=== PATIENT | female | born 1965 | race Caucasian/White ===

== ENCOUNTER → 2016-07-06 | Outpatient (CLI) | payer OTHER ==
[~2016-07-06] MED LIST: ACET-1256 PO; ACYC-251 PO; ADVIN50/60 INH; ALBINS INH; ALBUAER2 INH; ATV/1 PO; ATV1 PO; BENZ1CAP90 PO; BND25 PO; CLAR500T3 PO; CRFL; CZR50 PO; DIPH25CA PO; DIPH25CA37 PO; DIPH25CA65 PO; DXM/4 PO; EPP3/2 IM; FLUC100T4 PO; FLUC10SU PO; FLUC150T54 PO; FOLIC ACID PO; FURO-85 PO; HYDR-4079 PO; HYDR-5688 PO; HYDR2TAB48 PO; IBUP-1050 PO; INSDGIPEN SC; INSU-698 SC; IPRASOL4 INH; KETO0.0216 OP; KFL500 PO; LCTX PO; LEVO125T4 PO; LEVO137T3 PO; LEVO1TAB35 PO; LOSA50TA6 PO; LSX40 PO; MAGIC1 PO; METH4PAK PO; MONT1TAB3 PO; NVLGIPEN SQ; ONDA-63 PO; OXGN; PRD20 PO; PROM25TA16 PO; RABE20TA5 PO; SERT1TAB71 PO; SUCR1TAB PO; SYN150 PO; VNTHFA/IN INH; ZOLP10TA6 PO; [UNRECOGNIZED DRUG - CODE] OPB; [UNRECOGNIZED DRUG - OTHER] OPB
--- NOTE | 2016-07-06 15:24 | DIAGNOSTIC IMAGING REPORT ---
CT ABD/PELVIS IV AND ORAL CONT CLINICAL HISTORY: LUNG CA COMPARISON STUDY: 04/05/2016 TECHNIQUE: Following the IV administration of 116 mL of Optiray-320, CT scan of the abdomen and pelvis was performed from the lung bases to the proximal femurs. Images are reviewed in the axial, sagittal, and coronal planes. IV contrast was administered without complication. CT DOSE: 2382.72 mGy.cm FINDINGS: Lower chest: There is a small left pleural effusion. There is left lower lobe atelectasis/consolidation. There is suspected mild mediastinal adenopathy. Liver: There is hepatic steatosis. No focal masses are visualized. Gallbladder: Surgically absent Spleen: The spleen is enlarged measuring 20 cm. Pancreas: Unremarkable. Adrenal glands: Unremarkable. Kidneys: There is symmetric renal cortical enhancement. The kidneys are normal in size without hydronephrosis. Bowel: There are no transition zones indicate bowel obstruction. There is no acute diverticulitis. There is no evidence of acute appendicitis. Peritoneum: There is no intraperitoneal free air or abdominal ascites. There is a small fat-containing supraumbilical hernia Vasculature: The abdominal aorta is normal in course and caliber. Adenopathy: Aortocaval lymph nodes are the upper limits of normal in size. Mildly prominent iliac and inguinal lymph nodes, remain unchanged. Pelvic viscera: There is a persistent right ovarian cyst probably measuring 33 mm. A small left ovarian follicle is visualized. Skeletal structures: No destructive osseous lesions are seen. IMPRESSION: 1. Hepatic steatosis 2. Hepatosplenomegaly. The spleen measuring 20 cm. 3. Surgically absent gallbladder 4. No evidence of bowel obstruction. No evidence of free air 5. Small fat-containing supraumbilical hernia 6. Elevation left hemidiaphragm 7. Small left pleural effusion with left lower lobe atelectasis/consolidation 8. Mildly prominent aortocaval iliac and inguinal lymph nodes, unchanged the prior study 9. 33 mm right ovarian cyst Electronically signed by: Raul Ortiz M.D. 07/06/2016 3:22 PM Dictated Date/Time: 07/06/2016 3:15 PM
--- NOTE | 2016-07-06 15:36 | DIAGNOSTIC IMAGING REPORT ---
ADDENDUM Addendum: The right subcarinal lymph node compared to the 08/29/2015 PET/CT remains stable. This did not demonstrate abnormal FDG uptake at that time. Therefore, this is considered indeterminate and could be reactive. Electronically signed by: Garcia Rios M.D. 07/26/2016 3:14 PM Dictated Date/Time: 07/26/2016 3:11 PM ORIGINAL REPORT CHEST CT WITH CONTRAST CT DOSE: HISTORY: Lung cancer. TECHNIQUE: Multiaxial CT images of the chest were performed following the intravenous administration of contrast. COMPARISON: Chest CT 04/02/2016. FINDINGS: No pneumothorax. Trace left pleural effusion. Patient is status post right wedge resection of the left upper lobe anterior/apical nodule. There is been interval development of left hilar lymphadenopathy. Dominant left hilar lymph node measures 12 mm in short axis diameter. The mediastinal lymph nodes have also slightly increased in size. A prevascular lymph node measures 1 cm, previously measuring 7 mm. Dominant right peritracheal lymph node measures 1.6 cm, previously measuring 1.2 cm. Right subcarinal lymph node measures 11 mm, previously measuring 8 mm. The main pulmonary arteries are patent. Normal caliber thoracic aorta. Stable axillary lymph nodes. Linear soft tissue density within the left lateral chest wall likely represents postoperative change. No suspicious lytic or blastic osseous lesions. Mild emphysema. A 6 mm right upper lobe anterior subpleural nodular density. This is new from the prior study. Right basilar linear densities favor subsegmental atelectasis. Patchy densities at the base of the left lung. Stable 6 mm nodule within the left lower lobe on image 144. A 9 mm nodular density at the left major fissure on image 103 may represent trace pleural fluid. Stable 5 mm groundglass nodule within the left upper lobe on image 101. IMPRESSION: 1. Interval wedge resection of the left upper lobe nodule. 2. There is now mild mediastinal and left hilar lymphadenopathy which is new from the prior study. This could be reactive to the postoperative change or represent developing metastatic disease. Short-term chest CT follow up is recommended for further evaluation. 3. Trace left pleural effusion. Patchy densities at the base of the left lower lobe may represent atelectasis or pneumonia. 4. A new 6 mm nodular density within the right upper lobe anteriorly likely represents a small amount of infectious/inflammatory change. A 9 mm nodular density at the left major fissure favors a small amount of residual pleural fluid. These bear watching on future examinations to ensure resolution. 5. Stable subcentimeter nodules within the left lung as described above. Electronically signed by: Garcia Rios M.D. 07/06/2016 3:34 PM Dictated Date/Time: 07/06/2016 3:15 PM
== END | disposition home or self-care (01) ==
LOC: C.CTS 14:40
PROVIDERS: ATTEND Internal Medicine Hematology & Oncology
DX: C34.12 Malignant neoplasm of upper lobe, left bronchus or lung (principal)

== ENCOUNTER → 2016-07-18 | Outpatient (CLI) | payer OTHER ==
[2016-07-18 17:26] LABS: HEMATOCRIT 40.1 % (37-47); IG% 0.3 %; LYMPH % 17.7 %; LYMPH ABS # 1.04 K/uL (1.2-3.4); MEAN PLATELET VOLUME 10.3 fL (7.4-10.4); MONO % 5.4 %; NEUT % 76.6 %; PLATELET COUNT 153 K/uL (130-400); RED BLOOD COUNT 5.21 M/uL (4.2-5.4); WHITE BLOOD COUNT 5.89 K/uL (4.8-10.8)
[2016-07-18 17:43] LABS: COMPLETE YES; MEAN CORPUSCULAR HGB CONC 31.2 g/dl (32-36)
[2016-07-18 18:16] LABS: BLOOD UREA NITROGEN 23 mg/dl (7-18); BUN/CREATININE RATIO 18.8 (10-20); CARBON DIOXIDE 31 mmol/L (21-32); CHLORIDE 99 mmol/L (98-107); GLUCOSE 166 mg/dl (70-99); POTASSIUM 3.2 mmol/L (3.5-5.1); SODIUM 140 mmol/L (136-145)
== END | disposition home or self-care (01) ==
LOC: C.LAB 16:41
PROVIDERS: ATTEND Internal Medicine Hematology & Oncology
DX: C34.92 Malignant neoplasm of unspecified part of left bronchus or lung (principal); R19.5 Other fecal abnormalities

== ENCOUNTER 2016-07-20 11:59 | Emergency (ER) | payer OTHER ==
[~2016-07-20] VITALS: Ht 166.4 cm; Wt 115.9 kg
[~2016-07-20 11:59] MED LIST changes: -ACET-1256 PO; -ACYC-251 PO; -ADVIN50/60 INH; -ATV/1 PO; -ATV1 PO; -BENZ1CAP90 PO; -BND25 PO; -CRFL; -CZR50 PO; -DIPH25CA PO; -DIPH25CA65 PO; -DXM/4 PO; -EPP3/2 IM; -FLUC100T4 PO; -FLUC10SU PO; -FLUC150T54 PO; -FOLIC ACID PO; -HYDR-4079 PO; -HYDR-5688 PO; -HYDR2TAB48 PO; -IBUP-1050 PO; -INSDGIPEN SC; -INSU-698 SC; -KETO0.0216 OP; -KFL500 PO; -LCTX PO; -LEVO125T4 PO; -LEVO137T3 PO; -LEVO1TAB35 PO; -LSX40 PO; -MAGIC1 PO; -METH4PAK PO; -MONT1TAB3 PO; -NVLGIPEN SQ; -ONDA-63 PO; -OXGN; -PRD20 PO; -PROM25TA16 PO; -RABE20TA5 PO; -SERT1TAB71 PO; -SUCR1TAB PO; -SYN150 PO; -VNTHFA/IN INH; -ZOLP10TA6 PO; -[UNRECOGNIZED DRUG - CODE] OPB; -[UNRECOGNIZED DRUG - OTHER] OPB
[2016-07-20 12:08] VITALS: TEMP 36.9; Ht 166.4 cm; Wt 115.9 kg
[2016-07-20 12:32] VITALS: O2SAT 96
[2016-07-20] MEDS ORDERED: ONDA-63 PO (12:48)
[2016-07-20] MEDS ORDERED: PROM25TA16 PO (12:48)
[2016-07-20] MEDS ORDERED: SODIUM CHLORIDE 0.9% 1000ML 1,000 ML IV STA (13:03)
[2016-07-20] MEDS ORDERED: SODIUM CHLORIDE 0.9% 250ML 250 ML IV STA (13:03)
--- NOTE | 2016-07-20 13:12 | EMERGENCY ROOM VISIT NOTE ---
History Report prepared by Hosea: Maggie Culp Under the Supervision of: Dr. Christine Deluca M.D. First contact with patient: 12:42 Chief Complaint: NEURO SYMPTOMS Stated Complaint: ALLERGIC REACTION TO CHEMO - SENT BY DR Duval Triage Summary: PT HAS A HISTORY OF STAGE III LUNG CANCER AND IS CURRENTLY RECEIVING CHEMOTHERAPY AND RADIATION PT SENT TODAY BY ONCOLOGIST DR PATIÑO FOR 2-3 DAYS OF STROKE LIKE SYMPTOMS PT DESCRIBES LEFT SIDED FACIAL NUMBNESS, PAINFUL, AND TINGLING BUT DENIES SYMPTOMS CURRENTLY PT ALSO STATES THAT LEFT LEG FEELS WEAKER PLEASE REFER TO [facility] History of Present Illness The patient is a 50 year old female who presents to the Emergency Room with complaints of a resolved episode of left sided facial, neck and shoulder numbness a few days ago. The patient is currently undergoing treatment for lung cancer. She has had surgery, multiple doses of radiation, and one dose of chemotherapy. Since she had chemotherapy, she had been having bad reactions. The patient has noticed a rash on her abdomen and has had flaking in her mouth, "it feels like a snake shedding it's skin." A few days ago, she was feeling tired so she laid down to rest. About an hour later when she got up, she noticed the numbness to the left side of her face, neck, and arm. These symptoms lasted a few hours before resolving. This morning, the patient had an appointment and blood work in Dr. Patiño's office. After telling the PA at Dr. Patiño's office about her symptoms since receiving chemo, she was referred to the ER. Currently, she does note that the left side of her face feels slightly "weird," but it is not numb. The patient notes that she has been using Benadryl and Magic Swizzle. Source of History: patient Onset: a few days ago Position: other (left side of face/neck, left arm) Quality: numbness Timing: resolved Associated Symptoms: + rash Note: Other symptoms: flaking in mouth, left side of face feels "weird" Review of Systems See HPI for pertinent positives & negatives. A total of 10 systems reviewed and were otherwise negative. Past Medical & Surgical Medical Problems: (1) Anxiety (2) Asthma (3) Benign hypertension (4) Bronchitis (5) Chronic back pain (6) COPD (7) Depression (8) Emphysema (9) Lung cancer (10) Orthopedic surgery (11) Pneumonia (12) Pulmonary emphysema Surgical Problems: (1) H/O section (2) History of appendectomy (3) History of cholecystectomy Family History Abdominal pain FHx: cancer FHx: diabetes FHx: gallbladder disease FHx: heart disease FHx: hypertension FHx: lung disease Social History Smoking Status: Former Smoker Alcohol Use: none Drug Use: marijuana Marital Status: Housing Status: lives alone Occupation Status: disabled Current/Historical Medications Scheduled Diphenhy/Alum/Mag/Sucralfa (Magic Swizzle - Diphenhy/Alum/Mag/Sucralfa), 1 TSP PO Q4H Diphenhydramine Hcl (Benadryl), 50 MG PO HS Fluconazole (Diflucan), 1 ML PO BID Fluticasone Prop/Salmeterol (Advair Diskus 500/50 60 Dose), 1 PUFF INH BID Ibuprofen (Advil), 600 MG PO Q4-6hprn Levothyroxine Sodium (Levothyroxine Sodium), 125 MCG PO QAM Montelukast Sodium (Singulair), 10 MG PO HS Sertraline Hcl (Zoloft), 50 MG PO HS Scheduled PRN Albuterol (Ventolin), 2 PUFFS INH QID PRN for SOB/Wheezing Epinephrine (Epipen 2-Saad), 0.3 MG IM UD PRN for ALLERGIC REACTION Furosemide (Lasix), 20 MG PO UD PRN for PRN Ipratropium-Albuterol (Duoneb), 1 TREATMENT INH Q4H PRN for SOB/Wheezing Lorazepam (Ativan), 1 MG PO TID PRN for Anxiety Ondansetron (Ondansetron HCl), 8 MG PO TID PRN for Nausea Promethazine HCl (Promethazine HCl), 12.5 MG PO Q6 PRN for Nausea Miscellaneous Medications Propylene Glycol-Glycerin (Moisture Eyes) Allergies Coded Allergies: BEE STING (Verified Allergy, Severe, ANAPHYLAXIS, 07/20/16) Fentanyl (Verified Allergy, Severe, EYES SWELLED SHUT, 07/20/16) Milk Protein Extract (Unverified Allergy, Severe, blurred vision rash face hallucinations, 07/20/16) Adhesives (Verified Allergy, Unknown, blisters, 07/20/16) [place] (Unverified Allergy, Unknown, MOUTH ITCHES, SKIN PEELS, 07/20/16) Honey (Verified Allergy, Unknown, anaphylaxis, 07/20/16) pt Latex1 -Allergic Contact Dermititis (Verified Allergy, Unknown, LOCAL RXN- BLISTERING, 07/20/16) Metformin (Unverified Allergy, Unknown, PER RECORDS , 07/20/16) [place] (Verified Allergy, Unknown, SKIN PEELS, 07/20/16) [place] (Verified Allergy, Unknown, MUST BE PEELED, 07/20/16) Penicillins (Verified Allergy, Unknown, 07/20/16) Tiotropium (Verified Allergy, Unknown, UNKNOWN REACTION, 07/20/16) Buspirone (Verified Adverse Reaction, Mild, ALLERGIC TO GENERIC DRUG- TAKES BRAND AT HOME, 07/20/16) CI Pigment Blue 63 (Verified Adverse Reaction, Unknown, lethargy, hallucinations, 07/20/16) pt Duloxetine (Verified Adverse Reaction, Unknown, lethargy,hallucinations, ) pt Physical Exam Vital Signs Date Time Temp Pulse Resp B/P Pulse Ox O2 Delivery O2 Flow Rate FiO2 07/20/16 15:24 100 18 155/86 80 Room Air 07/20/16 13:57 90 20 118/89 96 Nasal Cannula 2.0 07/20/16 12:45 91 20 114/79 96 Nasal Cannula 2.0 07/20/16 12:32 96 Nasal Cannula 2.0 07/20/16 12:27 87 Room Air 07/20/16 12:25 97 07/20/16 12:08 36.9 89 24 141/111 90 Room Air Pain Rating (0-10): 8.0 Physical Exam Vital signs reviewed. General: Chronically ill-appearing 50 year old female, on nasal canula oxygen, in no significant distress. HEENT: No scleral icterus, PERRLA, neck supple. Atraumatic. Cardiovascular: Regular rate and rhythm, no extra sounds. Pulmonary: Coarse breath sounds to auscultation bilaterally, normal work of breathing. Abdomen: Obese, oft, nontender, nondistended, positive bowel sounds. Musculoskeletal: Atraumatic, no peripheral edema. Neurologic: Patient awake alert and oriented x 3, full strength in all 4 extremities. Cranial nerves 2 through 12 grossly intact. Skin: Warm, dry, no rash Medical Decision & Procedures ER Provider Diagnostic Interpretation: X-ray results as stated below per my interpretation and radiologist interpretation. Other radiology results as stated below per my review and radiologist interpretation: HEAD CT NONCONTRAST CT DOSE: 537.48 mGy.cm HISTORY: Stroke symptoms. Lung cancer. TECHNIQUE: Multiaxial CT images of the head were performed without the use of intravenous contrast. Automated exposure control was utilized for this study. Comparison: Head CT 01/20/2016. Findings: The paranasal sinuses and mastoid air cells are clear. The calvarium and skull base are intact. The ventricles and sulci are within normal limits. There is no mass, hematoma, midline shift, or acute infarct. A few small scattered white matter hypodensities within the periventricular location persists. The stability favors microvascular ischemic change. Impression: No significant change compared to the prior study. No acute intracranial abnormality. Electronically signed by: Garcia Rios M.D. 07/20/2016 1:52 PM Dictated Date/Time: 07/20/2016 1:47 PM CHEST ONE VIEW PORTABLE CLINICAL HISTORY: Cough. Cerebrovascular accident symptoms. Lung cancer. COMPARISON STUDY: Chest CT July 06, 2016. FINDINGS: Postsurgical findings within the left lung are noted with expected volume loss. There is no pneumothorax or pleural effusion. Mild left lower lung opacity favors atelectasis. Postsurgical findings within the left upper lobe are noted. Cardiomediastinal silhouette is stable. There is no evidence of pulmonary edema. IMPRESSION: 1. Stable postoperative findings within the left lung with suspected left basilar atelectasis. 2. No change in appearance of the chest. Electronically signed by: Siddharth Martinez M.D. 07/20/2016 2:39 PM Dictated Date/Time: 07/20/2016 2:37 PM Laboratory Results 07/20/16 13:24 Red Blood Count 4.87, Mean Corpuscular Volume 77.4, Mean Corpuscular Hemoglobin 24.0, Mean Corpuscular Hemoglobin Concent 31.0, Mean Platelet Volume 10.0, Neutrophils (%) (Auto) 62.4, Lymphocytes (%) (Auto) 26.4, Monocytes (%) (Auto) 10.9, Eosinophils (%) (Auto) 0.0, Basophils (%) (Auto) 0.0, Neutrophils # (Auto ) 2.30, Lymphocytes # (Auto) 0.97, Monocytes # (Auto) 0.40, Eosinophils # (Auto ) 0.00, Basophils # (Auto) 0.00 07/20/16 13:24 Test 07/20/16 13:24 White Blood Count 3.68 K/uL (4.8-10.8) Red Blood Count 4.87 M/uL (4.2-5.4) Hemoglobin 11.7 g/dL (12.0-16.0) Hematocrit 37.7 % (37-47) Mean Corpuscular Volume 77.4 fL (80-100) Mean Corpuscular Hemoglobin 24.0 pg (25-34) Mean Corpuscular Hemoglobin Concent 31.0 g/dl (32-36) Platelet Count 124 K/uL (130-400) Mean Platelet Volume 10.0 fL (7.4-10.4) Neutrophils (%) (Auto) 62.4 % Lymphocytes (%) (Auto) 26.4 % Monocytes (%) (Auto) 10.9 % Eosinophils (%) (Auto) 0.0 % Basophils (%) (Auto) 0.0 % Neutrophils # (Auto) 2.30 K/uL (1.4-6.5) Lymphocytes # (Auto) 0.97 K/uL (1.2-3.4) Monocytes # (Auto) 0.40 K/uL (0.11-0.59) Eosinophils # (Auto) 0.00 K/uL (0-0.5) Basophils # (Auto) 0.00 K/uL (0-0.2) RDW Standard Deviation 49.7 fL (36.4-46.3) RDW Coefficient of Variation 17.5 % (11.5-14.5) Immature Granulocyte % (Auto) 0.3 % Immature Granulocyte # (Auto) 0.01 K/uL (0.00-0.02) Prothrombin Time 11.2 SECONDS (9.0-12.0) Prothromb Time International Ratio 1.0 (0.9-1.1) Activated Partial Thromboplast Time 25.2 SECONDS (21.0-31.0) Partial Thromboplastin Ratio 1.0 Anion Gap 11.0 mmol/L (3-11) Est Creatinine Clear Calc Drug Dose 90.1 ml/min Estimated GFR () 79.1 Estimated GFR (Non- 68.2 BUN/Creatinine Ratio 11.7 (10-20) Calcium Level 9.3 mg/dl (8.5-10.1) Magnesium Level 1.8 mg/dl (1.8-2.4) Total Bilirubin 0.4 mg/dl (0.2-1) Direct Bilirubin 0.1 mg/dl (0-0.2) Aspartate Amino Transf (AST/SGOT) 31 U/L (15-37) Alanine Aminotransferase (ALT/SGPT) 36 U/L (12-78) Alkaline Phosphatase 127 U/L (45-117) Total Protein 7.2 gm/dl (6.4-8.2) Albumin 3.7 gm/dl (3.4-5.0) Laboratory results per my review. Medications Administered Medications (Trade) Dose Ordered Sig/Pravin Route Start Time Stop Time Status Last Admin Dose Admin Sodium Chloride 250 ml @ 999 mls/hr Q16M STAT IV 07/20/16 13:03 07/20/16 13:18 DC 07/20/16 13:21 999 MLS/HR Sodium Chloride (Nss 1000ml) 1,000 ml @ 125 mls/hr Q8H STAT IV 07/20/16 13:03 07/20/16 16:18 DC 07/20/16 13:21 125 MLS/HR ECG Indication: other (numbness) Rate (beats per minute): 80 Rhythm: normal sinus Findings: no acute ischemic change, prolonged QT, other (LVH, QTc 493) ED Course 1300: Past medical records reviewed. The patient was evaluated in room B11. A complete history and physical examination was performed. 1303: Ordered NSS 1000 ml @ 125 mls/hr IV, NSS 250 ml @ 999 mls/hr IV. 1445: Upon reevaluation, the patient was resting comfortably. I discussed findings with the patient. She verbalized agreement of the treatment plan. The patient was discharged home. Medical Decision Differential diagnosis: Etiologies such as metabolic, infection, hypo/hyperglycemia, electrolyte abnormalities, cardiac sources, intracerebral event, toxicologic, neurologic, as well as others were entertained. This patient was evaluated and appeared to be in no significant distress. IV access was obtained and laboratory work was drawn. The patient was placed on the secured entrance monitor and found to be in a normal sinus rhythm. She was hydrated with normal saline solution. Patient was on nasal cannula oxygen in no distress. Patient's neurologic exam is intact at this time. She does periodically become hypoxic on room air however does have oxygen at home. CT scan of the head was performed and is negative for acute intracranial abnormality. Chest x-ray reveals evidence of atelectasis however there is no area of infiltrate. The patient was reassured regarding the findings. She may have suffered a TIA. She will follow-up with her primary care physician this week for reevaluation and further testing. She will return to the ER for worsening of symptoms or any medical concerns. Impression Primary Impression: TIA (transient ischemic attack) Additional Impression: Lung cancer Scribe Attestation The scribe's documentation has been prepared under my direction and personally reviewed by me in its entirety. I confirm that the note above accurately reflects all work, treatment, procedures, and medical decision making performed by me. Departure Information Dispostion Home / Self-Care Referrals No Doctor, Assigned (PCP) Gabriella Ashraf, C.R.N.P. Patient Instructions My [facility] Additional Instructions Diagnosis: TIA Please follow-up with your primary care provider for further evaluation including ultrasound of the neck and MRI if needed. Return to the emergency department for worsening of symptoms or any medical concerns. Problem Qualifiers Primary Impression: TIA (transient ischemic attack) Transient cerebral ischemia type: unspecified Qualified Codes: G45.9 - Transient cerebral ischemic attack, unspecified Additional Impression: Lung cancer Laterality: unspecified laterality Lung location: unspecified part of lung Qualified Codes: C34.90 - Malignant neoplasm of unspecified part of unspecified bronchus or lung
[2016-07-20 13:31] LABS: COMPLETE YES; HEMATOCRIT 37.7 % (37-47); IG% 0.3 %; LYMPH % 26.4 %; LYMPH ABS # 0.97 K/uL (1.2-3.4); MEAN CELL VOLUME 77.4 fL (80-100); MONO % 10.9 %; NEUT % 62.4 %; PLATELET COUNT 124 K/uL (130-400); RED BLOOD COUNT 4.87 M/uL (4.2-5.4); WHITE BLOOD COUNT 3.68 K/uL (4.8-10.8)
[2016-07-20 13:53] LABS: BUN/CREATININE RATIO 11.7 (10-20); CALCIUM 9.3 mg/dl (8.5-10.1); CREATININE 0.98 mg/dl (0.60-1.20); MAGNESIUM 1.8 mg/dl (1.8-2.4); POTASSIUM 3.4 mmol/L (3.5-5.1)
--- NOTE | 2016-07-20 13:54 | DIAGNOSTIC IMAGING REPORT ---
HEAD CT NONCONTRAST CT DOSE: 537.48 mGy.cm HISTORY: Stroke symptoms. Lung cancer. TECHNIQUE: Multiaxial CT images of the head were performed without the use of intravenous contrast. Automated exposure control was utilized for this study. Comparison: Head CT 01/20/2016. Findings: The paranasal sinuses and mastoid air cells are clear. The calvarium and skull base are intact. The ventricles and sulci are within normal limits. There is no mass, hematoma, midline shift, or acute infarct. A few small scattered white matter hypodensities within the periventricular location persists. The stability favors microvascular ischemic change. Impression: No significant change compared to the prior study. No acute intracranial abnormality. Electronically signed by: Garcia Rios M.D. 07/20/2016 1:52 PM Dictated Date/Time: 07/20/2016 1:47 PM
[2016-07-20 14:19] LABS: PROTHROMBIN TIME (PATIENT) 11.2 SECONDS (9.0-12.0)
--- NOTE | 2016-07-20 14:41 | DIAGNOSTIC IMAGING REPORT ---
CHEST ONE VIEW PORTABLE CLINICAL HISTORY: Cough. Cerebrovascular accident symptoms. Lung cancer. COMPARISON STUDY: Chest CT July 06, 2016. FINDINGS: Postsurgical findings within the left lung are noted with expected volume loss. There is no pneumothorax or pleural effusion. Mild left lower lung opacity favors atelectasis. Postsurgical findings within the left upper lobe are noted. Cardiomediastinal silhouette is stable. There is no evidence of pulmonary edema. IMPRESSION: 1. Stable postoperative findings within the left lung with suspected left basilar atelectasis. 2. No change in appearance of the chest. Electronically signed by: Siddharth Martinez M.D. 07/20/2016 2:39 PM Dictated Date/Time: 07/20/2016 2:37 PM
[2016-07-20 15:24] VITALS: BP 155/86; PULSE 100; O2SAT 80
[2016-07-23] MEDS ORDERED: [UNRECOGNIZED DRUG - CODE] OPB (14:12)
[2016-07-23] MEDS ORDERED: MAGIC1 PO (14:15)
[2016-07-23] MEDS ORDERED: FLUC10SU PO (14:17)
[2016-08-06] MEDS ORDERED: IBUP-1050 PO (10:25)
[2016-08-14] MEDS ORDERED: KETO0.0216 OP (17:06)
[2016-10-26] MEDS ORDERED: ACET-1256 PO (01:14)
[2016-10-26] MEDS ORDERED: LEVO125T4 PO (10:12)
[2016-10-26] MEDS ORDERED: RABE20TA5 PO (17:14)
[2016-10-26] MEDS ORDERED: ATV/1 PO (17:47)
[2016-10-26] MEDS ORDERED: MONT1TAB3 PO (17:47)
[2016-10-26] MEDS ORDERED: ADVIN50/60 INH (17:47)
[2016-10-26] MEDS ORDERED: EPP3/2 IM (17:47)
[2016-11-01] MEDS ORDERED: DXM/4 PO (11:25)
[2016-12-08] MEDS ORDERED: KFL500 PO (15:02)
[2016-12-08] MEDS ORDERED: INSDGIPEN SC (15:02)
[2016-12-08] MEDS ORDERED: HYDR-4079 PO (15:02)
[2016-12-08] MEDS ORDERED: FLUC150T54 PO (15:02)
[2016-12-08] MEDS ORDERED: LEVO137T3 PO (15:02)
[2016-12-08] MEDS ORDERED: RABE20TA5 PO (15:02)
[2016-12-08] MEDS ORDERED: INSU-698 SC (15:02)
[2016-12-08] MEDS ORDERED: LCTX PO (15:02)
[2016-12-08] MEDS ORDERED: SUCR1TAB PO (15:02)
[2017-02-16] MEDS ORDERED: INSDGIPEN SC (08:38)
[2017-02-16] MEDS ORDERED: PRD20 PO (08:38)
[2017-02-16] MEDS ORDERED: LEVO1TAB35 PO ×2 (08:38→08:54)
[2017-02-16] MEDS ORDERED: OXGN (08:38)
[2017-02-16] MEDS ORDERED: FLUC100T4 PO (08:54)
== END 2016-07-20 15:49 | disposition home or self-care (01) ==
LOC: C.EDB 12:01
DX: G45.9 Transient cerebral ischemic attack, unspecified (principal); C34.90 Malignant neoplasm of unspecified part of unspecified bronchus or lung; J45.909 Unspecified asthma, uncomplicated; F41.9 Anxiety disorder, unspecified; I10 Essential (primary) hypertension; J44.9 Chronic obstructive pulmonary disease, unspecified; F32.9 Major depressive disorder, single episode, unspecified; Z87.891 Personal history of nicotine dependence; Z80.9 Family history of malignant neoplasm, unspecified; Z82.49 Family history of ischemic heart disease and other diseases of the circulatory system; Z83.6 Family history of other diseases of the respiratory system; Z79.899 Other long term (current) drug therapy

== ENCOUNTER 2016-07-26 22:59 | Emergency (ER) | payer OTHER ==
[~2016-07-26] VITALS: Ht 166.4 cm; Wt 118.1 kg
[~2016-07-26 22:59] MED LIST changes: -CLAR500T3 PO; +FLUC10SU PO; -LOSA50TA6 PO; +MAGIC1 PO; +ONDA-63 PO; +PROM25TA16 PO; +[UNRECOGNIZED DRUG - CODE] OPB
[2016-07-26 23:05] VITALS: TEMP 36.5; Ht 166.4 cm; Wt 118.1 kg
[2016-07-26] MEDS ORDERED: ACYCLOVIR SOD INJ 750 MG in DEXTROSE 5% 250ML 250 ML IV ONE (23:45)
[2016-07-26] MEDS ORDERED: ACYCLOVIR SOD IV STA (23:45)
[2016-07-26] MEDS ORDERED: SODIUM CHLORIDE 0.9% 1000ML 1,000 ML IV ONE (23:45)
[2016-07-26] MEDS ORDERED: DEXTROSE 5% IV STA (23:45)
[2016-07-26] MEDS ORDERED: ACYCLOVIR SOD INJ 600 MG in DEXTROSE 5% 100ML 100 ML IV STA (23:47)
[2016-07-27 00:17] LABS: COMPLETE YES; HEMATOCRIT 32.4 % (37-47); LYMPH ABS # 0.55 K/uL (1.2-3.4); MEAN CELL VOLUME 79.4 fL (80-100); MEAN CORPUSCULAR HEMOGLOBIN 24.8 pg (25-34); MEAN CORPUSCULAR HGB CONC 31.2 g/dl (32-36); MEAN PLATELET VOLUME 9.4 fL (7.4-10.4); MONO % 8.7 %; NEUT % 72.3 %; PLATELET COUNT 145 K/uL (130-400); RED BLOOD COUNT 4.08 M/uL (4.2-5.4); WHITE BLOOD COUNT 2.89 K/uL (4.8-10.8)
[2016-07-27 00:38] LABS: BUN/CREATININE RATIO 14.1 (10-20); CALCIUM 9.3 mg/dl (8.5-10.1); CREATININE 0.83 mg/dl (0.60-1.20); POTASSIUM 3.5 mmol/L (3.5-5.1)
[2016-07-27] MEDS ORDERED: BENZ1CAP90 PO (01:02)
[2016-07-27] MEDS ORDERED: ACYC-251 PO (01:04)
[2016-07-27] MEDS ORDERED: FOLIC ACID PO (01:07)
[2016-07-27] MEDS ORDERED: DIPH25CA PO (01:10)
[2016-07-27] MEDS ORDERED: BACITRACIN OP OINT 3.5 GM TUBE OP ONE (01:45)
[2016-07-27 02:01] VITALS: BP 142/77; PULSE 88; O2SAT 95
--- NOTE | 2016-07-28 01:32 | EMERGENCY ROOM VISIT NOTE ---
History First contact with patient: 23:15 Chief Complaint: RASH Stated Complaint: SHINGLES History of Present Illness The patient is a 50 year old female who presents to the Emergency Room with complaints of rash on her face for the past few days. The patient went to her primary care physician and states that she was diagnosed with shingles 2 days ago. The patient now has worsening pain of her left eyelid. She does not have vision changes or hearing changes. The patient is currently undergoing radiation for breast cancer. She had chemotherapy about 10 days ago. The patient is taking acyclovir, but has not had relief of symptoms. She has an appointment in about 9 hours with an diversified crops supervisor. Review of Systems More than 10 systems were reviewed and otherwise negative with the exception of history of present illness. Past Medical/Surgical History Medical Problems: (1) Anxiety (2) Asthma (3) Benign hypertension (4) Bronchitis (5) Chronic back pain (6) COPD (7) Depression (8) Emphysema (9) Lung cancer (10) Orthopedic surgery (11) Pneumonia (12) Pulmonary emphysema Surgical Problems: (1) H/O section (2) History of appendectomy (3) History of cholecystectomy Family History Abdominal pain FHx: cancer FHx: diabetes FHx: gallbladder disease FHx: heart disease FHx: hypertension FHx: lung disease Social History Smoking Status: Former Smoker Alcohol Use: none Drug Use: marijuana Marital Status: Housing Status: lives alone Occupation Status: disabled Current/Historical Medications Scheduled Acyclovir (Zovirax), 400 MG PO TID Diphenhy/Alum/Mag/Sucralfa (Magic Swizzle - Diphenhy/Alum/Mag/Sucralfa), 1 TSP PO Q4H Diphenhydramine Hcl (Benadryl), 50 MG PO HS Fluticasone Prop/Salmeterol (Advair Diskus 500/50 60 Dose), 1 PUFF INH BID Ibuprofen (Advil), 600 MG PO Q4-6hprn Levothyroxine Sodium (Levothyroxine Sodium), 125 MCG PO QAM Montelukast Sodium (Singulair), 10 MG PO HS Sertraline Hcl (Zoloft), 50 MG PO HS [Folic Acid], 800 MCG PO DAILY Scheduled PRN Acetaminophen (Tylenol), 500 MG PO Q8 PRN for Pain Albuterol (Ventolin), 2 PUFFS INH QID PRN for SOB/Wheezing Benzonatate (Tessalon Perles), 200 MG PO TID PRN for Cough Epinephrine (Epipen 2-Saad), 0.3 MG IM UD PRN for ALLERGIC REACTION Ipratropium-Albuterol (Duoneb), 1 TREATMENT INH Q4H PRN for SOB/Wheezing Lorazepam (Ativan), 1 MG PO TID PRN for Anxiety Propylene Glycol-Glycerin (Moisture Eyes), 1 DROP OPB TID PRN for DRY EYES Allergies Coded Allergies: BEE STING (Verified Allergy, Severe, ANAPHYLAXIS, 07/20/16) Fentanyl (Verified Allergy, Severe, EYES SWELLED SHUT, 07/20/16) Milk Protein Extract (Unverified Allergy, Severe, blurred vision rash face hallucinations, 07/20/16) Adhesives (Verified Allergy, Unknown, blisters, 07/20/16) [place] (Unverified Allergy, Unknown, MOUTH ITCHES, SKIN PEELS, 07/20/16) Honey (Verified Allergy, Unknown, anaphylaxis, 07/20/16) pt Latex1 -Allergic Contact Dermititis (Verified Allergy, Unknown, LOCAL RXN- BLISTERING, 07/20/16) Metformin (Unverified Allergy, Unknown, PER RECORDS , 07/20/16) [place] (Verified Allergy, Unknown, SKIN PEELS, 07/20/16) [place] (Verified Allergy, Unknown, MUST BE PEELED, 07/20/16) Penicillins (Verified Allergy, Unknown, 07/20/16) Tiotropium (Verified Allergy, Unknown, UNKNOWN REACTION, 07/20/16) Buspirone (Verified Adverse Reaction, Mild, ALLERGIC TO GENERIC DRUG- TAKES BRAND AT HOME, 07/20/16) CI Pigment Blue 63 (Verified Adverse Reaction, Unknown, lethargy, hallucinations, 07/20/16) pt Duloxetine (Verified Adverse Reaction, Unknown, lethargy,hallucinations, ) pt Physical Exam Vital Signs Date Time Temp Pulse Resp B/P Pulse Ox O2 Delivery O2 Flow Rate FiO2 07/27/16 02:01 88 18 142/77 95 07/27/16 00:30 81 16 125/74 96 Room Air 07/26/16 23:05 36.5 85 20 186/109 97 Room Air Pain Rating (0-10): 0 Physical Exam VITALS: Vitals are noted on the nurse's note and reviewed by myself. Vital signs stable. GENERAL: Well-developed, well-nourished, white female, who is in no acute distress and resting comfortably. Patient is cooperative with the examination. HEAD: Normocephalic atraumatic. Slight rash along the chin and left-sided cheek concerning for shingles EARS: External ear normal. External auditory canals clear, tympanic membranes pearly lopez without erythema or effusion bilaterally. EYES: Pupils equal round and reactive to light and accommodation. Conjunctivae without injection, sclerae without icterus. Extraocular movements intact. The left upper eyelid is slightly edematous with small ulcerations appreciated. No foreign body appreciated on exam of the left eye. No dendritic lesions on flourescein exam NOSE: Patent, turbinates without inflammation or discharge. MOUTH: Mucous membranes moist. Tonsils are not enlarged. Pharynx without erythema, blood, or exudate. Uvula midline. Airway patent. NECK: Supple without nuchal rigidity. No lymphadenopathy. No thyromegaly. Cervical spine is nontender. HEART: Regular rate and rhythm without murmurs gallops or rubs. LUNGS: Clear to auscultation bilaterally without wheezes, rales or rhonchi. No retractions or accessory muscle use. Medical Decision & Procedures Laboratory Results 07/27/16 00:08 Red Blood Count 4.08, Mean Corpuscular Volume 79.4, Mean Corpuscular Hemoglobin 24.8, Mean Corpuscular Hemoglobin Concent 31.2, Mean Platelet Volume 9.4, Neutrophils (%) (Auto) 72.3, Lymphocytes (%) (Auto) 19.0, Monocytes (%) (Auto) 8.7, Eosinophils (%) (Auto) 0.0, Basophils (%) (Auto) 0.0, Neutrophils # (Auto) 2.09, Lymphocytes # (Auto) 0.55, Monocytes # (Auto) 0.25, Eosinophils # (Auto) 0.00, Basophils # (Auto) 0.00 07/27/16 00:08 Test 07/27/16 00:08 White Blood Count 2.89 K/uL (4.8-10.8) Red Blood Count 4.08 M/uL (4.2-5.4) Hemoglobin 10.1 g/dL (12.0-16.0) Hematocrit 32.4 % (37-47) Mean Corpuscular Volume 79.4 fL (80-100) Mean Corpuscular Hemoglobin 24.8 pg (25-34) Mean Corpuscular Hemoglobin Concent 31.2 g/dl (32-36) Platelet Count 145 K/uL (130-400) Mean Platelet Volume 9.4 fL (7.4-10.4) Neutrophils (%) (Auto) 72.3 % Lymphocytes (%) (Auto) 19.0 % Monocytes (%) (Auto) 8.7 % Eosinophils (%) (Auto) 0.0 % Basophils (%) (Auto) 0.0 % Neutrophils # (Auto) 2.09 K/uL (1.4-6.5) Lymphocytes # (Auto) 0.55 K/uL (1.2-3.4) Monocytes # (Auto) 0.25 K/uL (0.11-0.59) Eosinophils # (Auto) 0.00 K/uL (0-0.5) Basophils # (Auto) 0.00 K/uL (0-0.2) RDW Standard Deviation 51.8 fL (36.4-46.3) RDW Coefficient of Variation 18.8 % (11.5-14.5) Immature Granulocyte % (Auto) 0.0 % Immature Granulocyte # (Auto) 0.00 K/uL (0.00-0.02) Anion Gap 8.0 mmol/L (3-11) Est Creatinine Clear Calc Drug Dose 107.5 ml/min Estimated GFR () 96.6 Estimated GFR (Non- 83.4 BUN/Creatinine Ratio 14.1 (10-20) Calcium Level 9.3 mg/dl (8.5-10.1) Total Bilirubin 0.2 mg/dl (0.2-1) Aspartate Amino Transf (AST/SGOT) 24 U/L (15-37) Alanine Aminotransferase (ALT/SGPT) 22 U/L (12-78) Alkaline Phosphatase 130 U/L (45-117) Total Protein 6.6 gm/dl (6.4-8.2) Albumin 3.3 gm/dl (3.4-5.0) Globulin 3.3 gm/dl (2.5-4.0) Albumin/Globulin Ratio 1.0 (0.9-2) Medications Administered Medications (Trade) Dose Ordered Sig/Pravin Route Start Time Stop Time Status Last Admin Dose Admin Sodium Chloride 1,000 ml @ 999 mls/hr Q1H1M ONCE IV 07/26/16 23:45 07/27/16 00:45 DC 07/27/16 00:04 999 MLS/HR Acyclovir Sodium/ Dextrose (Zovirax Inj/D5 100ml) 112 ml @ 100 mls/hr NOW STAT IV 07/26/16 23:47 07/27/16 00:54 DC 07/26/16 23:47 100 MLS/HR Bacitracin (Bacitracin Oph Oint) 1 appln NOW ONCE OP 07/27/16 01:45 07/27/16 01:46 DC 07/27/16 01:45 1 APPLN ED Course Physical exam and history were performed. Nursing notes and EMR were reviewed. Patient appears to have a herpes zoster outbreak on her face. There is concern for ocular presentation. The patient is considered immune compromised because of her radiation and cancer history. IV access was established and labs were obtained. The patient was hydrated with normal saline. She was given IV acyclovir here in the department. The patient's blood work is as above and was reviewed. She does not have a significantly elevated white blood cell count. She is mildly anemic, however this is felt to be within the acceptable limits considering her comorbidities. Overall the patient appears well for discharge home. I'm not appreciating obvious globe lesion on my examination. The patient does have appropriate follow-up in a few hours, and I recommended that she keep this appointment. The patient was otherwise asked to follow with her PCP and invited back to the ER with any new, worsening, or concerning symptoms. The chart was completed utilizing [employer] Speech Voice Recognition Software. Grammatical errors, random word insertions, pronoun errors, and incomplete sentences are an occasional consequence of this system due to software limitations, ambient noise, and hardware issues. Any formal questions or concerns about the content, text, or information contained within the body of this dictation should be directly addressed to the provider for clarification. . Medical Decision Differential diagnosis: Etiologies such as contact dermatitis, viral exanthem, urticaria, allergic reaction, Aguilera-Seth syndrome, toxic epidermal necrolysis, erythema multiforme, cellulitis, scabies, HSV, varicella, zoster, eczema, staph scalded skin syndrome, fungal infection, as well as others were entertained. Impression Primary Impression: Herpes zoster with ophthalmic complication Departure Information Dispostion Home / Self-Care Condition GOOD Forms HOME CARE DOCUMENTATION FORM, IMPORTANT VISIT INFORMATION Patient Instructions My [facility] Additional Instructions You were seen and evaluated today on an emergency basis only. This is not a substitute for, or an effort to provide, complete comprehensive medical care. It is not possible to recognize and treat all injuries or illnesses in a single emergency department visit. For this reason it is recommended that you followup with your diversified crops supervisor ( eye doctor) this morning as scheduled. Keep taking her medications as prescribed. Follow with your primary care physician in the next 2-3 days for another recheck. You are welcome to return to the emergency department anytime with new, worsening, or concerning symptoms.
[2016-08-06] MEDS ORDERED: IBUP-1050 PO (10:25)
[2016-08-14] MEDS ORDERED: KETO0.0216 OP (17:06)
[2016-10-26] MEDS ORDERED: ACET-1256 PO (01:14)
[2016-10-26] MEDS ORDERED: LEVO125T4 PO (10:12)
[2016-10-26] MEDS ORDERED: RABE20TA5 PO (17:14)
[2016-10-26] MEDS ORDERED: ATV/1 PO (17:47)
[2016-10-26] MEDS ORDERED: MONT1TAB3 PO (17:47)
[2016-10-26] MEDS ORDERED: EPP3/2 IM (17:47)
[2016-10-26] MEDS ORDERED: ADVIN50/60 INH (17:47)
[2016-11-01] MEDS ORDERED: DXM/4 PO (11:25)
[2016-12-08] MEDS ORDERED: INSU-698 SC (15:02)
[2016-12-08] MEDS ORDERED: SUCR1TAB PO (15:02)
[2016-12-08] MEDS ORDERED: INSDGIPEN SC (15:02)
[2016-12-08] MEDS ORDERED: HYDR-4079 PO (15:02)
[2016-12-08] MEDS ORDERED: LCTX PO (15:02)
[2016-12-08] MEDS ORDERED: KFL500 PO (15:02)
[2016-12-08] MEDS ORDERED: FLUC150T54 PO (15:02)
[2016-12-08] MEDS ORDERED: LEVO137T3 PO (15:02)
[2016-12-08] MEDS ORDERED: RABE20TA5 PO (15:02)
[2017-02-16] MEDS ORDERED: LEVO1TAB35 PO ×2 (08:38→08:54)
[2017-02-16] MEDS ORDERED: OXGN (08:38)
[2017-02-16] MEDS ORDERED: PRD20 PO (08:38)
[2017-02-16] MEDS ORDERED: INSDGIPEN SC (08:38)
[2017-02-16] MEDS ORDERED: FLUC100T4 PO (08:54)
== END 2016-07-27 02:06 | disposition home or self-care (01) ==
LOC: C.EDB 23:01 → C.EDA 07-27 02:06
DX: B02.30 Zoster ocular disease, unspecified (principal); I10 Essential (primary) hypertension; J44.9 Chronic obstructive pulmonary disease, unspecified; J45.909 Unspecified asthma, uncomplicated; F41.9 Anxiety disorder, unspecified; F32.9 Major depressive disorder, single episode, unspecified; J43.9 Emphysema, unspecified; C50.919 Malignant neoplasm of unspecified site of unspecified female breast; Z85.118 Personal history of other malignant neoplasm of bronchus and lung; Z92.3 Personal history of irradiation; Z90.49 Acquired absence of other specified parts of digestive tract; Z98.890 Other specified postprocedural states; Z87.891 Personal history of nicotine dependence; Z79.899 Other long term (current) drug therapy; Z88.0 Allergy status to penicillin; Z88.8 Allergy status to other drugs, medicaments and biological substances; Z91.011 Allergy to milk products; Z91.018 Allergy to other foods; Z91.030 Bee allergy status; Z91.040 Latex allergy status; Z80.9 Family history of malignant neoplasm, unspecified; Z83.3 Family history of diabetes mellitus; Z83.79 Family history of other diseases of the digestive system; Z82.49 Family history of ischemic heart disease and other diseases of the circulatory system

== ENCOUNTER → 2016-08-03 | Outpatient (CLI) | payer OTHER ==
[~2016-08-03] MED LIST changes: +ACET-1256 PO; +ACYC-251 PO; +ADVIN50/60 INH; +ATV/1 PO; +ATV1 PO; +BENZ1CAP90 PO; +BND25 PO; +CRFL; +CZR50 PO; +DIPH25CA65 PO; +DXM/4 PO; +EPP3/2 IM; +FLUC100T4 PO; -FLUC10SU PO; +FLUC150T54 PO; +FOLIC ACID PO; -FURO-85 PO; +HYDR-4079 PO; +HYDR-5688 PO; +HYDR2TAB48 PO; +IBUP-1050 PO; +INSDGIPEN SC; +INSU-698 SC; +KETO0.0216 OP; +KFL500 PO; +LCTX PO; +LEVO125T4 PO; +LEVO137T3 PO; +LEVO1TAB35 PO; +LSX40 PO; +METH4PAK PO; +MONT1TAB3 PO; +NVLGIPEN SQ; -ONDA-63 PO; +OXGN; +PRD20 PO; -PROM25TA16 PO; +RABE20TA5 PO; +SERT1TAB71 PO; +SUCR1TAB PO; +SYN150 PO; +VNTHFA/IN INH; +ZOLP10TA6 PO; +[UNRECOGNIZED DRUG - OTHER] OPB
--- NOTE | 2016-08-03 16:03 | DIAGNOSTIC IMAGING REPORT ---
BILATERAL CAROTID DOPPLER STUDY HISTORY: G45.9 Transient ischemic attack, acute please schedule at the [facility] COMPARISON: None. TECHNIQUE: Real-time, grayscale, and color Doppler sonography of the carotid arteries was performed. Imaging reviewed in the transverse and longitudinal planes. All measurements were calculated based on NASCET criteria. FINDINGS: Antegrade flow is seen in the bilateral vertebral arteries. The brachial pressures are hemodynamically similar. The peak systolic velocity within the right ICA is 89 cm/s. The right systolic ratio is 1. The peak systolic velocity within the left ICA is 104 cm/s. The left systolic ratio is 1.1. IMPRESSION: No hemodynamically significant stenosis seen within the carotid arteries. Electronically signed by: Garcia Rios M.D. 08/03/2016 4:01 PM Dictated Date/Time: 08/03/2016 3:57 PM
== END | disposition home or self-care (01) ==
LOC: C.ULTRBC 14:48
PROVIDERS: ATTEND Nurse Practitioner
DX: G45.9 Transient cerebral ischemic attack, unspecified (principal)

== ENCOUNTER 2016-08-06 20:11 | Emergency (ER) | payer OTHER ==
[~2016-08-06] VITALS: Ht 165.1 cm; Wt 114.7 kg
[~2016-08-06 20:11] MED LIST changes: -ACET-1256 PO; -ADVIN50/60 INH; -ATV/1 PO; -ATV1 PO; -BND25 PO; -CRFL; -CZR50 PO; -DIPH25CA65 PO; -DXM/4 PO; -EPP3/2 IM; -FLUC100T4 PO; -FLUC150T54 PO; -HYDR-4079 PO; -HYDR-5688 PO; -HYDR2TAB48 PO; -INSDGIPEN SC; -INSU-698 SC; -KETO0.0216 OP; -KFL500 PO; -LCTX PO; -LEVO125T4 PO; -LEVO137T3 PO; -LEVO1TAB35 PO; -LSX40 PO; -METH4PAK PO; -MONT1TAB3 PO; -NVLGIPEN SQ; -OXGN; -PRD20 PO; -RABE20TA5 PO; -SERT1TAB71 PO; -SUCR1TAB PO; -SYN150 PO; -VNTHFA/IN INH; -ZOLP10TA6 PO; -[UNRECOGNIZED DRUG - OTHER] OPB
[2016-08-06 20:34] VITALS: Ht 165.1 cm; Wt 114.7 kg
[2016-08-06 21:32] VITALS: TEMP 36.5
[2016-08-06] MEDS ORDERED: ONDANSETRON 8 MG/54 ML D5W IV STA (22:08)
[2016-08-06] MEDS ORDERED: HYDROmorphone INJ 0.5 MG/0.5 ML SYR IV STA (22:08)
[2016-08-06] MEDS ORDERED: SODIUM CHLORIDE 0.9% 500ML 500 ML IV STA (22:10)
[2016-08-06] MEDS ORDERED: SODIUM CHLORIDE 0.9% 1000ML 1,000 ML IV STA (22:10)
[2016-08-06] MEDS ORDERED: BND25 PO (22:22)
[2016-08-06] MEDS ORDERED: OPTIRAY 320 IV PRN (22:30)
[2016-08-06] MEDS ORDERED: [UNRECOGNIZED DRUG - OTHER] OPB (22:43)
[2016-08-06] MEDS ORDERED: CRFL (22:43)
[2016-08-06] MEDS ORDERED: CZR50 PO (22:43)
[2016-08-06 22:48] LABS: ALT/SGPT 18 U/L (12-78); BASO % 0.2 %; BASO ABS # 0.01 K/uL (0-0.2); BLOOD UREA NITROGEN 9 mg/dl (7-18); BUN/CREATININE RATIO 10.9 (10-20); CALCIUM 8.8 mg/dl (8.5-10.1); CARBON DIOXIDE 30 mmol/L (21-32); CHLORIDE 101 mmol/L (98-107); COMPLETE YES; CREATININE 0.85 mg/dl (0.60-1.20); GLUCOSE 165 mg/dl (70-99); HEMATOCRIT 33.4 % (37-47); IG% 0.8 %; LYMPH % 14.5 %; LYMPH ABS # 0.88 K/uL (1.2-3.4); MEAN CELL VOLUME 79.9 fL (80-100); MEAN CORPUSCULAR HEMOGLOBIN 25.4 pg (25-34); MEAN CORPUSCULAR HGB CONC 31.7 g/dl (32-36); MEAN PLATELET VOLUME 9.2 fL (7.4-10.4); MONO % 9.6 %; NEUT % 74.9 %; PLATELET COUNT 146 K/uL (130-400); POTASSIUM 3.2 mmol/L (3.5-5.1); RED BLOOD COUNT 4.18 M/uL (4.2-5.4); SODIUM 142 mmol/L (136-145); WHITE BLOOD COUNT 6.05 K/uL (4.8-10.8)
[2016-08-06 22:53] LABS: ALKALINE PHOSPHATASE 132 U/L (45-117); AST/SGOT 24 U/L (15-37)
[2016-08-07] MEDS ORDERED: POTASSIUM CHLORIDE 10 MEQ TABCR PO STA (00:39)
[2016-08-07] MEDS ORDERED: HYDROmorphone INJ 0.5 MG/0.5 ML SYR IV STA (01:09)
[2016-08-07] MEDS ORDERED: NORCO 5/325MG HOME PACK PO ONE (01:15)
[2016-08-07] MEDS ORDERED: HYDR-5688 PO (01:25)
[2016-08-07 02:03] VITALS: BP 128/81; PULSE 86; O2SAT 98
--- NOTE | 2016-08-07 03:07 | EMERGENCY ROOM VISIT NOTE ---
History Report prepared by Hosea: Sudha Locke Under the Supervision of: Dr. Aly Boothe M.D. First contact with patient: 21:49 Chief Complaint: OTHER COMPLAINT Stated Complaint: BAD REACTION TO RADIATION AND CHEMO History of Present Illness The patient is a 50 year old female who presents to the Emergency Room with complaints of constant rib pain beginning 9 days ago. The patient states that she has lung cancer and had surgery 3 months ago with radiation starting soon after. She reports that they went from her chest down into her lung and that is where she is feeling the burning now. She states that she has taken Tylenol without relief of her symptoms. The patient complains of nausea, vomiting, a productive cough with phlegm like pus, difficulty urination with little output, and rib trey she has poor by mouth intake because swallowing hurts. She does have magic swizzle at home but states this only helps somewhat. Dysuria, She notes that moving her breast worsens her pain. She states that when she got chemotherapy her blood pressure was around 260. Pt denies LOC, headache, fevers , chills, diaphoresis, visual changes, neck pain, abdominal pain, back pain, melena, hematochezia, numbness, weakness, lymphadenopathy, rash, or other complaints. Source of History: patient Onset: 9 days ago Position: other (rib) Quality: burning Timing: constant Modifying Factors (Worsening): other (moving breast) Review of Systems See HPI for pertinent positives and negatives. A total of ten systems were reviewed and were otherwise negative. Past Medical & Surgical Medical Problems: (1) Anxiety (2) Asthma (3) Benign hypertension (4) Bronchitis (5) Chronic back pain (6) COPD (7) Depression (8) Emphysema (9) Lung cancer (10) Orthopedic surgery (11) Pneumonia (12) Pulmonary emphysema Surgical Problems: (1) H/O section (2) History of appendectomy (3) History of cholecystectomy Family History Abdominal pain FHx: cancer FHx: diabetes FHx: gallbladder disease FHx: heart disease FHx: hypertension FHx: lung disease Social History Smoking Status: Former Smoker Alcohol Use: none Drug Use: marijuana Marital Status: Housing Status: lives alone Occupation Status: disabled Current/Historical Medications Scheduled Diphenhydramine Hcl (Benadryl), 50 MG PO BID Fluorometholone (Fml), 1 APPLN OPB BID Fluticasone Prop/Salmeterol (Advair Diskus 500/50 60 Dose), 1 PUFF INH BID Ibuprofen (Advil), 400 MG PO Q4-6hprn Levothyroxine Sodium (Levothyroxine Sodium), 125 MCG PO QAM Montelukast Sodium (Singulair), 10 MG PO HS Sertraline Hcl (Zoloft), 50 MG PO HS Scheduled PRN Acetaminophen (Tylenol), 1,000 MG PO Q8 PRN for Pain Albuterol Hfa (Ventolin Hfa), 2 PUFFS INH QID PRN for SOB/Wheezing Diphenhy/Alum/Mag/Sucralfa (Magic Swizzle - Diphenhy/Alum/Mag/Sucralfa), 1 TSP PO Q4H PRN for SORE MOUTH Epinephrine (Epipen 2-Saad), 0.3 MG IM UD PRN for ALLERGIC REACTION Hydrocodone/Acetaminophen 5MG/325MG ([place] 5MG/325MG), 1-2 TABS PO Q6H PRN for Pain Ipratropium-Albuterol (Duoneb), 1 TREATMENT INH Q4H PRN for SOB/Wheezing Lorazepam (Ativan), 1 MG PO TID PRN for Anxiety Allergies Coded Allergies: BEE STING (Verified Allergy, Severe, ANAPHYLAXIS, 07/20/16) Fentanyl (Verified Allergy, Severe, EYES SWELLED SHUT, 07/20/16) Milk Protein Extract (Unverified Allergy, Severe, blurred vision rash face hallucinations, 07/20/16) Adhesives (Verified Allergy, Unknown, blisters, 07/20/16) [place] (Unverified Allergy, Unknown, MOUTH ITCHES, SKIN PEELS, 07/20/16) Honey (Verified Allergy, Unknown, anaphylaxis, 07/20/16) pt Latex1 -Allergic Contact Dermititis (Verified Allergy, Unknown, LOCAL RXN- BLISTERING, 07/20/16) Metformin (Unverified Allergy, Unknown, PER RECORDS , 07/20/16) [place] (Verified Allergy, Unknown, SKIN PEELS, 07/20/16) [place] (Verified Allergy, Unknown, MUST BE PEELED, 07/20/16) Penicillins (Verified Allergy, Unknown, 07/20/16) Tiotropium (Verified Allergy, Unknown, UNKNOWN REACTION, 07/20/16) Buspirone (Verified Adverse Reaction, Mild, ALLERGIC TO GENERIC DRUG- TAKES BRAND AT HOME, 07/20/16) CI Pigment Blue 63 (Verified Adverse Reaction, Unknown, lethargy, hallucinations, 07/20/16) pt Duloxetine (Verified Adverse Reaction, Unknown, lethargy,hallucinations, ) pt Uncoded Allergies: CHEMO (Adverse Reaction, Severe, ELEVATED BP, SEVERE MIGRAINE, 08/06/16) Physical Exam Vital Signs Date Time Temp Pulse Resp B/P Pulse Ox O2 Delivery O2 Flow Rate FiO2 08/07/16 02:03 86 16 128/81 98 08/06/16 22:34 72 18 134/85 96 Room Air 08/06/16 21:42 75 08/06/16 21:32 36.5 82 19 162/104 97 Nasal Cannula 2.0 08/06/16 20:34 36.8 93 20 175/108 96 Nasal Cannula 2.0 Physical Exam GENERAL: Awake, alert, well-appearing, in no distress HENT: Normocephalic, atraumatic. Oropharynx unremarkable. EYES: Normal conjunctiva. Sclera non-icteric. NECK: Supple. No nuchal rigidity. FROM. No JVD. RESPIRATORY: Clear to auscultation. CARDIAC: Regular rate, normal rhythm. Extremities warm and well perfused. Pulses equal. ABDOMEN: Soft, non-distended. LUQ tenderness. No rebound or guarding. No masses. RECTAL: Deferred. MUSCULOSKELETAL: Chest examination reveals tenderness to the chest wall. The back is symmetrical on inspection without obvious abnormality. There is no CVA tenderness to palpation. No joint edema. LOWER EXTREMITIES: Tenderness to LLE with 1+ edema. No discoloration. NEURO: Normal sensorium. No sensory or motor deficits noted. SKIN: No rash or jaundice noted. Medical Decision & Procedures ER Provider Diagnostic Interpretation: CT results as stated below per my review and radiologist interpretation CT CHEST With Contrast: Comparison 07/06/2016 Respiratory motion artifact limits evaluation No evidence of central or hilar filling defect to suggest pulmonary embolism Thoracic aorta within limits No pericardial or right pleural effusion Trace left pleural fluid mildly decreased from prior Wedge resection left upper lobe again noted there is now a 6mm subpleural nodule seen at the left apex axial 36 series 6 and requires further workup, correlation with surgical pathology of prior wedge resection. There is now a 5mm subpleural noncalcified nodule right upper lobe axial 86 series 6 Mild pulmonary emphysema Basilar partial collapse, atelectasis and/or scarring again noted Central airways are patent Mildly prominent left hilar nodes again noted CT ABDOMEN & PELVIS: Hepatosplenomegaly again noted, spleen measures 20.8cm Status post cholecystectomy No bowel dilation or free air Cystic areas bilateral ovaries are not significantly changed No free fluid Radiologist: Donaldo Jaquez M.D. Laboratory Results 08/06/16 22:13 Red Blood Count 4.18, Mean Corpuscular Volume 79.9, Mean Corpuscular Hemoglobin 25.4, Mean Corpuscular Hemoglobin Concent 31.7, Mean Platelet Volume 9.2, Neutrophils (%) (Auto) 74.9, Lymphocytes (%) (Auto) 14.5, Monocytes (%) (Auto) 9.6, Eosinophils (%) (Auto) 0.0, Basophils (%) (Auto) 0.2, Neutrophils # (Auto) 4.53, Lymphocytes # (Auto) 0.88, Monocytes # (Auto) 0.58, Eosinophils # (Auto) 0.00, Basophils # (Auto) 0.01 08/06/16 22:13 Test 08/06/16 22:13 White Blood Count 6.05 K/uL (4.8-10.8) Red Blood Count 4.18 M/uL (4.2-5.4) Hemoglobin 10.6 g/dL (12.0-16.0) Hematocrit 33.4 % (37-47) Mean Corpuscular Volume 79.9 fL (80-100) Mean Corpuscular Hemoglobin 25.4 pg (25-34) Mean Corpuscular Hemoglobin Concent 31.7 g/dl (32-36) Platelet Count 146 K/uL (130-400) Mean Platelet Volume 9.2 fL (7.4-10.4) Neutrophils (%) (Auto) 74.9 % Lymphocytes (%) (Auto) 14.5 % Monocytes (%) (Auto) 9.6 % Eosinophils (%) (Auto) 0.0 % Basophils (%) (Auto) 0.2 % Neutrophils # (Auto) 4.53 K/uL (1.4-6.5) Lymphocytes # (Auto) 0.88 K/uL (1.2-3.4) Monocytes # (Auto) 0.58 K/uL (0.11-0.59) Eosinophils # (Auto) 0.00 K/uL (0-0.5) Basophils # (Auto) 0.01 K/uL (0-0.2) RDW Standard Deviation 56.1 fL (36.4-46.3) RDW Coefficient of Variation 19.4 % (11.5-14.5) Immature Granulocyte % (Auto) 0.8 % Immature Granulocyte # (Auto) 0.05 K/uL (0.00-0.02) Anion Gap 11.0 mmol/L (3-11) Est Creatinine Clear Calc Drug Dose 102.3 ml/min Estimated GFR () 93.9 Estimated GFR (Non- 81.0 BUN/Creatinine Ratio 10.9 (10-20) Calcium Level 8.8 mg/dl (8.5-10.1) Total Bilirubin 0.3 mg/dl (0.2-1) Direct Bilirubin < 0.1 mg/dl (0-0.2) Aspartate Amino Transf (AST/SGOT) 24 U/L (15-37) Alanine Aminotransferase (ALT/SGPT) 18 U/L (12-78) Alkaline Phosphatase 132 U/L (45-117) Troponin I 0.031 ng/ml (0-0.045) Total Protein 7.0 gm/dl (6.4-8.2) Albumin 3.3 gm/dl (3.4-5.0) Lipase 75 U/L (73-393) Laboratory results reviewed by me Medications Administered Medications (Trade) Dose Ordered Sig/Pravin Route Start Time Stop Time Status Last Admin Dose Admin Ondansetron HCl (Zofran 8mg Iv) 8 mg NOW STAT IV 08/06/16 22:08 08/06/16 22:10 DC 08/06/16 22:30 8 MG Hydromorphone HCl 0.5 mg 0.5 mg NOW STAT IV 08/06/16 22:08 08/06/16 22:10 DC 08/06/16 22:31 0.5 MG Sodium Chloride 1,000 ml @ 200 mls/hr Q5H STAT IV 08/06/16 22:10 08/07/16 02:49 DC 08/06/16 22:31 200 MLS/HR Sodium Chloride (Nss 500ml) 500 ml @ 999 mls/hr Q31M STAT IV 08/06/16 22:10 08/06/16 22:40 DC 08/06/16 22:10 999 MLS/HR Potassium Chloride (Klor-Con M10) 40 meq NOW STAT PO 08/07/16 00:39 08/07/16 00:40 DC 08/07/16 01:35 40 MEQ Acetaminophen/ Hydrocodone Bitart (B[place]ro[place] 5/325mg Home Pack) 1 homepack UD ONCE PO 08/07/16 01:15 08/07/16 01:16 DC 08/07/16 01:35 1 HOMEPACK Hydromorphone HCl (Dilaudid Inj) 0.5 mg NOW STAT IV 08/07/16 01:09 08/07/16 01:10 DC 08/07/16 01:36 0.5 MG ECG Indication: chest pain Rate (beats per minute): 65 Rhythm: normal sinus Findings: no acute ischemic change, no ectopy, other (LVH) ED Course 8: Dilaudid Inj 0.5mg IV, Zofran 8mg IV. 2210: The patient was evaluated in room B8. A complete history and physical exam was performed. 2210: Sodium Chloride 500 ml @ 999 mls/hr IV, Sodium Chloride 1000 ml @ 200 mls/ hr IV. 0039: Potassium Chloride 40meq PO. 0109: Dilaudid Inj 0.5mg IV. 0114: I reevaluated the patient. 0115: Acetaminophen/Hydrocodone Bitart 1 homepack PO. 0129: I reevaluated the patient. Discussed results and discharge instructions: She verbalized understanding and agreement. The patient is ready for discharge. Medical Decision Triage Nursing notes reviewed. The patient's presentation and history were concerning for dysphagia, recent cancer surgery, chemotherapy and radiation treatment. Etiologies such as metabolic, infection, hypo/hyperglycemia, electrolyte abnormalities, cardiac sources, intracerebral event, toxicologic, neurologic, as well as others were entertained. The patient was evaluated. Blood work was obtained. The patient was hydrated and given IV Zofran and Dilaudid. On reassessment she was feeling better. She did require a second dose of Dilaudid. CBC revealed a mild anemia but no leukocytosis. Chemistry panel revealed a slight low potassium. Her cardiac markers, LFTs and lipase were negative. A urinalysis was ordered patient did not provide a specimen. The patient underwent CT imaging which was negative for emergent pathology. Nodules were noted in the chest. The patient was informed. There is no evidence of pneumonia. ECG is unremarkable. The more discussed issues with the patient the more she honed in on the fact that most of these problems started after radiation treatment. She was offered pain medication by her oncologist but declined. With pain medication treatment here she was feeling better. I believe she is having some side effects of the radiation treatment. I did offer her a GI cocktail however she declined. The patient was given a B[place]ro[place] home pack and will be prescribed this until she can get in to see her oncologist. She desired discharge. Since she is doing well at this time I believe it is reasonable. If she worsens in any way she can come back to the emergency department for reevaluation. By the evaluation outlined above other emergent etiologies such as those listed in the differential, as well as others, were deemed relatively unlikely. The patient and were informed about the findings as listed above. All questions were answered and they were pleased with the treatment. Return instructions were outlined and the patient was discharged in stable condition. The patient was referred to her oncologist for follow-up for a recheck of the current condition. The chart was completed utilizing [employer] Speech voice recognition software. Grammatical errors, random word insertions, pronoun errors, and incomplete sentences are an occasional consequence of this system due to software limitations, ambient noise, and hardware issues. Any formal questions or concerns about the content, text, or information contained within the body of this dictation should be directly addressed to the physician for clarification. [place] Drug Monitoring Program Search Results: patient reviewed within database, no issues identified Impression Primary Impression: Left flank pain Additional Impressions: Left-sided chest wall pain Dysphagia Radiation adverse effect Scribe Attestation The scribe's documentation has been prepared under my direction and personally reviewed by me in its entirety. I confirm that the note above accurately reflects all work, treatment, procedures, and medical decision making performed by me. Departure Information Dispostion Home / Self-Care Prescriptions Hydrocodone/Acetaminophen 5MG/325MG ([place] 5MG/325MG) Tab 1-2 TABS PO Q6H Y for Pain, #20 TAB Prov: Aly Boothe MD 08/07/16 Referrals Mariusz Matamoros M.D. (PCP) Forms HOME CARE DOCUMENTATION FORM, IMPORTANT VISIT INFORMATION, WORK / SCHOOL INSTRUCTIONS Patient Instructions My [facility] Additional Instructions DO NOT drive, drink alcohol, operate machinery, or perform dangerous activities today. You were given medications in the ER that can affect your ability to safely function or operate a vehicle. Hydrocodone/acetaminophen 5/325mg: Take 1-2 pills every 6 hours as needed for pain. Avoid additional Acetaminophen/Tylenol, alcohol, operating machinery or dangerous equipment, working on ladders or roofs, DRIVING, or situations where being under the influence may be dangerous. It is recommended to use a stool softener such as Colace, 100mg twice daily while taking this medication to avoid constipation. Rest and drink plenty of fluids as tolerated. Continue current medications. Avoid strenuous activities and anything that worsens your pain. Resume normal activities once your symptoms resolve. Return to the ER immediately for worsening or persistent chest pain, difficulty swallowing, abdominal pain, vomiting, fevers, chest pains, difficulty breathing , worsening of your condition, or as needed. Follow up with Dr. Patiño's office tomorrow for a recheck of your current condition. Problem Qualifiers
--- NOTE | 2016-08-07 06:55 | DIAGNOSTIC IMAGING REPORT ---
CT OF THE CHEST WITH IV CONTRAST CLINICAL HISTORY: Lung cancer. Status post left lung resection. Cough and vomiting. COMPARISON STUDY: Chest CT July 06, 2016. TECHNIQUE: Following IV administration of 90 mL of Optiray-320, helical axial images of the chest were obtained. Images were viewed in the axial, sagittal and coronal planes. IV contrast was administered without complication. FINDINGS: The heart is mildly enlarged. There is no pericardial effusion. The previously described prevascular lymph node has decreased in size since prior exam. Left hilar lymph nodes have also decreased in size since prior CT of July 06, 2016. Prominent left axillary lymph nodes remain unchanged. The central airways are patent. There are findings consistent with a left upper lobe resection. A 6 mm left upper lobe nodule shown on image 36 of 276 is new since prior exam. A 5 mm right upper lobe nodule shown image 87 is also new. A 5 mm groundglass opacity within left upper lobe shown on image 108 is unchanged. A 1 cm nodular opacity along the left major fissure within the lower lobe shown on image 106 is unchanged. A small left pleural effusion is similar with left lower lobe opacity suggestive atelectasis. Emphysema is noted. There is no pneumothorax. Hepatosplenomegaly is again noted. The abdomen and pelvis will be reported separately. No suspicious osseous lesions are identified. IMPRESSION: 1. Interval decrease in mediastinal and left hilar lymphadenopathy since CT of July 06, 2016. 2. Interval development of a 6 mm left upper lobe nodule and a 5 mm right upper lobe nodule since prior CT. A neoplastic etiology is considered somewhat unlikely but cannot be excluded. These are may be infectious or inflammatory. However, short-term follow-up CT in 3 months is recommended. 3. Otherwise, unchanged appearance of the chest with a trace left pleural effusion and several left lung nodules, as described above. Electronically signed by: Siddharth Martinez M.D. 08/07/2016 6:54 AM Dictated Date/Time: 08/07/2016 6:43 AM
--- NOTE | 2016-08-07 07:37 | DIAGNOSTIC IMAGING REPORT ---
CT SCAN OF THE ABDOMEN AND PELVIS WITH IV CONTRAST CLINICAL HISTORY: Left side abdominal pain. Lung cancer. Vomiting. COMPARISON STUDY: Prior abdominal CT scans, most recently dated 07/06/2016 TECHNIQUE: Following the IV administration of 90 cc of Optiray 320, CT scan of the abdomen and pelvis is performed from the lung bases to the proximal femora. Images are reviewed in the axial, sagittal, and coronal planes. IV contrast was administered without complication. Automated dose control exposure was utilized. The examination is degraded by large body habitus, and by streak artifact from the body wall abutting the CT gantry. CT DOSE: 2465.40 mGy.cm FINDINGS: Lung bases: The heart is normal in size and without pericardial effusion. Emphysema is noted. There is a left pleural effusion with left basilar opacities likely represent atelectasis. There is a small hiatal hernia. Liver: The contrast-enhanced liver is enlarged, measuring 25 cm in length. The liver demonstrates diffusely diminished attenuation consistent with hepatic steatosis. There is mild central intrahepatic biliary ductal dilatation. The hepatic veins and portal veins are patent. Gallbladder: Surgically absent noting clips in the gallbladder fossa. Spleen: The spleen is markedly enlarged, measuring 20.5 cm in length. Pancreas: Unremarkable. Adrenal glands: Unremarkable. Kidneys: The contrast enhanced kidneys are normal in size and without hydronephrosis. The kidneys enhance symmetrically. Abdominal vasculature: The abdominal aorta is normal in course and caliber. Bowel: The small bowel and colon are normal in course and caliber. There is mild colonic diverticulosis without CT evidence of acute diverticulitis. The appendix is not identified. Peritoneum: There is no intraperitoneal free air or abdominal ascites. There is a fat-containing umbilical hernia. Lymphadenopathy: Prominent left iliac chain lymph nodes are similar to previous and measure up to 9 mm in short axis. Pelvic viscera: The bladder is normal as visualized. An indeterminant linear structure arises from the uterine fundus and extends toward the umbilicus. This is of indeterminant significance but is unchanged from prior studies, possibly representing an embryologic remnant. There are bilateral ovarian follicles. Large phleboliths are noted in the pelvis. Skeletal structures: There is mild lumbosacral spondylosis. No lytic or blastic lesions are seen. IMPRESSION: 1. There are no acute infectious or inflammatory findings in the abdomen or pelvis. 2. Hepatomegaly and hepatic steatosis. 3. Marked splenomegaly. 4. Small left pleural effusion with left basilar airspace opacities. This likely represents atelectasis. Clinical correlation will be required. 5. Scattered colonic diverticula without CT evidence of acute diverticulitis. Electronically signed by: Edis Sauer M.D. 08/07/2016 7:36 AM Dictated Date/Time: 08/07/2016 7:29 AM
[2016-08-14] MEDS ORDERED: KETO0.0216 OP (17:06)
[2016-10-26] MEDS ORDERED: ACET-1256 PO (01:14)
[2016-10-26] MEDS ORDERED: LEVO125T4 PO (10:12)
[2016-10-26] MEDS ORDERED: RABE20TA5 PO (17:14)
[2016-10-26] MEDS ORDERED: MONT1TAB3 PO (17:47)
[2016-10-26] MEDS ORDERED: ATV/1 PO (17:47)
[2016-10-26] MEDS ORDERED: EPP3/2 IM (17:47)
[2016-10-26] MEDS ORDERED: ADVIN50/60 INH (17:47)
[2016-11-01] MEDS ORDERED: DXM/4 PO (11:25)
[2016-12-08] MEDS ORDERED: KFL500 PO (15:02)
[2016-12-08] MEDS ORDERED: RABE20TA5 PO (15:02)
[2016-12-08] MEDS ORDERED: HYDR-4079 PO (15:02)
[2016-12-08] MEDS ORDERED: LCTX PO (15:02)
[2016-12-08] MEDS ORDERED: INSU-698 SC (15:02)
[2016-12-08] MEDS ORDERED: LEVO137T3 PO (15:02)
[2016-12-08] MEDS ORDERED: FLUC150T54 PO (15:02)
[2016-12-08] MEDS ORDERED: INSDGIPEN SC (15:02)
[2016-12-08] MEDS ORDERED: SUCR1TAB PO (15:02)
[2017-02-16] MEDS ORDERED: LEVO1TAB35 PO ×2 (08:38→08:54)
[2017-02-16] MEDS ORDERED: PRD20 PO (08:38)
[2017-02-16] MEDS ORDERED: OXGN (08:38)
[2017-02-16] MEDS ORDERED: INSDGIPEN SC (08:38)
[2017-02-16] MEDS ORDERED: FLUC100T4 PO (08:54)
== END 2016-08-07 02:04 | disposition home or self-care (01) ==
LOC: C.EDB 20:13
DX: R07.89 Other chest pain (principal); R10.30 Lower abdominal pain, unspecified; R13.10 Dysphagia, unspecified; Z92.3 Personal history of irradiation; I10 Essential (primary) hypertension; J44.9 Chronic obstructive pulmonary disease, unspecified; J45.909 Unspecified asthma, uncomplicated; F32.9 Major depressive disorder, single episode, unspecified; J43.9 Emphysema, unspecified; F41.9 Anxiety disorder, unspecified; Z85.118 Personal history of other malignant neoplasm of bronchus and lung; Z90.49 Acquired absence of other specified parts of digestive tract; Z79.899 Other long term (current) drug therapy; Z87.891 Personal history of nicotine dependence; Z88.0 Allergy status to penicillin; Z88.8 Allergy status to other drugs, medicaments and biological substances; Z91.011 Allergy to milk products; Z91.018 Allergy to other foods; Z91.030 Bee allergy status; Z91.040 Latex allergy status; Z80.9 Family history of malignant neoplasm, unspecified; Z83.3 Family history of diabetes mellitus; Z83.79 Family history of other diseases of the digestive system; Z82.49 Family history of ischemic heart disease and other diseases of the circulatory system

== ENCOUNTER → 2016-09-13 | Outpatient (CLI) | payer OTHER ==
[~2016-09-13] MED LIST changes: +ACET-1256 PO; -ACYC-251 PO; +ADVIN50/60 INH; -ALBUAER2 INH; +ATV/1 PO; +ATV1 PO; -BENZ1CAP90 PO; +BND25 PO; +CZR50 PO; -DIPH25CA37 PO; +DIPH25CA65 PO; +DXM/4 PO; +EPP3/2 IM; +FLUC100T4 PO; +FLUC150T54 PO; -FOLIC ACID PO; +HYDR-4079 PO; +HYDR2TAB48 PO; +INSDGIPEN SC; +INSU-698 SC; +KETO0.0216 OP; +KFL500 PO; +LCTX PO; +LEVO125T4 PO; +LEVO137T3 PO; +LEVO1TAB35 PO; +LSX40 PO; +METH4PAK PO; +MONT1TAB3 PO; +NVLGIPEN SQ; +OPTIRAY 320 IV PRN; +OXGN; +PRD20 PO; +RABE20TA5 PO; +SERT1TAB71 PO; +SUCR1TAB PO; +SYN150 PO; +VNTHFA/IN INH; +ZOLP10TA6 PO; -[UNRECOGNIZED DRUG - CODE] OPB
--- NOTE | 2016-09-13 13:32 | DIAGNOSTIC IMAGING REPORT ---
ABDOMEN AND PELVIS CT WITH IV AND ORAL CONTRAST CT DOSE: 3169.65 mGy.cm HISTORY: Lung carcinoma pain TECHNIQUE: Multiaxial CT images of the abdomen and pelvis were performed following the use of intravenous and oral contrast. COMPARISON STUDY: 08/06/2016 FINDINGS: Unchanging fibrotic and pleural reactive changes left base. Stable hepatomegaly. Very subtle postcholecystectomy biliary ductal prominence is again noted. This is nonprogressive. Kidneys enhance uniformly. The adrenal glands are unremarkable. Bowel pattern is nonobstructive. There is no significant abdominal or pelvic adenopathy. There are bilateral ovarian cysts. On the right this measures 2.7 cm and on the left 1.2 cm. The uterus is anteflexed. There is no free fluid within the pelvic cul-de-sac. IMPRESSION: 1. Mild hepatomegaly. 2. Chronic fibrotic changes left base. 3. Prior cholecystectomy. 4. Bilateral ovarian cysts unchanged from the prior study. Electronically signed by: Urbano Ricketts M.D. 09/13/2016 1:30 PM Dictated Date/Time: 09/13/2016 1:25 PM
--- NOTE | 2016-09-13 14:06 | DIAGNOSTIC IMAGING REPORT ---
CT SCAN OF THE CHEST WITH IV CONTRAST CLINICAL HISTORY: Lung cancer. COMPARISON STUDY: Chest CT dated 08/06/2016 and 08/02/2014. PET/CT dated 08/29/2015. TECHNIQUE: Following the IV administration of 115 cc of Optiray 320, CT scan of the thorax was performed from the thoracic inlet to the upper abdomen. Images are reviewed in the axial, sagittal, and coronal planes. IV contrast was administered without complication. FINDINGS: Thyroid: Atrophic. Thoracic aorta: The thoracic aorta is normal in caliber and demonstrates standard 3-vessel arch anatomy. No dissection is seen. Pulmonary vasculature: The pulmonary trunk is normal in caliber. There are no filling defects identified in the central pulmonary vessels to indicate pulmonary embolus. Note that this examination was not protocoled for evaluation of the pulmonary arteries. Heart: The heart is normal in size and configuration, and without pericardial effusion. Lungs and pleural spaces: Emphysema is noted. There are postoperative changes and volume loss from left upper lobe pulmonary resection.. Pleural fluid is seen at the left lung base, likely on a postoperative basis. Scarring versus atelectasis is noted in the left lower lobe. There is no right pleural effusion. There is an 11 mm focus of nodular pleural thickening along the left major fissure seen on image #104. A 4 mm left apical nodule seen image #38, and a 5 mm left upper lobe nodule is seen on image #117. No right-sided pulmonary nodules are identified. The right upper lobe nodule seen on 08/06/2016 have resolved and may been on an inflammatory basis. There is no airspace consolidation typical for pneumonia. The trachea and central airways are clear. Mediastinum: There are mildly enlarged mediastinal lymph nodes. The largest is precarinal on image #98 and measures 11 mm in short axis. Lucero: Prominent hilar lymph nodes measure up to 8 mm in short axis. Lower neck: Mildly enlarged left cervical lymph nodes measure up to 11 mm in short axis. Axillae: There is no axillary lymphadenopathy. Upper abdomen: The liver is enlarged and steatotic. Splenomegaly is noted. No adrenal lesion is seen. Skeletal structures: No lytic or blastic bony lesions are seen. Postoperative change is noted in the left ribs IMPRESSION: 1. Emphysema with evidence of left upper lobe resection. 2. Indeterminant left-sided pulmonary nodules have not significantly changed from 08/06/2016 and remain indeterminant. A small right upper lobe nodule seen previously has resolved and was likely on an inflammatory basis. A 3 month follow-up examination is recommended for assessment. 3. Mildly enlarged mediastinal lymph no as well as prominent hilar nodes are similar to previous and are indeterminate. 4. There is a mildly enlarged left supraclavicular lymph node. This has increased in size from previous. Attention at follow-up is recommended. 5. Pleural fluid at the left lung base is likely on a postoperative basis. There is no airspace consolidation typical for pneumonia. 6. Hepatomegaly and hepatic steatosis. 7. Splenomegaly. Electronically signed by: Edis Sauer M.D. 09/13/2016 2:05 PM Dictated Date/Time: 09/13/2016 1:53 PM
== END | disposition home or self-care (01) ==
LOC: C.CTS 12:48
PROVIDERS: ATTEND Internal Medicine Hematology & Oncology
DX: C34.92 Malignant neoplasm of unspecified part of left bronchus or lung (principal); J84.10 Pulmonary fibrosis, unspecified; N83.201 Unspecified ovarian cyst, right side; N83.202 Unspecified ovarian cyst, left side

== ENCOUNTER → 2016-10-24 | Outpatient (CLI) | payer OTHER ==
[~2016-10-24] MED LIST changes: -BND25 PO; +DIPH25CA5 PO; -LEVO125T4 PO; +LEVO125T5 PO; -OPTIRAY 320 IV PRN
--- NOTE | 2016-10-24 13:00 | DIAGNOSTIC IMAGING REPORT ---
PET/CT CLINICAL HISTORY: Non-small cell lung cancer. TECHNIQUE: A PET/CT was performed from the skull base through the upper thighs following intravenous injection of 15.12 mCi of F 18 FDG IV. The injection was performed at 9:23 AM on October 24, 2016 and imaging began at 10:25 AM on October 24, 2016. Unenhanced CT was performed for attenuation correction purposes and anatomic localization. COMPARISON STUDY: PET/CT August 29, 2015, head CT July 20, [address] of the chest, abdomen and pelvis September 13, 2016. FINDINGS: Head and neck: Visualized portions of the head demonstrate interval development of a 3.9 cm hypodense focus within the right temporal lobe shown on image 3. This is suboptimally assessed on this examination. This is new since head CT of July 20, 2016. There has been interval enlargement of the left supraclavicular lymph node since prior CT of September 13, 2016. This node now measures 2.6 x 1.6 cm. It previously measured 1.5 x 1.1 cm. There is marked FDG uptake within this node within SUV max of 6.9. Chest: Postsurgical findings within the left upper lobe are noted. Lungs are suboptimally assessed due to respiratory motion. Left lower lobe opacity favors atelectasis. A few small pulmonary nodules are similar to prior chest CT. These are too small to evaluate by PET imaging. No suspicious ki FDG uptake is identified. The heart is mildly enlarged. Abdomen and Pelvis: No suspicious FDG uptake is identified within the abdomen or the pelvis. There is no abdominal or pelvic lymphadenopathy. Musculoskeletal: No suspicious skeletal uptake is identified. IMPRESSION: 1. Significant interval enlargement of a left supraclavicular FDG avid lymph node since chest CT of September 13, 2016. This finding is highly suggestive of ki spread of disease. 2. Interval development of a 3.9 cm hypodensity within the right temporal lobe since head CT of July 20, 2016. This is suboptimally assessed by PET CT. This is worrisome for metastatic disease. An infarct could appear similar. An MRI of the brain with and without contrast could be obtained. Electronically signed by: Siddharth Martinez M.D. 10/24/2016 12:58 PM Dictated Date/Time: 10/24/2016 11:31 AM
== END | disposition home or self-care (01) ==
LOC: C.PET 09:01
PROVIDERS: ATTEND Surgery
DX: R91.1 Solitary pulmonary nodule (principal); C34.90 Malignant neoplasm of unspecified part of unspecified bronchus or lung

== ENCOUNTER 2016-10-26 20:26 | Emergency (ER) | payer OTHER ==
[~2016-10-26] VITALS: Ht 165.1 cm; Wt 120.0 kg
[~2016-10-26 20:26] MED LIST changes: -ATV1 PO; -CZR50 PO; -DIPH25CA65 PO; -DXM/4 PO; -FLUC100T4 PO; -FLUC150T54 PO; -HYDR-4079 PO; -HYDR2TAB48 PO; -INSDGIPEN SC; -INSU-698 SC; -KFL500 PO; -LCTX PO; -LEVO137T3 PO; -LEVO1TAB35 PO; -LSX40 PO; -METH4PAK PO; -NVLGIPEN SQ; -OXGN; -PRD20 PO; -SERT1TAB71 PO; -SUCR1TAB PO; -SYN150 PO; -VNTHFA/IN INH; -ZOLP10TA6 PO
[2016-10-26 20:31] VITALS: Ht 165.1 cm; Wt 120.0 kg
[2016-10-26] MEDS ORDERED: ONDANSETRON INJ 2 MG/ML 2 ML VIAL IV STA (20:54)
[2016-10-26] MEDS ORDERED: SODIUM CHLORIDE 0.9% 1000ML 250 ML IV STA (20:54)
--- NOTE | 2016-10-26 21:04 | EMERGENCY ROOM VISIT NOTE ---
History Report prepared by Hosea: Jairo Presley Under the Supervision of: Dr. Edis Snell M.D. First contact with patient: 20:45 Chief Complaint: REFERRED BY DOCTOR Stated Complaint: POSSIBLE BRAIN MASS History of Present Illness The patient is a 51 year old female who presents to the Emergency Room with complaints of a headache in the right side of her head. The patient rates her current pain in her head as a 4.5/10 in severity. She has non-small cell lung cancer. She has had 17 doses of radiation, with last treatment being one month ago. She states that she had an adverse reaction to chemotherapy, and only had one treatment a few months ago. The patient visited with Dr. Bajwa today who performed at PET scan. This scan showed a cancerous lymph node behind her left clavicle, and a 3-3.5 cm mass in the brain near the right [employer]ism. Dr. Bajwa advised the patient to come to the emergency department for an MRI of the brain. Per her family, the patient has been forgetful and has had some mild confusion at times. Source of History: patient Onset: today Position: head (right side) Symptom Intensity: 4.5/10 in severity Note: Patient is diagnosed with non-small cell cancer. Review of Systems See HPI for pertinent positives & negatives. A total of 10 systems reviewed and were otherwise negative. Past Medical & Surgical Medical Problems: (1) Altered mental status (2) Anxiety (3) Asthma (4) Benign hypertension (5) Brain metastases (6) Bronchitis (7) Chronic back pain (8) COPD (9) Depression (10) Emphysema (11) Lung cancer (12) Orthopedic surgery (13) Pneumonia (14) Pulmonary emphysema Surgical Problems: (1) H/O section (2) History of appendectomy (3) History of cholecystectomy Family History Abdominal pain FHx: cancer FHx: diabetes FHx: gallbladder disease FHx: heart disease FHx: hypertension FHx: lung disease Social History Smoking Status: Current Some Day Smoker Alcohol Use: none Drug Use: marijuana Marital Status: Housing Status: lives alone Occupation Status: disabled Current/Historical Medications Scheduled Diphenhydramine Hcl (Benadryl), 50 MG PO HS Fluticasone Prop/Salmeterol (Advair Diskus 500/50 60 Dose), 1 PUFF INH BID Furosemide (Furosemide), 40 MG PO DAILY Levothyroxine Sodium (Levothyroxine Sodium), 125 MCG PO QAM Losartan Potassium (Losartan Potassium), 50 MG PO DAILY Methylprednisolone (Medrol Dosepak), 1 PKT PO UD Montelukast Sodium (Singulair), 10 MG PO HS Rabeprazole Sodium (Aciphex), 1 TAB PO DAILY Sertraline Hcl (Zoloft), 50 MG PO HS Scheduled PRN Acetaminophen (Tylenol), 1,000 MG PO Q8 PRN for Pain Albuterol Hfa (Ventolin Hfa), 2 PUFFS INH QID PRN for SOB/Wheezing Epinephrine (Epipen 2-Saad), 0.3 MG IM UD PRN for ALLERGIC REACTION Hydromorphone Hcl (Dilaudid), 1-2 TAB PO QID PRN for Pain Lorazepam (Ativan), 1 MG PO TID PRN for Anxiety Zolpidem Tartrate (Zolpidem Tartrate), 10 MG PO HS PRN for Sleep Allergies Coded Allergies: BEE STING (Verified Allergy, Severe, ANAPHYLAXIS, 07/20/16) Fentanyl (Verified Allergy, Severe, EYES SWELLED SHUT, 07/20/16) Milk Protein Extract (Unverified Allergy, Severe, blurred vision rash face hallucinations, 07/20/16) Adhesives (Verified Allergy, Unknown, blisters, 07/20/16) [place] (Unverified Allergy, Unknown, MOUTH ITCHES, SKIN PEELS, 07/20/16) Honey (Verified Allergy, Unknown, anaphylaxis, 07/20/16) pt Latex1 -Allergic Contact Dermititis (Verified Allergy, Unknown, LOCAL RXN- BLISTERING, 07/20/16) Metformin (Unverified Allergy, Unknown, PER RECORDS , 07/20/16) Hutchinson (Verified Allergy, Unknown, SKIN PEELS, 07/20/16) Moody (Verified Allergy, Unknown, MUST BE PEELED, 07/20/16) Penicillins (Verified Allergy, Unknown, 07/20/16) Tiotropium (Verified Allergy, Unknown, UNKNOWN REACTION, 07/20/16) Buspirone (Verified Adverse Reaction, Mild, ALLERGIC TO GENERIC DRUG- TAKES BRAND AT HOME, 07/20/16) CI Pigment Blue 63 (Verified Adverse Reaction, Unknown, lethargy, hallucinations, 07/20/16) pt Duloxetine (Verified Adverse Reaction, Unknown, lethargy,hallucinations, ) pt Uncoded Allergies: CHEMO (Adverse Reaction, Severe, ELEVATED BP, SEVERE MIGRAINE, 08/06/16) Physical Exam Vital Signs Date Time Temp Pulse Resp B/P Pulse Ox O2 Delivery O2 Flow Rate FiO2 10/27/16 01:23 80 20 148/98 94 10/27/16 00:26 84 15 10/26/16 23:56 89 18 10/26/16 23:30 167/99 10/26/16 22:02 88 17 118/78 93 Room Air 10/26/16 20:31 92 20 166/108 92 Nasal Cannula 2.0 Physical Exam GENERAL: Patient is in no acute distress. HEENT: No acute trauma, normocephalic atraumatic, mucous membranes moist, no nasal congestion, no scleral icterus. NECK: No stridor, no adenopathy, no meningismus, trachea is midline. LUNGS: Clear to auscultation bilaterally, no wheeze, no rhonchi, breath sounds equal. HEART: Mildly tachycardiac without any murmurs. Regular rhythm. ABDOMEN: Soft, nontender, bowel sounds positive, no hernias, no peritonitis. EXTREMITIES: No cyanosis or edema, full range of motion of all the joints without pain or difficulty, no signs for acute trauma. NEUROLOGIC: Oriented x 3, no acute motor or sensory deficits, no focal weakness. SKIN: No rash, no jaundice, no diaphoresis. Medical Decision & Procedures ER Provider Diagnostic Interpretation: X ray results and stated below per my interpretation and radiologist interpretation. Other radiology results and stated below per my review and radiologist interpretation: MRI OF THE BRAIN WITHOUT AND WITH IV CONTRAST CLINICAL HISTORY: Abnormal PET/CT with possible brain mass. Non-small cell lung cancer. COMPARISON STUDY: MRI of the brain June 15, 2016, head CT July 20, 2016 and PET/CT October 24, 2016. TECHNIQUE: Utilizing a 1.5 Ashley magnet and dedicated coil, multiplanar, multiecho imaging of the brain was performed pre and postcontrast administration. IV administration of 12 mL of Gadavist contrast was uneventful. FINDINGS: There are no areas of restricted diffusion. Note is made of a 7 mm enhancing lesion within the right temporal lobe with mild associated vasogenic edema. This corresponds to the abnormality on recent PET/CT and is new since MRI of June 15, 2016. In addition, there is a new 5 mm left parietal lobe enhancing lesion shown on axial image 19 of . No additional lesions are identified on this examination. Ventricular system is normal. Basilar cisterns are patent. There is no acute intracranial hemorrhage. Scattered white matter T2 hyperintense foci suggest small vessel disease. Calvarial signal is normal. IMPRESSION: 7 mm enhancing right temporal lobe lesion and 5 mm left parietal lobe lesion with mild associated vasogenic edema. These lesions are new since MRI of June 15, 2016 and consistent with metastatic disease. Electronically signed by: Siddharth Martinez M.D. 10/26/2016 10:53 PM Dictated Date/Time: 10/26/2016 10:46 PM Laboratory Results 10/26/16 21:10 Red Blood Count 4.40, Mean Corpuscular Volume 84.5, Mean Corpuscular Hemoglobin 26.6, Mean Corpuscular Hemoglobin Concent 31.5, Mean Platelet Volume 9.2, Neutrophils (%) (Auto) 81.3, Lymphocytes (%) (Auto) 13.2, Monocytes (%) (Auto) 5.1, Eosinophils (%) (Auto) 0.0, Basophils (%) (Auto) 0.1, Neutrophils # (Auto) 5.46, Lymphocytes # (Auto) 0.89, Monocytes # (Auto) 0.34, Eosinophils # (Auto) 0.00, Basophils # (Auto) 0.01 10/26/16 21:10 Test 10/26/16 21:10 White Blood Count 6.72 K/uL (4.8-10.8) Red Blood Count 4.40 M/uL (4.2-5.4) Hemoglobin 11.7 g/dL (12.0-16.0) Hematocrit 37.2 % (37-47) Mean Corpuscular Volume 84.5 fL (80-100) Mean Corpuscular Hemoglobin 26.6 pg (25-34) Mean Corpuscular Hemoglobin Concent 31.5 g/dl (32-36) Platelet Count 140 K/uL (130-400) Mean Platelet Volume 9.2 fL (7.4-10.4) Neutrophils (%) (Auto) 81.3 % Lymphocytes (%) (Auto) 13.2 % Monocytes (%) (Auto) 5.1 % Eosinophils (%) (Auto) 0.0 % Basophils (%) (Auto) 0.1 % Neutrophils # (Auto) 5.46 K/uL (1.4-6.5) Lymphocytes # (Auto) 0.89 K/uL (1.2-3.4) Monocytes # (Auto) 0.34 K/uL (0.11-0.59) Eosinophils # (Auto) 0.00 K/uL (0-0.5) Basophils # (Auto) 0.01 K/uL (0-0.2) RDW Standard Deviation 48.8 fL (36.4-46.3) RDW Coefficient of Variation 15.8 % (11.5-14.5) Immature Granulocyte % (Auto) 0.3 % Immature Granulocyte # (Auto) 0.02 K/uL (0.00-0.02) Anion Gap 7.0 mmol/L (3-11) Est Creatinine Clear Calc Drug Dose 88.3 ml/min Estimated GFR () 76.6 Estimated GFR (Non- 66.1 BUN/Creatinine Ratio 12.2 (10-20) Calcium Level 9.2 mg/dl (8.5-10.1) Total Bilirubin 0.3 mg/dl (0.2-1) Aspartate Amino Transf (AST/SGOT) 32 U/L (15-37) Alanine Aminotransferase (ALT/SGPT) 31 U/L (12-78) Alkaline Phosphatase 146 U/L (45-117) Total Protein 7.4 gm/dl (6.4-8.2) Albumin 3.5 gm/dl (3.4-5.0) Globulin 3.9 gm/dl (2.5-4.0) Albumin/Globulin Ratio 0.9 (0.9-2) Laboratory results reviewed by me. Medications Administered Medications (Trade) Dose Ordered Sig/Pravin Route Start Time Stop Time Status Last Admin Dose Admin Sodium Chloride (Nss 1000ml) 250 ml @ 999 mls/hr Q16M STAT IV 10/26/16 20:54 10/26/16 21:09 DC 10/26/16 21:58 999 MLS/HR Ondansetron HCl (Zofran Inj) 4 mg NOW STAT IV 10/26/16 20:54 10/26/16 20:58 DC 10/26/16 21:58 4 MG Hydromorphone HCl (Dilaudid Inj) 0.5 mg Q15M PRN IV 10/26/16 21:00 10/27/16 02:14 DC 10/26/16 23:30 0.5 MG Dexamethasone Sodium Phosphate (Decadron Inj) 10 mg NOW ONCE IV 10/26/16 23:15 10/26/16 23:16 DC 10/26/16 23:28 10 MG Oxycodone HCl (Roxicodone Immediate Rel 5MG Home Pack) 1 homepack UD ONCE PO 10/27/16 01:15 10/27/16 01:16 DC 10/27/16 01:08 1 HOMEPACK ED Course 2048: The patient was evaluated in room B5. A complete history and physical exam was performed. 2053: Ordered Zofran 4 mg IV, Sodium Chloride 250 mL @ 999 mL/hr IV. 2099: Ordered Dilaudid 0.5 mg IV. 2304: I reevaluate the patient at this time. She is comfortable after pain medication. 5: Ordered Decadron 10 mg IV. 2317: I discussed the case with Dr. Dawkins - [facility] [place] [facility], he will evaluate the patient for further treatment. 0041: The patient has decided she would like to go home at this time. She will be discharged home. Medical Decision Differential diagnosis include; metastatic disease, malignancy, intracranial bleeding, intracranial mass, stroke, aneurysm. There is no leukocytosis or concerning anemia. No significant electrolyte abnormality, kidney failure or hepatitis. Brain MRI shows a presumed metastatic lesion on the right and left side of the brain. Some edema surrounding the lesions was noted. The patient received IV saline, IV Dilaudid, IV Zofran and IV Decadron. She initially felt that she could not be discharged home and did want to stay in the hospital for further workup and symptom control. She was seen by the on- call hospitalist and then decided that she would prefer to be discharged home. The patient is being discharged on Decadron, Dilaudid. She will follow with her oncology service and return here for worsening symptoms. She understands that she very likely has metastases from her lung cancer in her brain. [place] Drug Monitoring Program Search Results: patient reviewed within database, no issues identified, see additional documentation Drug Monitoring Findings: Patient did have prescriptions for Lorazepam written this September. There is no reason not to treat the patient at this time. Consults Time Called: 2306 Consulting Physician: Dr. Juancho ANDERSON Hospitalist Returned Call: [phone] I discussed the case with Dr. Juancho ANDERSON Hospitalist, he will evaluate the patient for further treatment. Impression Primary Impression: Intracranial mass Additional Impressions: Metastatic lung cancer (metastasis from lung to other site) Confusion Scribe Attestation The scribe's documentation has been prepared under my direction and personally reviewed by me in its entirety. I confirm that the note above accurately reflects all work, treatment, procedures, and medical decision making performed by me. Departure Information Dispostion Home / Self-Care Prescriptions Hydromorphone Hcl (DILAUDID) 2 Mg Tab 1-2 TAB PO QID Y for Pain, #15 TAB Prov: Edis Snell M.D. 10/27/16 Methylprednisolone (MEDROL DOSEPAK) 4 Mg Saad 1 PKT PO UD for 6 Days, #1 PKT Prov: Edis Snell M.D. 10/27/16 Referrals Mariusz Matamoros M.D. (PCP) Forms HOME CARE DOCUMENTATION FORM, IMPORTANT VISIT INFORMATION, WORK / SCHOOL INSTRUCTIONS Patient Instructions My [facility] [employer] Additional Instructions decadon as directed for swelling dilaudid 1-2 tab every 6 hours for severe pain see your doctor Saturday for further workup and care return for worsening pain or symptoms Problem Qualifiers
[2016-10-26 21:19] LABS: BASO % 0.1 %; BASO ABS # 0.01 K/uL (0-0.2); COMPLETE YES; HEMATOCRIT 37.2 % (37-47); IG% 0.3 %; LYMPH % 13.2 %; LYMPH ABS # 0.89 K/uL (1.2-3.4); MEAN CELL VOLUME 84.5 fL (80-100); MEAN CORPUSCULAR HEMOGLOBIN 26.6 pg (25-34); MEAN CORPUSCULAR HGB CONC 31.5 g/dl (32-36); MEAN PLATELET VOLUME 9.2 fL (7.4-10.4); MONO % 5.1 %; NEUT % 81.3 %; PLATELET COUNT 140 K/uL (130-400); WHITE BLOOD COUNT 6.72 K/uL (4.8-10.8)
[2016-10-26 21:40] LABS: BUN/CREATININE RATIO 12.2 (10-20); POTASSIUM 3.5 mmol/L (3.5-5.1)
[2016-10-26 21:43] LABS: ALB/GLOB RATIO 0.9 (0.9-2)
[2016-10-26] MEDS: HYDROmorphone INJ 2 MG/ML SYR/VIAL IV PRN ×2 (21:58→23:30)
[2016-10-26 22:03] LABS: CALCIUM 9.2 mg/dl (8.5-10.1)
[2016-10-26] MEDS ORDERED: VNTHFA/IN INH (22:22)
[2016-10-26] MEDS ORDERED: SERT1TAB71 PO (22:41)
[2016-10-26] MEDS ORDERED: GADAVIST IV PRN (22:45)
--- NOTE | 2016-10-26 22:54 | DIAGNOSTIC IMAGING REPORT ---
MRI OF THE BRAIN WITHOUT AND WITH IV CONTRAST CLINICAL HISTORY: Abnormal PET/CT with possible brain mass. Non-small cell lung cancer. COMPARISON STUDY: MRI of the brain June 15, 2016, head CT July 20, 2016 and PET/CT October 24, 2016. TECHNIQUE: Utilizing a 1.5 Ashley magnet and dedicated coil, multiplanar, multiecho imaging of the brain was performed pre and postcontrast administration. IV administration of 12 mL of Gadavist contrast was uneventful. FINDINGS: There are no areas of restricted diffusion. Note is made of a 7 mm enhancing lesion within the right temporal lobe with mild associated vasogenic edema. This corresponds to the abnormality on recent PET/CT and is new since MRI of June 15, 2016. In addition, there is a new 5 mm left parietal lobe enhancing lesion shown on axial image 19 of . No additional lesions are identified on this examination. Ventricular system is normal. Basilar cisterns are patent. There is no acute intracranial hemorrhage. Scattered white matter T2 hyperintense foci suggest small vessel disease. Calvarial signal is normal. IMPRESSION: 7 mm enhancing right temporal lobe lesion and 5 mm left parietal lobe lesion with mild associated vasogenic edema. These lesions are new since MRI of June 15, 2016 and consistent with metastatic disease. Electronically signed by: Siddharth Martinez M.D. 10/26/2016 10:53 PM Dictated Date/Time: 10/26/2016 10:46 PM
[2016-10-26] MEDS ORDERED: CZR50 PO (23:00)
[2016-10-26] MEDS ORDERED: ZOLP10TA6 PO (23:00)
[2016-10-26] MEDS ORDERED: LSX40 PO (23:00)
[2016-10-26] MEDS ORDERED: DEXAMETHASONE SOD INJ 10 MG/ML VIAL IV ONE (23:15)
[2016-10-27] MEDS ORDERED: LORAZEPAM 1 MG TAB PO PRN
[2016-10-27] MEDS ORDERED: MAGNESIUM HYDROXIDE SUSP 30 ML UDC PO PRN
[2016-10-27] MEDS ORDERED: ZOLPIDEM TARTRATE 10 MG TAB PO PRN
[2016-10-27] MEDS ORDERED: ACETAMINOPHEN 325 MG TAB PO PRN
[2016-10-27] MEDS ORDERED: POLYETHYLENE (MIRALAX) 17 GM PACK PO PRN
[2016-10-27] MEDS ORDERED: ALUMINUM/MAGNESIUM/SIMETH (MAALOX MAX) 30 ML UDC PO PRN
[2016-10-27] MEDS ORDERED: ALBUTEROL 0.083% NEBU SOLN 3 ML VIAL INH PRN (00:15)
--- NOTE | 2016-10-27 00:19 | History and Physical ---
History & Physical Date & Time of Service: Oct 27, 2016 at 00:09 Chief Complaint: Possible Brain Mass Primary Care Physician: Mariusz Matamoros M.D. History of Present Illness Source: patient 51 y/o F Hx metastatic NSCLCA, DM, COPD, morbidly obese. She had a wedge resection of her CA in 03/2016 and only one chemo session due to a severe reaction. She had 17 radiation treatments which she stopped as she tolerated them poorly as well. She is monitored with PET scans and had a + scan this week showing an active L upper lobe mass. Unfortunately the scan also suggested that she may have new brain metastases. She was told to attend the ER for an MRI which confirmed R temporal and L parietal lesions with mild edema. On further questioning she states that she has had a chronic posterior headache which is occasionally severe and has had short-term memory loss in addition to a feeling of clumsiness or impaired coordination. No focal defecits were apparent on exam. Past Medical/Surgical History Medical Problems: (1) Anxiety Status: Chronic (2) Asthma Status: Chronic (3) Benign hypertension Status: Chronic (4) Bronchitis Status: Chronic (5) Chronic back pain Status: Chronic (6) COPD Status: Chronic (7) Depression Status: Chronic (8) Emphysema Status: Chronic (9) Orthopedic surgery Status: Resolved (10) Pneumonia Status: Resolved (11) Pulmonary emphysema Status: Chronic 12) NSCLCA - DARIEN, adenocarcinoma, [id number], stage IIIA with visceral pleural involvement - wedge resection and mediastinal lymph node dissection - 05/10/2016 severe chemo reaction lead to discontinuation and radiation treatment which was also D/Cd after 17 treatments due to intolerance. Surgical Problems: (1) H/O section Status: Resolved (2) History of appendectomy Status: Resolved (3) History of cholecystectomy Status: Resolved Family History Abdominal pain FHx: cancer FHx: diabetes FHx: gallbladder disease FHx: heart disease FHx: hypertension FHx: lung disease Social History Smoking Status: Current Some Day Smoker Drug Use: marijuana Marital Status: Housing status: lives alone Occupational Status: disabled Immunizations History of Influenza Vaccine: Yes Influenza Vaccine Date: Apr 19, 2013 History of Tetanus Vaccine?: Yes Tetanus Immunization Date: Aug 20, 2013 History of Pneumococcal: Yes Pneumococcal Date: Aug 20, 2008 History of Hepatitis B Vaccine: Unknown Multi-Drug Resistant Organisms History of MDRO: No Allergies Coded Allergies: BEE STING (Verified Allergy, Severe, ANAPHYLAXIS, 07/20/16) Fentanyl (Verified Allergy, Severe, EYES SWELLED SHUT, 07/20/16) Milk Protein Extract (Unverified Allergy, Severe, blurred vision rash face hallucinations, 07/20/16) Adhesives (Verified Allergy, Unknown, blisters, 07/20/16) [place] (Unverified Allergy, Unknown, MOUTH ITCHES, SKIN PEELS, 07/20/16) Honey (Verified Allergy, Unknown, anaphylaxis, 07/20/16) pt Latex1 -Allergic Contact Dermititis (Verified Allergy, Unknown, LOCAL RXN- BLISTERING, 07/20/16) Metformin (Unverified Allergy, Unknown, PER RECORDS , 07/20/16) [place] (Verified Allergy, Unknown, SKIN PEELS, 07/20/16) [place] (Verified Allergy, Unknown, MUST BE PEELED, 07/20/16) Penicillins (Verified Allergy, Unknown, 07/20/16) Tiotropium (Verified Allergy, Unknown, UNKNOWN REACTION, 07/20/16) Buspirone (Verified Adverse Reaction, Mild, ALLERGIC TO GENERIC DRUG- TAKES BRAND AT HOME, 07/20/16) CI Pigment Blue 63 (Verified Adverse Reaction, Unknown, lethargy, hallucinations, 07/20/16) pt Duloxetine (Verified Adverse Reaction, Unknown, lethargy,hallucinations, ) pt Uncoded Allergies: CHEMO (Adverse Reaction, Severe, ELEVATED BP, SEVERE MIGRAINE, 08/06/16) Home Medications Scheduled Diphenhydramine Hcl (Benadryl), 50 MG PO HS Fluticasone Prop/Salmeterol (Advair Diskus 500/50 60 Dose), 1 PUFF INH BID Furosemide (Furosemide), 40 MG PO DAILY Levothyroxine Sodium (Levothyroxine Sodium), 125 MCG PO QAM Losartan Potassium (Losartan Potassium), 50 MG PO DAILY Methylprednisolone (Medrol Dosepak), 1 PKT PO UD Montelukast Sodium (Singulair), 10 MG PO HS Rabeprazole Sodium (Aciphex), 1 TAB PO DAILY Sertraline Hcl (Zoloft), 50 MG PO HS Scheduled PRN Acetaminophen (Tylenol), 1,000 MG PO Q8 PRN for Pain Albuterol Hfa (Ventolin Hfa), 2 PUFFS INH QID PRN for SOB/Wheezing Epinephrine (Epipen 2-Saad), 0.3 MG IM UD PRN for ALLERGIC REACTION Hydromorphone Hcl (Dilaudid), 1-2 TAB PO QID PRN for Pain Lorazepam (Ativan), 1 MG PO TID PRN for Anxiety Zolpidem Tartrate (Zolpidem Tartrate), 10 MG PO HS PRN for Sleep Review of Systems Constitutional: No chills, No fever, No sweats Eyes: No eye pain, No worsening of vision ENT: No hearing loss, No nasal symptoms, No unusual epistaxis Respiratory: No cough, No sputum, No wheezing Cardiovascular: No PND, No chest pain, No orthopnea Abdomen: No nausea, No pain, No vomiting Musculoskeletal: No joint pain, No muscle pain Genitourinary - Female: No dysuria Neurologic: + problem reported (Confusion and headache as above), No memory loss, No paralysis Psychiatric: + depression symptoms Endocrine: No fatigue Hematologic / Lymphatic: No abnormal bleeding/bruising Integumentary: No rash Allergic / Immunologic: No environmental allergies Physical Exam Vital Signs Date Time Temp Pulse Resp B/P Pulse Ox O2 Delivery O2 Flow Rate FiO2 10/26/16 22:02 88 17 118/78 93 Room Air 10/26/16 20:31 92 20 166/108 92 Nasal Cannula 2.0 General Appearance: WD/WN, no apparent distress Head: normocephalic, atraumatic Eyes: normal inspection, EOMI ENT: normal ENT inspection, hearing grossly normal, TMs normal, pharynx normal Neck: supple, no JVD Respiratory/Chest: chest non-tender, lungs clear, normal breath sounds, no respiratory distress, no accessory muscle use Cardiovascular: regular rate, rhythm, no edema, no gallop, no JVD, no murmur, normal peripheral pulses Abdomen/GI: normal bowel sounds, non tender, soft Back: normal inspection, no CVA tenderness Extremities/Musculoskelatal: normal inspection, no calf tenderness, normal capillary refill, no pedal edema, normal range of motion 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, no motor/sensory deficits, alert, normal mood/affect, normal reflexes Skin: normal color, warm/dry, no rash Diagnostics Laboratory Results Results Past 24 Hours Test 10/26/16 21:10 Range/Units White Blood Count 6.72 4.8-10.8 K/uL Red Blood Count 4.40 4.2-5.4 M/uL Hemoglobin 11.7 12.0-16.0 g/dL Hematocrit 37.2 37-47 % Mean Corpuscular Volume 84.5 80-100 fL Mean Corpuscular Hemoglobin 26.6 25-34 pg Mean Corpuscular Hemoglobin Concent 31.5 32-36 g/dl Platelet Count 140 130-400 K/uL Mean Platelet Volume 9.2 7.4-10.4 fL Neutrophils (%) (Auto) 81.3 % Lymphocytes (%) (Auto) 13.2 % Monocytes (%) (Auto) 5.1 % Eosinophils (%) (Auto) 0.0 % Basophils (%) (Auto) 0.1 % Neutrophils # (Auto) 5.46 1.4-6.5 K/uL Lymphocytes # (Auto) 0.89 1.2-3.4 K/uL Monocytes # (Auto) 0.34 0.11-0.59 K/uL Eosinophils # (Auto) 0.00 0-0.5 K/uL Basophils # (Auto) 0.01 0-0.2 K/uL RDW Standard Deviation 48.8 36.4-46.3 fL RDW Coefficient of Variation 15.8 11.5-14.5 % Immature Granulocyte % (Auto) 0.3 % Immature Granulocyte # (Auto) 0.02 0.00-0.02 K/uL Sodium Level 141 136-145 mmol/L Potassium Level 3.5 3.5-5.1 mmol/L Chloride Level 102 98-107 mmol/L Carbon Dioxide Level 32 21-32 mmol/L Anion Gap 7.0 3-11 mmol/L Blood Urea Nitrogen 12 7-18 mg/dl Creatinine 1.00 0.60-1.20 mg/dl Est Creatinine Clear Calc Drug Dose 88.3 ml/min Estimated GFR () 76.6 Estimated GFR (Non- 66.1 BUN/Creatinine Ratio 12.2 10-20 Random Glucose 166 70-99 mg/dl Calcium Level 9.2 8.5-10.1 mg/dl Total Bilirubin 0.3 0.2-1 mg/dl Aspartate Amino Transf (AST/SGOT) 32 15-37 U/L Alanine Aminotransferase (ALT/SGPT) 31 12-78 U/L Alkaline Phosphatase 146 45-117 U/L Total Protein 7.4 6.4-8.2 gm/dl Albumin 3.5 3.4-5.0 gm/dl Globulin 3.9 2.5-4.0 gm/dl Albumin/Globulin Ratio 0.9 0.9-2 Diagnostic Radiology MRI brain 7 mm enhancing right temporal lobe lesion and 5 mm left parietal lobe lesion with mild associated vasogenic edema. These lesions are new since MRI of June 15, 2016 and consistent with metastatic disease. Impression Assessment and Plan y/o F Hx metastatic NSCLCA, DM, COPD, morbidly obese. She had a wedge resection of her CA in 03/2016 and only one chemo session due to a severe reaction. She had 17 radiation treatments which she stopped as she tolerated them poorly as well. She is monitored with PET scans and had a + scan this week showing an active L upper lobe mass. Unfortunately the scan also suggested that she may have new brain metastases. She was told to attend the ER for an MRI which confirmed R temporal and L parietal lesions with mild edema. On further questioning she states that she has had a chronic posterior headache which is occasionally severe and has had short-term memory loss in addition to a feeling of clumsiness or impaired coordination. No focal defecits were apparent on exam. After a lengthy discussion with the pt and her fiance, it was decided that she would be treated in the outpt setting. We have recommended that she receive narcotics as need although she does not take them habitually, and that she start on PO Decadron at 8mg TID pending followup with her oncologist. The pt had inquired regarding her prognosis to which I informed her that this is an involved process and her oncologist would be able to better address potential treatments if available. Total time for this consult including review of records, meds, labs, imaging - discussion with pt , ER attending - 35 min Level of Care Med/Surg Resuscitation Status FULL RESUSCITATION VTE Prophylaxis VTE Risk Assessment Done? Y/N: Yes Risk Level: High Given or contraindicated: SCD's
[2016-10-27] MEDS ORDERED: HYDR2TAB48 PO (00:53)
[2016-10-27] MEDS ORDERED: METH4PAK PO (00:53)
[2016-10-27] MEDS ORDERED: OXYCODONE IR HOME PACK PO ONE (01:15)
[2016-10-27 01:23] VITALS: BP 148/98; PULSE 80; O2SAT 94
[2016-10-27] MEDS ORDERED: FLUTICASONE/SALMETEROL (ADVAIR) 500/50 INH 14 PUFF INH SCH (09:00)
[2016-10-27] MEDS ORDERED: LOSARTAN POTASSIUM 50 MG TAB PO SCH (09:00)
[2016-10-27] MEDS ORDERED: LEVOTHYROXINE 125 MCG TAB PO SCH (09:00)
[2016-10-27] MEDS ORDERED: RABEPRAZOLE SODIUM PO SCH (09:00)
[2016-10-27] MEDS ORDERED: FUROSEMIDE 40 MG TAB PO SCH (09:00)
[2016-10-27] MEDS ORDERED: MONTELUKAST SOD 10 MG TAB PO SCH (21:00)
[2016-10-27] MEDS ORDERED: SERTRALINE HCL 50 MG TAB PO SCH (21:00)
[2016-11-01] MEDS ORDERED: DXM/4 PO (11:25)
[2016-12-08] MEDS ORDERED: LEVO137T3 PO (15:02)
[2016-12-08] MEDS ORDERED: INSDGIPEN SC (15:02)
[2016-12-08] MEDS ORDERED: SUCR1TAB PO (15:02)
[2016-12-08] MEDS ORDERED: RABE20TA5 PO (15:02)
[2016-12-08] MEDS ORDERED: INSU-698 SC (15:02)
[2016-12-08] MEDS ORDERED: LCTX PO (15:02)
[2016-12-08] MEDS ORDERED: KFL500 PO (15:02)
[2016-12-08] MEDS ORDERED: HYDR-4079 PO (15:02)
[2016-12-08] MEDS ORDERED: FLUC150T54 PO (15:02)
[2017-02-16] MEDS ORDERED: LEVO1TAB35 PO ×2 (08:38→08:54)
[2017-02-16] MEDS ORDERED: PRD20 PO (08:38)
[2017-02-16] MEDS ORDERED: INSDGIPEN SC (08:38)
[2017-02-16] MEDS ORDERED: OXGN (08:38)
[2017-02-16] MEDS ORDERED: FLUC100T4 PO (08:54)
== END 2016-10-27 01:24 | disposition home or self-care (01) ==
LOC: ENRESERVTM → CANRESERV → ENRESERVDT → C.EDB 20:27 → CANBEDREQ 10-27 02:36
DX: G93.89 Other specified disorders of brain (principal); C78.01 Secondary malignant neoplasm of right lung; R41.0 Disorientation, unspecified; I10 Essential (primary) hypertension; F41.9 Anxiety disorder, unspecified; J45.909 Unspecified asthma, uncomplicated; J44.9 Chronic obstructive pulmonary disease, unspecified; F32.9 Major depressive disorder, single episode, unspecified; J43.9 Emphysema, unspecified; G89.29 Other chronic pain; F17.200 Nicotine dependence, unspecified, uncomplicated; Z85.118 Personal history of other malignant neoplasm of bronchus and lung; Z90.49 Acquired absence of other specified parts of digestive tract; Z79.899 Other long term (current) drug therapy; Z88.0 Allergy status to penicillin; Z88.8 Allergy status to other drugs, medicaments and biological substances; Z91.011 Allergy to milk products; Z91.030 Bee allergy status; Z91.040 Latex allergy status; Z91.09 Other allergy status, other than to drugs and biological substances; Z91.018 Allergy to other foods; Z83.3 Family history of diabetes mellitus; Z83.79 Family history of other diseases of the digestive system; Z82.49 Family history of ischemic heart disease and other diseases of the circulatory system; Z80.9 Family history of malignant neoplasm, unspecified

== ENCOUNTER 2016-12-04 19:58 | Inpatient (IN) | payer OTHER ==
[~2016-12-04] VITALS: Ht 165.1 cm; Wt 126.1 kg
[~2016-12-04 19:58] MED LIST changes: +CZR50 PO; +DXM/4 PO; -IBUP-1050 PO; -IPRASOL4 INH; -KETO0.0216 OP; +LSX40 PO; -MAGIC1 PO; +SERT1TAB71 PO; +VNTHFA/IN INH; +ZOLP10TA6 PO
[2016-12-04] MEDS ORDERED: VANCOMYCIN INJ 1,000 MG in SODIUM CHLORIDE 0.9% 250ML 250 ML IV STA (20:37)
[2016-12-04] MEDS ORDERED: HYDROmorphone INJ 1 MG/ML SYR IV STA (20:37)
[2016-12-04] MEDS ORDERED: SODIUM CHLORIDE 0.9% 1000ML 1,000 ML IV STA (20:37)
[2016-12-04] MEDS ORDERED: AZTREONAM IV 2,000 MG in DEXTROSE 5% 100ML 100 ML IV STA (20:44)
[2016-12-04] MEDS ORDERED: HYDROmorphone INJ 1 MG/ML SYR IV PRN (20:45)
--- NOTE | 2016-12-04 21:28 | DIAGNOSTIC IMAGING REPORT ---
LEFT THUMB 3 VIEWS CLINICAL HISTORY: Left thumb infection. FINDINGS: 3 views of left thumb are obtained. No prior studies are available for comparison at the time of dictation. The skeletal structures are well mineralized. No fracture is seen. No bony erosion or periostitis is identified. Minimal arthritic change is present at the first carpometacarpal and metacarpophalangeal joints. The distal interphalangeal joint is preserved. The overlying soft tissues are within normal limits. No subcutaneous gas or radiodense foreign body is seen. IMPRESSION: No acute bony abnormality is seen in the left thumb. Electronically signed by: Edis Sauer M.D. 12/04/2016 9:27 PM Dictated Date/Time: 12/04/2016 9:26 PM
[2016-12-04 21:38] LABS: BASO % 0.2 %; BASO ABS # 0.01 K/uL (0-0.2); COMPLETE YES; HEMATOCRIT 41.2 % (37-47); IG% 0.9 %; LYMPH % 11.7 %; LYMPH ABS # 0.66 K/uL (1.2-3.4); MEAN CELL VOLUME 85.3 fL (80-100); MEAN CORPUSCULAR HEMOGLOBIN 25.5 pg (25-34); MEAN CORPUSCULAR HGB CONC 29.9 g/dl (32-36); MEAN PLATELET VOLUME 9.7 fL (7.4-10.4); NEUT % 82.2 %; PLATELET COUNT 110 K/uL (130-400); RED BLOOD COUNT 4.83 M/uL (4.2-5.4); WHITE BLOOD COUNT 5.64 K/uL (4.8-10.8)
[2016-12-04] MEDS ORDERED: DIPH25CA65 PO (21:45)
[2016-12-04] MEDS ORDERED: FLUC100T4 PO (21:47)
[2016-12-04 22:01] LABS: BUN/CREATININE RATIO 13.6 (10-20); C-REACTIVE PROTEIN 10.1 mg/dl (0-0.29); CREATININE 0.95 mg/dl (0.60-1.20); POTASSIUM 4.2 mmol/L (3.5-5.1)
[2016-12-04 22:06] LABS: CALCIUM 9.1 mg/dl (8.5-10.1)
[2016-12-04 22:13] LABS: BETA-HYDROXYBUTYRATE 0.86 mg/dL (0.2-2.81)
[2016-12-04] MEDS ORDERED: NovoLIN-R INSULIN PER UNIT CHARGE IV STA (22:34)
[2016-12-04] MEDS ORDERED: ONDANSETRON INJ 2 MG/ML 2 ML VIAL IV STA (22:59)
[2016-12-04] MEDS ORDERED: ALBUTEROL HFA 8 GM INHALER INH PRN (23:00)
[2016-12-04] MEDS ORDERED: ALUMINUM/MAGNESIUM/SIMETH (MAALOX MAX) 30 ML UDC PO PRN (23:00)
[2016-12-04] MEDS ORDERED: MAGNESIUM HYDROXIDE SUSP 30 ML UDC PO PRN (23:00)
--- NOTE | 2016-12-04 23:27 | History and Physical ---
History & Physical Date & Time of Service: Dec 04, 2016 at 22:58 Chief Complaint: Pain In Thumb Primary Care Physician: Mariusz Matamoros M.D. History of Present Illness Source: patient 51 y/o F Hx metastatic NSCLCA, DM, COPD, morbidly obese. Pt presents with pain and redness of her L thumb for 1-2 days. She does not recall any trauma to the area. She cannot confirm fevers. Her mobility is limited as a result of the inflammation. She was afebrile on arrival to the ER and did not have leukocytosis. Her lactic acid is elevated however. The pt has a recent complex history regarding her CA. She had a wedge resection of her CA in 03/2016 and only one chemo session due to a severe reaction. She had 17 radiation treatments which she stopped as she tolerated them poorly as well. She is monitored with PET scans and had a + scan this 11/14 showing an active L upper lobe mass. She was also diagnosed with R temporal and L parietal brain metastasis which have since been treated with 2 sessions of radiation. She has no immediate plans to proceed with chemotherapy and states that no further radiation treatments are planned at present. She recently completed a dexamethasone taper. Past Medical/Surgical History Medical Problems: (1) Anxiety Status: Chronic (2) Asthma Status: Chronic (3) Benign hypertension Status: Chronic (4) Bronchitis Status: Chronic (5) Chronic back pain Status: Chronic (6) COPD Status: Chronic (7) Depression Status: Chronic (8) Emphysema Status: Chronic (9) Orthopedic surgery Status: Resolved (10) Pneumonia Status: Resolved (11) Pulmonary emphysema Status: Chronic Surgical Problems: (1) H/O section Status: Resolved (2) History of appendectomy Status: Resolved (3) History of cholecystectomy Status: Resolved Family History Abdominal pain FHx: cancer FHx: diabetes FHx: gallbladder disease FHx: heart disease FHx: hypertension FHx: lung disease Social History Smokes marijuana regularly - does not drink Smoking Status: Never Smoker Drug Use: marijuana Marital Status: Housing status: lives alone Occupational Status: disabled Immunizations History of Influenza Vaccine: Yes Influenza Vaccine Date: Apr 19, 2013 History of Tetanus Vaccine?: Yes Tetanus Immunization Date: Aug 20, 2013 History of Pneumococcal: Yes Pneumococcal Date: Aug 20, 2008 History of Hepatitis B Vaccine: Unknown Multi-Drug Resistant Organisms History of MDRO: No Allergies Coded Allergies: BEE STING (Verified Allergy, Severe, ANAPHYLAXIS, 12/04/16) Fentanyl (Verified Allergy, Severe, EYES SWELLED SHUT, 12/04/16) Milk Protein Extract (Unverified Allergy, Severe, blurred vision rash face hallucinations, 12/04/16) Adhesives (Verified Allergy, Unknown, blisters, 12/04/16) [place] (Unverified Allergy, Unknown, MOUTH ITCHES, SKIN PEELS, 12/04/16) Honey (Verified Allergy, Unknown, anaphylaxis, 12/04/16) pt Latex1 -Allergic Contact Dermititis (Verified Allergy, Unknown, LOCAL RXN- BLISTERING, 12/04/16) Metformin (Unverified Allergy, Unknown, PER RECORDS , 12/04/16) [place] (Verified Allergy, Unknown, SKIN PEELS, 12/04/16) [place] (Verified Allergy, Unknown, MUST BE PEELED, 12/04/16) Penicillins (Verified Allergy, Unknown, 12/04/16) Tiotropium (Verified Allergy, Unknown, UNKNOWN REACTION, 12/04/16) Buspirone (Verified Adverse Reaction, Mild, ALLERGIC TO GENERIC DRUG- TAKES BRAND AT HOME, 12/04/16) CI Pigment Blue 63 (Verified Adverse Reaction, Unknown, lethargy, hallucinations, 12/04/16) pt Duloxetine (Verified Adverse Reaction, Unknown, lethargy,hallucinations, ) pt Uncoded Allergies: CHEMO (Adverse Reaction, Severe, ELEVATED BP, SEVERE MIGRAINE, 08/06/16) Home Medications Scheduled Diphenhydramine Hcl (Benadryl), 50 MG PO HS Diphenhydramine Hcl (Benadryl Allergy), 1 CAP PO QAM Fluconazole (Diflucan), 1 TAB PO DAILY Fluticasone Prop/Salmeterol (Advair Diskus 500/50 60 Dose), 1 PUFF INH BID Levothyroxine Sodium (Levothyroxine Sodium), 125 MCG PO QAM Montelukast Sodium (Singulair), 10 MG PO HS Rabeprazole Sodium (Aciphex), 1 TAB PO DAILY Sertraline Hcl (Zoloft), 50 MG PO HS Scheduled PRN Albuterol Hfa (Ventolin Hfa), 2 PUFFS INH QID PRN for SOB/Wheezing Epinephrine (Epipen 2-Saad), 0.3 MG IM UD PRN for ALLERGIC REACTION Lorazepam (Ativan), 1 MG PO TID PRN for Anxiety Review of Systems C/O generalized swelling of her face since radiation Tx Constitutional: No fever, No chills, No sweats Eyes: No worsening of vision, No eye pain ENT: No hearing loss, No unusual epistaxis, No nasal symptoms Respiratory: No cough, No sputum, No wheezing Cardiovascular: No chest pain, No orthopnea, No PND Abdomen: No pain, No nausea, No vomiting Musculoskeletal: + problem reported (Pain in thumb) Genitourinary - Female: No dysuria, No urinary frequency, No urinary urgency Neurologic: No memory loss, No paralysis, No weakness Psychiatric: No depression symptoms Endocrine: + fatigue Hematologic / Lymphatic: No abnormal bleeding/bruising Integumentary: + rash (Infalmmatory changes over L thumb) Physical Exam Vital Signs Date Time Temp Pulse Resp B/P (MAP) Pulse Ox O2 Delivery O2 Flow Rate FiO2 12/04/16 22:05 104 18 156/112 95 12/04/16 20:05 36.6 122 20 155/90 92 Nasal Cannula 2.0 General Appearance: WD/WN, no apparent distress Head: normocephalic, atraumatic Eyes: normal inspection, PERRL, EOMI ENT: normal ENT inspection, pharynx normal Neck: supple, no JVD Respiratory/Chest: chest non-tender, lungs clear, normal breath sounds, no respiratory distress, no accessory muscle use Cardiovascular: regular rate, rhythm, no edema, no gallop, no JVD, no murmur, normal peripheral pulses Abdomen/GI: normal bowel sounds, non tender, soft Back: normal inspection, no CVA tenderness, no muscle spasm, normal range of motion Extremities/Musculoskelatal: no calf tenderness, normal capillary refill, no pedal edema, normal range of motion, + pertinent finding (Redness and inflammation of L thumb - ROM limited by pain - pain over palm adjacent to base of thumb) 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, no motor/sensory deficits, alert, normal mood/affect, normal reflexes, oriented x 3 Skin: + pertinent finding (Redness and inflammation of L thumb - ROM limited by pain - pain over palm adjacent to base of thumb) Diagnostics Laboratory Results Results Past 24 Hours Test 6/6/17 21:10 12/04/16 21:18 Range/Units White Blood Count 5.64 4.8-10.8 K/uL Red Blood Count 4.83 4.2-5.4 M/uL Hemoglobin 12.3 12.0-16.0 g/dL Hematocrit 41.2 37-47 % Mean Corpuscular Volume 85.3 80-100 fL Mean Corpuscular Hemoglobin 25.5 25-34 pg Mean Corpuscular Hemoglobin Concent 29.9 32-36 g/dl Platelet Count 110 130-400 K/uL Mean Platelet Volume 9.7 7.4-10.4 fL Neutrophils (%) (Auto) 82.2 % Lymphocytes (%) (Auto) 11.7 % Monocytes (%) (Auto) 5.0 % Eosinophils (%) (Auto) 0.0 % Basophils (%) (Auto) 0.2 % Neutrophils # (Auto) 4.64 1.4-6.5 K/uL Lymphocytes # (Auto) 0.66 1.2-3.4 K/uL Monocytes # (Auto) 0.28 0.11-0.59 K/uL Eosinophils # (Auto) 0.00 0-0.5 K/uL Basophils # (Auto) 0.01 0-0.2 K/uL RDW Standard Deviation 52.6 36.4-46.3 fL RDW Coefficient of Variation 16.9 11.5-14.5 % Immature Granulocyte % (Auto) 0.9 % Immature Granulocyte # (Auto) 0.05 0.00-0.02 K/uL Erythrocyte Sedimentation Rate 60 0-21 mm/hr Sodium Level 138 136-145 mmol/L Potassium Level 4.2 3.5-5.1 mmol/L Chloride Level 101 98-107 mmol/L Carbon Dioxide Level 29 21-32 mmol/L Anion Gap 8.0 3-11 mmol/L Blood Urea Nitrogen 13 7-18 mg/dl Creatinine 0.95 0.60-1.20 mg/dl Est Creatinine Clear Calc Drug Dose 95.7 ml/min Estimated GFR () 81.5 Estimated GFR (Non- 70.3 BUN/Creatinine Ratio 13.6 10-20 Random Glucose 387 70-99 mg/dl Calcium Level 9.1 8.5-10.1 mg/dl C-Reactive Protein 10.10 0-0.29 mg/dl Beta-Hydroxybutyric Acid 0.86 0.2-2.81 mg/dL Bedside Lactic Acid Venous 2.42 0.90-1.70 mmol/L Microbiology Results 12/04/16 Blood Culture, Received Pending 12/04/16 Blood Culture, Received Pending Diagnostic Radiology XR hand: No acute bony abnormality is seen in the left thumb Impression Assessment and Plan 51 y/o F Hx metastatic NSCLCA, DM, COPD, morbidly obese. Pt presents with pain and redness of her L thumb for 1-2 days. She does not recall any trauma to the area. She cannot confirm fevers. Her mobility is limited as a result of the inflammation. She was afebrile on arrival to the ER and did not have leukocytosis. Her lactic acid is elevated. 1) Cellulitis - The pt received Vanc and Aztreonam in the ER due to multiple allergies. We will consult the ortho/hand service as it does appear the infection is extending into the base of the thumb and there is tenderness over the palm. If the infection regresses significantly with antibiotics, it may be reasonable to discharge her with oral antibiotics as she is not immunosuppressed presently. We will provide IVF and repeat a lactic acid AM. 2) Lung CA - can follow-up in outpt setting 3) COPD - no evidence of acute exacerbation - cont home inhalers 4) DM - not currently treated - hyperglycemic at 367 on admission - this may be partially due to recent Dex use - will provide Lantus, sliding scale and check A1c as she may need treatment going forward. Full code - SCDs placed as we do not know the extent of her brain mets - consider Heparin if she is to stay beyond one day as she is at increased risk of DVT Total time for this admit including review of labs, meds, imaging, records - discussion with pt and ER attending - 34 min Level of Care Med/Surg Resuscitation Status FULL RESUSCITATION VTE Prophylaxis VTE Risk Assessment Done? Y/N: Yes Risk Level: Moderate Given or contraindicated: SCD's
[2016-12-04] MEDS ORDERED: LANTUS PER UNIT CHARGE SC STA (23:33)
[2016-12-04] MEDS ORDERED: POLYETHYLENE (MIRALAX) 17 GM PACK PO PRN (23:45)
--- NOTE | 2016-12-04 23:53 | EMERGENCY ROOM VISIT NOTE ---
History First contact with patient: 20:20 Chief Complaint: FINGER PAIN Stated Complaint: PAIN IN THUMB History of Present Illness The patient is a 51 year old female, history of diabetes, non-small cell lung cancer with metastasis to the brain, who presents to the Emergency Room with complaints of severe left thumb pain. The patient reports that she has had progressively worsening pain over the past 4 days. She now reports that the thumb is dark in color. She also reports sweats, fevers and chills. She denies any known injury or puncture wound to the thumb. She has taken multiple medications at home, including oral Dilaudid without any relief of her pain. She rates her discomfort an 8 out of 10 on my exam. Tetanus immunization is up- to-date. The patient reports that she just completed radiation therapy of the brain. She is not currently receiving chemotherapy. Review of Systems HEENT: Denies dizziness, visual problems, hearing loss, tinnitus. Denies difficulty swallowing or oral lesions. PULMONARY: Denies cough, shortness of breath, sputum production or hemoptysis. CARDIOVASCULAR: Denies chest pain, palpitations, dyspnea on exertion, orthopnea or peripheral edema. GASTROINTESTINAL: Denies diarrhea, constipation, nausea, vomiting, or abdominal pain. GENITOURINARY: Denies dysuria, frequency, urgency or nocturia. NEUROLOGIC: Denies history of epilepsy, CVA, TIA or chronic headaches. MUSCULOSKELETAL: Denies history of joint tenderness/swelling. SKIN: Denies rashes or lesions. PSYCHIATRIC: Denies history of depression or mental illness. ENDOCRINE: Denies history of diabetes or thyroid disorders. Past Medical/Surgical History Medical Problems: (1) Altered mental status (2) Anxiety (3) Asthma (4) Benign hypertension (5) Brain metastases (6) Bronchitis (7) Cellulitis of hand (8) Chronic back pain (9) COPD (10) Depression (11) Emphysema (12) Lung cancer (13) Orthopedic surgery (14) Pneumonia (15) Pulmonary emphysema Surgical Problems: (1) H/O section (2) History of appendectomy (3) History of cholecystectomy Family History Abdominal pain FHx: cancer FHx: diabetes FHx: gallbladder disease FHx: heart disease FHx: hypertension FHx: lung disease Social History Smoking Status: Never Smoker Alcohol Use: none Drug Use: marijuana Marital Status: Housing Status: lives alone Occupation Status: disabled Current/Historical Medications Scheduled Diphenhydramine Hcl (Benadryl), 50 MG PO HS Diphenhydramine Hcl (Benadryl Allergy), 1 CAP PO QAM Fluconazole (Diflucan), 1 TAB PO DAILY Fluticasone Prop/Salmeterol (Advair Diskus 500/50 60 Dose), 1 PUFF INH BID Levothyroxine Sodium (Levothyroxine Sodium), 125 MCG PO QAM Montelukast Sodium (Singulair), 10 MG PO HS Rabeprazole Sodium (Aciphex), 1 TAB PO DAILY Sertraline Hcl (Zoloft), 50 MG PO HS Scheduled PRN Albuterol Hfa (Ventolin Hfa), 2 PUFFS INH QID PRN for SOB/Wheezing Epinephrine (Epipen 2-Saad), 0.3 MG IM UD PRN for ALLERGIC REACTION Lorazepam (Ativan), 1 MG PO TID PRN for Anxiety Allergies Coded Allergies: BEE STING (Verified Allergy, Severe, ANAPHYLAXIS, 12/04/16) Fentanyl (Verified Allergy, Severe, EYES SWELLED SHUT, 12/04/16) Milk Protein Extract (Unverified Allergy, Severe, blurred vision rash face hallucinations, 12/04/16) Adhesives (Verified Allergy, Unknown, blisters, 12/04/16) [place] (Unverified Allergy, Unknown, MOUTH ITCHES, SKIN PEELS, 12/04/16) Honey (Verified Allergy, Unknown, anaphylaxis, 12/04/16) pt Latex1 -Allergic Contact Dermititis (Verified Allergy, Unknown, LOCAL RXN- BLISTERING, 12/04/16) Metformin (Unverified Allergy, Unknown, PER RECORDS , 12/04/16) [place] (Verified Allergy, Unknown, SKIN PEELS, 12/04/16) [place] (Verified Allergy, Unknown, MUST BE PEELED, 12/04/16) Penicillins (Verified Allergy, Unknown, 12/04/16) Tiotropium (Verified Allergy, Unknown, UNKNOWN REACTION, 12/04/16) Buspirone (Verified Adverse Reaction, Mild, ALLERGIC TO GENERIC DRUG- TAKES BRAND AT HOME, 12/04/16) CI Pigment Blue 63 (Verified Adverse Reaction, Unknown, lethargy, hallucinations, 12/04/16) pt Duloxetine (Verified Adverse Reaction, Unknown, lethargy,hallucinations, ) pt Uncoded Allergies: CHEMO (Adverse Reaction, Severe, ELEVATED BP, SEVERE MIGRAINE, 08/06/16) Physical Exam Vital Signs Date Time Temp Pulse Resp B/P (MAP) Pulse Ox O2 Delivery O2 Flow Rate FiO2 12/04/16 23:08 102 18 142/92 93 Nasal Cannula 2.0 12/04/16 22:05 104 18 156/112 95 Room Air 2.0 12/04/16 20:05 36.6 122 20 155/90 92 Nasal Cannula 2.0 Physical Exam CONSTITUTIONAL: Healthy and well nourished. Alert and oriented X 3 with positive affect. The patient appears in moderate discomfort from pain. HEENT: Normocephalic, atraumatic. Pupils equal, round and reactive. NECK: Full active range of motion without discomfort. RESPIRATORY: Clear to auscultation bilaterally with no wheezing, crackles, rhonchi or stridor. CARDIOVASCULAR: Regular rate and rhythm with no murmurs, rubs or gallops. GASTROINTESTINAL: Bowel sounds present in all quadrants. MUSCULOSKELETAL: Examination of the left thumb shows edema, erythema and dark dusky appearance. The tip of the thumb is blanched in appearance. The patient would not allow me to palpate the finger. Active flexion and extension worsens the patient's discomfort. She also has tenderness to palpation through the palm and flexor tendons of the thumb. No tenderness to palpation about the wrist. INTEGUMENTARY: No rash or other significant dermatologic conditions noted. NEUROLOGIC: No focal neurologic deficits noted. Left thumb is hyperesthetic to palpation, for what limited exam the patient would allow. Medical Decision & Procedures ER Provider Diagnostic Interpretation: My interpretation of a left thumb x-rays does not show any fractures, dislocation or evidence for osteomyelitis. Radiologist report is as follows: LEFT THUMB 3 VIEWS CLINICAL HISTORY: Left thumb infection. FINDINGS: 3 views of left thumb are obtained. No prior studies are available for comparison at the time of dictation. The skeletal structures are well mineralized. No fracture is seen. No bony erosion or periostitis is identified. Minimal arthritic change is present at the first carpometacarpal and metacarpophalangeal joints. The distal interphalangeal joint is preserved. The overlying soft tissues are within normal limits. No subcutaneous gas or radiodense foreign body is seen. IMPRESSION: No acute bony abnormality is seen in the left thumb. Laboratory Results 12/04/16 21:10 Red Blood Count 4.83, Mean Corpuscular Volume 85.3, Mean Corpuscular Hemoglobin 25.5, Mean Corpuscular Hemoglobin Concent 29.9, Mean Platelet Volume 9.7, Neutrophils (%) (Auto) 82.2, Lymphocytes (%) (Auto) 11.7, Monocytes (%) (Auto) 5.0, Eosinophils (%) (Auto) 0.0, Basophils (%) (Auto) 0.2, Neutrophils # (Auto) 4.64, Lymphocytes # (Auto) 0.66, Monocytes # (Auto) 0.28, Eosinophils # (Auto) 0.00, Basophils # (Auto) 0.01 12/04/16 21:10 Test 12/04/16 21:10 12/04/16 21:18 12/04/16 23:30 White Blood Count 5.64 K/uL (4.8-10.8) Red Blood Count 4.83 M/uL (4.2-5.4) Hemoglobin 12.3 g/dL (12.0-16.0) Hematocrit 41.2 % (37-47) Mean Corpuscular Volume 85.3 fL (80-100) Mean Corpuscular Hemoglobin 25.5 pg (25-34) Mean Corpuscular Hemoglobin Concent 29.9 g/dl (32-36) Platelet Count 110 K/uL (130-400) Mean Platelet Volume 9.7 fL (7.4-10.4) Neutrophils (%) (Auto) 82.2 % Lymphocytes (%) (Auto) 11.7 % Monocytes (%) (Auto) 5.0 % Eosinophils (%) (Auto) 0.0 % Basophils (%) (Auto) 0.2 % Neutrophils # (Auto) 4.64 K/uL (1.4-6.5) Lymphocytes # (Auto) 0.66 K/uL (1.2-3.4) Monocytes # (Auto) 0.28 K/uL (0.11-0.59) Eosinophils # (Auto) 0.00 K/uL (0-0.5) Basophils # (Auto) 0.01 K/uL (0-0.2) RDW Standard Deviation 52.6 fL (36.4-46.3) RDW Coefficient of Variation 16.9 % (11.5-14.5) Immature Granulocyte % (Auto) 0.9 % Immature Granulocyte # (Auto) 0.05 K/uL (0.00-0.02) Erythrocyte Sedimentation Rate 60 mm/hr (0-21) Anion Gap 8.0 mmol/L (3-11) Est Creatinine Clear Calc Drug Dose 95.7 ml/min Estimated GFR () 81.5 Estimated GFR (Non- 70.3 BUN/Creatinine Ratio 13.6 (10-20) Calcium Level 9.1 mg/dl (8.5-10.1) C-Reactive Protein 10.10 mg/dl (0-0.29) Beta-Hydroxybutyric Acid 0.86 mg/dL (0.2-2.81) Bedside Lactic Acid Venous 2.42 mmol/L (0.90-1.70) The above labs were reviewed. The patient has no leukocytosis or left shift. She does have an elevated lactic acid level, C-reactive protein and sedimentation rate. Serum ketones are normal. Glucose is 387. Medications Administered Medications (Trade) Dose Ordered Sig/Pravin Route Start Time Stop Time Status Last Admin Dose Admin Sodium Chloride 1,000 ml @ 999 mls/hr Q1H1M STAT IV 12/04/16 20:37 12/04/16 21:37 DC 12/04/16 22:22 999 MLS/HR Hydromorphone HCl (Dilaudid Inj) 1 mg NOW STAT IV 12/04/16 20:37 12/04/16 20:43 DC 12/04/16 22:19 1 MG Hydromorphone HCl (Dilaudid Inj) 1 mg Q30M PRN IV 12/04/16 20:45 12/18/16 20:44 12/04/16 23:09 1 MG Aztreonam 2000 mg/ Dextrose 110 ml @ 100 mls/hr ONE STAT IV 12/04/16 20:44 12/04/16 21:49 DC 12/04/16 22:25 100 MLS/HR Insulin Human Regular (novoLIN-R U-100 PER UNIT) 10 units NOW STAT IV 12/04/16 22:34 12/04/16 22:35 DC 12/04/16 23:25 10 UNITS Ondansetron HCl (Zofran Inj) 4 mg NOW STAT IV 12/04/16 22:59 12/04/16 23:00 DC 12/04/16 23:07 4 MG ED Course Patient history and physical exam were performed. Nurse's notes were reviewed. Vital signs were reviewed, showing an elevated blood pressure 155/90. Pulse rate is 122 with an O2 saturation of 92% on nasal cannula. The patient is currently afebrile with a temperature of 36.6C. The patient appears in moderate discomfort from pain, and is diaphoretic. IV access was established, and labs were drawn, including blood cultures 2 and point of care lactic acid. The patient was administered IV vancomycin and aztreonam. She was also treated with IV Dilaudid and Zofran for pain. Review of labs shows an elevated lactic acid level, sedimentation rate and CRP. She has no leukocytosis or left shift at this time. Her blood glucose is elevated. The patient is currently not being treated with insulin. She was administered regular insulin 10 units IV. The case was further discussed with Dr. Snell, ED attending physician, who agrees with workup and plan of care. I also discussed the case with Dr. Robert Ribera, orthopedic surgeon bonderizer, who suggested hospitalist evaluation for possible admission and IV antibiotics given her current immunocompromise state and elevated lactic acid level. The case was then further discussed with Dr. Dawkins, [facility] hospitalist, for further evaluation. Please see his dictation for further treatment and final disposition. Medical Decision Patient present to the emergency department with clinical exam findings concerning for a left thumb/hand cellulitis. Other differentials considered included herpetic brandon, retained foreign body, osteomyelitis and other similar etiologies. The patient is immunocompromised and is diabetic. I do feel that the patient warrants further inpatient IV antibiotic management and orthopedic consultation. I do not feel that the patient has an overwhelming sepsis, and blood cultures are currently pending. Impression Primary Impression: Cellulitis of left hand and thumb Additional Impressions: Hyperglycemia due to type 2 diabetes mellitus History of lung cancer Departure Information Referrals Mariusz Matamoros M.D. (PCP) Patient Instructions My [facility] Problem Qualifiers Additional Impressions: Hyperglycemia due to type 2 diabetes mellitus Diabetes mellitus buttermaker insulin use: without penitentiary use Qualified Codes: E11.65 - Type 2 diabetes mellitus with hyperglycemia
[2016-12-04 23:55] VITALS: BP 170/90; PULSE 102; TEMP 36.9; O2SAT 97; BMI 45.6
[2016-12-05] MEDS: ACETAMINOPHEN 325 MG TAB PO PRN ×2 (00:24→20:22)
[2016-12-05] MEDS ORDERED: VANCOMYCIN INJ 2,100 MG in SODIUM CHLORIDE 0.9% 500ML 500 ML IV SCH (00:30)
[2016-12-05] MEDS ORDERED: VANCOMYCIN CONSULT ACTIVE PRN (00:45)
[2016-12-05] MEDS ORDERED: DEXTROSE 50% 50 ML SYR IV PRN (00:45)
[2016-12-05] MEDS ORDERED: GLUCOSE 10 TABS/TUBE PO PRN (00:45)
[2016-12-05] MEDS ORDERED: GLUCAGON FOR INJ 1 MG VIAL SQ PRN (00:45)
[2016-12-05] MEDS ORDERED: GLUCOSE 40% GEL 15 GM TUBE PO PRN (00:45)
[2016-12-05] MEDS: SODIUM CHLORIDE 0.9% 1000ML 1,000 ML IV SCH ×2 (00:58→10:27)
[2016-12-05] MEDS ORDERED: VANCOMYCIN INJ 2,800 MG in SODIUM CHLORIDE 0.9% 500ML 500 ML IV SCH (01:00)
[2016-12-05] MEDS: HYDROmorphone HCL 2 MG TAB PO PRN ×2 (02:40→07:45)
[2016-12-05] MEDS ORDERED: IV FLUIDS COMPLETED PRN (02:45)
[2016-12-05] MEDS: AZTREONAM IV 1,000 MG in DEXTROSE 5% 100ML 100 ML IV SCH ×2 (05:45→23:33)
[2016-12-05] MEDS: LEVOTHYROXINE 125 MCG TAB PO SCH ×2 (05:47→07:40)
[2016-12-05 06:43] LABS: ESTIMATED AVERAGE GLUCOSE 186 mg/dl; HA1C FLAG Normal (Normal)
[2016-12-05 07:06] LABS: HEMATOCRIT 36.2 % (37-47); MEAN CELL VOLUME 84.4 fL (80-100); MEAN CORPUSCULAR HEMOGLOBIN 25.6 pg (25-34); MEAN CORPUSCULAR HGB CONC 30.4 g/dl (32-36); MEAN PLATELET VOLUME 9.8 fL (7.4-10.4); PLATELET COUNT 100 K/uL (130-400); RED BLOOD COUNT 4.29 M/uL (4.2-5.4); WHITE BLOOD COUNT 5.09 K/uL (4.8-10.8)
[2016-12-05] MEDS: LORAZEPAM 1 MG TAB PO PRN ×2 (07:38→19:59)
[2016-12-05] MEDS: FLUCONAZOLE 100 MG TAB PO SCH (07:39)
[2016-12-05] MEDS: FLUTICASONE/SALMETEROL (ADVAIR) 500/50 INH 14 PUFF INH SCH ×2 (07:40→20:00)
[2016-12-05] MEDS: INSULIN ASPART 100 UNITS/ML 3 ML PEN SC SCH ×4 (07:49→20:15)
[2016-12-05 07:50] LABS: BUN/CREATININE RATIO 13.3 (10-20); CALCIUM 8.1 mg/dl (8.5-10.1); CREATININE 0.64 mg/dl (0.60-1.20)
[2016-12-05 07:59] VITALS: BP 143/95; PULSE 93; TEMP 36.7; O2SAT 97
[2016-12-05] MEDS ORDERED: PANTOprazole SOD 40 MG TAB PO SCH (08:00)
[2016-12-05] MEDS ORDERED: NURSING DECISION MEDICATION ORDER SCH (08:30)
[2016-12-05] MEDS ORDERED: NURSING VERBAL MED ORDER ONE ×3 (10:15→15:30)
[2016-12-05] MEDS ORDERED: HYDROmorphone INJ 1 MG/ML SYR ONE (10:17)
[2016-12-05] MEDS: INSULIN GLARGINE SOLOSTAR 100 UNITS/ML 3 ML PEN SC SCH (10:26)
[2016-12-05] MEDS ORDERED: HYDROmorphone INJ 1 MG/ML SYR IV PRN ×2 (10:30→17:15)
[2016-12-05] MEDS ORDERED: HYDROmorphone INJ 2 MG/ML SYR/VIAL ONE (12:22)
[2016-12-05] MEDS: ONDANSETRON INJ 2 MG/ML 2 ML VIAL IV PRN ×2 (12:31→20:22)
[2016-12-05] MEDS ORDERED: AZTREONAM IV 1,000 MG in DEXTROSE 5% 100ML 100 ML IV SCH (14:00)
[2016-12-05] MEDS ORDERED: PERFLUTREN LIPID MICROSPHERE (DEFINITY) IV ONE (14:11)
--- NOTE | 2016-12-05 14:15 | Medical Student: [facility] ---
Med Student Progress Note Date of Service Dec 05, 2016. Subjective Pt evaluation today including: conversation w/ patient This is a 51 y/o female with pmh of metastatic NSCLC to the brain, DM, COPD, obesity who was admitted overnight for cellulitis of right thumb. She was placed on aztreonam and vancomycin in the ED. At time of admission she had a positive lactic acid, but no leukocytosis or fever were present. Overnight, she notes that the thumb has worsened, with spreading of the erythema and pain along the radial aspect of the forearm.. The tip of the thumb has progressively turned black with a ring of white around it, and she notes feelings of numbness and tingling in the thumb, describing that it 'feels like it is dying.' She is unable to move the thumb, but it is able to move the other four digits. She has remained afebrile and denies fevers, chills, rigors. She denies n/v/d, acute abdominal pain, or any similar rashes/pain. She does note that she has been diagnosed with tinea on her feet bilaterally. She does not recall any recent trauma or laceration of her finger. However, she has had exposure to a multitude of animals (cows, geese, chickens, pheasants, dogs) and believes it could be possible that she was scratched by one. She has also recently been on steroids. She is not receiving chemo, but her last radiation treatment was 1.5 weeks. Review of Systems Constitutional: No fever, No chills Respiratory: No cough, No sputum Cardiac: No chest pain Abdomen: No pain, No nausea, No vomiting, No diarrhea Musculoskeletal: + swelling Female : No dysuria Skin: + new/changing skin lesions, + color change Objective Vital Signs Date Time Temp Pulse Resp B/P (MAP) Pulse Ox O2 Delivery O2 Flow Rate FiO2 12/05/16 08:00 Nasal Cannula 2.0 12/05/16 07:59 36.7 93 18 143/95 (111) 97 Nasal Cannula 1.0 12/04/16 23:55 36.9 102 18 170/90 97 Nasal Cannula 2.0 12/04/16 23:52 108 18 159/99 93 12/04/16 23:08 102 18 142/92 93 Nasal Cannula 2.0 12/04/16 22:05 104 18 156/112 95 Room Air 2.0 12/04/16 20:05 36.6 122 20 155/90 92 Nasal Cannula 2.0 Physical Exam General Appearance: WD/WN, + mild distress Neck: thyroid normal Respiratory/Chest: chest non-tender, no respiratory distress, no accessory muscle use, + pertinent finding (absent breath findings at left base. Diffusely decreased breath sounds bilaterally. ) Cardiovascular: regular rate, rhythm, no edema, no JVD, no murmur Abdomen: normal bowel sounds, non tender, soft, no organomegaly Extremities: normal range of motion, + pedal edema (Pitting edema 1+ bilaterally. Tinea rash noted bilaterally on posterior aspects of heels. ), + pertinent finding (Left thumb is diffusely tender, swollen, warm/tender to touch , and erythematous. Erythema extends to radial aspect of forearm in lymphangitic distribution. The tip of the thumb and the thumbnail are dusky in appearance and spreading. Radial pulse is present. ) Laboratory Results Last 24 Hours Test 12/04/16 21:10 12/04/16 21:18 12/05/16 05:29 12/05/16 06:17 White Blood Count 5.64 K/uL 5.09 K/uL Red Blood Count 4.83 M/uL 4.29 M/uL Hemoglobin 12.3 g/dL 11.0 g/dL Hematocrit 41.2 % 36.2 % Mean Corpuscular Volume 85.3 fL 84.4 fL Mean Corpuscular Hemoglobin 25.5 pg 25.6 pg Mean Corpuscular Hemoglobin Concent 29.9 g/dl 30.4 g/dl Platelet Count 110 K/uL 100 K/uL Mean Platelet Volume 9.7 fL 9.8 fL Neutrophils (%) (Auto) 82.2 % Lymphocytes (%) (Auto) 11.7 % Monocytes (%) (Auto) 5.0 % Eosinophils (%) (Auto) 0.0 % Basophils (%) (Auto) 0.2 % Neutrophils # (Auto) 4.64 K/uL Lymphocytes # (Auto) 0.66 K/uL Monocytes # (Auto) 0.28 K/uL Eosinophils # (Auto) 0.00 K/uL Basophils # (Auto) 0.01 K/uL RDW Standard Deviation 52.6 fL 52.1 fL RDW Coefficient of Variation 16.9 % 16.9 % Immature Granulocyte % (Auto) 0.9 % Immature Granulocyte # (Auto) 0.05 K/uL Erythrocyte Sedimentation Rate 60 mm/hr Sodium Level 138 mmol/L 141 mmol/L Potassium Level 4.2 mmol/L 4.0 mmol/L Chloride Level 101 mmol/L 104 mmol/L Carbon Dioxide Level 29 mmol/L 28 mmol/L Anion Gap 8.0 mmol/L 9.0 mmol/L Blood Urea Nitrogen 13 mg/dl 8 mg/dl Creatinine 0.95 mg/dl 0.64 mg/dl Est Creatinine Clear Calc Drug Dose 95.7 ml/min 140.9 ml/min Estimated GFR () 81.5 121.4 Estimated GFR (Non- 70.3 104.8 BUN/Creatinine Ratio 13.6 13.3 Random Glucose 387 mg/dl 205 mg/dl Estimated Average Glucose 186 mg/dl Hemoglobin A1c 8.1 % Calcium Level 9.1 mg/dl 8.1 mg/dl C-Reactive Protein 10.10 mg/dl Beta-Hydroxybutyric Acid 0.86 mg/dL Bedside Lactic Acid Venous 2.42 mmol/L Bedside Glucose 193 mg/dl Lactic Acid Level 1.8 mmol/L Test 12/05/16 07:45 12/05/16 11:23 Bedside Glucose 218 mg/dl 210 mg/dl Medications Medications Administered Medications (Trade) Dose Ordered Sig/Pravin Route Start Time Stop Time Status Last Admin Dose Admin Sodium Chloride 1,000 ml @ 999 mls/hr Q1H1M STAT IV 12/04/16 20:37 12/04/16 21:37 DC 12/04/16 22:22 999 MLS/HR Hydromorphone HCl (Dilaudid Inj) 1 mg NOW STAT IV 12/04/16 20:37 12/04/16 20:43 DC 12/04/16 22:19 1 MG Hydromorphone HCl (Dilaudid Inj) 1 mg Q30M PRN IV 12/04/16 20:45 12/05/16 00:30 DC 12/04/16 23:09 1 MG Aztreonam 2000 mg/ Dextrose 110 ml @ 100 mls/hr ONE STAT IV 12/04/16 20:44 12/04/16 21:49 DC 12/04/16 22:25 100 MLS/HR Insulin Human Regular (novoLIN-R U-100 PER UNIT) 10 units NOW STAT IV 12/04/16 22:34 12/04/16 22:35 DC 12/04/16 23:25 10 UNITS Acetaminophen (Tylenol Tab) 650 mg Q4H PRN PO 12/04/16 23:00 01/03/17 22:59 12/05/16 00:24 650 MG Ondansetron HCl (Zofran Inj) 4 mg Q6H PRN IV 12/04/16 23:00 01/03/17 22:59 12/05/16 12:31 4 MG Diphenhydramine HCl (Benadryl Cap) 25 mg QAM PO 12/05/16 08:00 01/04/17 08:59 12/05/16 07:40 25 MG Fluconazole (Diflucan Tab) 100 mg DAILY PO 12/05/16 08:00 12/15/16 08:59 12/05/16 07:39 100 MG Salmeterol Xinafoate/ Fluticasone (Advair Diskus 500/50 Inh) 1 puff BID INH 12/05/16 08:00 01/04/17 08:59 12/05/16 07:40 1 PUFF Levothyroxine Sodium (Synthroid Tab) 125 mcg DAILYBB PO 12/05/16 06:30 01/04/17 06:59 12/05/16 07:40 125 MCG Lorazepam (Ativan Tab) 1 mg TID PRN PO 12/04/16 23:00 01/03/17 22:59 12/05/16 07:38 1 MG Hydromorphone HCl (Dilaudid Tab) 2 mg Q3H PRN PO 12/04/16 23:00 12/05/16 10:21 DC 12/05/16 07:45 2 MG Ondansetron HCl (Zofran Inj) 4 mg NOW STAT IV 12/04/16 22:59 12/04/16 23:00 DC 12/04/16 23:07 4 MG Insulin Aspart (novoLOG ASPART) SLIDING SCALE G... ACHS SC 12/05/16 06:30 01/04/17 06:59 12/05/16 12:30 2 UNITS Insulin Glargine (Lantus Per Unit) 10 units ONE STAT SC 12/04/16 23:33 12/04/16 23:34 DC 12/04/16 23:47 10 UNITS Aztreonam 1000 mg/ Dextrose 110 ml @ 100 mls/hr Q8H IV 12/05/16 06:00 12/15/16 05:59 12/05/16 05:45 100 MLS/HR Sodium Chloride 1,000 ml @ 100 mls/hr Q10H IV 12/05/16 00:30 12/05/16 20:29 12/05/16 10:27 100 MLS/HR Vancomycin HCl 2800 mg/Sodium Chloride 556 ml @ 200 mls/hr TODAY@0100 IV 12/05/16 01:00 12/05/16 03:47 DC 12/05/16 00:58 200 MLS/HR Insulin Glargine (Lantus Solostar Pen) 10 unit QAM SC 12/05/16 09:00 01/04/17 08:59 12/05/16 10:26 10 UNIT Hydromorphone HCl (Dilaudid Inj) 1 mg STK-MED ONCE .ROUTE 12/05/16 10:17 12/05/16 10:18 DC 12/05/16 10:22 1 MG Hydromorphone HCl (Dilaudid Inj) 2 mg STK-MED ONCE .ROUTE 12/05/16 12:22 12/05/16 12:23 DC 12/05/16 12:24 2 MG Assessment and Plan Assessment and Plan: This is a 51 y/o female with metastatic NSCLC, COPD, DM who presents with worsening compromise of the left thumb. The differential includes cellulitis v. dry gangrene v. necrotizing fasciitis, but clinical picture is most consistent with dry gangrene. Dry gangrene -Appreciate orthopedic consult, OR debridement scheduled for today. -continue Aztreonam and Vancomycin -Arterial Doppler ultrasound of Left Arm -Echo, rule out potential cardiac source for septic emboli -IV Dilaudid for pain control -Heating pad for pain/discomfort NSCLC, metastatic to brain -Currently not receiving chemo -Last radiation therapy 1.5 weeks ago -Continue follow up as outpatient DMII, uncontrolled -Continue on sliding scale insulin while in hospital -A1C COPD -continue singulair, fluconazole DVT prophylaxis -continue SCD -consider enoxaparin if prolonged hospital stay Continued [facility] stay due to: multiple IV medications needed, other Discharge planning: uncertain
[2016-12-05 14:43] VITALS: Ht 165.1 cm; Wt 126.1 kg
[2016-12-05] MEDS ORDERED: BUPIVACAINE 0.5 % 5 MG/1 ML MPF 30ML VIAL ONE (15:15)
[2016-12-05] MEDS ORDERED: MIDAZOLAM HCL 1 MG/ML 2ML VIAL ONE ×2 (15:26→16:12)
[2016-12-05] MEDS ORDERED: FENTANYL CITRATE INJ 50 MCG/1 ML 2 ML VIAL ONE ×2 (15:26→16:24)
--- NOTE | 2016-12-05 15:32 | DIAGNOSTIC IMAGING REPORT ---
ARTERIAL DOPPLER ULTRASOUND LEFT UPPER EXTREMITY CLINICAL HISTORY: Left thumb vascular compromise. Lung carcinoma. COMPARISON STUDY: No previous studies for comparison. FINDINGS: There was triphasic flow within the left subclavian, left axillary, and left brachial arteries. There is biphasic flow within the left radial and ulnar arteries. No high velocity jets are visualized. IMPRESSION: No evidence of left upper extremity arterial stenosis. Electronically signed by: Raul Ortiz M.D. 12/05/2016 3:31 PM Dictated Date/Time: 12/05/2016 3:24 PM
--- NOTE | 2016-12-05 15:38 | History & Physical Bridge Note ---
H&P Re-Evaluation Bridge Note: I have examined the patient, reviewed the History & Physical and in the interval since the performance of the History & Physical I have noted the following changes of clinical significance: Infection is a felon full consult dicated will plan for I and D No changes noted
[2016-12-05] MEDS ORDERED: VANCOMYCIN INJ 1,350 MG in SODIUM CHLORIDE 0.9% 250ML 250 ML IV SCH (16:00)
[2016-12-05] MEDS ORDERED: BACITRACIN 50000 UNIT VIAL ONE (16:05)
--- NOTE | 2016-12-05 16:10 | Pharmacy Progress Note ---
Pharmacy Abx Initial Consult Date of Service Dec 05, 2016. Pharmacy Dosing Scope Date of Consult: 12/05/16 Consultation requested by: Dr. Rodriguez Pharmacy is consulted to initiate Vancomycin IV dosing therapy, order appropriate labs and adjust drug dose/frequency. Subjective The patient is a 51 year old female admitted on Dec 05, 2016 at 10:21 for severe left thumb pain. Objective Height (Feet): 5 Height (Inches): 5.00 Weight (Kilograms): 124.300 Vital Signs (Past 12Hrs) Vital Signs Past 12 Hours Date Time Temp Pulse Resp B/P (MAP) Pulse Ox O2 Delivery O2 Flow Rate FiO2 12/05/16 15:40 37.6 104 20 145/101 95 Room Air 12/05/16 08:00 Nasal Cannula 2.0 12/05/16 07:59 36.7 93 18 143/95 (111) 97 Nasal Cannula 1.0 Lab Results (24Hrs) Test 12/04/16 21:10 12/04/16 21:18 12/05/16 06:17 12/05/16 11:23 White Blood Count 5.64 K/uL (4.8-10.8) 5.09 K/uL (4.8-10.8) Red Blood Count 4.83 M/uL (4.2-5.4) 4.29 M/uL (4.2-5.4) Hemoglobin 12.3 g/dL (12.0-16.0) 11.0 g/dL (12.0-16.0) Hematocrit 41.2 % (37-47) 36.2 % (37-47) Mean Corpuscular Volume 85.3 fL (80-100) 84.4 fL (80-100) Mean Corpuscular Hemoglobin 25.5 pg (25-34) 25.6 pg (25-34) Mean Corpuscular Hemoglobin Concent 29.9 g/dl (32-36) 30.4 g/dl (32-36) Platelet Count 110 K/uL (130-400) 100 K/uL (130-400) Mean Platelet Volume 9.7 fL (7.4-10.4) 9.8 fL (7.4-10.4) Neutrophils (%) (Auto) 82.2 % Lymphocytes (%) (Auto) 11.7 % Monocytes (%) (Auto) 5.0 % Eosinophils (%) (Auto) 0.0 % Basophils (%) (Auto) 0.2 % Neutrophils # (Auto) 4.64 K/uL (1.4-6.5) Lymphocytes # (Auto) 0.66 K/uL (1.2-3.4) Monocytes # (Auto) 0.28 K/uL (0.11-0.59) Eosinophils # (Auto) 0.00 K/uL (0-0.5) Basophils # (Auto) 0.01 K/uL (0-0.2) RDW Standard Deviation 52.6 fL (36.4-46.3) 52.1 fL (36.4-46.3) RDW Coefficient of Variation 16.9 % (11.5-14.5) 16.9 % (11.5-14.5) Immature Granulocyte % (Auto) 0.9 % Immature Granulocyte # (Auto) 0.05 K/uL (0.00-0.02) Erythrocyte Sedimentation Rate 60 mm/hr (0-21) Sodium Level 138 mmol/L (136-145) 141 mmol/L (136-145) Potassium Level 4.2 mmol/L (3.5-5.1) 4.0 mmol/L (3.5-5.1) Chloride Level 101 mmol/L (98-107) 104 mmol/L (98-107) Carbon Dioxide Level 29 mmol/L (21-32) 28 mmol/L (21-32) Anion Gap 8.0 mmol/L (3-11) 9.0 mmol/L (3-11) Blood Urea Nitrogen 13 mg/dl (7-18) 8 mg/dl (7-18) Creatinine 0.95 mg/dl (0.60-1.20) 0.64 mg/dl (0.60-1.20) Est Creatinine Clear Calc Drug Dose 95.7 ml/min 140.9 ml/min Estimated GFR () 81.5 121.4 Estimated GFR (Non- 70.3 104.8 BUN/Creatinine Ratio 13.6 (10-20) 13.3 (10-20) Random Glucose 387 mg/dl (70-99) 205 mg/dl (70-99) Estimated Average Glucose 186 mg/dl Hemoglobin A1c 8.1 % (4.5-5.6) Calcium Level 9.1 mg/dl (8.5-10.1) 8.1 mg/dl (8.5-10.1) C-Reactive Protein 10.10 mg/dl (0-0.29) Beta-Hydroxybutyric Acid 0.86 mg/dL (0.2-2.81) Bedside Lactic Acid Venous 2.42 mmol/L (0.90-1.70) Lactic Acid Level 1.8 mmol/L (0.4-2.0) Bedside Glucose 210 mg/dl (70-90) Test 12/05/16 15:46 Bedside Glucose 205 mg/dl (70-90) Micro Results Date/Time Source Procedure Growth Status 12/04/16 21:25 Blood Blood Culture Pending Received 12/04/16 21:10 Blood Blood Culture Pending Received Risk Factors for Resistance * Immunocompromised Assessment & Plan Assessment 51 year old female admitted last night with severe thumb pain of unknown origin/ chills/fever/sweats. Per MD, initiate Vancomycin + Azactam IV for treatment of cellulitis of thumb. Plan for I/D now. Blood cultures X 2 pending. Plan Vancomycin IV * Loading dose: 2800 mg (22.5 mg/kg) X 1 @ 0100 * Unfortunately after loading dose, no further Vancomycin given * It was brought to our attention pre-operatively that patient did not receive Vancomycin since loading dose. * Patient ready for I/D so 1350 mg IV (largest dose in smallest volume) given X 1 to get something in her preoperatively. * Continue 1750 mg IV (14 mg/kg) every 8 hours * Goal trough level for cellulitis: ~15 mcg/mL * Trough level will be ordered prior to the 4th dose * Pt is at risk for drug accumulation due to obesity; however, given lack of maintenance dosing after loading dose, I feel we need to get patient therapeutic then back off at that time Azactam 1 g IV every 8 hours (not pharmacy consult) Pharmacy will continue to follow and will adjust dose/frequency as necessary. Thank you.
[2016-12-05] MEDS ORDERED: KETAMINE HCL INJ 50 MG/ML 10 ML VIAL ONE (16:23)
[2016-12-05] MEDS ORDERED: LABETALOL HCL IV 5 MG/ML 20ML IV ONE (16:31)
[2016-12-05] MEDS ORDERED: LIDOCAINE HCL 2% 2 ML VIAL (20MG/ML) ONE (16:31)
[2016-12-05] MEDS ORDERED: PROPOFOL IV EMULSION 10 MG/ML 20 ML VIAL IV ONE ×2 (16:31→16:49)
[2016-12-05] MEDS ORDERED: LIDOCAINE HCL 1% 20 ML VIAL ONE (16:33)
--- NOTE | 2016-12-05 16:50 | ORTHOPEDIC CONSULTATION ---
DATE OF CONSULTATION: 12/05/2016 Special attention to left thumb infection. HISTORY OF PRESENT ILLNESS: This is a 51-year-old female with history of metastatic non-small cell lung cancer, diabetes, COPD, morbid obesity, who presents with increased pain and swelling in her left thumb. She states that she woke up with increased pain and swelling in the thumb. She denies any history of injury. PAST MEDICAL HISTORY: Anxiety, asthma, hypertension, bronchitis, non-small cell lung cancer, COPD -- poorly controlled, depression, emphysema, pneumonia. PHYSICAL EXAMINATION: Left thumb shows tenderness at the tip of the finger, she has a swelling and a firmness over the volar aspect. She has some necrosis at the tip of the thumb and the tip of the finger does grossly appear dysvascular. She has negative Knavel sign. Proximal to the IP joint the thumb has a normal appearance. She can flex and extend the IP joint of the thumb. IMAGING: Three views of the left thumb shows no acute fracture or dislocation, no evidence of a foreign body in the soft tissues. No evidence of gas in the soft tissues. ASSESSMENT: Left thumb felon. PLAN: At this point, we will plan for emergent irrigation and debridement of the thumb. I discussed with her that the infection does put her at increased risk for loss of the soft tissue at the tip of the finger. Plan for a local MAC anesthesia with irrigation and debridement. We will continue antibiotics, vancomycin and the use of aztreonam. Recommend strong glycemic control. MTDD
--- NOTE | 2016-12-05 17:05 | [facility] Post Operative Brief Note ---
Immediate Operative Summary Operative Date Dec 05, 2016. Pre-Operative Diagnosis Left Thumb felon Post-Operative Diagnosis same as preop Procedure(s) Performed Incision and drainage left thumb Surgeon Dr. Mariusz Rodriguez Edging Machine Setter Surgeon(s) none Estimated Blood Loss 2mL Findings gross pus at tip of finger consistent wtih felon Specimens Microbiology: 1. Left Thumb felon, superficial 2. Left thumb felon, deep Drains none Anesthesia local mac Complication(s) None Disposition Recovery Room / PACU
[2016-12-05] MEDS ORDERED: LABETALOL HCL IV 5 MG/ML 20ML IV PRN (17:15)
[2016-12-05] MEDS ORDERED: ONDANSETRON INJ 2 MG/ML 2 ML VIAL IV PRN (17:15)
[2016-12-05] MEDS ORDERED: EpHEDrine SULFATE INJ 50 MG/ML AMP IV PRN (17:15)
[2016-12-05] MEDS ORDERED: PROMETHAZINE HCL INJ 12.5 MG in SODIUM CHLORIDE 0.9% 50ML 50 ML IV PRN (17:15)
[2016-12-05] MEDS ORDERED: FLUMAZENIL 0.1 MG/1 ML 10 ML VIAL IV PRN (17:15)
[2016-12-05] MEDS ORDERED: NALOXONE HCL 0.4 MG/1 ML VIAL/CARP IV PRN (17:15)
--- NOTE | 2016-12-05 17:26 | Anesthesiology Progress Note ---
Anesthesia Post Op Note Date & Time Dec 05, 2016 at 17:26 Vital Signs Pain Intensity: 0 Vital Signs Past 12 Hours Date Time Temp Pulse Resp B/P (MAP) Pulse Ox O2 Delivery O2 Flow Rate FiO2 12/05/16 17:06 36.4 92 16 146/96 100 Mask 10 12/05/16 16:00 Nasal Cannula 2.0 12/05/16 15:40 37.6 104 20 145/101 95 Room Air 12/05/16 08:00 Nasal Cannula 2.0 12/05/16 07:59 36.7 93 18 143/95 (111) 97 Nasal Cannula 1.0 Notes Mental Status: alert / awake / arousable, participated in evaluation Pt Amnestic to Procedure: Yes Nausea / Vomiting: adequately controlled Pain: adequately controlled Airway Patency, RR, SpO2: stable & adequate BP & HR: stable & adequate Hydration State: stable & adequate Anesthetic Complications: no major complications apparent
[2016-12-05 17:55] VITALS: BP 129/83; PULSE 89; TEMP 37.4; O2SAT 93
[2016-12-05 18:50] VITALS: BP 115/75; PULSE 91; TEMP 37.1; O2SAT 94
--- NOTE | 2016-12-05 19:00 | ECHOCARDIOGRAM REPORT ---
*NOTICE TO RECEIVING [employer] This information is strictly Confidential and protected under [place] law. [place] law prohibits you from making any further disclosure of this information unless further disclosure is expressly permitted by the written consent of the person to whom it pertains or is authorized by law. A general authorization for the release of medical or other information is not sufficient for this purpose. Hospital accepts no responsibility if the information is made available to any other person, INCLUDING THE PATIENT. Interpretation Summary * Name: LILLIE SAMPSON Study Date: 12/05/2016 01:17 PM BP: 143/95 mmHg * Patient Location: [id number]\S\E411\S\1 HR: 93 * : 1965 (M/d/yyyy) Gender: Female Height: 65 in * Age: 51 yrs Ethnicity: [place] Weight: 274 lb * Ordering Physician: Russell Isidro * Referring Physician: Self, Referred * Performed By: Vicenta Chance * * Reason For Study: LEFT THUMB VASCULAR COMPROMISE, EVAL FOR SOURCE OF EMBOLUS * BSA: 2.3 m2 * Hyperdynamic left ventricular systolic function. * Left ventricular diastolic dysfunction. * No significant valve abnormalities were noted. However, the study was technically difficult. * The study was technically difficult. * No cardiac source of emboli noted. Procedure Details * A complete two-dimensional transthoracic echocardiogram was performed (2D, M-mode, Doppler and color flow Doppler). * The study was technically limited. * The study was technically difficult. * Limited views were obtained. * There were technical limitations due to patient'sbody habitus * A contrast injection of Definity was performed to improve assessment of LV function. * Contrast was injected into an intravenous site in the left arm. * One vial of Definity ultrasound contrast was diluted in normal saline to a total volume of 10 ml. A total of '3' ml of solution was administered during imaging. * Lot # [id number] of Definity utilized for procedure. * Expiration date 12/16. * The attending nurse who injected the contrast agent was MACRINA MALONEY RN. Left Ventricle * The left ventricle is normal in size. * There is no thrombus. * Ejection Fraction = >70 %. * The left ventricle is hyperdynamic. * A full diastolic examination was done with clinical findings of Class I diastolic dysfunction. * No regional wall motion abnormalities noted. Right Ventricle * The right ventricle is normal in size and function. Atria * The left atrium is not well visualized. * Grossly normal size * Right atrium not well visualized. * Grossly normal size Mitral Valve * The mitral valve is grossly normal. * There is no mitral valve stenosis. * Significant mitral regurgitation is absent. Tricuspid Valve * The tricuspid valve is not well visualized. * Significant tricuspid regurgitation is absent. Aortic Valve * The aortic valve is not well visualized. * No hemodynamically significant valvular aortic stenosis. * There is no significant aortic regurgitation. Pulmonic Valve * The pulmonic valve is not well visualized. * The pulmonary valve is inadequately visualized, but the Doppler data is adequate for interpretation. * There is no pulmonic valvular stenosis. * There is no significant pulmonary regurgitation. Great Vessels * The aortic root is normal size. Pericardium/Pleural * There is no pericardial effusion. Great Vessels * Normal inferior vena cava diameter and respiratory variation suggests normal central venous pressure. MMode 2D Measurements and Calculations IVSd 1.1 cm LVIDd 4.6 cm LVPWd 1.0 cm IVS/LVPW 1.0 EDV(Teich) 97.4 ml EDV(cubed) 97.4 ml LV mass(C)d 167.0 grams LV mass(C)dI 73.9 grams/m\S\2 Ao root diam 2.7 cm Ao root area 5.8 cm\S\2 ACS 1.9 cm asc Aorta Diam 2.9 cm LVAd ap4 40.9 cm\S\2 LVLd ap4 8.6 cm EDV(MOD-sp4) 157.0 ml LVAs ap4 19.2 cm\S\2 LVLs ap4 7.0 cm ESV(MOD-sp4) 42.0 ml EF(MOD-sp4) 73.2 % LVAd ap2 33.1 cm\S\2 LVLd ap2 8.7 cm EDV(MOD-sp2) 101.0 ml LVAs ap2 14.1 cm\S\2 LVLs ap2 6.1 cm ESV(MOD-sp2) 27.0 ml EF(MOD-sp2) 73.3 % CO(MOD-sp4) 11.7 l/min CI(MOD-sp4) 5.2 l/min/m\S\2 SV(MOD-sp4) 115.0 ml SI(MOD-sp4) 50.9 ml/m\S\2 CO(MOD-sp2) 7.5 l/min CI(MOD-sp2) 3.3 l/min/m\S\2 SV(MOD-sp2) 74.0 ml SI(MOD-sp2) 32.7 ml/m\S\2 Doppler Measurements and Calculations MV E max davy 96.3 cm/sec MV A max davy 127.7 cm/sec MV E/A 0.75 MV P1/2t max davy 103.2 cm/sec MV P1/2t 91.3 msec MVA(P1/2t) 2.4 cm\S\2 MV dec slope 331.0 cm/sec\S\2 MV dec time 0.20 sec Ao V2 max 172.6 cm/sec Ao max PG 11.9 mmHg Ao max PG (full) 6.9 mmHg LV V1 max PG 5.0 mmHg LV V1 max 111.9 cm/sec PA V2 max 96.7 cm/sec PA max PG 3.7 mmHg
[2016-12-05] MEDS: VANCOMYCIN INJ 1,750 MG in SODIUM CHLORIDE 0.9% 500ML 500 ML IV SCH ×2 (19:45→19:59)
[2016-12-05] MEDS: HYDROmorphone INJ 2 MG/ML SYR/VIAL IV PRN ×2 (19:59→23:33)
[2016-12-05 20:00] VITALS: O2SAT 94
[2016-12-05] MEDS: PANTOprazole SOD 40 MG TAB PO SCH (20:00)
[2016-12-05] MEDS: SERTRALINE HCL 50 MG TAB PO SCH (20:01)
--- NOTE | 2016-12-05 20:01 | Progress Note ---
Subjective Date of Service: Dec 05, 2016. Subjective Pt evaluation today including: conversation w/ patient, physical exam, chart review, lab review, review of studies (echo, left arm arterial doppler), conversation w/ international travel consultant (orthopedics ), review of inpatient medication list Pain: left distal thumb - severe pain PO Intake: NPO Voiding: no voiding problems patient reports increasing pain in the distal left thumb this AM the tip of the finger turned dark color, became more painful, and also became numb she reports taking oral dilaudid at home in large quantities denies claudication of left arm denies pain in right hand or feet no sob Problem List Medical Problems: (1) Anemia Status: Acute (2) Confusion Status: Acute (3) Headache Status: Acute (4) Herpes zoster with ophthalmic complication Status: Acute (5) History of lung cancer Status: Acute (6) Hyperglycemia due to type 2 diabetes mellitus Status: Acute (7) Intracranial mass Status: Acute (8) Left flank pain Status: Acute (9) Metastatic lung cancer (metastasis from lung to other site) Status: Acute (10) TIA (transient ischemic attack) Status: Acute Review of Systems Constitutional: No fever, No chills Respiratory: No shortness of breath Cardiac: No chest pain Abdomen: No pain Objective Vital Signs Date Time Temp Pulse Resp B/P (MAP) Pulse Ox O2 Delivery O2 Flow Rate FiO2 12/05/16 18:50 37.1 91 20 115/75 (88) 94 Nasal Cannula 3.0 12/05/16 17:55 37.4 89 18 129/83 (98) 93 Nasal Cannula 2.0 12/05/16 17:39 88 19 111/81 12/05/16 17:39 88 19 97 12/05/16 17:34 89 15 97 12/05/16 17:34 88 15 12/05/16 17:32 138/77 12/05/16 17:31 36.8 12/05/16 17:29 89 20 96 12/05/16 17:29 89 20 12/05/16 17:28 86 19 98 12/05/16 17:28 89 19 12/05/16 17:27 123/76 12/05/16 17:23 87 19 98 12/05/16 17:23 87 19 12/05/16 17:22 120/75 12/05/16 17:21 88 19 99 12/05/16 17:21 85 19 12/05/16 17:17 124/75 12/05/16 17:16 84 19 100 12/05/16 17:16 84 19 12/05/16 17:13 122/85 12/05/16 17:11 86 19 12/05/16 17:11 86 19 100 12/05/16 17:07 146/96 12/05/16 17:06 36.4 92 16 146/96 100 Mask 10 12/05/16 16:00 Nasal Cannula 2.0 12/05/16 15:40 37.6 104 20 145/101 95 Room Air 12/05/16 08:00 Nasal Cannula 2.0 12/05/16 07:59 36.7 93 18 143/95 (111) 97 Nasal Cannula 1.0 12/04/16 23:55 36.9 102 18 170/90 97 Nasal Cannula 2.0 12/04/16 23:52 108 18 159/99 93 12/04/16 23:08 102 18 142/92 93 Nasal Cannula 2.0 12/04/16 22:05 104 18 156/112 95 Room Air 2.0 12/04/16 20:05 36.6 122 20 155/90 92 Nasal Cannula 2.0 Physical Exam General Appearance: + mild distress (due to pain in left thumb ), + obese ENT: pharynx normal Neck: no JVD Respiratory/Chest: no respiratory distress, no accessory muscle use, + decreased breath sounds (bases) Cardiovascular: regular rate, rhythm, no gallop, no murmur Abdomen: normal bowel sounds, non tender, soft, no organomegaly Extremities: no pedal edema Neurologic/Psychiatric: alert, oriented x 3 Skin: + rash (both feet - looks like tinea pedis), + pertinent finding (left thumb - distal phalanx with lopez color/concern for vascular compromise and borderline necrotic skin; distal tip cap refill > 2 sec; nail bed pallor; proximal to the interphalangeal joint there is erythema and tenderness; the tenderness extends proximally towards the thenar eminence; there is mild lymphangitis extending across the wrist and up the forearm) Laboratory Results Last 24 Hours Test 12/04/16 21:10 12/04/16 21:18 12/05/16 05:29 12/05/16 06:17 White Blood Count 5.64 K/uL 5.09 K/uL Red Blood Count 4.83 M/uL 4.29 M/uL Hemoglobin 12.3 g/dL 11.0 g/dL Hematocrit 41.2 % 36.2 % Mean Corpuscular Volume 85.3 fL 84.4 fL Mean Corpuscular Hemoglobin 25.5 pg 25.6 pg Mean Corpuscular Hemoglobin Concent 29.9 g/dl 30.4 g/dl Platelet Count 110 K/uL 100 K/uL Mean Platelet Volume 9.7 fL 9.8 fL Neutrophils (%) (Auto) 82.2 % Lymphocytes (%) (Auto) 11.7 % Monocytes (%) (Auto) 5.0 % Eosinophils (%) (Auto) 0.0 % Basophils (%) (Auto) 0.2 % Neutrophils # (Auto) 4.64 K/uL Lymphocytes # (Auto) 0.66 K/uL Monocytes # (Auto) 0.28 K/uL Eosinophils # (Auto) 0.00 K/uL Basophils # (Auto) 0.01 K/uL RDW Standard Deviation 52.6 fL 52.1 fL RDW Coefficient of Variation 16.9 % 16.9 % Immature Granulocyte % (Auto) 0.9 % Immature Granulocyte # (Auto) 0.05 K/uL Erythrocyte Sedimentation Rate 60 mm/hr Sodium Level 138 mmol/L 141 mmol/L Potassium Level 4.2 mmol/L 4.0 mmol/L Chloride Level 101 mmol/L 104 mmol/L Carbon Dioxide Level 29 mmol/L 28 mmol/L Anion Gap 8.0 mmol/L 9.0 mmol/L Blood Urea Nitrogen 13 mg/dl 8 mg/dl Creatinine 0.95 mg/dl 0.64 mg/dl Est Creatinine Clear Calc Drug Dose 95.7 ml/min 140.9 ml/min Estimated GFR () 81.5 121.4 Estimated GFR (Non- 70.3 104.8 BUN/Creatinine Ratio 13.6 13.3 Random Glucose 387 mg/dl 205 mg/dl Estimated Average Glucose 186 mg/dl Hemoglobin A1c 8.1 % Calcium Level 9.1 mg/dl 8.1 mg/dl C-Reactive Protein 10.10 mg/dl Beta-Hydroxybutyric Acid 0.86 mg/dL Bedside Lactic Acid Venous 2.42 mmol/L Bedside Glucose 193 mg/dl Lactic Acid Level 1.8 mmol/L Test 12/05/16 07:45 12/05/16 11:23 12/05/16 15:46 12/05/16 18:02 Bedside Glucose 218 mg/dl 210 mg/dl 205 mg/dl 181 mg/dl Assessment and Plan 51yo female with: 1. cellulitis left thumb x 5 days, now with what appears to a distal tip felon vs early dry gangrene - emergent orthopedics consultation for surgical management. Cont IV abx including aztreonam & vancomycin. Due to lung cancer she is hypercoagulable and at risk of distal embolic phenomenon. Thus, echo and left arm arterial doppler ordered and negative for embolus or thrombus. Follow blood cultures. 2. uncontrolled T2DM - received lantus last night; will continue lantus; add carb coverage (1:15 for now, but expect she will need tighter coverage). 3. chronic resp failure 2nd to COPD & lung cancer - stable on NC O2. 4. 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 5. DVT proph - high risk for DVT given #4. Tomorrow am, if ok with ortho - start lovenox. 6. morbid obesity with BMI 45. 7. COPD - stable, not in exacerbation. Cont O2, inhalers, etc. 8. thrombocytopenia - mild, may be suppression from his infection; repeat CBC am for stability. 9. hypothyroidism - last TSH in 2015. Recheck in AM. Cont synthroid in am. 10. HTN - controlled. 11. pain control - dilaudid IV prn. Appears to have significant tolerance. Check [place] prescription [place]. Continued [facility] stay due to: multiple IV medications needed Discharge planning: uncertain
[2016-12-05] MEDS: MONTELUKAST SOD 10 MG TAB PO SCH (20:04)
[2016-12-05 23:54] VITALS: BP 153/84; PULSE 101; TEMP 36.8; O2SAT 94
[2016-12-06] VITALS: O2SAT 94
[2016-12-06 04:25] VITALS: BP 120/78; PULSE 95; TEMP 36.6; O2SAT 94
[2016-12-06] MEDS: VANCOMYCIN INJ 1,750 MG in SODIUM CHLORIDE 0.9% 500ML 500 ML IV SCH ×3 (04:25→19:51)
[2016-12-06] MEDS: HYDROmorphone INJ 2 MG/ML SYR/VIAL IV PRN ×3 (04:26→11:28)
[2016-12-06] MEDS: ACETAMINOPHEN 325 MG TAB PO PRN ×4 (04:27→15:59)
[2016-12-06] MEDS: AZTREONAM IV 1,000 MG in DEXTROSE 5% 100ML 100 ML IV SCH (06:15)
[2016-12-06] MEDS: LEVOTHYROXINE 125 MCG TAB PO SCH (06:16)
--- NOTE | 2016-12-06 06:36 | OPERATIVE REPORT ---
DATE OF OPERATION: 12/05/2016 PREOPERATIVE DIAGNOSIS: Left thumb felon. POSTOPERATIVE DIAGNOSIS: Same. PROCEDURE: Left thumb drainage of finger abscess, complicated (felon). SURGEON: Dr. Rodriguez. GRINDER SET UP OPERATOR UNIVERSAL: None. ANESTHESIA: Digital block with sedation. INDICATIONS: This is a 51-year-old female with poorly-controlled diabetes, who presents with progressive pain in the tip of the finger. She presents for I&D of felon. The risks and benefits have been discussed including, but not limited to, risk of infection, nerve injury, stiffness, loss of motion, failure to improve, etc. The patient is agreeable and wishes to proceed. DESCRIPTION OF OPERATIVE: I injected a mixture of lidocaine and Marcaine at the base of this thumb as a digital block for pain relief prior to the procedure. I made a longitudinal incision over the ulnar aspect of the thumb, at the mid-lateral approach. This was in the area of the pointing of the abscess. Dissection was carried down through the skin and subcutaneous tissues. A large amount of gross pus was encountered consistent with a felon. The pus was evacuated and drained. I performed debridement of skin, subcutaneous tissue and fascia. I broke up fascial septations to release any compartment syndrome at the tip of the finger. Additional pus was expressed. The incision was then copiously irrigated with 1 liter of bacitracin impregnated normal saline. Incision was closed loosely with a 4-0 nylon running stitch. The patient was placed in a soft dressing and sent to the PACU in stable condition. Intraoperative cultures were taken, both superficial and deep. POSTOPERATIVE PLAN: We will monitor cultures. I would not anticipate any further surgical intervention. We will plan for packing removal in 24-48 hours. I attest to the content of the Intraoperative Record and any orders documented therein. Any exception s are noted below.
[2016-12-06 07:04] LABS: HEMATOCRIT 34.8 % (37-47); MEAN CELL VOLUME 85.5 fL (80-100); MEAN CORPUSCULAR HEMOGLOBIN 25.8 pg (25-34); MEAN CORPUSCULAR HGB CONC 30.2 g/dl (32-36); RED BLOOD COUNT 4.07 M/uL (4.2-5.4); WHITE BLOOD COUNT 4.68 K/uL (4.8-10.8)
[2016-12-06 07:17] VITALS: BP 128/82; PULSE 88; TEMP 36.7; O2SAT 93
[2016-12-06 07:36] LABS: BUN/CREATININE RATIO 8.4 (10-20); CALCIUM 8.6 mg/dl (8.5-10.1); CREATININE 0.65 mg/dl (0.60-1.20); POTASSIUM 3.9 mmol/L (3.5-5.1)
--- NOTE | 2016-12-06 07:40 | Consultant Recommendations ---
Toll Test Desk Worker Recommendations Date of Service Dec 06, 2016. Toll Test Desk Worker Recommendations Dry sterile dressing changes with Adpaptic, 4x4 and kerlex once a day follow up with Dr Rodriguez if possible on December 06 at [facility] office in [place] . Call for Appt [phone] may move thumb in and out.
[2016-12-06] MEDS: LORAZEPAM 1 MG TAB PO PRN ×2 (07:43→18:37)
[2016-12-06] MEDS: FLUCONAZOLE 100 MG TAB PO SCH (07:43)
[2016-12-06] MEDS: FLUTICASONE/SALMETEROL (ADVAIR) 500/50 INH 14 PUFF INH SCH ×2 (07:45→19:48)
[2016-12-06 07:46] LABS: THYROID STIMULATING HORMONE 8.79 uIu/ml (0.300-4.500)
[2016-12-06 07:48] LABS: MEAN PLATELET VOLUME 9.1 fL (7.4-10.4); PLATELET COUNT 98 K/uL (130-400)
[2016-12-06 07:49] LABS: PLT ESTIMATE DECREASED
--- NOTE | 2016-12-06 08:02 | PROGRESS NOTE ---
DATE: 12/06/2016 SUBJECTIVE: Carina is seated at the bedside today. She states the pain and pressure she had in the thumb has significantly improved compared to prior to surgery. She denies any fever or chills. OBJECTIVE: EXTREMITIES: Left thumb exam shows negative Kanavel's signs. She has significant decrease of swelling at the tip of the finger and her finger is much less painful. She has a well-healing surgical incision. She has good capillary refill of the finger, but she has an area of duskiness to the tip of the finger, about 1 x 1 cm. It overall is improved compared to prior to surgery and circulation does appear to be adequate at this point in time. ASSESSMENT: Postoperative day #1 incision and drainage of pam. PLAN: At this point in time, I changed her dressing and removed her packing. I do feel that her thumb looks good and she does not require further surgical intervention. My recommendation is for dry sterile dressing changes on a daily basis. I instructed her in range of motion of the thumb. I would continue antibiotics as per the hospitalist and infectious disease. I will sign off on her now. She should not require further hand surgery. She should follow up with me in the office if possible on , December 13 upon discharge from the hospital. Again, would continue antibiotics as per infectious disease. Intraoperative cultures were taken and are pending at this point in time.
[2016-12-06] MEDS: ONDANSETRON INJ 2 MG/ML 2 ML VIAL IV PRN ×2 (08:45→13:53)
[2016-12-06] MEDS: INSULIN ASPART 100 UNITS/ML 3 ML PEN SC SCH ×4 (09:17→20:40)
[2016-12-06] MEDS: INSULIN GLARGINE SOLOSTAR 100 UNITS/ML 3 ML PEN SC SCH ×2 (09:18→21:57)
--- NOTE | 2016-12-06 10:34 | Anesthesiology Progress Note ---
Anesthesia Post Op Note Date & Time Dec 06, 2016 at 10:35 Vital Signs Pain Intensity: 5.0 Vital Signs Past 12 Hours Date Time Temp Pulse Resp B/P (MAP) Pulse Ox O2 Delivery O2 Flow Rate FiO2 12/06/16 08:00 Nasal Cannula 2.0 12/06/16 07:17 36.7 88 20 128/82 (97) 93 Nasal Cannula 2.0 12/06/16 04:25 36.6 95 20 120/78 (92) 94 Nasal Cannula 2.0 12/06/16 00:00 94 Nasal Cannula 3.0 12/05/16 23:54 36.8 101 20 153/84 (107) 94 Nasal Cannula 2.0 Notes Mental Status: alert / awake / arousable, participated in evaluation Pt Amnestic to Procedure: Yes Nausea / Vomiting: adequately controlled Pain: adequately controlled Airway Patency, RR, SpO2: stable & adequate BP & HR: stable & adequate Hydration State: stable & adequate Anesthetic Complications: no major complications apparent
[2016-12-06] MEDS: KETOROLAC TROMETHAMINE 30 MG/ML VIAL IV SCH ×3 (13:54→23:11)
[2016-12-06] MEDS ORDERED: HYDROmorphone HCL 2 MG TAB PO PRN (14:00)
--- NOTE | 2016-12-06 14:38 | DIAGNOSTIC IMAGING REPORT ---
THORACIC SPINE 3 VIEWS ROUTINE CLINICAL HISTORY: Thoracic spine pain. Lung carcinoma. COMPARISON STUDY: No previous studies for comparison. FINDINGS: There are multilevel degenerative changes. The paraspinal line is not displaced. No acute fractures are visualized. No destructive lesions are visualized on image radiographic evaluation. IMPRESSION: Multilevel degenerative change. No conventional radiographic evidence of metastatic disease. Electronically signed by: Raul Ortiz M.D. 12/06/2016 2:37 PM Dictated Date/Time: 12/06/2016 2:36 PM
--- NOTE | 2016-12-06 14:48 | DIAGNOSTIC IMAGING REPORT ---
CT HEAD WITHOUT CONTRAST (CT) CLINICAL HISTORY: brain mets, headaches COMPARISON STUDY: 07/20/2016 TECHNIQUE: Axial CT of the brain is performed from the vertex to the skull base. IV contrast was not administered for this examination. CT DOSE: 537.48 mGy.cm FINDINGS: There are a few scattered white matter hypodensities. Since the prior study, the patient has developed a 2 cm area of white matter edema within the high left parietal vertex. Given the history of metastatic disease this could represent edema from a small metastatic focus. An MRI the brain might be considered in follow-up. There are no areas of acute hemorrhage. There is no midline shift. There is no CT evidence of acute cortical infarction. There is no evidence of pathologic ventricular dilatation. There is no evidence of acute sinusitis IMPRESSION: 1. No evidence of acute hemorrhage 2. No evidence of hydrocephalus 3. Interval development of a 2 cm focus of white matter edema within the left parietal vertex. Given the patient's clinical history this could represent edema from a small metastatic focus (a white matter ischemic insult could appear similar). An MRI the brain should be considered in follow-up. Electronically signed by: Raul Ortiz M.D. 12/06/2016 2:47 PM Dictated Date/Time: 12/06/2016 2:41 PM
[2016-12-06 15:10] VITALS: BP 119/77; PULSE 97; TEMP 37.7; O2SAT 93
--- NOTE | 2016-12-06 16:54 | Medical Student: [facility] ---
Med Student Progress Note Date of Service Dec 06, 2016. 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 Her thumb is recovering nicely and she is regaining mobility of the digits. She has been struggling emotionally with her current situation, and has also been complaining of inadequate pain management. She reports some mild headaches, but constant back pain.The pain in her thumb has lessened significantly. She denies fevers, chills, n/v/d, abdominal pain. She denies dysuria. She is eating and drinking, and is beginning to ambulate. Review of Systems Constitutional: No fever, No chills Respiratory: + cough, + sputum, + wheezing, No shortness of breath Cardiac: No chest pain Abdomen: No pain, No vomiting, No diarrhea, No constipation Musculoskeletal: + joint pain Female : No dysuria Psychiatric: + anxiety Heme: No abnormal bleeding/bruising Skin: + rash (tinea b/l on feet ) Objective Vital Signs Date Time Temp Pulse Resp B/P (MAP) Pulse Ox O2 Delivery O2 Flow Rate FiO2 12/06/16 15:10 37.7 97 18 119/77 (91) 93 Nasal Cannula 2.0 12/06/16 08:00 Nasal Cannula 2.0 12/06/16 07:17 36.7 88 20 128/82 (97) 93 Nasal Cannula 2.0 12/06/16 04:25 36.6 95 20 120/78 (92) 94 Nasal Cannula 2.0 12/06/16 00:00 94 Nasal Cannula 3.0 12/05/16 23:54 36.8 101 20 153/84 (107) 94 Nasal Cannula 2.0 12/05/16 20:00 94 Nasal Cannula 3.0 12/05/16 18:50 37.1 91 20 115/75 (88) 94 Nasal Cannula 3.0 12/05/16 17:55 37.4 89 18 129/83 (98) 93 Nasal Cannula 2.0 12/05/16 17:39 88 19 111/81 12/05/16 17:39 88 19 97 12/05/16 17:34 89 15 97 12/05/16 17:34 88 15 12/05/16 17:32 138/77 12/05/16 17:31 36.8 12/05/16 17:29 89 20 96 12/05/16 17:29 89 20 12/05/16 17:28 86 19 98 12/05/16 17:28 89 19 12/05/16 17:27 123/76 12/05/16 17:23 87 19 98 12/05/16 17:23 87 19 12/05/16 17:22 120/75 12/05/16 17:21 88 19 99 12/05/16 17:21 85 19 12/05/16 17:17 124/75 12/05/16 17:16 84 19 100 12/05/16 17:16 84 19 12/05/16 17:13 122/85 12/05/16 17:11 86 19 12/05/16 17:11 86 19 100 12/05/16 17:07 146/96 12/05/16 17:06 36.4 92 16 146/96 100 Mask 10 Physical Exam General Appearance: WD/WN, no apparent distress Neck: supple, no JVD, + adenopathy present, + pertinent finding (neck swollen anteriorly, diffusely ) Respiratory/Chest: chest non-tender, no respiratory distress, no accessory muscle use, + decreased breath sounds, + pertinent finding (absent breath sounds lower left lobe) Cardiovascular: regular rate, rhythm, no edema, no gallop, no JVD, no murmur Abdomen: normal bowel sounds, non tender, soft, no organomegaly Extremities: normal range of motion, non-tender, normal inspection, normal capillary refill, + pertinent finding (left thumb wrapped. No erythema noted in left thenar or radial aspects. Mobility improved since prior exam. ) Neurologic/Psychiatric: alert, normal mood/affect, oriented x 3, + pertinent finding (anxious, has fluctuating affect ranging from distraught to cheerful. ) Skin: normal color Lymphatic: no adenopathy Laboratory Results Last 24 Hours Test 12/05/16 18:02 12/05/16 20:08 12/06/16 04:21 12/06/16 06:44 Bedside Glucose 181 mg/dl 211 mg/dl 199 mg/dl White Blood Count 4.68 K/uL Red Blood Count 4.07 M/uL Hemoglobin 10.5 g/dL Hematocrit 34.8 % Mean Corpuscular Volume 85.5 fL Mean Corpuscular Hemoglobin 25.8 pg Mean Corpuscular Hemoglobin Concent 30.2 g/dl RDW Standard Deviation 53.7 fL RDW Coefficient of Variation 17.2 % Platelet Count 98 K/uL Mean Platelet Volume 9.1 fL Platelet Estimate DECREASED Sodium Level 139 mmol/L Potassium Level 3.9 mmol/L Chloride Level 103 mmol/L Carbon Dioxide Level 31 mmol/L Anion Gap 5.0 mmol/L Blood Urea Nitrogen 5 mg/dl Creatinine 0.65 mg/dl Est Creatinine Clear Calc Drug Dose 138.7 ml/min Estimated GFR () 120.8 Estimated GFR (Non- 104.3 BUN/Creatinine Ratio 8.4 Random Glucose 212 mg/dl Calcium Level 8.6 mg/dl Thyroid Stimulating Hormone (TSH) 8.790 uIu/ml Test 12/06/16 07:40 12/06/16 11:23 12/06/16 16:01 Bedside Glucose 208 mg/dl 225 mg/dl 181 mg/dl Medications Medications Administered Medications (Trade) Dose Ordered Sig/Pravin Route Start Time Stop Time Status Last Admin Dose Admin Sodium Chloride 1,000 ml @ 999 mls/hr Q1H1M STAT IV 12/04/16 20:37 12/04/16 21:37 DC 12/04/16 22:22 999 MLS/HR Hydromorphone HCl (Dilaudid Inj) 1 mg NOW STAT IV 12/04/16 20:37 12/04/16 20:43 DC 12/04/16 22:19 1 MG Hydromorphone HCl (Dilaudid Inj) 1 mg Q30M PRN IV 12/04/16 20:45 12/05/16 00:30 DC 12/04/16 23:09 1 MG Aztreonam 2000 mg/ Dextrose 110 ml @ 100 mls/hr ONE STAT IV 12/04/16 20:44 12/04/16 21:49 DC 12/04/16 22:25 100 MLS/HR Insulin Human Regular (novoLIN-R U-100 PER UNIT) 10 units NOW STAT IV 12/04/16 22:34 12/04/16 22:35 DC 12/04/16 23:25 10 UNITS Acetaminophen (Tylenol Tab) 650 mg Q4H PRN PO 12/04/16 23:00 01/03/17 22:59 12/06/16 15:59 650 MG Ondansetron HCl (Zofran Inj) 4 mg Q6H PRN IV 12/04/16 23:00 01/03/17 22:59 12/06/16 08:45 4 MG Diphenhydramine HCl (Benadryl Cap) 25 mg QAM PO 12/05/16 08:00 01/04/17 08:59 12/06/16 07:44 25 MG Diphenhydramine HCl (Benadryl Cap) 50 mg HS PO 12/05/16 21:00 01/04/17 20:59 12/05/16 20:01 50 MG Fluconazole (Diflucan Tab) 100 mg DAILY PO 12/05/16 08:00 12/15/16 08:59 12/06/16 07:43 100 MG Salmeterol Xinafoate/ Fluticasone (Advair Diskus 500/50 Inh) 1 puff BID INH 12/05/16 08:00 01/04/17 08:59 12/06/16 07:45 1 PUFF Levothyroxine Sodium (Synthroid Tab) 125 mcg DAILYBB PO 12/05/16 06:30 01/04/17 06:59 12/06/16 06:16 125 MCG Lorazepam (Ativan Tab) 1 mg TID PRN PO 12/04/16 23:00 01/03/17 22:59 12/06/16 07:43 1 MG Montelukast Sodium (Singulair Tab) 10 mg HS PO 12/05/16 21:00 01/04/17 20:59 12/05/16 20:04 10 MG Sertraline HCl (Zoloft Tab) 50 mg HS PO 12/05/16 21:00 01/04/17 20:59 12/05/16 20:01 50 MG Hydromorphone HCl (Dilaudid Tab) 2 mg Q3H PRN PO 12/04/16 23:00 12/05/16 10:21 DC 12/05/16 07:45 2 MG Ondansetron HCl (Zofran Inj) 4 mg NOW STAT IV 12/04/16 22:59 12/04/16 23:00 DC 12/04/16 23:07 4 MG Insulin Aspart (novoLOG ASPART) SLIDING SCALE G... ACHS SC 12/05/16 06:30 01/04/17 06:59 12/06/16 13:45 6 UNITS Insulin Glargine (Lantus Per Unit) 10 units ONE STAT SC 12/04/16 23:33 12/04/16 23:34 DC 12/04/16 23:47 10 UNITS Aztreonam 1000 mg/ Dextrose 110 ml @ 100 mls/hr Q8H IV 12/05/16 06:00 12/06/16 13:52 DC 12/06/16 06:15 100 MLS/HR Sodium Chloride 1,000 ml @ 100 mls/hr Q10H IV 12/05/16 00:30 12/05/16 20:29 DC 12/05/16 10:27 100 MLS/HR Vancomycin HCl 2800 mg/Sodium Chloride 556 ml @ 200 mls/hr TODAY@0100 IV 12/05/16 01:00 12/05/16 03:47 DC 12/05/16 00:58 200 MLS/HR Insulin Glargine (Lantus Solostar Pen) 10 unit QAM SC 12/05/16 09:00 01/04/17 08:59 12/06/16 09:18 10 UNIT Pantoprazole Sodium (Protonix Tab) 40 mg HS PO 12/05/16 21:00 01/04/17 20:59 12/05/16 20:00 40 MG Hydromorphone HCl (Dilaudid Inj) 1 mg STK-MED ONCE .ROUTE 12/05/16 10:17 12/05/16 10:18 DC 12/05/16 10:22 1 MG Hydromorphone HCl (Dilaudid Inj) 2 mg STK-MED ONCE .ROUTE 12/05/16 12:22 12/05/16 12:23 DC 12/05/16 12:24 2 MG Hydromorphone HCl (Dilaudid Inj) 2 mg Q3H PRN IV 12/05/16 15:00 12/19/16 14:59 12/06/16 11:28 2 MG Perflutren Lipid Microsphere (Definity) 2 ml ONE ONCE IV 12/05/16 14:11 12/05/16 14:12 DC 12/05/16 14:12 2 ML Bupivacaine HCl (Marcaine 0.5% MPF Inj) 30 ml STK-MED ONCE .ROUTE 12/05/16 15:15 12/05/16 15:16 DC 12/05/16 16:45 6 ML Aztreonam 1000 mg/ Dextrose 110 ml @ 100 mls/hr PREOP@1400 IV 12/05/16 14:00 12/05/16 18:00 DC 12/05/16 18:09 100 MLS/HR Bacitracin (Bacitracin Inj) 50,000 units STK-MED ONCE .ROUTE 12/05/16 16:05 12/05/16 16:06 DC 12/05/16 16:45 50,000 UNITS Vancomycin HCl 1750 mg/Sodium Chloride 535 ml @ 200 mls/hr Q8H IV 12/05/16 18:00 12/05/16 23:59 DC 12/05/16 19:59 200 MLS/HR Lidocaine HCl (Xylocaine 1% Inj (Local)) 20 ml STK-MED ONCE .ROUTE 12/05/16 16:33 12/05/16 16:34 DC 12/05/16 16:45 6 ML Vancomycin HCl 1750 mg/Sodium Chloride 535 ml @ 200 mls/hr Q8H IV 12/06/16 04:00 12/15/16 23:59 12/06/16 11:29 200 MLS/HR Ketorolac Tromethamine (Toradol Inj) 30 mg Q6H IV 12/06/16 12:00 12/07/16 00:01 12/06/16 13:54 30 MG Assessment and Plan Assessment and Plan: This is a 51 y/o female with NSCLC mets to brain, COPD, DMII, hypothyroidism s/ p I&D of left felon. 1. Left felon, s/p I&D -Continue Vancomycin, transition to PO Bactrim for adequate MRSA coverage. -Echo does not demonstrate emboli, but was technically difficult -Arm arterial u/s did not demonstrate thrombosis or stenosis of vasculature 2. NSCLC -Consider referral to palliative, as patient has uncontrolled pain and will not be pursuing chemotherapy -CT head questionable lesions? New metastasis v. residual edema from radiation therapy? Recommend outpatient follow up 3. Pain Control -IV Toradol 30mg q6hr -Dilaudid PO 2 mg q6 prn 4. DMII, uncontrolled -Continue on sliding scale insulin while in hospital -A1C 5. COPD -continue singulair, fluconazole 6. Hypothyroidism -Levothyroxine 125 mcg DVT prophylaxis -continue SCD -consider enoxaparin if prolonged hospital stay Continued [facility] stay due to: multiple IV medications needed, other Discharge planning: uncertain Continued [facility] stay due to: inadequate oral pain control, multiple IV medications needed Discharge planning: uncertain
[2016-12-06] MEDS ORDERED: VANCOMYCIN TROUGH SCH (19:30)
[2016-12-06 19:33] VITALS: BP 120/84; PULSE 92; TEMP 37.1; O2SAT 91
[2016-12-06] MEDS: MONTELUKAST SOD 10 MG TAB PO SCH (19:50)
[2016-12-06] MEDS: PANTOprazole SOD 40 MG TAB PO SCH (19:50)
[2016-12-06] MEDS: SERTRALINE HCL 50 MG TAB PO SCH (19:50)
--- NOTE | 2016-12-06 20:52 | Progress Note ---
Subjective Date of Service: Dec 06, 2016. Subjective Pt evaluation today including: conversation w/ patient, physical exam, chart review, lab review, review of inpatient medication list Pain: left thumb but much improved; mid thoracic back pain PO Intake: wants regular food (not diabetic diet) Voiding: no voiding problems pt initially told staff and myself she wished to go home today but ultimately was agreeable to staying hospitalized until tomorrow her pain is better today but still requiring IV dilaudid she c/o mild headaches "for a while", mild mid-thoracic back pain, and pain in her left thumb denies any dyspnea today we had a lengthy discussion about her recent xrt treatments for her brain mets Problem List Medical Problems: (1) Anemia Status: Acute (2) Confusion Status: Acute (3) Headache Status: Acute (4) Herpes zoster with ophthalmic complication Status: Acute (5) History of lung cancer Status: Acute (6) Hyperglycemia due to type 2 diabetes mellitus Status: Acute (7) Intracranial mass Status: Acute (8) Left flank pain Status: Acute (9) Metastatic lung cancer (metastasis from lung to other site) Status: Acute (10) TIA (transient ischemic attack) Status: Acute Review of Systems Constitutional: No fever, No chills Respiratory: No shortness of breath Cardiac: No chest pain Abdomen: No pain Objective Vital Signs Date Time Temp Pulse Resp B/P (MAP) Pulse Ox O2 Delivery O2 Flow Rate FiO2 12/06/16 19:33 37.1 92 20 120/84 (96) 91 Nasal Cannula 2.0 12/06/16 16:00 Nasal Cannula 2.0 12/06/16 15:10 37.7 97 18 119/77 (91) 93 Nasal Cannula 2.0 12/06/16 08:00 Nasal Cannula 2.0 12/06/16 07:17 36.7 88 20 128/82 (97) 93 Nasal Cannula 2.0 12/06/16 04:25 36.6 95 20 120/78 (92) 94 Nasal Cannula 2.0 12/06/16 00:00 94 Nasal Cannula 3.0 12/05/16 23:54 36.8 101 20 153/84 (107) 94 Nasal Cannula 2.0 Physical Exam General Appearance: no apparent distress, + obese ENT: pharynx normal Neck: no JVD Respiratory/Chest: lungs clear, no respiratory distress, no accessory muscle use Cardiovascular: regular rate, rhythm, no gallop, no murmur Abdomen: normal bowel sounds, non tender, soft, no organomegaly Extremities: no pedal edema, + pertinent finding (left thumb wrapped in large dressing; cap refill of the remaining fingers is <2 sec ) Neurologic/Psychiatric: alert, oriented x 3 Comments: musculo - range of motion of left thumb is much improved today Laboratory Results Last 24 Hours Test 12/06/16 04:21 12/06/16 06:44 12/06/16 07:40 12/06/16 11:23 Bedside Glucose 199 mg/dl 208 mg/dl 225 mg/dl White Blood Count 4.68 K/uL Red Blood Count 4.07 M/uL Hemoglobin 10.5 g/dL Hematocrit 34.8 % Mean Corpuscular Volume 85.5 fL Mean Corpuscular Hemoglobin 25.8 pg Mean Corpuscular Hemoglobin Concent 30.2 g/dl RDW Standard Deviation 53.7 fL RDW Coefficient of Variation 17.2 % Platelet Count 98 K/uL Mean Platelet Volume 9.1 fL Platelet Estimate DECREASED Sodium Level 139 mmol/L Potassium Level 3.9 mmol/L Chloride Level 103 mmol/L Carbon Dioxide Level 31 mmol/L Anion Gap 5.0 mmol/L Blood Urea Nitrogen 5 mg/dl Creatinine 0.65 mg/dl Est Creatinine Clear Calc Drug Dose 138.7 ml/min Estimated GFR () 120.8 Estimated GFR (Non- 104.3 BUN/Creatinine Ratio 8.4 Random Glucose 212 mg/dl Calcium Level 8.6 mg/dl Thyroid Stimulating Hormone (TSH) 8.790 uIu/ml Test 12/06/16 16:01 12/06/16 19:23 12/06/16 20:24 Bedside Glucose 181 mg/dl 186 mg/dl Vancomycin Level Trough 19.5 mcg/ml Assessment and Plan 51yo female with: 1. cellulitis/felon of left thumb, POD #1 s/p I & D by Dr. Rodriguez - clinically improved. Blood cx's negative. Intra-op culture growing staph aureus. d/c aztreonam. continue vancomycin. follow cultures. serial exams. pain control. 2. uncontrolled T2DM - add lantus at HS in addition to AM lantus; tighten her novolog correction & carb coverage. 3. chronic resp failure 2nd to COPD & lung cancer - stable on NC O2. 4. stage 4 lung ca with brain mets - after lengthy discussion she requested imaging of the brain. CT head showed a 2cm focus in the left parietal lobe. This likely corresponds to the recently irradiated lesion seen on prior MRI. The edema is probably related to the recent radiation. We spoke with Dr. Nash from rad onc - plan is for repeat MRI brain in the next 2-3 weeks unless she has new neurological signs/symptoms/etc. 5. DVT proph - SCDs. 6. morbid obesity with BMI 45. 7. COPD - stable, not in exacerbation. Cont O2, inhalers, etc. 8. thrombocytopenia - mild, may be suppression from her infection; repeat CBC today largely unchanged. Repeat again in am. 9. hypothyroidism - TSH high; either she is noncompliant or truly needs larger dose. Will ask her about synthroid compliance. Cont synthroid. 10. HTN - controlled. 11. pain control - change IV dilaudid to po. consider fentanyl patch for chronic pain issues in the setting of her stage 4 lung ca. 12. thoracic spine pain - t-spine x-rays ordered; no obvious mets. possible d/c tomorrow? Continued [facility] stay due to: inadequate oral pain control, multiple IV medications needed Discharge planning: home
--- NOTE | 2016-12-06 20:58 | Pharmacy Progress Note ---
Pharmacy Antibiotic Prog Note Date of Service Dec 06, 2016. Subjective The patient is currently receiving vancomycin 1750 mg iv q 8 hrs The patient is currently on day #2 of IV therapy. Objective Height (Feet): 5 Height (Inches): 5.00 Weight (Kilograms): 124.300 Levels: Item Value Date Time Vancomycin Level Trough 19.5 mcg/ml 12/06/16 1923 Lab Results (24hrs): Test 12/06/16 06:44 12/06/16 16:01 12/06/16 19:23 12/06/16 20:24 White Blood Count 4.68 K/uL (4.8-10.8) Red Blood Count 4.07 M/uL (4.2-5.4) Hemoglobin 10.5 g/dL (12.0-16.0) Hematocrit 34.8 % (37-47) Mean Corpuscular Volume 85.5 fL (80-100) Mean Corpuscular Hemoglobin 25.8 pg (25-34) Mean Corpuscular Hemoglobin Concent 30.2 g/dl (32-36) RDW Standard Deviation 53.7 fL (36.4-46.3) RDW Coefficient of Variation 17.2 % (11.5-14.5) Platelet Count 98 K/uL (130-400) Mean Platelet Volume 9.1 fL (7.4-10.4) Platelet Estimate DECREASED Sodium Level 139 mmol/L (136-145) Potassium Level 3.9 mmol/L (3.5-5.1) Chloride Level 103 mmol/L (98-107) Carbon Dioxide Level 31 mmol/L (21-32) Anion Gap 5.0 mmol/L (3-11) Blood Urea Nitrogen 5 mg/dl (7-18) Creatinine 0.65 mg/dl (0.60-1.20) Est Creatinine Clear Calc Drug Dose 138.7 ml/min Estimated GFR () 120.8 Estimated GFR (Non- 104.3 BUN/Creatinine Ratio 8.4 (10-20) Random Glucose 212 mg/dl (70-99) Calcium Level 8.6 mg/dl (8.5-10.1) Thyroid Stimulating Hormone (TSH) 8.790 uIu/ml (0.300-4.500) Bedside Glucose 181 mg/dl (70-90) 186 mg/dl (70-90) Vancomycin Level Trough 19.5 mcg/ml (SEE COMMENT) Assessment & Plan Patient on vancomycin for cellulitis infection. BC x 2 are no growth. Wound cultures preliminary positive for staph species. Vancomycin: * Trough level came back therapeutic at ~19 mcg/ml (goal 15-20 mcg/ml for cellulitis/abscess infection) * Due to elevated BMI >35 kg/m2 (actual BMI~45 kg/m2) feel that patient will quickly accumulate medication, therefore will decrease the dose to ensure patient remains therapeutic' Will decrease the dose to 1500 mg iv q 8 hrs * Will recheck trough soon to ensure patient remains therapeutic Pharmacy will continue to follow and will adjust dose/frequency as necessary. Thank you
[2016-12-06 23:30] VITALS: BP 111/73; PULSE 87; TEMP 36.6; O2SAT 94
[2016-12-07] MEDS: ACETAMINOPHEN 325 MG TAB PO PRN ×4 (04:20→20:03)
[2016-12-07] MEDS: VANCOMYCIN INJ 1,500 MG in SODIUM CHLORIDE 0.9% 500ML 500 ML IV SCH ×2 (04:21→11:34)
[2016-12-07 05:08] VITALS: BP 134/81; PULSE 81; TEMP 36.9; O2SAT 93
[2016-12-07 05:58] LABS: HEMATOCRIT 30.7 % (37-47); MEAN CELL VOLUME 84.3 fL (80-100); MEAN CORPUSCULAR HEMOGLOBIN 25.5 pg (25-34); MEAN CORPUSCULAR HGB CONC 30.3 g/dl (32-36); RED BLOOD COUNT 3.64 M/uL (4.2-5.4); WHITE BLOOD COUNT 3.47 K/uL (4.8-10.8)
[2016-12-07 06:00] LABS: MEAN PLATELET VOLUME 9.7 fL (7.4-10.4); PLATELET COUNT 97 K/uL (130-400)
[2016-12-07] MEDS: LEVOTHYROXINE 125 MCG TAB PO SCH (06:43)
[2016-12-07 07:15] VITALS: BP 146/85; PULSE 81; TEMP 37; O2SAT 96
[2016-12-07] MEDS: FLUCONAZOLE 100 MG TAB PO SCH (08:19)
[2016-12-07] MEDS: FLUTICASONE/SALMETEROL (ADVAIR) 500/50 INH 14 PUFF INH SCH ×2 (08:19→20:40)
[2016-12-07] MEDS: LORAZEPAM 1 MG TAB PO PRN ×2 (08:26→21:02)
[2016-12-07] MEDS: INSULIN ASPART 100 UNITS/ML 3 ML PEN SC SCH ×4 (08:34→22:21)
[2016-12-07] MEDS: INSULIN GLARGINE SOLOSTAR 100 UNITS/ML 3 ML PEN SC SCH ×2 (08:36→22:21)
[2016-12-07 11:04] VITALS: BP 145/84; PULSE 89; TEMP 36.9; O2SAT 96
[2016-12-07] MEDS ORDERED: HYDROCODONE/ACETAMI 10/325 TAB PO ONE (14:30)
[2016-12-07 15:20] LABS: BASO % 0.3 %; BASO ABS # 0.01 K/uL (0-0.2); COMPLETE YES; HEMATOCRIT 29.9 % (37-47); IG% 1.7 %; LYMPH % 15.4 %; LYMPH ABS # 0.53 K/uL (1.2-3.4); MEAN CELL VOLUME 84.2 fL (80-100); MEAN CORPUSCULAR HEMOGLOBIN 25.6 pg (25-34); MEAN CORPUSCULAR HGB CONC 30.4 g/dl (32-36); MEAN PLATELET VOLUME 9.3 fL (7.4-10.4); MONO % 7.3 %; NEUT % 75.3 %; PLATELET COUNT 101 K/uL (130-400); RED BLOOD COUNT 3.55 M/uL (4.2-5.4); WHITE BLOOD COUNT 3.44 K/uL (4.8-10.8)
[2016-12-07 15:34] VITALS: BP 164/93; PULSE 93; TEMP 36.8; O2SAT 94
[2016-12-07 15:42] LABS: CREATININE 0.74 mg/dl (0.60-1.20)
--- NOTE | 2016-12-07 17:40 | Medical Student: [facility] ---
Med Student Progress Note Date of Service Dec 07, 2016. 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 She is recovering nicely, and has remained afebrile overnight without any acute events. Her pain has been adequately controlled. Culture sensitivities came back as MSSA. She reports that her finger feels better, and her mood has improved today with the good news. She denies other systemic symptoms. She denies headache, she denies n/v/d, chest pain, SOB. She has been eating and ambulating. Review of Systems Constitutional: No fever, No chills, No weight loss Respiratory: No cough, No sputum Cardiac: No chest pain Abdomen: No pain, No nausea, No vomiting, No diarrhea Female : No dysuria Skin: + rash (b/l on feet ) Objective Vital Signs Date Time Temp Pulse Resp B/P (MAP) Pulse Ox O2 Delivery O2 Flow Rate FiO2 12/07/16 15:34 36.8 93 16 164/93 (116) 94 2.0 12/07/16 11:04 36.9 89 16 145/84 (104) 96 2.0 12/07/16 08:00 Nasal Cannula 2.0 Humidified Oxygen 12/07/16 07:15 37.0 81 18 146/85 (105) 96 2.0 12/07/16 05:08 36.9 81 18 134/81 (98) 93 Nasal Cannula 2.0 12/07/16 00:34 Nasal Cannula 2.0 12/06/16 23:30 36.6 87 18 111/73 (86) 94 Nasal Cannula 2.0 12/06/16 20:42 Nasal Cannula 2.0 12/06/16 19:33 37.1 92 20 120/84 (96) 91 Nasal Cannula 2.0 Physical Exam General Appearance: WD/WN, no apparent distress Neck: supple, + pertinent finding (diffusely swollen anteriorly ) Respiratory/Chest: chest non-tender, no respiratory distress, no accessory muscle use, + decreased breath sounds (left lower base absent breath sounds ) Cardiovascular: regular rate, rhythm, no edema, no gallop, no JVD, no murmur Abdomen: normal bowel sounds, non tender, soft, no organomegaly Extremities: normal range of motion, non-tender, + pertinent finding (left thumb significantly improved since presentation. Swelling is localized only to distal thumb without streaking or lymphangitic spread. Black lesion reduced. Nailbed perfusion is present. ) Neurologic/Psychiatric: alert, normal mood/affect, oriented x 3 Skin: normal color, warm/dry Lymphatic: no adenopathy Laboratory Results Last 24 Hours Test 12/06/16 19:23 12/06/16 20:24 12/07/16 05:32 12/07/16 07:34 Vancomycin Level Trough 19.5 mcg/ml Bedside Glucose 186 mg/dl 207 mg/dl White Blood Count 3.47 K/uL Red Blood Count 3.64 M/uL Hemoglobin 9.3 g/dL Hematocrit 30.7 % Mean Corpuscular Volume 84.3 fL Mean Corpuscular Hemoglobin 25.5 pg Mean Corpuscular Hemoglobin Concent 30.3 g/dl RDW Standard Deviation 52.3 fL RDW Coefficient of Variation 16.9 % Platelet Count 97 K/uL Mean Platelet Volume 9.7 fL Test 12/07/16 11:28 12/07/16 15:03 12/07/16 16:13 Bedside Glucose 179 mg/dl 185 mg/dl White Blood Count 3.44 K/uL Red Blood Count 3.55 M/uL Hemoglobin 9.1 g/dL Hematocrit 29.9 % Mean Corpuscular Volume 84.2 fL Mean Corpuscular Hemoglobin 25.6 pg Mean Corpuscular Hemoglobin Concent 30.4 g/dl Platelet Count 101 K/uL Mean Platelet Volume 9.3 fL Neutrophils (%) (Auto) 75.3 % Lymphocytes (%) (Auto) 15.4 % Monocytes (%) (Auto) 7.3 % Eosinophils (%) (Auto) 0.0 % Basophils (%) (Auto) 0.3 % Neutrophils # (Auto) 2.59 K/uL Lymphocytes # (Auto) 0.53 K/uL Monocytes # (Auto) 0.25 K/uL Eosinophils # (Auto) 0.00 K/uL Basophils # (Auto) 0.01 K/uL RDW Standard Deviation 51.8 fL RDW Coefficient of Variation 16.9 % Immature Granulocyte % (Auto) 1.7 % Immature Granulocyte # (Auto) 0.06 K/uL Creatinine 0.74 mg/dl Est Creatinine Clear Calc Drug Dose 121.8 ml/min Estimated GFR () 110.3 Estimated GFR (Non- 95.1 Medications Medications Administered Medications (Trade) Dose Ordered Sig/Pravin Route Start Time Stop Time Status Last Admin Dose Admin Sodium Chloride 1,000 ml @ 999 mls/hr Q1H1M STAT IV 12/04/16 20:37 12/04/16 21:37 DC 12/04/16 22:22 999 MLS/HR Hydromorphone HCl (Dilaudid Inj) 1 mg NOW STAT IV 12/04/16 20:37 12/04/16 20:43 DC 12/04/16 22:19 1 MG Hydromorphone HCl (Dilaudid Inj) 1 mg Q30M PRN IV 12/04/16 20:45 12/05/16 00:30 DC 12/04/16 23:09 1 MG Aztreonam 2000 mg/ Dextrose 110 ml @ 100 mls/hr ONE STAT IV 12/04/16 20:44 12/04/16 21:49 DC 12/04/16 22:25 100 MLS/HR Insulin Human Regular (novoLIN-R U-100 PER UNIT) 10 units NOW STAT IV 12/04/16 22:34 12/04/16 22:35 DC 12/04/16 23:25 10 UNITS Acetaminophen (Tylenol Tab) 650 mg Q4H PRN PO 12/04/16 23:00 01/03/17 22:59 12/07/16 12:35 650 MG Al Hydrox/Mg Hydrox/Simethicone (Maalox Max Susp) 15 ml Q4H PRN PO 12/04/16 23:00 01/03/17 22:59 12/07/16 16:18 15 ML Ondansetron HCl (Zofran Inj) 4 mg Q6H PRN IV 12/04/16 23:00 01/03/17 22:59 12/06/16 08:45 4 MG Diphenhydramine HCl (Benadryl Cap) 25 mg QAM PO 12/05/16 08:00 01/04/17 08:59 12/07/16 08:19 25 MG Diphenhydramine HCl (Benadryl Cap) 50 mg HS PO 12/05/16 21:00 01/04/17 20:59 12/06/16 19:50 50 MG Fluconazole (Diflucan Tab) 100 mg DAILY PO 12/05/16 08:00 12/15/16 08:59 12/07/16 08:19 100 MG Salmeterol Xinafoate/ Fluticasone (Advair Diskus 500/50 Inh) 1 puff BID INH 12/05/16 08:00 01/04/17 08:59 12/07/16 08:19 1 PUFF Levothyroxine Sodium (Synthroid Tab) 125 mcg DAILYBB PO 12/05/16 06:30 01/04/17 06:59 12/07/16 06:43 125 MCG Lorazepam (Ativan Tab) 1 mg TID PRN PO 12/04/16 23:00 01/03/17 22:59 12/07/16 08:26 1 MG Montelukast Sodium (Singulair Tab) 10 mg HS PO 12/05/16 21:00 01/04/17 20:59 12/06/16 19:50 10 MG Sertraline HCl (Zoloft Tab) 50 mg HS PO 12/05/16 21:00 01/04/17 20:59 12/06/16 19:50 50 MG Hydromorphone HCl (Dilaudid Tab) 2 mg Q3H PRN PO 12/04/16 23:00 12/05/16 10:21 DC 12/05/16 07:45 2 MG Ondansetron HCl (Zofran Inj) 4 mg NOW STAT IV 12/04/16 22:59 12/04/16 23:00 DC 12/04/16 23:07 4 MG Insulin Aspart (novoLOG ASPART) SLIDING SCALE G... ACHS SC 12/05/16 06:30 01/04/17 06:59 12/07/16 12:41 6 UNITS Insulin Glargine (Lantus Per Unit) 10 units ONE STAT SC 12/04/16 23:33 12/04/16 23:34 DC 12/04/16 23:47 10 UNITS Aztreonam 1000 mg/ Dextrose 110 ml @ 100 mls/hr Q8H IV 12/05/16 06:00 12/06/16 13:52 DC 12/06/16 06:15 100 MLS/HR Sodium Chloride 1,000 ml @ 100 mls/hr Q10H IV 12/05/16 00:30 12/05/16 20:29 DC 12/05/16 10:27 100 MLS/HR Vancomycin HCl 2800 mg/Sodium Chloride 556 ml @ 200 mls/hr TODAY@0100 IV 12/05/16 01:00 12/05/16 03:47 DC 12/05/16 00:58 200 MLS/HR Insulin Glargine (Lantus Solostar Pen) 10 unit QAM SC 12/05/16 09:00 01/04/17 08:59 12/07/16 08:36 10 UNIT Pantoprazole Sodium (Protonix Tab) 40 mg HS PO 12/05/16 21:00 01/04/17 20:59 12/06/16 19:50 40 MG Hydromorphone HCl (Dilaudid Inj) 1 mg STK-MED ONCE .ROUTE 12/05/16 10:17 12/05/16 10:18 DC 12/05/16 10:22 1 MG Hydromorphone HCl (Dilaudid Inj) 2 mg STK-MED ONCE .ROUTE 12/05/16 12:22 12/05/16 12:23 DC 12/05/16 12:24 2 MG Hydromorphone HCl (Dilaudid Inj) 2 mg Q3H PRN IV 12/05/16 15:00 12/19/16 14:59 12/06/16 11:28 2 MG Perflutren Lipid Microsphere (Definity) 2 ml ONE ONCE IV 12/05/16 14:11 12/05/16 14:12 DC 12/05/16 14:12 2 ML Bupivacaine HCl (Marcaine 0.5% MPF Inj) 30 ml STK-MED ONCE .ROUTE 12/05/16 15:15 12/05/16 15:16 DC 12/05/16 16:45 6 ML Aztreonam 1000 mg/ Dextrose 110 ml @ 100 mls/hr PREOP@1400 IV 12/05/16 14:00 12/05/16 18:00 DC 12/05/16 18:09 100 MLS/HR Bacitracin (Bacitracin Inj) 50,000 units STK-MED ONCE .ROUTE 12/05/16 16:05 12/05/16 16:06 DC 12/05/16 16:45 50,000 UNITS Vancomycin HCl 1750 mg/Sodium Chloride 535 ml @ 200 mls/hr Q8H IV 12/05/16 18:00 12/05/16 23:59 DC 12/05/16 19:59 200 MLS/HR Lidocaine HCl (Xylocaine 1% Inj (Local)) 20 ml STK-MED ONCE .ROUTE 12/05/16 16:33 12/05/16 16:34 DC 12/05/16 16:45 6 ML Vancomycin HCl 1750 mg/Sodium Chloride 535 ml @ 200 mls/hr Q8H IV 12/06/16 04:00 12/06/16 20:50 DC 12/06/16 19:51 200 MLS/HR Ketorolac Tromethamine (Toradol Inj) 30 mg Q6H IV 12/06/16 12:00 12/07/16 00:01 DC 12/06/16 23:11 30 MG Insulin Glargine (Lantus Solostar Pen) 10 unit HS SC 12/06/16 22:00 01/05/17 21:59 12/06/16 21:57 10 UNIT Vancomycin HCl 1500 mg/Sodium Chloride 530 ml @ 200 mls/hr Q8H IV 12/07/16 04:00 12/07/16 14:30 DC 12/07/16 11:34 200 MLS/HR Acetaminophen/ Hydrocodone Bitart ([place] 10/325 Tab) 1 tab 1430 ONCE PO 12/07/16 14:30 12/07/16 14:31 DC 12/07/16 14:34 1 TAB Assessment and Plan Assessment and Plan: This is a 51 y/o female with 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 1. Left felon, s/p I&D -Oral Keflex 2000 mg q12 hr for 10 days. -Echo does not demonstrate emboli, but was technically difficult -Arm arterial u/s did not demonstrate thrombosis or stenosis of vasculature 2. NSCLC -Has been referred to palliative. -CT head questionable lesions? New metastasis v. residual edema from radiation therapy? Will follow up with oncology doctors. 3. Pain Control -Dilaudid PO 2 mg q6 prn -Hydrocodone 1 tap q6 prn 4. DMII, uncontrolled -may continue home meds 5. COPD -continue singulair, fluconazole 6. Hypothyroidism -Increased levothyroxine from 125 to 150 mcg. Discharge planning: home
[2016-12-07 19:46] VITALS: BP 136/82; PULSE 92; TEMP 37.3; O2SAT 93
[2016-12-07] MEDS: SUCRALFATE 1 GM TAB PO SCH ×2 (20:01→20:41)
[2016-12-07] MEDS: HYDROCODONE/ACETAMI 10/325 TAB PO PRN (20:02)
[2016-12-07] MEDS: LACTOBACILLUS ACIDOPHILUS (FLORANEX) TAB PO SCH (20:30)
[2016-12-07] MEDS: SERTRALINE HCL 50 MG TAB PO SCH (20:44)
[2016-12-07] MEDS: MONTELUKAST SOD 10 MG TAB PO SCH (20:44)
--- NOTE | 2016-12-07 20:45 | Progress Note ---
Subjective Date of Service: Dec 07, 2016. Subjective Pt evaluation today including: conversation w/ patient, physical exam, chart review, lab review, conversation w/ senior compensation consultant (palliative care ), review of inpatient medication list Pain: left thumb, back, upper abdomen PO Intake: eating caused mild dyspepsia earlier today Voiding: no voiding problems patient anxious to be discharged she was agreeable to discussing hospice with our palliative care team she admits to mild dyspepsia today and has had loose stools at home recently ?melena at home? denies any dyspnea no chest pain no vomiting Problem List Medical Problems: (1) Anemia Status: Acute (2) Confusion Status: Acute (3) Headache Status: Acute (4) Herpes zoster with ophthalmic complication Status: Acute (5) History of lung cancer Status: Acute (6) Hyperglycemia due to type 2 diabetes mellitus Status: Acute (7) Intracranial mass Status: Acute (8) Left flank pain Status: Acute (9) Metastatic lung cancer (metastasis from lung to other site) Status: Acute (10) TIA (transient ischemic attack) Status: Acute Review of Systems Constitutional: No fever, No chills Cardiac: No chest pain, No orthopnea Abdomen: + see HPI, + pain Female : No dysuria Objective Vital Signs Date Time Temp Pulse Resp B/P (MAP) Pulse Ox O2 Delivery O2 Flow Rate FiO2 12/07/16 19:46 37.3 92 20 136/82 (100) 93 Room Air 12/07/16 15:34 36.8 93 16 164/93 (116) 94 2.0 12/07/16 11:04 36.9 89 16 145/84 (104) 96 2.0 12/07/16 08:00 Nasal Cannula 2.0 Humidified Oxygen 12/07/16 07:15 37.0 81 18 146/85 (105) 96 2.0 12/07/16 05:08 36.9 81 18 134/81 (98) 93 Nasal Cannula 2.0 12/07/16 00:34 Nasal Cannula 2.0 12/06/16 23:30 36.6 87 18 111/73 (86) 94 Nasal Cannula 2.0 12/06/16 20:42 Nasal Cannula 2.0 Physical Exam General Appearance: no apparent distress, + obese ENT: pharynx normal Neck: no JVD Respiratory/Chest: lungs clear, no respiratory distress, no accessory muscle use Cardiovascular: regular rate, rhythm, no gallop, no murmur Abdomen: normal bowel sounds, soft, no organomegaly, + tenderness (high epigastric region ) Extremities: no pedal edema, + pertinent finding (left thumb active ROM is much improved today ) Neurologic/Psychiatric: alert, oriented x 3 Skin: + pertinent finding (left thumb dressing removed; the cap refill of the thumb is <2 sec; the perfusion to the nail bed is NORMAL today; there is dusky/ necrotic appearing skin on the palmar side of the distal thumb; there is erythema more proximally on the thumb; the previous lymphangitis extending up the wrist is now resolved) Laboratory Results Last 24 Hours Test 12/07/16 05:32 12/07/16 07:34 12/07/16 11:28 12/07/16 15:03 White Blood Count 3.47 K/uL 3.44 K/uL Red Blood Count 3.64 M/uL 3.55 M/uL Hemoglobin 9.3 g/dL 9.1 g/dL Hematocrit 30.7 % 29.9 % Mean Corpuscular Volume 84.3 fL 84.2 fL Mean Corpuscular Hemoglobin 25.5 pg 25.6 pg Mean Corpuscular Hemoglobin Concent 30.3 g/dl 30.4 g/dl RDW Standard Deviation 52.3 fL 51.8 fL RDW Coefficient of Variation 16.9 % 16.9 % Platelet Count 97 K/uL 101 K/uL Mean Platelet Volume 9.7 fL 9.3 fL Bedside Glucose 207 mg/dl 179 mg/dl Neutrophils (%) (Auto) 75.3 % Lymphocytes (%) (Auto) 15.4 % Monocytes (%) (Auto) 7.3 % Eosinophils (%) (Auto) 0.0 % Basophils (%) (Auto) 0.3 % Neutrophils # (Auto) 2.59 K/uL Lymphocytes # (Auto) 0.53 K/uL Monocytes # (Auto) 0.25 K/uL Eosinophils # (Auto) 0.00 K/uL Basophils # (Auto) 0.01 K/uL Immature Granulocyte % (Auto) 1.7 % Immature Granulocyte # (Auto) 0.06 K/uL Creatinine 0.74 mg/dl Est Creatinine Clear Calc Drug Dose 121.8 ml/min Estimated GFR () 110.3 Estimated GFR (Non- 95.1 Test 12/07/16 16:13 Bedside Glucose 185 mg/dl Assessment and Plan 51yo female with: 1. cellulitis/felon of left thumb, POD #2 s/p I & D by Dr. Rodriguez - continues to improved. Culture with MSSA. D/c vancomycin later today; change to keflex PO TID (has tolerated rocephin in the past) Plan for 10 days of keflex. Add lactinex. Blood cx's negative. 2. uncontrolled T2DM - improved with BID lantus. Cont novolog correction & carb coverage. 3. chronic resp failure 2nd to COPD & lung cancer - stable on NC O2. 4. stage 4 lung ca with brain mets - CT head showed a 2cm focus in the left parietal lobe. This likely corresponds to the recently irradiated lesion seen on prior MRI. The edema is probably related to the recent radiation. We spoke with Dr. Nash from rad onc - plan is for repeat MRI brain in the next 2-3 weeks unless she has new neurological signs/symptoms/etc. We also discussed palliative care and hospice. She seems interested in such. 5. DVT proph - SCDs. 6. morbid obesity with BMI 45. 7. COPD - stable, not in exacerbation. Cont O2, inhalers, etc. 8. thrombocytopenia - holding about 95-100. Repeat CBC in am. Check b12/ folate to be complete. 9. hypothyroidism - TSH high; she voices she has been compliant w/ synthroid. Thus, increase synthroid to 150mcg daily. Repeat TSH 6 weeks. 10. HTN - controlled. 11. pain control - d/c IV and PO dilaudid. [place] 10's q6h prn. Will d/c home with this. May need long-acting narcotics as well but defer this to outpatient providers. 12. thoracic spine pain - t-spine x-rays ordered; no obvious mets. 13. pancytopenia - unclear etiology. Repeat CBC later today was still low cell lines but stable. Check b12/folate. Marrow infiltration by cancer??? Suppression due to #1? Other? repeat cbc in am. 14. anemia - worse today. Having upper GI symptoms. slow upper GI bleeding?? repeat CBC in am. increase PPI to twice daily. add carafate. guaic stool. home tomorrow depending on CBC results. Discharge planning: home with home health
[2016-12-07] MEDS: CEPHALEXIN MONOHYDRATE 500 MG CAP PO SCH (21:01)
[2016-12-07 23:31] VITALS: BP 158/90; PULSE 89; TEMP 36.9; O2SAT 92
[2016-12-07] MEDS ORDERED: KETOROLAC TROMETHAMINE 30 MG/ML VIAL IV STA (23:44)
[2016-12-08] MEDS ORDERED: NURSING VERBAL MED ORDER ONE (00:30)
[2016-12-08] MEDS: HYDROCODONE/ACETAMI 10/325 TAB PO PRN ×3 (02:04→13:16)
[2016-12-08] MEDS: ACETAMINOPHEN 325 MG TAB PO PRN (02:06)
[2016-12-08 06:10] LABS: BASO % 0.3 %; BASO ABS # 0.01 K/uL (0-0.2); COMPLETE YES; HEMATOCRIT 32.6 % (37-47); IG% 2.2 %; LYMPH % 16.5 %; LYMPH ABS # 0.59 K/uL (1.2-3.4); MEAN CELL VOLUME 85.3 fL (80-100); MEAN CORPUSCULAR HEMOGLOBIN 25.1 pg (25-34); MEAN CORPUSCULAR HGB CONC 29.4 g/dl (32-36); MEAN PLATELET VOLUME 8.7 fL (7.4-10.4); MONO % 8.4 %; NEUT % 72.6 %; PLATELET COUNT 116 K/uL (130-400); RED BLOOD COUNT 3.82 M/uL (4.2-5.4); WHITE BLOOD COUNT 3.57 K/uL (4.8-10.8)
[2016-12-08] MEDS ORDERED: LEVOTHYROXINE 150 MCG TAB PO SCH (06:30)
[2016-12-08 06:35] LABS: CREATININE 0.67 mg/dl (0.60-1.20)
[2016-12-08 07:26] VITALS: BP 145/90; PULSE 84; TEMP 36.5; O2SAT 94
[2016-12-08 07:31] VITALS: BP 155/95; PULSE 86; TEMP 36.6; O2SAT 95
[2016-12-08] MEDS: FLUTICASONE/SALMETEROL (ADVAIR) 500/50 INH 14 PUFF INH SCH (07:44)
[2016-12-08] MEDS: LORAZEPAM 1 MG TAB PO PRN (07:44)
[2016-12-08] MEDS: CEPHALEXIN MONOHYDRATE 500 MG CAP PO SCH ×2 (07:45→13:15)
[2016-12-08] MEDS: FLUCONAZOLE 100 MG TAB PO SCH (07:46)
[2016-12-08] MEDS: LACTOBACILLUS ACIDOPHILUS (FLORANEX) TAB PO SCH ×2 (07:46→12:00)
[2016-12-08] MEDS: SUCRALFATE 1 GM TAB PO SCH ×2 (07:46→12:14)
[2016-12-08] MEDS ORDERED: PANTOprazole SOD 40 MG TAB PO SCH (08:00)
[2016-12-08] MEDS: INSULIN ASPART 100 UNITS/ML 3 ML PEN SC SCH ×2 (08:32→12:16)
[2016-12-08] MEDS: INSULIN GLARGINE SOLOSTAR 100 UNITS/ML 3 ML PEN SC SCH (08:34)
[2016-12-08 11:34] VITALS: BP 166/99; PULSE 90; TEMP 36.8; O2SAT 92
[2016-12-08 11:46] VITALS: BP 140/89; PULSE 87; TEMP 37; O2SAT 94
[2016-12-08] MEDS ORDERED: INSU-698 SC (15:02)
[2016-12-08] MEDS ORDERED: HYDR-4079 PO (15:02)
[2016-12-08] MEDS ORDERED: INSDGIPEN SC (15:02)
[2016-12-08] MEDS ORDERED: RABE20TA5 PO (15:02)
[2016-12-08] MEDS ORDERED: LEVO137T3 PO (15:02)
[2016-12-08] MEDS ORDERED: LCTX PO (15:02)
[2016-12-08] MEDS ORDERED: KFL500 PO (15:02)
[2016-12-08] MEDS ORDERED: SUCR1TAB PO (15:02)
[2016-12-08] MEDS ORDERED: FLUC150T54 PO (15:02)
--- NOTE | 2016-12-08 15:15 | Discharge Instructions ---
Discharge Instructions Date of Service Dec 08, 2016. Admission Reason for Admission: Cellulitis/ABSCESS of left thumb Discharge Discharge Diagnosis / Problem: Infection of left thumb needing surgery - improving Discharge Goals Goal(s): Improve disease control, Learn about illness, Diagnostic testing, Therapeutic intervention Activity Recommendations Activity Limitations: as noted below You may shower at this time, but keep the left hand covered at all times during the shower. Do NOT take a tub-bath or submerge the left hand until Dr. Rodriguez tells you it is ok to do so. . Instructions / Follow-Up Instructions / Follow-Up From Dr. Isidro - 1. Left thumb infection - * upon return home tonight please start the keflex (cephalexin) * you will take this medication THREE times a day for 14 days * also take lactinex (probiotics) three times a day for 14 days to prevent diarrhea from the keflex * CALL Dr. Rodriguez's office THIS SATURDAY to schedule appointment for December 13 * a home health nurse will come to your home daily to change the dressing on the thumb and monitor the wound 2. Heartburn/reflux - * INCREASE your aciphex to TWICE a day * carafate can also be used NEEDED for stomach upset 3. Thyroid - * note that your thyroid medication has been INCREASED to 137mcg daily * a new prescription has been sent to your pharmacy * have your family doctor recheck your thyroid level in 6 weeks 4. Diabetes - * TAKE lantus 20 units at bedtime every night * the lantus comes in pen form * the pen you are currently using does NOT need to be refrigerated * the other pens not in use can be stored, however, in the refrigerator * check your blood sugars AT LEAST every morning and at bedtime * write these numbers down so you can review them with your family doctor * inject the insulin into your abdomen and be sure to ROTATE the sites from day to day * do not inject into the same site over and over 5. Pain control - * may take norco 10's (hydrocodone with tylenol) every 6 hours as needed for pain * do NOT take any additional tylenol [id number] * do NOT drive a car while taking the pain pills * note that the pain pills WILL make you constipated 6. Potential for vaginal yeast infection - * IF you develop an itchy, white vaginal discharge while taking the keflex you may take diflucan (fluconazole) 150mg for 1 dose * IF the discharge returns within 1-2 weeks you can repeat a second dose if needed 7. Follow-up appointments - 1. see Dr. Matamoros on Saturday or Saturday of this week to recheck the thumb and your diabetes 2. see Dr. Rodriguez next , December 13 - call his office to confirm an appointment time 3. see your cancer doctors within 2 weeks to discuss your overall care plan 8. Reasons to return to [facility] - * fever over 100.5 degrees * worsening pain in the left thumb despite taking your pain medication * worsening redness, drainage, and/or swelling of the left thumb * worsening black color of the skin of the tip of the thumb * peeling off of skin of the thumb (do NOT attempt to pull the skin off yourself - call Dr. Rodriguez's office right away) * uncontrolled blood sugars (example - blood sugar of 350-400 or more) Current Hospital Diet Patient's current hospital diet: Regular Diet Discharge Diet Recommended Diet: Diabetes Type 2 Diet Procedures Procedures Performed: Incision and drainage left thumb Echocardiogram - normal, no evidence of a blood clot in the heart Left arm doppler study with NORMAL blood flow through the arm Pending Studies Studies pending at discharge: no Laboratory Results Hemoglobin A1c Test 12/04/16 21:10 Range/Units Estimated Average Glucose 186 mg/dl Hemoglobin A1c 8.1 H 4.5-5.6 % Medical Emergencies . Who to Call and When: Medical Emergencies: If at any time you feel your situation is an emergency, please call 911 immediately. . Non-Emergent Contact Non-Emergency issues call your: Surgeon (orthopedics - Dr. Rodriguez) Call Non-Emergent contact if: temperature is above 100.5, your pain is not controlled, your pain is worsening, your pain is unusual for you, your pain is concerning you, wound has increased drainage, wound has increased redness, wound has increased pain, you have any medication questions . . "Provider Documentation" section prepared by Russell Isidro. . [employer] Recommendations [employer] Recommendations: Dry sterile dressing changes with Adpaptic, 4x4 and kerlex once a day follow up with Dr Rodriguez if possible on December 06 [place] [facility] [place] . Call for Appt [phone] may move thumb in and out. VTE Core Measure Inpt VTE Proph given/why not?: SCD's [place] Drug Monitoring Program Search Results: patient reviewed within database, no issues identified
[2016-12-08 15:21] VITALS: BP 140/89; PULSE 87; TEMP 37; O2SAT 94
--- NOTE | 2016-12-12 10:51 | Discharge Summary ---
Discharge Summary Date of Service Dec 12, 2016. Discharge Summary Admission Date: Dec 05, 2016 at 10:21 Discharge Date: Dec 08, 2016 Discharge Disposition: Home with services Principal Diagnosis: left thumb felon 2nd to staph aureus Problems/Secondary Diagnoses: 1. stage 4 lung cancer 2. chronic hypoxic respiratory failure on home o2 3. T2DM 4. brain mets due to #1 5. morbid obesity with BMI 46 6. pancytopenia 7. HTN 8. hypothyroidism 9. probable gastritis 10. COPD Immunizations: Have You Had Influenza Vaccine: Yes Influenza Vaccine Date: Apr 19, 2013 History of Tetanus Vaccine?: Yes Tetanus Immunization Date: Aug 20, 2013 History of Pneumococcal: Yes Pneumococcal Date: Aug 20, 2008 History of Hepatitis B Vaccine: Unknown Procedures: 1. echocardiogram: * Hyperdynamic left ventricular systolic function. * Left ventricular diastolic dysfunction. * No significant valve abnormalities were noted. However, the study was technically difficult. * The study was technically difficult. * No cardiac source of emboli noted. 2. arterial doppler of left arm with normal blood flow 3. head CT - IMPRESSION: 1. No evidence of acute hemorrhage 2. No evidence of hydrocephalus 3. Interval development of a 2 cm focus of white matter edema within the left parietal vertex. Given the patient's clinical history this could represent edema from a small metastatic focus (a white matter ischemic insult could appear similar). An MRI the brain should be considered in follow-up. 4. incision & drainage of left thumb pam - Neo Rodriguez MD Consultations: orthopedics - Mariusz Rodriguez MD Medication Reconciliation New Medications: Needle (Bd Pen Needle/Mini/Ultraf) 1 Ea Inj BOX SC DAILY, #1 2 Refills USE NIGHTLY WITH LANTUS PEN Cephalexin Monohydrate (Cephalexin) 500 Mg Cap 500 MG PO TID for 14 Days, #42 CAP 0 Refills Hydrocodone/Acetaminophen 10MG/325MG ([place] 10MG/325MG) Tab 1 TAB PO Q6H PRN for Pain, #20 TAB 0 Refills PRN PAIN Insulin Glargine (Lantus Solostar) 100 Unit/Ml Inj 20 UNIT SC HS, #1 BOX 2 Refills Lactobacillus Acidophilus (Floranex) 1 Tab Tab 4 TAB PO TIDM for 14 Days, #168 TAB 0 Refills Sucralfate (Sucralfate) 1 Gm Tab 1 GM PO QID PRN for STOMACH UPSET, #30 TAB 0 Refills TAKE 30 MINUTES BEFORE MEALS Changed Medications: Fluconazole (Diflucan) 150 Mg Tab 150 MG PO DIRECTED, #2 TAB 0 Refills (Changed from: Fluconazole (Diflucan) 100 Mg Tab 1 Tab PO DAILY 10 Days #10 TAB) Levothyroxine Sodium (Levothyroxine Sodium) 137 Mcg Tab 1 TAB PO DAILY for 30 Days, #30 TAB 2 Refills (Changed from: Levothyroxine Sodium 125 Mcg Tab 125 Mcg PO QAM) Rabeprazole Sodium (Aciphex) 20 Mg Tab 1 TAB PO BID for 30 Days, #60 TAB 2 Refills (Changed from: DAILY; 90; 90; Refills: 1) Continued Medications: Albuterol Hfa (Ventolin Hfa) 200 Puffs/63890 Mcg Aers 2 PUFFS INH QID PRN for SOB/Wheezing, #1 INHALER Diphenhydramine Hcl (Benadryl) 25 Mg Cap 50 MG PO HS, CAP Diphenhydramine Hcl (Benadryl Allergy) 25 Mg Cap 1 CAP PO QAM for 30 Days, #30 CAP 1 Refill Epinephrine (Epipen 2-Saad) 0.3 Mg Inj 0.3 MG IM UD PRN for ALLERGIC REACTION Fluticasone Prop/Salmeterol (Advair Diskus 500/50 60 Dose) 1 Ea Aerp 1 PUFF INH BID, INHALER Lorazepam (Ativan) 1 Mg Tab 1 MG PO TID PRN for Anxiety, TAB Montelukast Sodium (Singulair) 10 Mg Tab 10 MG PO HS, TAB Sertraline Hcl (Zoloft) 50 Mg Tab 50 MG PO HS, TAB Referrals At Discharge Follow up Referrals: Orthopedics Referral - 12/13/16 with Mariusz Rodriguez MD Discharge Exam Physical Exam: General Appearance: no apparent distress, + obese ENT: pharynx normal Neck: no JVD Respiratory/Chest: lungs clear, no respiratory distress, no accessory muscle use Cardiovascular: regular rate, rhythm, no gallop, no murmur, normal peripheral pulses Abdomen / GI: normal bowel sounds, non tender, soft, no organomegaly Extremities: no pedal edema, + pertinent finding (left thumb - range of motion at the PIP joint much improved from prior exams; rad pulse on left wrist 2+ ) Neurologic/Psychiatric: alert, oriented x 3 Skin: + pertinent finding (left thumb - distal tip with dark/discolored skin on palmar surface; incision site clean with scant drainage; nailbed pink with cap refill < 2 sec; mild erythema and bruising in the proximal thumb extending to the nail bed; there is NO erythema extending beyond the thumb) Hospital Course HISTORY OF PRESENT ILLNESS: 51yo female with history of metastatic NSCLCA, T2DM, chronic hypoxic respiratory failure 2nd to COPD, and morbid obesity who presented with pain and redness of her left thumb for 1-2 days. She does not recall any trauma to the area. She cannot confirm fevers. Her thumb mobility is limited as a result of the inflammation. She was afebrile on arrival to the ER and did not have leukocytosis. Her lactic acid is elevated however. The patient has a recent complex history regarding her lung cancer. She had a wedge resection of her cancer in 03/2016 and only one chemo session due to a severe reaction. She had 17 radiation treatments which she stopped as she tolerated them poorly as well. She is monitored with PET scans and had a + scan this 11/14 showing an active L upper lobe mass. She was also diagnosed with R temporal and L parietal brain metastasis which have since been treated with 2 sessions of radiation. She has no immediate plans to proceed with chemotherapy and states that no further radiation treatments are planned at present. She recently completed a dexamethasone taper. HOSPITAL COURSE: The patient's left thumb cellulitis/felon worsened in the first 24 hours of her stay despite broad-spectrum IV antibiotic therapy. She was seen in consult by Dr. Mariusz Rodriguez from orthopedics and was taken to the OR for urgent incision and drainage of the left thumb felon. Intra-operative cultures grew methicillin-sensitive staph aureus. She improved following her I/D. Her range of motion of the thumb as well as her perfusion improved following the I/D. Blood cultures remained negative while here. She received daily dressing changes consisting of adaptic, 4x4's, and kerlix. She will complete a lengthy course of keflex 500mg TID following discharge. Home health has been set up to assist in the daily dressing changes. Arterial doppler of the left arm and echo showed preserved blood flow and no evidence of embolus, respectively. She was counseled that there is a risk that the skin on the distal thumb could necrose in the near future. Other issues addressed - 1. uncontrolled T2DM - improved with use of lantus. She was discharged to home on 20 units of lantus daily. 2. brain mets from lung cancer - underwent CT head at her request. There was a 2cm area of edema in the left parietal lobe likely corresponding to the known parietal met seen on prior imaging. The edema was felt to represent changes due to recent radiation. She will follow-up with Dr. Nash from radiation oncology after discharge. 3. pancytopenia - the patient had a stable pancytopenia while hospitalized. The exact cause of this was unclear. B12/folate levels were normal. This could be related to bone marrow suppression from her thumb infection vs some other primary bone marrow process. She will need a repeat CBC at time of hospital follow-up for stability. 4. anemia - she complained of dyspepsia during her stay and thus there was a concern that some of her anemia could be from occult GI bleeding. However, her upper GI symptoms resolved prior to discharge. H/H remained stable. She will double her PPI to twice daily and use carafate prn. 5. hypothyroidism - TSH was high; she voiced she had been compliant with synthroid. Thus, synthroid was increased to 137mcg daily. Repeat TSH 6 weeks recommended. Lastly, palliative care/hospice was discussed in detail with the patient by the palliative care team. She is going to think about this option and let her PCP and/or oncologist know about her wishes in the near future. Total Time Spent: Greater than 30 minutes This includes examination of the patient, discharge planning, medication reconciliation, and communication with other providers. Discharge Instructions Please refer to the electronic Patient Visit Report (Discharge Instructions) for additional information. Follow-Up 1. see Dr. Matamoros on Saturday or Saturday of the coming week 2. see Dr. Rodriguez December [address] Nash, radiation oncology, within 2 weeks Additional Copies To Mariusz Matamoros M.D.; Mariusz Rodriguez MD; Veeral. Nash MD
[2017-02-16] MEDS ORDERED: PRD20 PO (08:38)
[2017-02-16] MEDS ORDERED: LEVO1TAB35 PO ×2 (08:38→08:54)
[2017-02-16] MEDS ORDERED: INSDGIPEN SC (08:38)
[2017-02-16] MEDS ORDERED: OXGN (08:38)
[2017-02-16] MEDS ORDERED: FLUC100T4 PO (08:54)
== END 2016-12-08 16:10 | disposition home or self-care (01) | DRG 982 ==
LOC: C.EDB 19:58 → EDBEDREQ 23:04 → ENRESERV 23:20 → C.4E 23:48 → OBSVTOIN 12-05 10:21
PROVIDERS: ADMIT Internal Medicine; ATTEND Internal Medicine
PROC: 0JDK3ZZ Extraction of Left Hand Subcutaneous Tissue and Fascia, Percutaneous Approach (ICD-10-PCS; principal; 2016-12-05 07:00)
PROC: 0J9K3ZX Drainage of Left Hand Subcutaneous Tissue and Fascia, Percutaneous Approach, Diagnostic (ICD-10-PCS; principal; 2016-12-05 07:00)
DX: L03.012 Cellulitis of left finger (principal); J96.10 Chronic respiratory failure, unspecified whether with hypoxia or hypercapnia; C34.90 Malignant neoplasm of unspecified part of unspecified bronchus or lung; C79.31 Secondary malignant neoplasm of brain; D61.818 Other pancytopenia; K92.2 Gastrointestinal hemorrhage, unspecified; Z68.42 Body mass index [BMI] 45.0-49.9, adult; D64.9 Anemia, unspecified; B95.61 Methicillin susceptible Staphylococcus aureus infection as the cause of diseases classified elsewhere; M54.6 Pain in thoracic spine; E11.65 Type 2 diabetes mellitus with hyperglycemia; G89.3 Neoplasm related pain (acute) (chronic); I10 Essential (primary) hypertension; J45.909 Unspecified asthma, uncomplicated; J44.9 Chronic obstructive pulmonary disease, unspecified; F32.9 Major depressive disorder, single episode, unspecified; E03.9 Hypothyroidism, unspecified; E66.01 Morbid (severe) obesity due to excess calories; Z79.899 Other long term (current) drug therapy; Z99.81 Dependence on supplemental oxygen; Z87.01 Personal history of pneumonia (recurrent); Z92.21 Personal history of antineoplastic chemotherapy; Z92.3 Personal history of irradiation; Z83.3 Family history of diabetes mellitus; Z82.49 Family history of ischemic heart disease and other diseases of the circulatory system

== ENCOUNTER → 2017-01-18 | Outpatient (CLI) | payer OTHER ==
[~2017-01-18] MED LIST changes: -ACET-1256 PO; -ALBINS INH; +ATV1 PO; +BND25 PO; -CZR50 PO; -DIPH25CA5 PO; +DIPH25CA65 PO; -DXM/4 PO; +FLUC100T4 PO; +FLUC150T54 PO; +HYDR-4079 PO; +INSDGIPEN SC; +INSU-698 SC; +IPRASOL4 INH; +KFL500 PO; +LCTX PO; -LEVO125T5 PO; +LEVO137T3 PO; +LEVO1TAB35 PO; -LSX40 PO; +NVLGIPEN SQ; +OXGN; +PRD20 PO; +SUCR1TAB PO; +SYN150 PO; -ZOLP10TA6 PO
--- NOTE | 2017-01-18 15:20 | DIAGNOSTIC IMAGING REPORT ---
SOFT TIS HEAD/NECK-THYROID HISTORY: Nodules R22.1 Neck swelling has history of metastatic lung cancer, + s COMPARISON: None. FINDINGS: Right lobe: Scarred and atrophied right thyroid lobe. Maximum dimension is 3 cm. Maximum potential nodular dimension is 9 mm. Left lobe: Poorly defined. Diffusely heterogeneous. Possible maximum dimension of 3 cm. Isthmus: No nodules. Note is made of bilateral adenopathy. Largest node in the left is complex measuring 4 x 3 cm. Numerous smaller nodes are present. Adenopathy of the right neck is present, although somewhat less prominent. Maximum normal dimension on the right is 8 to 10 mm. IMPRESSION: 1. Scarred atrophied multinodular thyroid lobes bilaterally. 2. Significant and/or bulky left cervical adenopathy with nodes measuring 4 cm. 3. Minimal right cervical adenopathy The above report was generated using voice recognition software. It may contain grammatical, syntax or spelling errors. Electronically signed by: Urbano Ricketts M.D. 01/18/2017 3:18 PM Dictated Date/Time: 01/18/2017 3:14 PM
--- NOTE | 2017-01-18 15:24 | DIAGNOSTIC IMAGING REPORT ---
CHEST 2 VIEWS ROUTINE CLINICAL HISTORY: R06.02 Shortness of [id number] COMPARISON STUDY: 07/20/2016 FINDINGS: Interval development of a left pleural effusion possibly can combined with left basilar consolidative change. Potential developing nodular pathology left upper lung. Right lung is clear. IMPRESSION: Developing left pleural effusion with left basilar infiltrative/consolidative change. Potential nodularity left upper lung. CT of the chest is suggested. The above report was generated using voice recognition software. It may contain grammatical, syntax or spelling errors. Electronically signed by: Urbano Ricketts M.D. 01/18/2017 3:22 PM Dictated Date/Time: 01/18/2017 3:21 PM
[2017-01-19 07:56] LABS: ESTIMATED AVERAGE GLUCOSE 148 mg/dl; HA1C FLAG Normal (Normal)
== END | disposition home or self-care (01) ==
LOC: C.ULTR 14:08
PROVIDERS: ATTEND Nurse Practitioner
DX: J90 Pleural effusion, not elsewhere classified (principal); E04.2 Nontoxic multinodular goiter; R59.0 Localized enlarged lymph nodes; E11.9 Type 2 diabetes mellitus without complications

== ENCOUNTER 2017-01-21 20:00 | Emergency (ER) | payer OTHER ==
[~2017-01-21] VITALS: Ht 165.1 cm; Wt 124.2 kg
[~2017-01-21 20:00] MED LIST changes: -ATV1 PO; -FLUC100T4 PO; -IPRASOL4 INH; -LEVO1TAB35 PO; -NVLGIPEN SQ; -OXGN; -PRD20 PO; -SYN150 PO
[2017-01-21 20:25] VITALS: TEMP 36.9; Ht 165.1 cm; Wt 124.2 kg
--- NOTE | 2017-01-21 20:39 | EMERGENCY ROOM VISIT NOTE ---
History Report prepared by Rereibsteven: Deidra Garcia Under the Supervision of: Dr. Sudeep Donis D.O. First contact with patient: 20:28 Chief Complaint: SHORTNESS OF BREATH Stated Complaint: COUGH - FLEM - BREATHING HARD ON 3" OXYGEN History of Present Illness The patient is a 51 year old female who presents to the Emergency Room with complaints of persistent shortness of breath for the past 1 week. It really worsened in the past 3 days, so her doctor's office referred her to the ED for further evaluation. The patient has a history of lung, brain and neck cancer. She last had a chest X-Ray approximately 3 days ago. She was a cigarette smoker for approximately 20 years, but states she quit 10 years ago. She admits to the chills recently but does not think she's been running a fever. Her states she can't even take a shower without experiencing shortness of breath. The patient also complains of a productive cough that she has had for "a while" . She normally uses 2 Liters of Oxygen daily, but states she has been using at least 3 Liters over the past few days. 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 A total of 10 systems reviewed and were otherwise negative. Past Medical & Surgical Medical Problems: (1) Altered mental status (2) Anxiety (3) Asthma (4) Benign hypertension (5) Brain metastases (6) Bronchitis (7) Cellulitis of hand (8) Chronic back pain (9) COPD (10) Depression (11) Emphysema (12) Felon of finger (13) Lung cancer (14) Orthopedic surgery (15) Pneumonia (16) Pulmonary emphysema Surgical Problems: (1) H/O section (2) History of appendectomy (3) History of cholecystectomy Family History Abdominal pain FHx: cancer FHx: diabetes FHx: gallbladder disease FHx: heart disease FHx: hypertension FHx: lung disease Social History Smoking Status: Former Smoker Alcohol Use: none Drug Use: marijuana Marital Status: Housing Status: lives alone Occupation Status: disabled Current/Historical Medications Scheduled Diphenhydramine Hcl (Benadryl), 50 MG PO HS Diphenhydramine Hcl (Benadryl Allergy), 1 CAP PO QAM Fluconazole (Diflucan), 150 MG PO DIRECTED Fluticasone Prop/Salmeterol (Advair Diskus 500/50 60 Dose), 1 PUFF INH BID Insulin Aspart (Novolog Flexpen), 1 DOSE SQ SLIDING SCALE Insulin Glargine (Lantus Solostar), 30 UNITS SC QPM Levofloxacin (Levaquin), 750 MG PO DAILY Levothyroxine Sodium (Levothyroxine Sodium), 1 TAB PO DAILY Levothyroxine Sodium (Synthroid), 150 MCG PO QAM Lorazepam (Lorazepam), 1 MG PO BID Montelukast Sodium (Singulair), 10 MG PO HS Rabeprazole Sodium (Aciphex), 1 TAB PO BID Sertraline Hcl (Zoloft), 50 MG PO HS Scheduled PRN Albuterol Hfa (Ventolin Hfa), 2 PUFFS INH QID PRN for SOB/Wheezing Epinephrine (Epipen 2-Saad), 0.3 MG IM UD PRN for ALLERGIC REACTION Home O2 Therapy (Oxygen), 2 LITERS NA CONTINOUS PRN for Shortness of Breath Durable Medical Equipment Needle (Bd Pen Needle/Mini/Ultraf), BOX SC DAILY Allergies Coded Allergies: BEE STING (Verified Allergy, Severe, ANAPHYLAXIS, 01/21/17) Fentanyl (Verified Allergy, Severe, EYES SWELLED SHUT, 01/21/17) Adhesives (Verified Allergy, Unknown, blisters, 01/21/17) Gaastra (Unverified Allergy, Unknown, MOUTH ITCHES, SKIN PEELS, 01/21/17) Honey (Verified Allergy, Unknown, anaphylaxis, 01/21/17) pt Latex1 -Allergic Contact Dermititis (Verified Allergy, Unknown, LOCAL RXN- BLISTERING, 01/21/17) Metformin (Verified Allergy, Unknown, PER RECORDS , 01/21/17) [place] (Verified Allergy, Unknown, SKIN PEELS, 01/21/17) [place] (Verified Allergy, Unknown, MUST BE PEELED, 01/21/17) Penicillins (Verified Allergy, Unknown, 01/21/17) Tiotropium (Verified Allergy, Unknown, UNKNOWN REACTION, 01/21/17) Buspirone (Verified Adverse Reaction, Mild, ALLERGIC TO GENERIC DRUG- TAKES BRAND AT HOME, 01/21/17) Duloxetine (Verified Adverse Reaction, Unknown, lethargy,hallucinations, ) pt Uncoded Allergies: CHEMO (Adverse Reaction, Severe, ELEVATED BP, SEVERE MIGRAINE, 08/06/16) Physical Exam Vital Signs Date Time Temp Pulse Resp B/P (MAP) Pulse Ox O2 Delivery O2 Flow Rate FiO2 01/21/17 23:19 88 18 104/84 95 01/21/17 23:11 88 20 122/71 95 Nasal Cannula 4.0 01/21/17 22:43 86 24 125/66 96 Room Air 01/21/17 22:02 89 01/21/17 21:37 93 Nasal Cannula 4.0 01/21/17 21:37 93 Nasal Cannula 4.0 01/21/17 21:37 93 24 120/66 93 Nasal Cannula 3.0 01/21/17 21:17 Nasal Cannula 4.0 01/21/17 20:25 36.9 97 26 156/84 94 Nasal Cannula 3.0 Physical Exam GENERAL: Patient is awake, alert, mildly anxious appearing, but in no acute distress EYES: The conjunctivae are clear. The pupils are round and reactive. EARS, NOSE, MOUTH AND THROAT: The nose is without any evidence of any deformity. Mucous membranes are moist tongue is midline NECK: Fullness noted over the cervical lymph node chain, left greater than right. ROM appeared intact. RESPIRATORY: Lung sounds diminished in the left lung field, rales in left base. CARDIOVASCULAR: Regular rate and rhythm noted there no murmurs rubs or gallops normal S1 normal S2 GASTROINTESTINAL: The abdomen is soft. Bowel sounds are present in all quadrants. Abdomen is nontender MUSCULOSKELETAL/EXTREMITIES: There is no evidence of gross deformity full range of motion is noted in the hips and shoulders SKIN: Pedal edema bilaterally. There is no obvious evidence of any rash. There are no petechiae, pallor or cyanosis noted. NEUROLOGIC: Patient is awake alert and oriented x3 Medical Decision & Procedures ER Provider Diagnostic Interpretation: Radiology results as stated below per my review and radiologist interpretation: CT ANGIOGRAM OF THE CHEST CLINICAL HISTORY: Dyspnea. Lung cancer. COMPARISON STUDY: Prior chest CT scans, most recently dated 09/13/2016 and dating back to 08/24/2012. PET/CT dated 10/24/2016. TECHNIQUE: Following the IV administration of 95 cc of Optiray 320, CT angiogram of the thorax was performed from the upper abdomen to the thoracic inlet utilizing the pulmonary embolus protocol. 3-D MIPS images are created and assessed. Images are reviewed in the axial, sagittal, and coronal planes. IV contrast was administered without complication. A dose lowering technique was utilized adhering to the principles of ALARA. FINDINGS: Thyroid: Atrophic. Thoracic aorta: The thoracic aorta is normal in caliber and demonstrates standard 3-vessel arch anatomy. No dissection is seen. Pulmonary vasculature: The pulmonary trunk is normal in caliber. There are no filling defects identified in the main, lobar, or segmental pulmonary branches to indicate pulmonary embolus. Heart: The heart is normal in size and configuration, and without pericardial effusion. Lungs and pleural spaces: Emphysema is noted. There are postoperative changes and volume loss from left upper lobe pulmonary resection. There is a small to moderate left pleural effusion with dense consolidation at the left lung base. This has increased from previous. There is no right pleural effusion. There is been marked progression of pulmonary metastatic disease as compared to 10/24/2016. Numerous (greater than 30) pulmonary lesions are identified. The largest lesion is in the left upper lobe seen on image #203 and measures 2.3 cm. The trachea and central airways are clear. Mediastinum: Mediastinal lymphadenopathy has increased. A right paratracheal node on image #184 measures 2.1 x 2.2 cm. Lucero: Hilar adenopathy is suggested on the left. Lower neck: There is an enlarging left supraclavicular lymph node. This is seen on image #263 an measures 1.9 x 3.1 cm. Axillae: There is no axillary lymphadenopathy. Upper abdomen: The liver is enlarged and steatotic. Splenomegaly is noted. Skeletal structures: No lytic or blastic bony lesions are seen. Postoperative change is noted in the left ribs IMPRESSION: 1. There is no evidence of pulmonary embolus in the main, lobar, or segmental pulmonary arteries. 2. Cardiomegaly and emphysema with evidence of previous left upper lobe resection. 3. Overall marked progression of metastatic disease as compared to the 10/24/2016 PET examination. There are numerous pulmonary lesions, as is progressive mediastinal, left hilar, and left supraclavicular lymphadenopathy. 4. Pleural fluid and dense consolidation at the left lung base has increased from previous. Correlate clinically for evidence of superimposed pneumonia. 5. Hepatomegaly and hepatic steatosis. 6. Splenomegaly. Electronically signed by: Edis Sauer M.D. 01/21/2017 10:33 PM Laboratory Results 01/21/17 21:23 Red Blood Count 4.16, Mean Corpuscular Volume 86.3, Mean Corpuscular Hemoglobin 25.5, Mean Corpuscular Hemoglobin Concent 29.5, Mean Platelet Volume 8.8, Neutrophils (%) (Auto) 82.7, Lymphocytes (%) (Auto) 11.2, Monocytes (%) (Auto) 5.7, Eosinophils (%) (Auto) 0.0, Basophils (%) (Auto) 0.1, Neutrophils # (Auto) 6.56, Lymphocytes # (Auto) 0.89, Monocytes # (Auto) 0.45, Eosinophils # (Auto) 0.00, Basophils # (Auto) 0.01 01/21/17 21:23 Test 01/21/17 00:00 01/21/17 21:23 01/21/17 21:37 Urine Color YELLOW Urine Appearance CLEAR (CLEAR) Urine pH 6.5 (4.5-7.5) Urine Specific [place] 1.022 (1.000-1.030) Urine Protein TRACE (NEG) Urine Glucose (UA) NEG (NEG) Urine Ketones NEG (NEG) Urine Occult Blood NEG (NEG) Urine Nitrite NEG (NEG) Urine Bilirubin NEG (NEG) Urine Urobilinogen NEG (NEG) Urine Leukocyte Esterase TRACE (NEG) Urine WBC (Auto) 1-5 /hpf (0-5) Urine RBC (Auto) 5-10 /hpf (0-4) Urine Hyaline Casts (Auto) 1-5 /lpf (0-5) Urine Epithelial Cells (Auto) >30 /lpf (0-5) Urine Bacteria (Auto) NEG (NEG) White Blood Count 7.93 K/uL (4.8-10.8) Red Blood Count 4.16 M/uL (4.2-5.4) Hemoglobin 10.6 g/dL (12.0-16.0) Hematocrit 35.9 % (37-47) Mean Corpuscular Volume 86.3 fL (80-100) Mean Corpuscular Hemoglobin 25.5 pg (25-34) Mean Corpuscular Hemoglobin Concent 29.5 g/dl (32-36) Platelet Count 221 K/uL (130-400) Mean Platelet Volume 8.8 fL (7.4-10.4) Neutrophils (%) (Auto) 82.7 % Lymphocytes (%) (Auto) 11.2 % Monocytes (%) (Auto) 5.7 % Eosinophils (%) (Auto) 0.0 % Basophils (%) (Auto) 0.1 % Neutrophils # (Auto) 6.56 K/uL (1.4-6.5) Lymphocytes # (Auto) 0.89 K/uL (1.2-3.4) Monocytes # (Auto) 0.45 K/uL (0.11-0.59) Eosinophils # (Auto) 0.00 K/uL (0-0.5) Basophils # (Auto) 0.01 K/uL (0-0.2) RDW Standard Deviation 54.4 fL (36.4-46.3) RDW Coefficient of Variation 17.2 % (11.5-14.5) Immature Granulocyte % (Auto) 0.3 % Immature Granulocyte # (Auto) 0.02 K/uL (0.00-0.02) Prothrombin Time 10.3 SECONDS (9.0-12.0) Prothromb Time International Ratio 1.0 (0.9-1.1) Activated Partial Thromboplast Time 25.9 SECONDS (21.0-31.0) Partial Thromboplastin Ratio 1.0 Est Creatinine Clear Calc Drug Dose 102.4 ml/min Estimated GFR () 89.4 Estimated GFR (Non- 77.2 BUN/Creatinine Ratio 7.5 (10-20) Calcium Level 9.3 mg/dl (8.5-10.1) Total Bilirubin 0.3 mg/dl (0.2-1) Aspartate Amino Transf (AST/SGOT) 32 U/L (15-37) Alanine Aminotransferase (ALT/SGPT) 21 U/L (12-78) Alkaline Phosphatase 145 U/L (45-117) Troponin I < 0.015 ng/ml (0-0.045) Pro-B-Type Natriuretic Peptide 236 pg/ml (0-450) Total Protein 7.6 gm/dl (6.4-8.2) Albumin 3.3 gm/dl (3.4-5.0) Globulin 4.3 gm/dl (2.5-4.0) Albumin/Globulin Ratio 0.8 (0.9-2) Bedside Hemoglobin 11.9 g/dl (12.0-16.0) Bedside Hematocrit 35 % (37-47) Bedside Sodium 139 mEq/L (135-144) Bedside Potassium 3.4 mEq/L (3.3-5.0) Bedside Chloride 96 mEq/L (101-112) Bedside Total CO2 31 mEq/l (24-31) Anion Gap 16.0 mmol/L (16-25) Bedside Blood Urea Nitrogen 5 mg/dl (7-18) Bedside Creatinine 0.7 mg/dl (0.6-1.3) Bedside Glucose (other) 200 mg/dl (70-99) Bedside Ionized Calcium ([place]) 1.15 mmol/l (1.12-1.32) Laboratory results per my review. Medications Administered Medications (Trade) Dose Ordered Sig/Pravin Route Start Time Stop Time Status Last Admin Dose Admin Levofloxacin (Levaquin Tab) 750 mg NOW STAT PO 01/21/17 22:42 01/21/17 22:44 DC 01/21/17 23:04 750 MG ECG Indication: SOB/dyspnea Rate (beats per minute): 89 Rhythm: normal sinus Findings: no ectopy, other (No acute ST segments, LVH by voltage criteria) Change: no significant change (No change when compared to EKG from August 06, 2016) ED Course 2030: The patient was evaluated in room C2. A complete history and physical examination were performed. 2: Levaquin 750 mg PO. 2300: I reevaluated the patient. She is feeling better. I discussed her results and discharge instructions and she verbalized complete understanding and agreement. Medical Decision Prior records/ancillary studies reviewed. Triage Nursing notes reviewed. Additional history obtained from the family. The patient's history was concerning for respiratory difficulties. Differential diagnosis: Etiologies such as infections, reactive airway disease, pneumonia, pneumothorax , COPD, CHF, cardiac ischemia, pulmonary embolism, musculoskeletal, gastrointestinal, as well as others were entertained. The patient is a 51-year-old female who presented to the emergency department for an evaluation of cough and difficulty breathing. The patient is a history of recurrent lung cancer which is now metastatic to the lymph nodes. She had an abnormal chest x-ray last Saturday and was told to come to the emergency department by her primary care physician for CT the chest. I the patient's CAT scan does not appear to be consistent with pulmonary embolism but does appear to be consistent with possible pneumonia. She was started on antibiotic. I offered to have the patient evaluated by the hospitalist she requested to be started on an antibiotic and discharged home. I am concerned given the patient' s overall condition at this could represent something that requires further workup or possibly even therapy such as thoracentesis. She was encouraged to rest and avoid any strenuous activity. She was also encouraged to follow-up with her oncologist for further evaluation but return to the emergency department immediately if symptoms change worsen or the need arises. Medication Reconcilliation Current Medication List: was personally reviewed by me Blood Pressure Screening Patient's blood pressure: Elevated blood pressure Blood pressure disposition: Referred to PCP Impression Primary Impression: Pneumonia Additional Impressions: Pleural effusion Metastatic cancer to lung Shortness of breath Scribe Attestation The scribe's documentation has been prepared under my direction and personally reviewed by me in its entirety. I confirm that the note above accurately reflects all work, treatment, procedures, and medical decision making performed by me. Departure Information Dispostion Home / Self-Care Prescriptions Levofloxacin (Levaquin) 750 Mg Tab 750 MG PO DAILY, #7 TAB Prov: Sudeep Donis, 01/21/17 Referrals Mariusz Matamoros M.D. (PCP) Patient Instructions ED Effusion Pleural, [facility], Pneumonia Additional Instructions Follow-up with your oncologist this week as scheduled. Rest and avoid any strenuous activity. Continue all medications as prescribed. Return to the emergency department immediately if symptoms change worsen or the need arises. Problem Qualifiers
[2017-01-21] MEDS ORDERED: OPTIRAY 320 IV PRN (20:45)
[2017-01-21 21:32] LABS: BASO % 0.1 %; BASO ABS # 0.01 K/uL (0-0.2); COMPLETE YES; HEMATOCRIT 35.9 % (37-47); IG% 0.3 %; LYMPH % 11.2 %; LYMPH ABS # 0.89 K/uL (1.2-3.4); MEAN CELL VOLUME 86.3 fL (80-100); MEAN CORPUSCULAR HEMOGLOBIN 25.5 pg (25-34); MEAN CORPUSCULAR HGB CONC 29.5 g/dl (32-36); MEAN PLATELET VOLUME 8.8 fL (7.4-10.4); MONO % 5.7 %; NEUT % 82.7 %; PLATELET COUNT 221 K/uL (130-400); RED BLOOD COUNT 4.16 M/uL (4.2-5.4); WHITE BLOOD COUNT 7.93 K/uL (4.8-10.8)
[2017-01-21] MEDS ORDERED: ATV1 PO (21:36)
[2017-01-21] MEDS ORDERED: SYN150 PO (21:36)
[2017-01-21] MEDS ORDERED: NVLGIPEN SQ (21:36)
[2017-01-21] MEDS ORDERED: INSDGIPEN SC (21:36)
[2017-01-21 21:37] VITALS: O2SAT 93
[2017-01-21] MEDS ORDERED: OXGN (21:41)
[2017-01-21 21:43] LABS: PROTHROMBIN TIME (PATIENT) 10.3 SECONDS (9.0-12.0)
[2017-01-21 21:48] LABS: ISTAT CREATININE 0.7 mg/dl (0.6-1.3); ISTAT HEMOGLOBIN 11.9 g/dl (12.0-16.0); ISTAT IONIZED CALCIUM 1.15 mmol/l (1.12-1.32)
[2017-01-21 21:49] LABS: ALT/SGPT 21 U/L (12-78); BLOOD UREA NITROGEN 7 mg/dl (7-18); BUN/CREATININE RATIO 7.5 (10-20); CALCIUM 9.3 mg/dl (8.5-10.1); CARBON DIOXIDE 34 mmol/L (21-32); CHLORIDE 100 mmol/L (98-107); CREATININE 0.88 mg/dl (0.60-1.20); GLUCOSE 193 mg/dl (70-99); POTASSIUM 3.4 mmol/L (3.5-5.1); SODIUM 140 mmol/L (136-145)
[2017-01-21 21:51] LABS: URINE APPEARANCE CLEAR (CLEAR); URINE BILIRUBIN NEG (NEG); URINE COLOR YELLOW; URINE EPITHELIAL CELL AUTO >30 /lpf (0-5); URINE NITRITE NEG (NEG); URINE PH 6.5 (4.5-7.5); URINE SPECIFIC GRAVITY 1.022 (1.000-1.030); UROBILINOGEN NEG (NEG)
[2017-01-21 21:52] LABS: MANUAL MICROSCOPIC REQUIRED? NO; REVIEW REQ? NO
[2017-01-21 21:54] LABS: ALB/GLOB RATIO 0.8 (0.9-2); ALKALINE PHOSPHATASE 145 U/L (45-117); AST/SGOT 32 U/L (15-37)
--- NOTE | 2017-01-21 22:34 | DIAGNOSTIC IMAGING REPORT ---
CT ANGIOGRAM OF THE CHEST CLINICAL HISTORY: Dyspnea. Lung cancer. COMPARISON STUDY: Prior chest CT scans, most recently dated 09/13/2016 and dating back to 08/24/2012. PET/CT dated 10/24/2016. TECHNIQUE: Following the IV administration of 95 cc of Optiray 320, CT angiogram of the thorax was performed from the upper abdomen to the thoracic inlet utilizing the pulmonary embolus protocol. 3-D MIPS images are created and assessed. Images are reviewed in the axial, sagittal, and coronal planes. IV contrast was administered without complication. A dose lowering technique was utilized adhering to the principles of ALARA. FINDINGS: Thyroid: Atrophic. Thoracic aorta: The thoracic aorta is normal in caliber and demonstrates standard 3-vessel arch anatomy. No dissection is seen. Pulmonary vasculature: The pulmonary trunk is normal in caliber. There are no filling defects identified in the main, lobar, or segmental pulmonary branches to indicate pulmonary embolus. Heart: The heart is normal in size and configuration, and without pericardial effusion. Lungs and pleural spaces: Emphysema is noted. There are postoperative changes and volume loss from left upper lobe pulmonary resection. There is a small to moderate left pleural effusion with dense consolidation at the left lung base. This has increased from previous. There is no right pleural effusion. There is been marked progression of pulmonary metastatic disease as compared to 10/24/2016. Numerous (greater than 30) pulmonary lesions are identified. The largest lesion is in the left upper lobe seen on image #203 and measures 2.3 cm. The trachea and central airways are clear. Mediastinum: Mediastinal lymphadenopathy has increased. A right paratracheal node on image #184 measures 2.1 x 2.2 cm. Lucero: Hilar adenopathy is suggested on the left. Lower neck: There is an enlarging left supraclavicular lymph node. This is seen on image #263 an measures 1.9 x 3.1 cm. Axillae: There is no axillary lymphadenopathy. Upper abdomen: The liver is enlarged and steatotic. Splenomegaly is noted. Skeletal structures: No lytic or blastic bony lesions are seen. Postoperative change is noted in the left ribs IMPRESSION: 1. There is no evidence of pulmonary embolus in the main, lobar, or segmental pulmonary arteries. 2. Cardiomegaly and emphysema with evidence of previous left upper lobe resection. 3. Overall marked progression of metastatic disease as compared to the 10/24/2016 PET examination. There are numerous pulmonary lesions, as is progressive mediastinal, left hilar, and left supraclavicular lymphadenopathy. 4. Pleural fluid and dense consolidation at the left lung base has increased from previous. Correlate clinically for evidence of superimposed pneumonia. 5. Hepatomegaly and hepatic steatosis. 6. Splenomegaly. Electronically signed by: Edis Sauer M.D. 01/21/2017 10:33 PM Dictated Date/Time: 01/21/2017 10:23 PM
[2017-01-21] MEDS ORDERED: LEVOFLOXACIN 250 MG TAB PO STA (22:42)
[2017-01-21] MEDS ORDERED: LEVO1TAB35 PO (22:47)
[2017-01-21 23:19] VITALS: BP 104/84; PULSE 88; O2SAT 95
[2017-02-16] MEDS ORDERED: INSDGIPEN SC (08:38)
[2017-02-16] MEDS ORDERED: PRD20 PO (08:38)
[2017-02-16] MEDS ORDERED: OXGN (08:38)
[2017-02-16] MEDS ORDERED: LEVO1TAB35 PO ×2 (08:38→08:54)
[2017-02-16] MEDS ORDERED: FLUC100T4 PO (08:54)
== END 2017-01-21 23:19 | disposition home or self-care (01) ==
LOC: C.EDB 20:01 → C.EDC 23:19
DX: J18.9 Pneumonia, unspecified organism (principal); J90 Pleural effusion, not elsewhere classified; C78.00 Secondary malignant neoplasm of unspecified lung; C79.31 Secondary malignant neoplasm of brain; Z87.891 Personal history of nicotine dependence; Z99.81 Dependence on supplemental oxygen; F41.9 Anxiety disorder, unspecified; J45.909 Unspecified asthma, uncomplicated; I10 Essential (primary) hypertension; G89.29 Other chronic pain; M54.9 Dorsalgia, unspecified; J44.9 Chronic obstructive pulmonary disease, unspecified; F32.9 Major depressive disorder, single episode, unspecified; Z87.01 Personal history of pneumonia (recurrent); Z90.49 Acquired absence of other specified parts of digestive tract; F12.90 Cannabis use, unspecified, uncomplicated; Z80.9 Family history of malignant neoplasm, unspecified; Z83.3 Family history of diabetes mellitus; Z82.49 Family history of ischemic heart disease and other diseases of the circulatory system; Z79.899 Other long term (current) drug therapy; Z79.4 Long term (current) use of insulin

== ENCOUNTER → 2017-01-23 | Outpatient (CLI) | payer OTHER ==
[~2017-01-23] MED LIST changes: +ATV1 PO; +FLUC100T4 PO; +IPRASOL4 INH; +LEVO1TAB35 PO; +NVLGIPEN SQ; +OXGN; +PRD20 PO; +SYN150 PO
--- NOTE | 2017-01-23 10:58 | DIAGNOSTIC IMAGING REPORT ---
PET/CT SKULL-THIGH CLINICAL HISTORY: 51 years-old Female with NON SMALL CELL LUNG CA. Follow-up exam. History of metastatic right temporal and left parietal lobe cerebral lesions as well as progressive metastatic lesions throughout the lungs with mediastinal, left hilar and left clavicular adenopathy seen on comparison CT of the chest. COMPARISON: PET CT 10/24/2016, brain MR 10/26/2016, chest CT 01/21/2017 TECHNIQUE: The patient was injected with 14.0 mCi of F-18 fluorodeoxyglucose (FDG) and an emission scan was performed from the skull vertex to the toes. Noncontrast CT was performed for attenuation correction and anatomic localization. The blood glucose level was 184 mg/dl. FINDINGS: HEAD AND NECK: No increased radiotracer uptake is seen within the imaged brain to correlate with enhancing metastatic lesion seen on comparison brain MR. There is redemonstration of decreased attenuation of the right temporal lobe correlating with vasogenic edema and enhancing lesion seen on comparison. There is mild radiotracer uptake seen within the right focal cord which is asymmetric and likely secondary to recent speech. There is stable size of the left supraclavicular lymph node measuring 2.6 x 1.5 cm on image 44 of the axial series. This is again hypermetabolic with SUV max of 5.4, previously 5.8. Additionally, there is a new hypermetabolic left supraclavicular lymph node seen on image 39 measuring 1.7 x 1.2 cm with SUV max of 3.6. CHEST: There is new conglomerate right paratracheal adenopathy measuring up to 2.9 x 1.6 cm with SUV max of 6.1. Left paratracheal adenopathy measuring up to 2.1 x 1.6 cm is also seen with SUV max of 5.5. Hypermetabolic left hilar adenopathy is seen measuring up to 1.2 x 1.0 cm with SUV max of 5.4. There is a loculated left pleural effusion with areas of mildly increased radiotracer uptake. Additionally, there are multiple FDG avid lesions are of the left lung with 11 mm nodule of the left upper lobe demonstrating SUV max of 3.4. Consolidation of the basal left lower lobe demonstrates SUV max of 5.5. 11 mm nodule of the superior segment left lower lobe demonstrates SUV max of 4.3. Diffuse consolidative opacities throughout the left lung are compatible with metastasis. Additionally, there are scattered nodules throughout the right upper lobe which measure up to 6 mm with SUV max of 2.5. 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 ABDOMEN AND PELVIS: There is a physiologic distribution of activity within the liver, spleen, adrenal glands, gastrointestinal and urinary tracts, with no hypermetabolic foci. MUSCULOSKELETAL SYSTEM AND EXTREMITIES: There is a physiologic distribution of activity within the bone marrow, with no hypermetabolic foci. ADDITIONAL CT FINDINGS: Heart is enlarged with trace pericardial effusion. Prior cholecystectomy. Liver appears enlarged. 2.9 x 2.5 cm cystic lesion of the right adnexum without increased radiotracer uptake is likely a dominant ovarian follicle. Patient obesity is noted. There are degenerative changes about the shoulders and spine without suspicious lytic or blastic bony lesions identified. IMPRESSION: 1. Findings compatible with progression of disease including progressive supraclavicular, mediastinal and left hilar adenopathy with likely malignant left pleural effusion and bilateral pulmonary metastasis. 2. Increased radiotracer uptake within consolidation of the left lower lobe may reflect superimposed pneumonia and/or associated pleural metastasis. 3. No evidence of metastatic disease within the abdomen or pelvis. 4. No evidence of bony metastasis. 5. Previously noted brain metastasis are not as well seen on this study. The above report was generated using voice recognition software. It may contain grammatical, syntax or spelling errors. Electronically signed by: Berry Hope M.D. 01/23/2017 10:57 AM Dictated Date/Time: 01/23/2017 9:42 AM
== END | disposition home or self-care (01) ==
LOC: C.PET 07:06
PROVIDERS: ATTEND Internal Medicine Hematology & Oncology
DX: C34.92 Malignant neoplasm of unspecified part of left bronchus or lung (principal)

== ENCOUNTER → 2017-01-31 | Outpatient (CLI) | payer OTHER ==
[~2017-01-31] MED LIST changes: -ATV/1 PO; -HYDR-4079 PO; -KFL500 PO; -LCTX PO; -SUCR1TAB PO
--- NOTE | 2017-01-31 15:58 | DIAGNOSTIC IMAGING REPORT ---
CHEST 2 VIEWS ROUTINE CLINICAL HISTORY: 51 years-old Female presenting with PNUEMONIA. TECHNIQUE: PA and lateral views of the chest were obtained. COMPARISON: 01/18/2017. FINDINGS: Enlargement of the cardiac silhouette unchanged from prior. Extensive left basilar consolidation and moderate left pleural effusion, slightly increased from prior. Slight interval increase in left upper lung opacities. Previously noted pulmonary nodules in the right upper lobe better appreciated on recent CT from 01/21/2017. No right pleural effusion. Osseous structures and upper abdomen normal. IMPRESSION: 1. Slight interval increase in left basilar consolidation and pleural effusion with interval increase in left upper lung opacities. This is concerning for spread of infection or worsen disease burden. 2. Right upper lobe pulmonary nodules are appreciated on recent CT. Electronically signed by: Rodolfo Sadler M.D. 01/31/2017 3:57 PM Dictated Date/Time: 01/31/2017 3:54 PM
== END | disposition home or self-care (01) ==
LOC: C.RAD1850 15:05
PROVIDERS: ATTEND Physician Assistant Medical
DX: J18.9 Pneumonia, unspecified organism (principal)

== ENCOUNTER 2017-02-11 11:51 | Inpatient (IN) | payer OTHER ==
[~2017-02-11] VITALS: Ht 167.6 cm; Wt 117.4 kg
[~2017-02-11 11:51] MED LIST changes: -FLUC100T4 PO; -IPRASOL4 INH; -PRD20 PO
[2017-02-11 12:57] LABS: COMPLETE YES; HEMATOCRIT 35.3 % (37-47); IG% 0.1 %; LYMPH % 10.4 %; LYMPH ABS # 0.79 K/uL (1.2-3.4); MEAN CELL VOLUME 84.4 fL (80-100); MEAN CORPUSCULAR HEMOGLOBIN 25.8 pg (25-34); MEAN CORPUSCULAR HGB CONC 30.6 g/dl (32-36); MEAN PLATELET VOLUME 9.4 fL (7.4-10.4); MONO % 6.3 %; NEUT % 83.2 %; PLATELET COUNT 198 K/uL (130-400); RED BLOOD COUNT 4.18 M/uL (4.2-5.4); WHITE BLOOD COUNT 7.59 K/uL (4.8-10.8)
[2017-02-11 13:17] LABS: ALT/SGPT 16 U/L (12-78); AST/SGOT 20 U/L (15-37); BLOOD UREA NITROGEN 6 mg/dl (7-18); CALCIUM 9.1 mg/dl (8.5-10.1); CARBON DIOXIDE 37 mmol/L (21-32); CHLORIDE 99 mmol/L (98-107); CREATININE 0.58 mg/dl (0.60-1.20); GLUCOSE 126 mg/dl (70-99); POTASSIUM 3.4 mmol/L (3.5-5.1); SODIUM 139 mmol/L (136-145)
[2017-02-11 13:19] LABS: ALKALINE PHOSPHATASE 139 U/L (45-117)
[2017-02-11] MEDS ORDERED: FUROSEMIDE 40 MG/4 ML VIAL IV STA (13:24)
--- NOTE | 2017-02-11 13:31 | EMERGENCY ROOM VISIT NOTE ---
History First contact with patient: 12:16 Chief Complaint: RESPIRATORY PROBLEMS Stated Complaint: FLUID IN LUNGS DX: PNEUMONIA, CANCER Nursing Triage Summary: pt has lung ca, lobectomy in nov. 2 weeks ago dx with pnx. wears 2l at home at all times, increased to 3 l with pnx. pt cont to have dyspnea, no better with curent rx. History of Present Illness The patient is a 51 year old female who presents to the Emergency Room with complaints of worsening shortness of breath. The patient was diagnosed with pneumonia approximately 2 weeks ago. She was placed on Levaquin for 10 days. She was compliant with follow Levaquin. The patient states that her symptoms have not improved. 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 They told her that her chest x-ray was worse and that she needs to come to the emergency room. The patient also states that she has lung cancer which they now think is in both lungs. She states she feels hot and cold but has not taken her temperature. The patient denies any other upper respiratory symptoms of head congestion, ear pain, sore throat, runny nose. The patient states she is currently on 3 L of oxygen via nasal cannula at rest and 4 L when she is ambulatory. Her family physician is Dr. Matamoros. Review of Systems 10 system review was performed and was negative unless stated otherwise history of present illness. Past Medical/Surgical History Medical Problems: (1) Altered mental status (2) Anxiety (3) Asthma (4) Benign hypertension (5) Brain metastases (6) Bronchitis (7) Cellulitis of hand (8) Chronic back pain (9) COPD (10) Depression (11) Emphysema (12) Felon of finger (13) Lung cancer (14) Orthopedic surgery (15) Pneumonia (16) Pulmonary emphysema Surgical Problems: (1) H/O section (2) History of appendectomy (3) History of cholecystectomy Family History Abdominal pain FHx: cancer FHx: diabetes FHx: gallbladder disease FHx: heart disease FHx: hypertension FHx: lung disease Social History Smoking Status: Former Smoker Alcohol Use: none Drug Use: marijuana Marital Status: Housing Status: lives alone Occupation Status: disabled Current/Historical Medications Scheduled Diphenhydramine Hcl (Benadryl), 50 MG PO HS Diphenhydramine Hcl (Benadryl Allergy), 1 CAP PO QAM Fluconazole (Diflucan), 150 MG PO DIRECTED Fluticasone Prop/Salmeterol (Advair Diskus 500/50 60 Dose), 1 PUFF INH BID Insulin Aspart (Novolog Flexpen), 1 DOSE SQ SLIDING SCALE Insulin Glargine (Lantus Solostar), 30 UNITS SC QPM Levothyroxine Sodium (Levothyroxine Sodium), 1 TAB PO DAILY Levothyroxine Sodium (Synthroid), 150 MCG PO QAM Lorazepam (Lorazepam), 1 MG PO BID Montelukast Sodium (Singulair), 10 MG PO HS Rabeprazole Sodium (Aciphex), 1 TAB PO BID Sertraline Hcl (Zoloft), 50 MG PO HS Scheduled PRN Albuterol Hfa (Ventolin Hfa), 2 PUFFS INH QID PRN for SOB/Wheezing Epinephrine (Epipen 2-Saad), 0.3 MG IM UD PRN for ALLERGIC REACTION Home O2 Therapy (Oxygen), 2 LITERS NA CONTINOUS PRN for Shortness of Breath Durable Medical Equipment Needle (Bd Pen Needle/Mini/Ultraf), BOX SC DAILY Physical Exam Vital Signs Date Time Temp Pulse Resp B/P (MAP) Pulse Ox O2 Delivery O2 Flow Rate FiO2 02/11/17 13:19 89 02/11/17 13:06 97 22 94 02/11/17 13:01 88 Nasal Cannula 3.0 02/11/17 12:55 87 Nasal Cannula 3.0 02/11/17 12:25 Nasal Cannula 02/11/17 12:03 37.4 95 20 140/78 93 Room Air 3.0 Physical Exam GENERAL: Obese 51-year-old female appears sitting upright with nasal cannula in place with labored breathing. MENTAL STATUS: Alert and oriented 3. EARS: Canals clear. TMs without fluid level noted. NOSE: Nasal mucosa without erythema or engorgement. PHARYNX: No erythema or edema noted. Airway is adequate. NECK: Supple, no cervical lymphadenopathy noted LUNGS: Decreased breath sounds at both bases. Rales noted at the right base. CARDIAC: Regular rate and rhythm without murmur. Pulses is full and equal throughout. ABDOMEN: Positive bowel sounds all 4 quadrants. Soft, nontender to palpation without organomegaly or masses. LOWER EXTREMITY is: 2+ pitting edema of the left lower extremity and 1+ pitting edema of the right lower extremity. No cyanosis noted. Medical Decision & Procedures ER Provider Diagnostic Interpretation: CHEST 2 VIEWS ROUTINE CLINICAL HISTORY: J18.9 [id number] pneumonia. Dyspnea. COMPARISON STUDY: 01/31/2017 FINDINGS: Unchanging left pleural effusion. Unchanging infiltrative change left upper lung. Increase in bronchovascular prominence bilaterally. Pulmonary reticular nodular-type changes have remains stable. Potential developing components of congestive failure. IMPRESSION: 1. Unchanging left pleural effusion. 2. Similar left upper lobe infiltrate. 3. Probable developing components of congestive failure/pulmonary edema The above report was generated using voice recognition software. It may contain grammatical, syntax or spelling errors. Electronically signed by: Urbano Ricketts M.D. 02/11/2017 12:16 PM Dictated Date/Time: 02/11/2017 12:15 PM Laboratory Results 02/11/17 12:40 Red Blood Count 4.18, Mean Corpuscular Volume 84.4, Mean Corpuscular Hemoglobin 25.8, Mean Corpuscular Hemoglobin Concent 30.6, Mean Platelet Volume 9.4, Neutrophils (%) (Auto) 83.2, Lymphocytes (%) (Auto) 10.4, Monocytes (%) (Auto) 6.3, Eosinophils (%) (Auto) 0.0, Basophils (%) (Auto) 0.0, Neutrophils # (Auto) 6.31, Lymphocytes # (Auto) 0.79, Monocytes # (Auto) 0.48, Eosinophils # (Auto) 0.00, Basophils # (Auto) 0.00 02/11/17 12:40 Test 02/11/17 12:40 White Blood Count 7.59 K/uL (4.8-10.8) Red Blood Count 4.18 M/uL (4.2-5.4) Hemoglobin 10.8 g/dL (12.0-16.0) Hematocrit 35.3 % (37-47) Mean Corpuscular Volume 84.4 fL (80-100) Mean Corpuscular Hemoglobin 25.8 pg (25-34) Mean Corpuscular Hemoglobin Concent 30.6 g/dl (32-36) Platelet Count 198 K/uL (130-400) Mean Platelet Volume 9.4 fL (7.4-10.4) Neutrophils (%) (Auto) 83.2 % Lymphocytes (%) (Auto) 10.4 % Monocytes (%) (Auto) 6.3 % Eosinophils (%) (Auto) 0.0 % Basophils (%) (Auto) 0.0 % Neutrophils # (Auto) 6.31 K/uL (1.4-6.5) Lymphocytes # (Auto) 0.79 K/uL (1.2-3.4) Monocytes # (Auto) 0.48 K/uL (0.11-0.59) Eosinophils # (Auto) 0.00 K/uL (0-0.5) Basophils # (Auto) 0.00 K/uL (0-0.2) RDW Standard Deviation 49.2 fL (36.4-46.3) RDW Coefficient of Variation 16.0 % (11.5-14.5) Immature Granulocyte % (Auto) 0.1 % Immature Granulocyte # (Auto) 0.01 K/uL (0.00-0.02) Anion Gap 3.0 mmol/L (3-11) Est Creatinine Clear Calc Drug Dose 154.3 ml/min Estimated GFR () 125.4 Estimated GFR (Non- 108.2 BUN/Creatinine Ratio 10.0 (10-20) Lactic Acid Level 1.5 mmol/L (0.4-2.0) Calcium Level 9.1 mg/dl (8.5-10.1) Total Bilirubin 0.4 mg/dl (0.2-1) Direct Bilirubin < 0.1 mg/dl (0-0.2) Aspartate Amino Transf (AST/SGOT) 20 U/L (15-37) Alanine Aminotransferase (ALT/SGPT) 16 U/L (12-78) Alkaline Phosphatase 139 U/L (45-117) Total Protein 7.6 gm/dl (6.4-8.2) Albumin 3.1 gm/dl (3.4-5.0) Lipase 73 U/L (73-393) ED Course The patient was evaluated. The patient's EMR was reviewed. Medication list was reviewed. The chest x-ray which the patient just had prior to coming to the emergency room revealed unchanging left pleural effusion and unchanging left upper lobe infiltrate. It now revealed findings consistent with developing congestive heart failure and pulmonary edema'. The patient was placed on 3 L of oxygen via nasal cannula. She was placed on a monitor. She was placed on continuous pulse ox. IV access was obtained. CBC and differential, renal profile, LFTs and lipase levels were ordered. Lactic acid was ordered. Blood cultures 2 was ordered. Blood cultures are pending Labs are reviewed. The Patient's white count was normal.. Potassium was slightly low at 3.4 alkaline phosphatase was slightly elevated. I consulted the [facility] hospitalist who recommended that I order an EKG and BNP. I also ordered Lasix 40 mg IV. The hospitalist came to evaluate the patient for admission Medical Decision Differential diagnosis include worsening pneumonia, pleural effusion, CHF, pulmonary edema Since the patient's x-ray now showed new onset of CHF and pulmonary edema the patient will be admitted. [place] Drug Monitoring Program Search Results: patient reviewed within database Medication Reconcilliation Current Medication List: was personally reviewed by [facility] Blood Pressure Screening Patient's blood pressure: Normal blood pressure Impression Primary Impression: CHF (congestive heart failure) Additional Impressions: Pulmonary edema Pneumonia Pleural effusion Departure Information Dispostion Being Evaluated By Hospitalist Referrals Mariusz Matamoros M.D. (PCP) Patient Instructions My [facility] Problem Qualifiers Primary Impression: CHF (congestive heart failure) Congestive heart failure type: unspecified congestive heart failure type Congestive heart failure chronicity: acute Qualified Codes: I50.9 - Heart failure, unspecified Additional Impressions: Pulmonary edema Chronicity: acute Qualified Codes: J81.0 - Acute pulmonary edema
[2017-02-11 13:57] LABS: POINT OF CARE PRO-BNP 214 pg/ml (0-450); POINT OF CARE TROPONIN I < 0.030 ng/ml (0-0.045)
[2017-02-11 14:27] VITALS: O2SAT 94; Ht 167.6 cm; Wt 117.4 kg
[2017-02-11] MEDS ORDERED: GLUCAGON FOR INJ 1 MG VIAL SQ PRN (15:30)
[2017-02-11] MEDS ORDERED: MAGNESIUM HYDROXIDE SUSP 30 ML UDC PO PRN (15:30)
[2017-02-11] MEDS ORDERED: GLUCOSE 40% GEL 15 GM TUBE PO PRN (15:30)
[2017-02-11] MEDS ORDERED: GLUCOSE 10 TABS/TUBE PO PRN (15:30)
[2017-02-11] MEDS ORDERED: ONDANSETRON INJ 2 MG/ML 2 ML VIAL IV PRN (15:30)
[2017-02-11] MEDS ORDERED: POLYETHYLENE (MIRALAX) 17 GM PACK PO PRN (15:30)
[2017-02-11] MEDS ORDERED: ALUMINUM/MAGNESIUM/SIMETH (MAALOX MAX) 30 ML UDC PO PRN (15:30)
[2017-02-11] MEDS ORDERED: EPINEPHRINE ADULT AUTO-INJECT 0.3 MG SYR IM PRN (15:30)
[2017-02-11] MEDS ORDERED: DEXTROSE 50% 50 ML SYR IV PRN (15:30)
[2017-02-11] MEDS ORDERED: IPRASOL4 INH (15:33)
[2017-02-11] MEDS: ALBUT/IPRATROP 3MG/0.5MG NEB 3 ML VIAL INH SCH ×2 (16:00→19:44)
[2017-02-11] MEDS ORDERED: VANCOMYCIN CONSULT ACTIVE PRN (16:30)
[2017-02-11 16:34] LABS: FERRITIN 17.1 ng/ml (8.0-388.0); MAGNESIUM 1.9 mg/dl (1.8-2.4); THYROID STIMULATING HORMONE 3.44 uIu/ml (0.300-4.500)
--- NOTE | 2017-02-11 16:35 | History and Physical ---
History & Physical Date & Time of Service: Feb 11, 2017 at 15:59 Chief Complaint: Fluid In Lungs Dx: Pneumonia, Cancer Primary Care Physician: Mariusz Matamoros M.D. History of Present Illness Source: patient, spouse, clinic records, hospital records This is a 51 y/o female with a history of metastatic non small cell lung cancer , DM II, HTN, HLD, hypothyroidism, anemia, COPD, asthma, anxiety, depression, PTSD, and GERD who presented to the ED on 02/11 with worsening shortness of breath. The patient was diagnosed with pneumonia 2 weeks ago for which she completed a 10 day course of Levaquin. She states that her symptoms never improved and have actually continued to worsen. She saw her coffee roaster helper today COMPOSITION WEATHERBOARD INSTALLER where a CXR was obtained showing worsening pleural effusion, and she was instructed to come to the ED for further evaluation. She complains of progressive SOB, LEIGH, and productive cough. She complains of intermittent wheezing. She also complains of tight/aching central chest pain, up to 6/10 in intensity that is associated with her coughing. She admits to intermittent palpitations. The patient states that she has intermittent nausea/vomiting chronically, but that it has been worse since the pneumonia. She reports a 3/ 10 aching pain in her epigastrium, which is again chronic and typically worse with eating. The patient has been having diarrhea and a few weeks ago noticed blood in the stool but no blood recently. She does have a history of C. diff and has just completed antibiotics. The patient denies fevers, chills, sweats, claudication, dysuria, hematuria, urinary retention, paralysis, motor weakness, numbness and tingling. Past Medical/Surgical History Medical Problems: (1) Anxiety Status: Chronic (2) Asthma Status: Chronic (3) Benign hypertension Status: Chronic (4) Bronchitis Status: Chronic (5) Chronic back pain Status: Chronic (6) COPD Status: Chronic (7) Depression Status: Chronic (8) Emphysema Status: Chronic (9) Orthopedic surgery Status: Resolved (10) Pneumonia Status: Resolved (11) Pulmonary emphysema Status: Chronic Non-small cell lung cancer w/mets DM II HLD Hypothyroidism Anemia PTSD Depression Surgical Problems: (1) H/O section Status: Resolved (2) History of appendectomy Status: Resolved (3) History of cholecystectomy Status: Resolved Family History Abdominal pain FHx: cancer FHx: diabetes FHx: gallbladder disease FHx: heart disease FHx: hypertension FHx: lung disease Myocardial infarction Stroke Social History Smoking Status: Former Smoker (quit 10 years ago) Smokeless Tobacco Use: No Alcohol Use: none Drug Use: marijuana (occasional) Marital Status: in relationship Housing status: lives with significant other Occupational Status: disabled Immunizations History of Influenza Vaccine: Yes Influenza Vaccine Date: Apr 19, 2013 History of Tetanus Vaccine?: Yes Tetanus Immunization Date: Aug 20, 2013 History of Pneumococcal: Yes Pneumococcal Date: Aug 20, 2008 History of Hepatitis B Vaccine: Unknown Multi-Drug Resistant Organisms History of MDRO: No Allergies Coded Allergies: BEE STING (Verified Allergy, Severe, ANAPHYLAXIS, 01/21/17) Fentanyl (Verified Allergy, Severe, EYES SWELLED SHUT, 01/21/17) Adhesives (Verified Allergy, Unknown, blisters, 01/21/17) Captiva (Unverified Allergy, Unknown, MOUTH ITCHES, SKIN PEELS, 01/21/17) Honey (Verified Allergy, Unknown, anaphylaxis, 01/21/17) pt Latex1 -Allergic Contact Dermititis (Verified Allergy, Unknown, LOCAL RXN- BLISTERING, 01/21/17) Metformin (Verified Allergy, Unknown, PER RECORDS , 01/21/17) [place] (Verified Allergy, Unknown, SKIN PEELS, 01/21/17) Rooks (Verified Allergy, Unknown, MUST BE PEELED, 01/21/17) Penicillins (Verified Allergy, Unknown, 01/21/17) Tiotropium (Verified Allergy, Unknown, UNKNOWN REACTION, 01/21/17) Buspirone (Verified Adverse Reaction, Mild, ALLERGIC TO GENERIC DRUG- TAKES BRAND AT HOME, 01/21/17) Duloxetine (Verified Adverse Reaction, Unknown, lethargy,hallucinations, ) pt Uncoded Allergies: CHEMO (Adverse Reaction, Severe, ELEVATED BP, SEVERE MIGRAINE, 08/06/16) Home Medications Scheduled Diphenhydramine Hcl (Benadryl), 50 MG PO HS Diphenhydramine Hcl (Benadryl Allergy), 1 CAP PO QAM Fluticasone Prop/Salmeterol (Advair Diskus 500/50 60 Dose), 1 PUFF INH BID Insulin Aspart (Novolog Flexpen), 1 DOSE SQ SLIDING SCALE Insulin Glargine (Lantus Solostar), 30 UNITS SC QPM Levothyroxine Sodium (Synthroid), 150 MCG PO QAM Montelukast Sodium (Singulair), 10 MG PO HS Rabeprazole Sodium (Aciphex), 1 TAB PO BID Sertraline Hcl (Zoloft), 50 MG PO HS Scheduled PRN Albuterol Hfa (Ventolin Hfa), 2 PUFFS INH QID PRN for SOB/Wheezing Epinephrine (Epipen 2-Saad), 0.3 MG IM UD PRN for ALLERGIC REACTION Home O2 Therapy (Oxygen), 2 LITERS NA CONTINOUS PRN for Shortness of Breath Ipratropium-Albuterol (Duoneb), 1 TREATMENT INH Q4H PRN for SOB/Wheezing Lorazepam (Lorazepam), 1 MG PO TID PRN for Anxiety Review of Systems Constitutional: + weakness, + fatigue, No fever, No chills, No sweats Eyes: No worsening of vision, No eye pain, No diplopia ENT: No hearing loss, No sore throat, No trouble swallowing Respiratory: + cough, + sputum, + wheezing, + shortness of breath, + dyspnea on exertion, + hemoptysis (slight blood tinged sputum) Cardiovascular: + chest pain, + orthopnea, + palpitations, No claudication Abdomen: + pain, + nausea, + vomiting, + diarrhea, + GI bleeding Musculoskeletal: No joint pain, No muscle pain, No calf pain Genitourinary - Female: No dysuria, No urinary retention, No hematuria Neurologic: No paralysis, No weakness, No numbness/tingling Integumentary: No rash, No itch, No color change Physical Exam Vital Signs Date Time Temp Pulse Resp B/P (MAP) Pulse Ox O2 Delivery O2 Flow Rate FiO2 02/11/17 14:41 94 138/70 89 02/11/17 14:27 94 Nasal Cannula 3.0 02/11/17 14:11 96 90 02/11/17 13:41 99 21 90 02/11/17 13:35 143/71 02/11/17 13:26 91 25 90 02/11/17 13:19 89 02/11/17 13:11 92 20 90 02/11/17 13:06 97 22 94 02/11/17 13:01 88 Nasal Cannula 3.0 02/11/17 12:55 87 Nasal Cannula 3.0 02/11/17 12:25 Nasal Cannula 02/11/17 12:03 37.4 95 20 140/78 93 Room Air 3.0 General appearance: +Morbidly obese. Well-developed, well-nourished, no apparent distress Head: Normocephalic, atraumatic Eyes: Normal inspection, PERRL, EOMI ENT: Normal ENT inspection, hearing grossly normal, pharynx normal Neck: Supple, no JVD, trachea midline Respiratory/Chest: +Decreased breath sounds in bases bilaterally. Wheezing. Appears dyspneic with mild respiratory distress. Cardiovascular: Regular rate & rhythm, no gallop, no murmur Abdomen/GI: +Epigastric area and LUQ TTP. Normal bowel sounds, soft Extremities/Musculoskeletal: +Trace pitting edema. Normal inspection, no calf tenderness Neurological/Psych: Alert, normal mood/affect, oriented x 3 Skin: +Wound tip of left thumb. Normal color, warm/dry, no rash Diagnostics Laboratory Results Results Past 24 Hours Test 02/11/17 12:40 02/11/17 13:39 02/11/17 15:26 Range/Units White Blood Count 7.59 4.8-10.8 K/uL Red Blood Count 4.18 4.2-5.4 M/uL Hemoglobin 10.8 12.0-16.0 g/dL Hematocrit 35.3 37-47 % Mean Corpuscular Volume 84.4 80-100 fL Mean Corpuscular Hemoglobin 25.8 25-34 pg Mean Corpuscular Hemoglobin Concent 30.6 32-36 g/dl Platelet Count 198 130-400 K/uL Mean Platelet Volume 9.4 7.4-10.4 fL Neutrophils (%) (Auto) 83.2 % Lymphocytes (%) (Auto) 10.4 % Monocytes (%) (Auto) 6.3 % Eosinophils (%) (Auto) 0.0 % Basophils (%) (Auto) 0.0 % Neutrophils # (Auto) 6.31 1.4-6.5 K/uL Lymphocytes # (Auto) 0.79 1.2-3.4 K/uL Monocytes # (Auto) 0.48 0.11-0.59 K/uL Eosinophils # (Auto) 0.00 0-0.5 K/uL Basophils # (Auto) 0.00 0-0.2 K/uL RDW Standard Deviation 49.2 36.4-46.3 fL RDW Coefficient of Variation 16.0 11.5-14.5 % Immature Granulocyte % (Auto) 0.1 % Immature Granulocyte # (Auto) 0.01 0.00-0.02 K/uL Sodium Level 139 136-145 mmol/L Potassium Level 3.4 3.5-5.1 mmol/L Chloride Level 99 98-107 mmol/L Carbon Dioxide Level 37 21-32 mmol/L Anion Gap 3.0 3-11 mmol/L Blood Urea Nitrogen 6 7-18 mg/dl Creatinine 0.58 0.60-1.20 mg/dl Est Creatinine Clear Calc Drug Dose 154.3 ml/min Estimated GFR () 125.4 Estimated GFR (Non- 108.2 BUN/Creatinine Ratio 10.0 10-20 Random Glucose 126 70-99 mg/dl Lactic Acid Level 1.5 0.4-2.0 mmol/L Calcium Level 9.1 8.5-10.1 mg/dl Total Bilirubin 0.4 0.2-1 mg/dl Direct Bilirubin < 0.1 0-0.2 mg/dl Aspartate Amino Transf (AST/SGOT) 20 15-37 U/L Alanine Aminotransferase (ALT/SGPT) 16 12-78 U/L Alkaline Phosphatase 139 45-117 U/L Total Protein 7.6 6.4-8.2 gm/dl Albumin 3.1 3.4-5.0 gm/dl Lipase 73 73-393 U/L Bedside Troponin I < 0.030 0-0.045 ng/ml TR-Zod-R-Type Natriuretic Peptide 214 0-450 pg/ml Transferrin % Saturation 15-50 % Microbiology Results 02/11/17 Blood Culture, Received Pending 02/11/17 Blood Culture, Received Pending Diagnostic Radiology Reviewed the following studies and agree with interpretation as follows: Patient Name: LILLIE SAMPSON Unit Number: [id number] Dictated: 02/11/175 Transcribed: 02/11/171214 MS Printed Date/Time: [~ rep prt dt]/[~ rep prt tm] [~ rep ct labl] - [~ rep ct ivnm] [facility] Radiology [place] [address] Dictated: 02/11/17 1215 Transcribed: 02/11/17 1215 MS Printed Date/Time: [~ rep prt dt]/[~ rep prt tm] [~ rep ct labl] - [~ rep ct ivnm] Patient: LILLIE SAMPSON Address1: [address] [place] [address] Rec: [id number] Address2: Acct ID: [id number] [facility] Zip: [place] [address] Date: 1965 Sex: F Room/Bed: Ref Phy: Mariusz Matamoros M.D. SC: [id number] Att Phy: Danielle Ashraf PA-C Report #: [id number] Christi Phy: Mariusz Matamoros M.D. Test: CXR Admit Phy: Construction Electrician: ALEE Interpreting Phy: Urbano Ricketts M.D. Diagnosis: J90 Ordering Phy: Danielle Ashraf PA-C Service Date: 02/11/17 Admit Date: 02/11/17 MNE: [id number] CONF: DICTATED BY: Urbano Ricketts M.D.]] CC: Mariusz Matamoros M.D. Tyson, Sara, PA-C Endcc: [~ rep ct add3]] CHEST 2 VIEWS ROUTINE CLINICAL HISTORY: J18.9 [id number] pneumonia. Dyspnea. COMPARISON STUDY: 01/31/2017 FINDINGS: Unchanging left pleural effusion. Unchanging infiltrative change left upper lung. Increase in bronchovascular prominence bilaterally. Pulmonary reticular nodular-type changes have remains stable. Potential developing components of congestive failure. IMPRESSION: 1. Unchanging left pleural effusion. 2. Similar left upper lobe infiltrate. 3. Probable developing components of congestive failure/pulmonary edema The above report was generated using voice recognition software. It may contain grammatical, syntax or spelling errors. Electronically signed by: Urbano Ricketts M.D. 02/11/2017 12:16 PM Dictated Date/Time: 02/11/2017 12:15 PM The status of this report is Signed. Draft = Not yet reviewed or approved by Radiologist. Signed = Reviewed and approved by Radiologist. <AttendingPhy>Danielle Ashraf PA-C</AttendingPhy> <FamilyPhy>Mariusz Matamoros M.D.</FamilyPhy> <PrimaryPhy>Mariusz Matamoros M.D.</PrimaryPhy> < UnitNumber>[id number]</UnitNumber> <VisitNumber>[id number]</VisitNumber> < PatientName>LILLIE SAMPSON</PatientName> <DateOfBirth>1965</DateOfBirth > <Location>[id number]</Location> <ServiceDate>02/11/17</ServiceDate> <MNE>ESINDI </MNE> <OrderingPhy>Danielle Ashraf PA-C</OrderingPhy> <OrderingPhyMNE>f rep ord dr graham</OrderingPhyMNE> <DictatingPhyMNE>f rep dict dr graham</DictatingPhyMNE> < CCListMNE>f rep ct mne</CCListMNE> <AdmittingPhyMNE>f pt admit dr graham</ AdmittingPhyMNE> <AttendingPhyMNE>f pt attend dr graham</AttendingPhyMNE> <ConsultingPhyMNE>f pt consult dr graham</ConsultingPhyMNE> <FamilyPhyMNE>f pt fam dr graham</FamilyPhyMNE> <OtherPhyMNE>f pt other dr graham</OtherPhyMNE> < PrimaryPhyMNE>f pt prim care dr graham</PrimaryPhyMNE> <ReferringPhyMNE>f pt referring dr graham</ReferringPhyMNE> EKG Reviewed EKG and agree with interpretation as follows: 92 bpm, NSR Impression Assessment and Plan 51 y/o female with a history of metastatic non small cell lung cancer, DM II, HTN, HLD, hypothyroidism, anemia, COPD, asthma, anxiety, depression, PTSD, and GERD who presented to the ED on 02/11 with worsening shortness of breath. Outpatient CXR shows unchanged left pleural effusion and left upper lobe infiltrate with probable CHF or edema. EKG did not show any ischemic changes. Pt was afebrile, VSS and on her home oxygen requirement of 3L NC. Pt received Lasix 40 mg IV x 1 in ED. Hgb 10.8. Potassium 3.4. POC troponin negative. BNP negative. Progressive SOB, left pleural effusion, metastatic non small cell lung cancer, recurrent/ongoing PNA -Admit to telemetry -Consult pulmonology, appreciate recs. Pt follows with Dr. Jenkins -Consult thoracic surgery, appreciate recs. Dr. Spangler does not think pt will need to be tapped at this point in time. -Start cefepime 2 gm IV q8h, azithromycin 500 mg IV qd, and vancomycin for HCAP coverage -Check MRSA nares -Blood cultures pending -DuoNebs QIDR and q2h prn SOB/wheezing -Currently afebrile and without leukocytosis -PET/CT scan 01/23/17 shows progressive cancer with mets to bilateral lungs and significant lymphadenopathy. Left pleural effusion likely malignant. -Pt received 1 treatment of chemo which she did not tolerate. 17 sessions of radiation to the chest. Mets to the brain, received 2 treatments brain radiation in October 2016. Follows with Dr. Bajwa for oncology and Dr. Nash for radiation. Mild hypokalemia -Potassium 3.4 on admission, and received Lasix in ED -KCl 60 mEq PO x 1 -Continue to monitor Diarrhea, recent h/o hematochezia -Check C. diff and for fecal occult blood DM II--last HgbA1c checked 01/18/17 was 6.8 -Continue Lantus 30 units SC qpm -Insulin sliding scale -Check BSGs q ac and qhs Chronic anemia of unknown etiology--stable. Iron studies in 2013 show low iron but MCV is normocytic -Baseline hgb 10-11, hgb is 10.8 on admission -Iron studies -Continue to monitor HTN--stable Hypothyroidism -Continue Synthroid 150 mcg PO qd -Check TSH, free T3 and free T4 COPD and asthma -DuoNebs as above -Continue Advair BID and Singulair 10 mg PO qd Anxiety, depression, PTSD -Continue Ativan 1 mg PO TID prn anxiety and Zoloft 50 mg PO qhs GERD -Rabeprazole converted to pantoprazole 40 mg PO BID DVT prophylaxis -Enoxaparin 40 mg SC q24h -DARYN hose and SCDs Code Status -Level I, FULL RESUSCITATION STATUS Level of Care Telemetry Advanced Directives Existing Living Will: No Existing Power of Emergency Medicine Physician: No Resuscitation Status FULL RESUSCITATION VTE Prophylaxis VTE Risk Assessment Done? Y/N: Yes Risk Level: Moderate Given or contraindicated: Enoxaparin (Lovenox)SQ, T.EJacoby Romeroings, SCD's Reviewed: Pt Seen/Exam by Me History Physician Risk Consulting Treasury Director Supervision Note: I interviewed and examined the patient. Discussed with RODNEY Quintana and agree with findings and plan as documented in the note. Any exceptions or clarifications are listed here: Patient presented with worsening shortness of breath and sputum production is being treated for pneumonia 1-2 weeks ago. Her pulmonology PA advised her to come to the ER after a repeat chest x-ray seemed worse. Patient is very anxious and reluctant but agreeable to be admitted to the hospital for further treatment of failed outpatient pneumonia. She has been afebrile at home. There is consideration of restarting a lower dose of some sort of chemotherapy regimen, however her recent pneumonia has further delayed this. Denies any worsening lower extremity edema, she has no history of CHF, and her pro BNP here is normal. Vital signs reviewed as, she is saturating in the low 90s on 3 L in the ER Morbidly obese, sitting on the side of the bed, anxious appearing, alert awake oriented 3 Regular rate and rhythm with distant heart sounds, no obvious murmur Lungs with decreased breath sounds at the bases bilaterally and in the middle left lung field Abdomen positive bowel sounds, soft nontender nondistended Extremities only with lipedema in the legs, left thumb with small eschar at the tip and an adjacent 2 cm scar, with no surrounding erythema, no drainage 51-year-old female here with metastatic lung cancer and probable failure of outpatient treatment for pneumonia. Also with pleural effusion. No evidence of sepsis, no leukocytosis or fevers. There is no evidence of CHF and no reason to continue diuresis at this point. Her effusion secondary to her malignancy. I discussed the case with Dr. Spangler of thoracic surgery at length-not enough fluid to tap at this time. -We'll treat for HCAP given recent hospital stays to include coverage for Pseudomonas and MRSA-we'll treat with cefepime, vancomycin, and these azithromycin to cover for atypicals -Nebulizers -Appreciate pulmonology consultation as well Documented By: Namita Hammond
[2017-02-11 17:16] VITALS: BP 135/83; PULSE 99; TEMP 36.9; O2SAT 92
[2017-02-11] MEDS: AZITHROMYCIN IV 500 MG in DEXTROSE 5% 250ML 250 ML IV SCH ×2 (17:42→19:46)
[2017-02-11] MEDS: INSULIN ASPART 100 UNITS/ML 3 ML PEN SC SCH ×2 (17:42→20:45)
[2017-02-11] MEDS: VANCOMYCIN INJ 2,800 MG in SODIUM CHLORIDE 0.9% 500ML 500 ML IV SCH ×2 (17:57→21:37)
[2017-02-11] MEDS ORDERED: POTASSIUM CHLORIDE 20 MEQ TABCR PO ONE (18:00)
--- NOTE | 2017-02-11 18:22 | Pharmacy Progress Note ---
Pharmacy Abx Initial Consult Date of Service Feb 11, 2017. Pharmacy Dosing Scope Date of Consult: 02/11/17 Consultation requested by: Dr. Quintana Pharmacy is consulted to initiate Vancomycin IV dosing therapy for pneumonia that failed Levaquin out-patient therapy in a obese patient (BMI greater than 35kg/m2, BMI= 43kg/m2), order appropriate labs and adjust drug dose/frequency. Subjective The patient is a 51 year old female admitted on Feb 11, 2017 at 15:49. Objective Height (Feet): 5 Height (Inches): 6.00 Weight (Kilograms): 121.000 Vital Signs (Past 12Hrs) Vital Signs Past 12 Hours Date Time Temp Pulse Resp B/P (MAP) Pulse Ox O2 Delivery O2 Flow Rate FiO2 02/11/17 16:45 78 24 140/76 91 Nasal Cannula 4.0 02/11/17 14:41 94 138/70 89 02/11/17 14:27 94 Nasal Cannula 3.0 02/11/17 14:11 96 90 02/11/17 13:41 99 21 90 02/11/17 13:35 143/71 02/11/17 13:26 91 25 90 02/11/17 13:19 89 02/11/17 13:11 92 20 90 02/11/17 13:06 97 22 94 02/11/17 13:01 88 Nasal Cannula 3.0 02/11/17 12:55 87 Nasal Cannula 3.0 02/11/17 12:25 Nasal Cannula 02/11/17 12:03 37.4 95 20 140/78 93 Room Air 3.0 Lab Results (24Hrs) Laboratory Tests (24 Hours) Test 02/11/17 12:40 Lactic Acid Level 1.5 mmol/L (0.4-2.0) White Blood Count 7.59 K/uL (4.8-10.8) Red Blood Count 4.18 M/uL (4.2-5.4) L Hemoglobin 10.8 g/dL (12.0-16.0) L Hematocrit 35.3 % (37-47) L Mean Corpuscular Volume 84.4 fL (80-100) Mean Corpuscular Hemoglobin 25.8 pg (25-34) Mean Corpuscular Hemoglobin Concent 30.6 g/dl (32-36) L Platelet Count 198 K/uL (130-400) Mean Platelet Volume 9.4 fL (7.4-10.4) Neutrophils (%) (Auto) 83.2 % Lymphocytes (%) (Auto) 10.4 % Monocytes (%) (Auto) 6.3 % Eosinophils (%) (Auto) 0.0 % Basophils (%) (Auto) 0.0 % Neutrophils # (Auto) 6.31 K/uL (1.4-6.5) Lymphocytes # (Auto) 0.79 K/uL (1.2-3.4) L Monocytes # (Auto) 0.48 K/uL (0.11-0.59) Eosinophils # (Auto) 0.00 K/uL (0-0.5) Basophils # (Auto) 0.00 K/uL (0-0.2) Serum Creat. (02/11/17): 0.58mg/dL CrCl (02/11/17): 154mL/min Micro Results Date/Time Source Procedure Growth Status 02/11/17 12:50 Blood Blood Culture Pending Received 02/11/17 12:40 Blood Blood Culture Pending Received Risk Factors for Resistance * Hospitalization for 48 hours or more within the past 90 days (12/05/16) * Immunocompromised (chemotherapy- unknown therapy for NSCLC) * Antimicrobial use within the last 90 days: Levaquin within the past 2 weeks Assessment & Plan Assessment 51 year old female: * pneumonia failed out-patient Levaquin therapy * obese (BMI greater than 35kg/m2, BMI= 43kg/m2) * hx of non-small cell lung cancer Plan Pharmacy has been consulted for treatment of pneumonia Vancomycin IV * Loading dose: 2800 mg (23 mg/kg) * Maintenance dose: 1500 mg IV (12 mg/kg) every 8 hours * Dose based 12/05/16 Vancomycin dosing where the patient had similar p'kinetics * Goal trough level for pneumonia : 15 to 20 mcg/mL * Trough level ordered for 02/12/17 ~30 minutes before the 1800 dose * A less than traditional dose hase been selected due to likelihood of drug accumulation in obese patient. Pharmacy will continue to follow and will adjust dose/frequency as necessary. Thank you.
[2017-02-11 19:44] VITALS: PULSE 95; O2SAT 91
[2017-02-11 19:53] VITALS: BP 157/98; PULSE 95; TEMP 36.5; O2SAT 91
[2017-02-11] MEDS: PANTOprazole SOD 40 MG TAB PO SCH (20:37)
[2017-02-11] MEDS: SERTRALINE HCL 50 MG TAB PO SCH (20:37)
[2017-02-11] MEDS: MONTELUKAST SOD 10 MG TAB PO SCH (20:39)
[2017-02-11] MEDS: ENOXAPARIN 40 MG/0.4 ML SYR SQ SCH (20:42)
[2017-02-11] MEDS: INSULIN GLARGINE SOLOSTAR 100 UNITS/ML 3 ML PEN SC SCH (20:47)
[2017-02-11] MEDS: FLUTICASONE/SALMETEROL (ADVAIR) 500/50 INH 14 PUFF INH SCH (20:51)
[2017-02-11] MEDS: LORAZEPAM 1 MG TAB PO PRN (20:52)
--- NOTE | 2017-02-11 21:05 | SURGICAL CONSULTATION ---
DATE OF CONSULTATION: 02/11/2017 HISTORY OF PRESENT ILLNESS: Carina Morrison was seen today on 02/11/2017. I was asked to see her for surgical evaluation as she does have increasing hypoxia, dyspnea and has an abnormal chest x-ray. 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 She received some radiation but refused further treatment. She also received some chemotherapy but has refused it also. She is currently being followed by Dr. Tayler Patiño from an oncology standpoint. The patient has multiple other issues including hypothyroidism, hyperlipidemia, diabetes, hypertension, obesity, COPD, anxiety, depression, PTSD and GERD who had increasing shortness of breath. The patient was diagnosed with pneumonia 2 weeks ago; however, I think this is based on abnormal chest x-ray which really has not changed in the last few months. She has involvement of parenchymal changes that are chronic in her left lower lobe. She is chronically short of breath and is on oxygen. She also complained of chest pain in the middle of her chest, but she feels that this is musculoskeletal related to her coughing. She was treated with 10 days of Levaquin and is now coughing up yellowish thick sputum. She has also had some diarrhea and has had a history of Clostridium difficile colitis in the past. She has had no fevers, has no white count. She was admitted and. Her pleural effusion actually looks a bit better to me than on 01/21/2017 when she underwent a CT scan. That showed parenchymal changes and very little fluid. I have been asked to comment on this fluid from a thoracic surgery standpoint. PAST MEDICAL HISTORY: 1. Nonsmall cell lung carcinoma, left upper lobe. 2. Emphysema. 3. Long history of cigarette smoking. 4. Depression. 5. Obesity. 6. Chronic pain syndrome with lower back pain. 7. Chronic obstructive pulmonary disease. 8. Diabetes mellitus. 9. Anxiety. 10. Asthma. 11. Hypertension. 12. Anemia. 13. Posttraumatic stress disorder. 14. Depression. 15. Hyperlipidemia. 16. Staph abscess of left thumb. PAST SURGICAL HISTORY: 1. Appendectomy. 2. Cholecystectomy. 3. Left thoracoscopy and wedge resection. 4. Mediastinoscopy. 5. Incision and drainage of left thumb. SOCIAL HISTORY: The patient lives with her significant other. She quit smoking years ago. She is also a drinker but quit drinking. She does like marijuana. She is disabled and does not work. MEDICATIONS: 1. Benadryl. 2. Advair Diskus. 3. NovoLog insulin. 4. Lantus insulin. 5. Singulair. 6. Synthroid. 7. Aciphex. 8. Zoloft. ALLERGIES: Multiple, please see chart. P.R.N. MEDICATIONS: Include Ventolin, EpiPen as needed, home oxygen, lorazepam and DuoNebs. FAMILY MEDICAL HISTORY: Significant for there is a history of cancer including head and neck cancer. There is also history of diabetes mellitus, myocardial infarctions, cerebrovascular disease, chronic obstructive pulmonary disease, hypertension and diabetes. REVIEW OF SYSTEMS: The patient's weight has been relatively stable. Her weight has not really changed over the last 3 years. She denies night sweats. She does have a productive cough. She is complaining of chest pain. The wound on her left thumb which was incised and drained is getting better. She still has a small eschar. She has had no night sweats. She denies any visual or auditory symptoms. She has wheezing and marked dyspnea on exertion, which has worsened. She does see some blood in her sputum which is mild. Having some diarrhea and occasional abdominal pain. She is complaining of some vomiting. She is also complaining of chest pain and as described has orthopnea. She complains of palpitations on occasion. She does have low back pains. She denies any joint pain or swelling. She had no peripheral edema. She had no neurologic signs. PHYSICAL EXAMINATION: GENERAL: This is a heavy female, weighs almost 250 pounds. She is awake and alert. HEENT: His extraocular movements are intact. Pupils are equal, round and reactive. Sclerae are anicteric. Her oral mucosa is moist. NECK: Thick. She has no carotid bruits. Interestingly enough, the supraclavicular node on the left, which has been a large in the past is actually feels a bit smaller to me. LUNGS: In addition, upon auscultation of her lungs, she has actually really does not have much in the way of wheezing. She does get short of breath when talking. She has decreased breath sounds throughout, worse on the left than the right. I have heard her wheeze "terribly" in the past but she has not really wheezing now. HEART: She has a regular rate and rhythm of her heart with distant heart sounds. ABDOMEN: Very large with good bowel sounds. She is a bit tender in her epigastric area. EXTREMITIES: She does have 1+ edema. She has good peripheral edema. She has a well-healed scar approximately 1 cm x 6 mm on her left thumb. She has good peripheral pulses. She has no focal deficits neurologically. DATA: X-ray - please see my history of present illness. ASSESSMENT AND PLAN: Chronic changes in the left base. The patient has nonsmall cell lung carcinoma for 9 months which has been treated very little actually. She is not a candidate for radiation therapy anymore; however, Dr. Patiño, I think may be planning a different approach from medical oncology standpoint according to the patient. She has very little in the way of fluid. I would not suggest intervening in her left chest. I would like to thank Dr. Hammond for asking me to see this patient. [facility]ED[facility] PSYCHIATRIC CENTERJose Luis
[2017-02-11] MEDS: CEFEPIME IV 2,000 MG in DEXTROSE 5% 100ML 100 ML IV SCH (21:46)
[2017-02-11 23:55] VITALS: BP 113/72; PULSE 93; TEMP 36.9; O2SAT 92
[2017-02-12] VITALS (9 sets, daily range): BP systolic 104–135; BP diastolic 66–89; PULSE 81–95; TEMP 36.7–37; O2SAT 89–94
[2017-02-12 00:16] LABS: URINE APPEARANCE CLEAR (CLEAR); URINE BILIRUBIN NEG (NEG); URINE COLOR YELLOW; URINE NITRITE NEG (NEG); UROBILINOGEN NEG (NEG); ZZUR CULT IF INDIC CLEAN CATCH NO
[2017-02-12 00:19] LABS: MANUAL MICROSCOPIC REQUIRED? NO; REVIEW REQ? NO
[2017-02-12] MEDS ORDERED: VANCOMYCIN INJ 1,500 MG in SODIUM CHLORIDE 0.9% 500ML 500 ML IV SCH (02:00)
[2017-02-12] MEDS: CEFEPIME IV 2,000 MG in DEXTROSE 5% 100ML 100 ML IV SCH ×3 (04:49→20:37)
[2017-02-12] MEDS: LEVOTHYROXINE 150 MCG TAB PO SCH (05:07)
[2017-02-12] MEDS: ALBUT/IPRATROP 3MG/0.5MG NEB 3 ML VIAL INH SCH ×4 (07:10→20:12)
[2017-02-12 07:12] LABS: HEMATOCRIT 34.1 % (37-47); MEAN CELL VOLUME 85.5 fL (80-100); MEAN CORPUSCULAR HEMOGLOBIN 26.1 pg (25-34); MEAN CORPUSCULAR HGB CONC 30.5 g/dl (32-36); MEAN PLATELET VOLUME 9.1 fL (7.4-10.4); PLATELET COUNT 178 K/uL (130-400); RED BLOOD COUNT 3.99 M/uL (4.2-5.4); WHITE BLOOD COUNT 7.22 K/uL (4.8-10.8)
[2017-02-12 07:46] LABS: BUN/CREATININE RATIO 9.1 (10-20); CALCIUM 8.7 mg/dl (8.5-10.1); CREATININE 0.67 mg/dl (0.60-1.20); MAGNESIUM 1.8 mg/dl (1.8-2.4)
[2017-02-12] MEDS: FLUTICASONE/SALMETEROL (ADVAIR) 500/50 INH 14 PUFF INH SCH ×2 (08:49→20:43)
[2017-02-12] MEDS: INSULIN ASPART 100 UNITS/ML 3 ML PEN SC SCH ×4 (08:50→20:45)
[2017-02-12] MEDS: PANTOprazole SOD 40 MG TAB PO SCH ×2 (08:50→20:42)
[2017-02-12] MEDS ORDERED: MAGNESIUM SULFATE 1GM / D5W 1 GM in PREMIXED IN D5W 100 ML IV SCH (09:00)
[2017-02-12] MEDS: LORAZEPAM 1 MG TAB PO PRN ×2 (09:02→20:51)
[2017-02-12] MEDS: POTASSIUM CHLORIDE 10 MEQ TABCR PO SCH ×2 (09:58→12:36)
[2017-02-12] MEDS: DOXYCYCLINE IV 100 MG in DEXTROSE 5% 100ML 100 ML IV SCH ×2 (10:00→21:54)
--- NOTE | 2017-02-12 11:13 | Hospitalist Progress Note ---
Hospitalist Progress Note Date of Service Feb 12, 2017. Subjective Pt evaluation today including: conversation w/ patient, physical exam Pt says her breathing is better, still with productive cough, but overall feels "40% better." Is in better spirits today. Says she knows when she goes home though, that she'll return to smoking pot all day long-says it helps her chronic back pain and is better than taking opioids. Constitutional: No fever, No chills Musculoskeletal: + joint pain (back pain, left anterior rib pain) All Other Systems: Reviewed and Negative Objective Vital Signs Date Time Temp Pulse Resp B/P (MAP) Pulse Ox O2 Delivery O2 Flow Rate FiO2 02/12/17 07:18 36.9 89 18 132/89 (103) 90 02/12/17 07:13 95 20 90 Nasal Cannula 4.0 02/12/17 04:47 36.9 81 20 104/66 (79) 92 Nasal Cannula 4.0 02/12/17 04:00 Nasal Cannula 4.0 02/12/17 00:00 Nasal Cannula 4.0 02/11/17 23:55 36.9 93 20 113/72 (86) 92 Nasal Cannula 4.0 02/11/17 20:00 Nasal Cannula 4.0 02/11/17 19:53 36.5 95 18 157/98 (117) 91 Room Air 02/11/17 19:44 95 20 91 Nasal Cannula 4.0 02/11/17 17:16 36.9 99 18 135/83 (100) 92 Nasal Cannula 4.0 02/11/17 16:45 78 24 140/76 91 Nasal Cannula 4.0 02/11/17 14:41 94 138/70 89 02/11/17 14:27 94 Nasal Cannula 3.0 02/11/17 14:11 96 90 02/11/17 13:41 99 21 90 02/11/17 13:35 143/71 02/11/17 13:26 91 25 90 02/11/17 13:19 89 02/11/17 13:11 92 20 90 02/11/17 13:06 97 22 94 02/11/17 13:01 88 Nasal Cannula 3.0 02/11/17 12:55 87 Nasal Cannula 3.0 02/11/17 12:25 Nasal Cannula 02/11/17 12:03 37.4 95 20 140/78 93 Room Air 3.0 Physical Exam General Appearance: WD/WN, no apparent distress (appears much better than yesterday), + obese Eyes: normal inspection, sclerae normal ENT: hearing grossly normal Neck: trachea midline Respiratory/Chest: no respiratory distress, no accessory muscle use, + decreased breath sounds (at bases bilaterally, some scattered wheezes, overall improved air movement throughout) Cardiovascular: regular rate, rhythm, no edema, no gallop, no murmur Abdomen: normal bowel sounds, non tender, soft (with diastasis recti) Extremities: non-tender, normal inspection, no pedal edema, no calf tenderness Neurologic/Psychiatric: alert, normal mood/affect, oriented x 3 Skin: normal color, warm/dry, no rash Laboratory Results Last 24 Hours Test 02/11/17 12:40 02/11/17 13:39 02/11/17 16:55 02/11/17 17:29 White Blood Count 7.59 K/uL Red Blood Count 4.18 M/uL Hemoglobin 10.8 g/dL Hematocrit 35.3 % Mean Corpuscular Volume 84.4 fL Mean Corpuscular Hemoglobin 25.8 pg Mean Corpuscular Hemoglobin Concent 30.6 g/dl Platelet Count 198 K/uL Mean Platelet Volume 9.4 fL Neutrophils (%) (Auto) 83.2 % Lymphocytes (%) (Auto) 10.4 % Monocytes (%) (Auto) 6.3 % Eosinophils (%) (Auto) 0.0 % Basophils (%) (Auto) 0.0 % Neutrophils # (Auto) 6.31 K/uL Lymphocytes # (Auto) 0.79 K/uL Monocytes # (Auto) 0.48 K/uL Eosinophils # (Auto) 0.00 K/uL Basophils # (Auto) 0.00 K/uL RDW Standard Deviation 49.2 fL RDW Coefficient of Variation 16.0 % Immature Granulocyte % (Auto) 0.1 % Immature Granulocyte # (Auto) 0.01 K/uL Sodium Level 139 mmol/L Potassium Level 3.4 mmol/L Chloride Level 99 mmol/L Carbon Dioxide Level 37 mmol/L Anion Gap 3.0 mmol/L Blood Urea Nitrogen 6 mg/dl Creatinine 0.58 mg/dl Est Creatinine Clear Calc Drug Dose 154.3 ml/min Estimated GFR () 125.4 Estimated GFR (Non- 108.2 BUN/Creatinine Ratio 10.0 Random Glucose 126 mg/dl Lactic Acid Level 1.5 mmol/L Calcium Level 9.1 mg/dl Magnesium Level 1.9 mg/dl Iron Level 27 mcg/dl Total Iron Binding Capacity 305 mcg/dl Transferrin 240 mg/dl Transferrin % Saturation 8 % Ferritin 17.1 ng/ml Total Bilirubin 0.4 mg/dl Direct Bilirubin < 0.1 mg/dl Aspartate Amino Transf (AST/SGOT) 20 U/L Alanine Aminotransferase (ALT/SGPT) 16 U/L Alkaline Phosphatase 139 U/L Total Protein 7.6 gm/dl Albumin 3.1 gm/dl Lipase 73 U/L Thyroid Stimulating Hormone (TSH) 3.440 uIu/ml Free Thyroxine 1.40 ng/dl Bedside Troponin I < 0.030 ng/ml [id number] Natriuretic Peptide 214 pg/ml Free Triiodothyronine 2.40 pg/ml Bedside Glucose 166 mg/dl Test 02/11/17 20:22 02/11/17 23:45 02/12/17 05:30 02/12/17 06:47 Bedside Glucose 164 mg/dl Urine Color YELLOW Urine Appearance CLEAR Urine pH 7.0 Urine Specific [place] 1.010 Urine Protein NEG Urine Glucose (UA) NEG Urine Ketones NEG Urine Occult Blood NEG Urine Nitrite NEG Urine Bilirubin NEG Urine Urobilinogen NEG Urine Leukocyte Esterase NEG Stool Occult Blood POSITIVE White Blood Count 7.22 K/uL Red Blood Count 3.99 M/uL Hemoglobin 10.4 g/dL Hematocrit 34.1 % Mean Corpuscular Volume 85.5 fL Mean Corpuscular Hemoglobin 26.1 pg Mean Corpuscular Hemoglobin Concent 30.5 g/dl RDW Standard Deviation 50.3 fL RDW Coefficient of Variation 16.1 % Platelet Count 178 K/uL Mean Platelet Volume 9.1 fL Sodium Level 139 mmol/L Potassium Level 3.0 mmol/L Chloride Level 98 mmol/L Carbon Dioxide Level 35 mmol/L Anion Gap 6.0 mmol/L Blood Urea Nitrogen 6 mg/dl Creatinine 0.67 mg/dl Est Creatinine Clear Calc Drug Dose 132.6 ml/min Estimated GFR () 119.6 Estimated GFR (Non- 103.2 BUN/Creatinine Ratio 9.1 Random Glucose 166 mg/dl Calcium Level 8.7 mg/dl Magnesium Level 1.8 mg/dl Test 02/12/17 07:30 Bedside Glucose 172 mg/dl Assessment and Plan This pt is a 51 y/o female with a history of metastatic non small cell lung cancer with mets to LNs and brain, DM II, HTN, HLD, hypothyroidism, anemia, COPD , asthma, anxiety, depression, PTSD, and GERD who presented to the ED on 02/11 with worsening shortness of breath and worsening sputum production. She was recently treated as an outpt with 10 days of po Levaquin for presumed PNA. Outpatient repeat CXR shows unchanged left pleural effusion and left upper lobe infiltrate with probable CHF or edema. EKG did not show any ischemic changes. Pt was afebrile, VSS and on her home oxygen requirement of 3L NC. Pt received Lasix 40 mg IV x 1 in ED. Hgb 10.8. Potassium 3.4. POC troponin negative. BNP negative. Denies any worsening lower extremity edema, she has no history of CHF, and her pro BNP here is normal. CHF unlikely Progressive SOB, left malignant loculated pleural effusion, metastatic non small cell lung cancer, recurrent/ongoing PNA-probable failure of outpatient treatment for pneumonia. Also with pleural effusion. No evidence of sepsis, no leukocytosis or fevers. There is no evidence of CHF and no reason to continue diuresis at this point. Her effusion secondary to her malignancy. I discussed the case with Dr. Spangler of thoracic surgery at length-not enough fluid to tap at this time. PET/CT scan 01/23/17 shows progressive cancer with mets to bilateral lungs and significant lymphadenopathy Pt received 1 treatment of chemo which she did not tolerate. 17 sessions of radiation to the chest. Mets to the brain, received 2 treatments brain radiation in October 2016. Follows with Dr. Bajwa for oncology and Dr. Nash for radiation. There is consideration of restarting a lower dose of some sort of chemotherapy regimen, however her recent pneumonia has further delayed this. Much improved after 24 hrs of IV abx. -continue to treat for HCAP given recent hospital stays to include coverage for Pseudomonas and MRSA -continue cefepime,and today change azithromycin to doxy (now with prolonged QTc ) to cover for atypicals -MRSA nasal swab neg and doxy also will cover for MRSA, ok to dc Vanco today -continue Nebulizers -Appreciate pulmonology consultation-awaiting input -no events on tele--> transfer to medical -Consult to Thoracic surgery appreciated -f/u Blood cultures Hypokalemia-worse today after receiving lasix -replace K+ -follow PRP Diarrhea, recent h/o hematochezia- Heme+ here but Hgb stable at 10.4. -Check C. diff -consider GI consultation as outpt if willing to pursue endoscopy above and below -follow CBC DM II--last HgbA1c checked 01/18/17 was 6.8 -Continue Lantus 30 units SC qpm -Insulin sliding scale -Check BSGs q ac and qhs Chronic Fe-def anemia and probably some anemia of chronic disease-Fe studies mixed picture, also with Hemoccult positive -Baseline hgb 10-11, hgb is 10.8 on admission -Continue to monitor -could start FeSO4 HTN-not currently on treatment for this, BPs here have been acceptable -continue to check BPs routinely Hypothyroidism-TSH here normal -Continue Synthroid 150 mcg PO qd COPD and asthma -DuoNebs as above -Continue Advair BID and Singulair 10 mg PO qd Anxiety, depression, PTSD -Continue Ativan 1 mg PO TID prn anxiety and Zoloft 50 mg PO qhs GERD -Rabeprazole converted to pantoprazole 40 mg PO BID DVT prophylaxis -Enoxaparin 40 mg SC q24h -DARYN douglas and CARMENs Code Status -Level I, FULL RESUSCITATION STATUS Dispo- to home on po abx in 1-2 days -Transfer to medical today
[2017-02-12] MEDS ORDERED: POTASSIUM CHLORIDE 10 MEQ TABCR PO SCH (12:00)
[2017-02-12] MEDS ORDERED: VANCOMYCIN TROUGH SCH (17:30)
--- NOTE | 2017-02-12 18:25 | Pulmonary Consultation ---
History General Date of Service: Feb 12, 2017. Stated Complaint: Lung Cancer, Pleural Effusion HPI The patient is a 51 year old female who presents to [facility] with complaints of Lung Cancer, Pleural Effusion. The patient's primary care provider is Mariusz Matamoros M.D.. History was obtained from patient as well as review of previous electronic medical record. Ms. Carina Steinberg is a 51-year-old female who was transferred from pulmonary clinic yesterday 02/11/2017 for increasing shortness of breath that worsened 3 days prior to admission. She has a past medical history of COPD and recent diagnosis of non-small cell lung cancer stage IV of enlarging left upper lobe pulmonary nodule diagnosed in 05/10/2016 status post wedge resection and lymph node biopsy. She received a total of 17 radiation treatments and one chemotherapy treatment. She recently underwent brain radiation for cerebral metastatic disease. Chest x-ray done 02/11/2017 showed unchanging left pleural effusion. In the pulmonary clinic she was using accessory muscles and had wheezing throughout bilateral lung angel with use of accessory muscles. A PET /CT scan on 01/23/2017 showed progression of disease to the supraclavicular mediastinal, left hilar nodes and left pleural effusion. A CTA chest done in the ER on 01/21/2017 for symptoms of shortness of breath and dyspnea was negative for pulmonary embolism but did show markedly progression of metastatic disease, pleural fluid and dense consolidation concerning for pneumonia. At that time she was started on Levaquin and her symptoms improved as her 10 day course. She complains of increased oxygen requirements to 3 L, increased dyspnea on exertion with minimal activities like taking a shower. She continues to have a productive cough which is yellow- green sometimes lopez-black in color. She denies any hemoptysis. She also complains of chest tightness and pleuritic chest pain with deep inspiration. She has orthopnea but denies lower extremity swelling or edema. He admits to decreased appetite but denies any fevers or chills. She follows with Dr. Bajwa for oncology and Dr. Nash for radiation therapy at [facility]. Her pulmonary medications include Advair Diskus 500/50 MCG 61 puff twice a day, albuterol nebulizer every 4 hours as needed, ipratropium nebulizer every 4 hours as needed, Singulair 10 mg daily. Initial laboratory data in the ER was significant for hemoglobin of 10.8, potassium of 3.4, BMP was within normal limits as well as troponins. He was given a dose of Lasix 40 mg IV 1. She was admitted for progressive shortness of breath secondary to possible malignant pleural effusion and pneumonia. She is currently being empirically treated for hospital acquired pneumonia with cefepime and doxycycline to cover for pseudomonas, MRSA as well as atypicals. She was on vancomycin as well as azithromycin with these have now been discontinued secondary to negative MRSA swab and prolonged QTC seen on electrocardiogram. Vital signs in the last 24 hours MAXIMUM TEMPERATURE of 36.9, blood pressure between 104/66-132/89, pulse between 81-95, respiratory rate of 18-22 saturating between 89-94% on 4 L nasal cannula. Today she states shes feeling a little bit better. She is less short of breath today. Review of Systems Constitutional: reports: as stated in HPI, malaise, weakness Eyes: reports: no symptoms ENT: reports: no symptoms Respiratory: reports: shortness of breath, wheezing, sputum production, denies : hemoptysis Gastrointestinal: reports: as stated in HPI Genitourinary - Female: reports: no symptoms Musculoskeletal: reports: back pain Integumentary: reports: as stated in HPI Neurologic: reports: as stated in HPI Psychiatric: reports: as stated in HPI, anxiety Endocrine: as stated in HPI Hematologic / Lymphatic: as stated in HPI Allergic / Immunologic: as stated in HPI Past Medical History Past Medical History: Past medical history is significant for asthma, COPD sinusitis, diabetes, chronic low back pain, and metastatic lung CA. Past Surgical History: Surgical history appendectomy, section, cholecystectomy, left knee arthroscopy, mediastinoscopy, left wedge resection. Family History Abdominal pain FHx: cancer FHx: diabetes FHx: gallbladder disease FHx: heart disease FHx: hypertension FHx: lung disease Myocardial infarction Stroke She has family history of hypertension, diabetes, prostate cancer, schizophrenia and coronary artery disease. Social History She denies current alcohol use. she has history of previous alcohol abuse. She denies illicit drug use. She is a current marijuana smoker. Hx Tobacco Use In Past Year?: No Smoking Status: Former Smoker (quit 10 years ago) Marital status: in relationship Housing status: lives with significant other Occupational Status: disabled Immunizations History of Influenza Vaccine: Yes Influenza Vaccine Date: Apr 19, 2013 History of Tetanus Vaccine?: Yes Tetanus Immunization Date: Aug 20, 2013 History of Pneumococcal: Yes Pneumococcal Date: Aug 20, 2008 History of Hepatitis B Vaccine: Unknown History of MDRO History of MDRO: No Allergies Coded Allergies: BEE STING (Verified Allergy, Severe, ANAPHYLAXIS, 01/21/17) Fentanyl (Verified Allergy, Severe, EYES SWELLED SHUT, 01/21/17) Adhesives (Verified Allergy, Unknown, blisters, 01/21/17) [place] (Unverified Allergy, Unknown, MOUTH ITCHES, SKIN PEELS, 01/21/17) Honey (Verified Allergy, Unknown, anaphylaxis, 01/21/17) pt Latex1 -Allergic Contact Dermititis (Verified Allergy, Unknown, LOCAL RXN- BLISTERING, 01/21/17) Metformin (Verified Allergy, Unknown, PER RECORDS , 01/21/17) [place] (Verified Allergy, Unknown, SKIN PEELS, 01/21/17) [place] (Verified Allergy, Unknown, MUST BE PEELED, 01/21/17) Penicillins (Verified Allergy, Unknown, 01/21/17) Tiotropium (Verified Allergy, Unknown, UNKNOWN REACTION, 01/21/17) Buspirone (Verified Adverse Reaction, Mild, ALLERGIC TO GENERIC DRUG- TAKES BRAND AT HOME, 01/21/17) Duloxetine (Verified Adverse Reaction, Unknown, lethargy,hallucinations, ) pt Uncoded Allergies: CHEMO (Adverse Reaction, Severe, ELEVATED BP, SEVERE MIGRAINE, 08/06/16) Current Medications Reported Home Medications Medications Dose Route/Sig Max Daily Dose Days Date Category Dose Instructions Duoneb (Ipratropium-Albuterol) 3 Ml Nebu 1 Treatment INH Q4H PRN 02/11/17 Reported Oxygen Gas 2 Liters NA CONTINOUS PRN 01/21/17 Reported Novolog Flexpen (Insulin Aspart) 100 Units/Ml Inj 1 Dose SQ SLIDING SCALE 01/21/17 Reported 150-200=4 UNITS 201-300=6 UNITS 301-350=8 UNITS >350= CALL Lorazepam 1 Mg Tab 1 Mg PO TID PRN 01/21/17 Reported Synthroid (Levothyroxine Sodium) 150 Mcg Tab 150 Mcg PO QAM 01/21/17 Reported Lantus Solostar (Insulin Glargine) 100 Unit/Ml Inj 30 Units SC QPM 01/21/17 Reported Bd Pen Needle/Mini/Ultraf (Needle) 1 Ea Inj Box SC DAILY 12/08/16 Rx USE NIGHTLY WITH LANTUS PEN Aciphex (Rabeprazole Sodium) 20 Mg Tab 1 Tab PO BID 30 12/08/16 Rx Benadryl Allergy (Diphenhydramine Hcl) 25 Mg Cap 1 Cap PO QAM 30 12/04/16 Reported Benadryl (Diphenhydramine Hcl) 25 Mg Cap 50 Mg PO HS 08/06/16 Reported Ventolin Hfa (Albuterol) 200 Puffs/51038 Mcg Aers 2 Puffs INH QID PRN 08/06/16 Reported Zoloft (Sertraline Hcl) 50 Mg Tab 50 Mg PO HS 08/01/14 Reported Epipen 2-Saad (Epinephrine) 0.3 Mg Inj 0.3 Mg IM UD PRN 01/08/14 Reported Singulair (Montelukast Sodium) 10 Mg Tab 10 Mg PO HS 01/08/14 Reported Advair Diskus 500/50 60 Dose (Fluticasone Prop/Salmeterol) 1 Ea Aerp 1 Puff INH BID 01/08/14 Reported Physical Physical Exam Vital Signs: Date Time Temp Pulse Resp B/P (MAP) Pulse Ox O2 Delivery O2 Flow Rate FiO2 02/12/17 11:24 36.7 91 20 116/75 (89) 89 Nasal Cannula 4.0 02/12/17 11:04 89 20 94 Nasal Cannula 4.0 02/12/17 07:18 36.9 89 18 132/89 (103) 90 02/12/17 07:13 95 20 90 Nasal Cannula 4.0 02/12/17 04:47 36.9 81 20 104/66 (79) 92 Nasal Cannula 4.0 02/12/17 04:00 Nasal Cannula 4.0 02/12/17 00:00 Nasal Cannula 4.0 02/11/17 23:55 36.9 93 20 113/72 (86) 92 Nasal Cannula 4.0 02/11/17 20:00 Nasal Cannula 4.0 02/11/17 19:53 36.5 95 18 157/98 (117) 91 Room Air 02/11/17 19:44 95 20 91 Nasal Cannula 4.0 02/11/17 17:16 36.9 99 18 135/83 (100) 92 Nasal Cannula 4.0 02/11/17 16:45 78 24 140/76 91 Nasal Cannula 4.0 02/11/17 14:41 94 138/70 89 General Appearance: WELL-APPEARING, WD/WN, NO APPARENT DISTRESS, obese Head: NORMOCEPHALIC, ATRAUMATIC Eyes: PERRLA, NO DISCHARGE, EOMI, SCLERAE NORMAL ENT: NORMAL EAR EXAM, NORMAL NASAL EXAM, NORMAL MOUTH EXAM, NORMAL THROAT EXAM Neck: NORMAL RANGE OF MOTION, NO TENDERNESS, TRACHEA MIDLINE, NO STRIDOR Respiratory: wheezing (decreased breath sounds bilaterally. Wheezing on left hemithorax.) Cardiovasular: NORMAL S1S2, NORMAL PERIPHERAL PULSES Abdomen: NON TENDER, NORMAL BOWEL SOUNDS, NO REBOUND Genitourinary - Female: EXTERNAL GENITALIA NORMAL Back: NORMAL INSPECTION (surgical incisions seen on left chest wall.) Upper Extremities: NO EDEMA Lower Extremities: NO EDEMA Pulses: dorsalis pedis (R) (2+), dorsalis pedis (L) Neuro: ALERT, ORIENTED x 3, NORMAL MOTOR EXAM, NORMAL SENSATION, NORMAL SPEECH Psychiatric: NO SUICIDAL IDEATION, CONTRACTS FOR SAFETY, flat affect Diagnostics Labs Results Past 24 Hours Test 02/11/17 16:55 02/11/17 17:29 02/11/17 20:22 02/11/17 23:45 Range/Units Free Triiodothyronine 2.40 2.30-4.20 pg/ml Bedside Glucose 166 164 70-90 mg/dl Urine Color YELLOW Urine Appearance CLEAR CLEAR Urine pH 7.0 4.5-7.5 Urine Specific [place] 1.010 1.000-1.030 Urine Protein NEG NEG Urine Glucose (UA) NEG NEG Urine Ketones NEG NEG Urine Occult Blood NEG NEG Urine Nitrite NEG NEG Urine Bilirubin NEG NEG Urine Urobilinogen NEG NEG Urine Leukocyte Esterase NEG NEG Test 02/12/17 05:30 02/12/17 06:47 02/12/17 07:30 02/12/17 11:05 Range/Units Stool Occult Blood POSITIVE NEGATIVE White Blood Count 7.22 4.8-10.8 K/uL Red Blood Count 3.99 4.2-5.4 M/uL Hemoglobin 10.4 12.0-16.0 g/dL Hematocrit 34.1 37-47 % Mean Corpuscular Volume 85.5 80-100 fL Mean Corpuscular Hemoglobin 26.1 25-34 pg Mean Corpuscular Hemoglobin Concent 30.5 32-36 g/dl RDW Standard Deviation 50.3 36.4-46.3 fL RDW Coefficient of Variation 16.1 11.5-14.5 % Platelet Count 178 130-400 K/uL Mean Platelet Volume 9.1 7.4-10.4 fL Sodium Level 139 136-145 mmol/L Potassium Level 3.0 3.5-5.1 mmol/L Chloride Level 98 98-107 mmol/L Carbon Dioxide Level 35 21-32 mmol/L Anion Gap 6.0 3-11 mmol/L Blood Urea Nitrogen 6 7-18 mg/dl Creatinine 0.67 0.60-1.20 mg/dl Est Creatinine Clear Calc Drug Dose 132.6 ml/min Estimated GFR () 119.6 Estimated GFR (Non- 103.2 BUN/Creatinine Ratio 9.1 10-20 Random Glucose 166 70-99 mg/dl Calcium Level 8.7 8.5-10.1 mg/dl Magnesium Level 1.8 1.8-2.4 mg/dl Bedside Glucose 172 203 70-90 mg/dl Microbiology Results 02/11/17 MRSA DNA Surveillance Screen - Final, Complete Specimen Negative for MRSA by DNA Probe 02/12/17 C.difficile Toxin B Gene (PCR) - Final, Complete No C. difficile toxin B gene detected Diagnostic Radiology Chest x-ray from 02/11/2017 FINDINGS: Unchanging left pleural effusion. Unchanging infiltrative change left upper lung. Increase in bronchovascular prominence bilaterally. Pulmonary reticular nodular-type changes have remains stable. Potential developing components of congestive failure. IMPRESSION: 1. Unchanging left pleural effusion. 2. Similar left upper lobe infiltrate. 3. Probable developing components of congestive failure/pulmonary edema Impression Assessment and Plan Metastatic non-small cell lung cancer COPD Anxiety/depression Left Pleural effusion. There 51-year-old female with metastatic lung cancer presenting with worsening dyspnea on exertion most likely secondary to progression of disease. I spoke with Dr. Spangler and would have to agree that there is minimal fluid pleural effusion on the left lung and what we are seeing is atelectatic lung on imaging. Thoracentesis of left lung would not lead to re-expansion. This is unlikely to be CHF exacerbation as BNP is within normal limits and she has no signs of fluid overload. I agree with discontinuing diuretics at this time. There may be a component of postobstructive pneumonia so I do agree with empiric treatment with antibiotics at this time. She seems to feel better while taking them. Recommend a repeat chest x-ray in the morning to evaluate for interval improvement. Continue with supplemental oxygenation to maintain SaO2 above 92%. Continue with nebulizers. There is no indication for corticosteroids at this time. She should follow up with radiation therapy to see what options can be offered to her, is any. Her overall prognosis is poor. I discussed with patient at length about her goals of care. She states that she would does not want to suffer and is considering a DO NOT RESUSCITATE order. Nurse at bedside and we discussed having this arranged while she is hospitalized so he can be implemented upon discharge. I appreciate the consult and will follow with you.
--- NOTE | 2017-02-12 18:57 | SURGERY PROGRESS NOTE ---
DATE: 02/12/2017 SUBJECTIVE: Ms. Morrison was seen today on 02/12/2017. Carina feels that she is a bit better today. She still has a productive cough producing yellow-green sputum, but she feels that is less. She is not as tachypneic. Her A-a gradient still remains quite high, although appears to be a bit better. She is to get an x-ray in the morning and we will follow her clinically to see if she has a response to the current antibiotics as it appears that she has.
[2017-02-12] MEDS: MONTELUKAST SOD 10 MG TAB PO SCH (20:43)
[2017-02-12] MEDS: SERTRALINE HCL 50 MG TAB PO SCH (20:43)
[2017-02-12] MEDS: ENOXAPARIN 40 MG/0.4 ML SYR SQ SCH (20:44)
[2017-02-12] MEDS: INSULIN GLARGINE SOLOSTAR 100 UNITS/ML 3 ML PEN SC SCH (20:49)
[2017-02-13] VITALS (9 sets, daily range): BP systolic 117–127; BP diastolic 66–80; PULSE 87–105; TEMP 36.6–37; O2SAT 87–96
[2017-02-13] MEDS ORDERED: VANCOMYCIN TROUGH SCH (03:30)
[2017-02-13] MEDS: CEFEPIME IV 2,000 MG in DEXTROSE 5% 100ML 100 ML IV SCH (05:05)
[2017-02-13] MEDS: LEVOTHYROXINE 150 MCG TAB PO SCH (05:05)
[2017-02-13] MEDS: ALBUT/IPRATROP 3MG/0.5MG NEB 3 ML VIAL INH SCH ×4 (07:42→19:35)
--- NOTE | 2017-02-13 07:47 | DIAGNOSTIC IMAGING REPORT ---
CHEST ONE VIEW PORTABLE CLINICAL HISTORY: 51 years-old Female presenting with pneumonia. TECHNIQUE: Portable upright AP view of the chest was obtained. COMPARISON: 02/11/2017. FINDINGS: Enlarged cardiac silhouette unchanged. Stable to slight interval increase in perihilar vascular indistinctness and left upper lobe opacity. Moderate and left pleural effusion. Osseous structures normal. Upper abdomen normal. IMPRESSION: 1. Stable to slight interval increase in findings of developing pulmonary edema. 2. Stable slight interval increase in left upper lobe consolidation, which is consistent with pneumonia. 3. Moderate left (parapneumonic) effusion. Electronically signed by: Rodolfo Sadler M.D. 02/13/2017 7:46 AM Dictated Date/Time: 02/13/2017 7:43 AM
[2017-02-13] MEDS: LORAZEPAM 1 MG TAB PO PRN ×2 (07:56→18:10)
[2017-02-13] MEDS: FLUTICASONE/SALMETEROL (ADVAIR) 500/50 INH 14 PUFF INH SCH ×2 (07:57→20:01)
[2017-02-13] MEDS: PANTOprazole SOD 40 MG TAB PO SCH ×2 (07:57→20:00)
[2017-02-13 08:01] LABS: HEMATOCRIT 34.4 % (37-47); MEAN CELL VOLUME 83.7 fL (80-100); MEAN CORPUSCULAR HEMOGLOBIN 25.5 pg (25-34); MEAN CORPUSCULAR HGB CONC 30.5 g/dl (32-36); MEAN PLATELET VOLUME 9.2 fL (7.4-10.4); PLATELET COUNT 177 K/uL (130-400); RED BLOOD COUNT 4.11 M/uL (4.2-5.4); WHITE BLOOD COUNT 6.36 K/uL (4.8-10.8)
[2017-02-13] MEDS: DOXYCYCLINE IV 100 MG in DEXTROSE 5% 100ML 100 ML IV SCH (08:20)
[2017-02-13] MEDS: INSULIN ASPART 100 UNITS/ML 3 ML PEN SC SCH ×4 (08:20→20:06)
[2017-02-13 08:29] LABS: BUN/CREATININE RATIO 10.5 (10-20); CALCIUM 9.1 mg/dl (8.5-10.1); CREATININE 0.63 mg/dl (0.60-1.20); MAGNESIUM 2.1 mg/dl (1.8-2.4); POTASSIUM 3.3 mmol/L (3.5-5.1)
--- NOTE | 2017-02-13 12:45 | Hospitalist Progress Note ---
Hospitalist Progress Note Date of Service Feb 13, 2017. Subjective Pt evaluation today including: conversation w/ patient, physical exam, conversation w/ corporate learning consultant (Pulm an CT Surgery) Still w/ productive sputum, feels about the same as yesterday. Keeps losing IVs. Discussed case with Pulm who feels po abx are fine. Discussed case with CT Surgery who is thinking of performing a bronchoscopy All Other Systems: Reviewed and Negative Objective Vital Signs Date Time Temp Pulse Resp B/P (MAP) Pulse Ox O2 Delivery O2 Flow Rate FiO2 02/13/17 12:00 36.7 93 16 117/80 (92) 96 Nasal Cannula 4.0 02/13/17 11:48 105 30 87 Nasal Cannula 4.0 02/13/17 08:00 Nasal Cannula 4.0 02/13/17 07:43 91 15 91 Nasal Cannula 4.0 02/13/17 07:33 37.0 87 16 120/77 (91) 90 Nasal Cannula 4.0 02/13/17 03:49 37.0 89 20 127/72 (90) 91 Nasal Cannula 4.0 02/13/17 00:00 Nasal Cannula 4.0 02/12/17 23:55 37.0 91 18 128/76 (93) 92 Nasal Cannula 4.0 02/12/17 20:14 82 18 91 Nasal Cannula 4.0 02/12/17 15:27 83 16 94 Nasal Cannula 4.0 02/12/17 15:21 36.9 89 18 135/85 (102) 91 Nasal Cannula 4.0 Humidified Oxygen 02/12/17 14:55 Nasal Cannula 4.0 Physical Exam General Appearance: WD/WN, no apparent distress, + obese Eyes: normal inspection, sclerae normal ENT: hearing grossly normal Neck: trachea midline Respiratory/Chest: no respiratory distress, no accessory muscle use, + decreased breath sounds (at left base, but otherwise clear, no more wheezing) Cardiovascular: regular rate, rhythm, no edema, no gallop, no murmur Abdomen: normal bowel sounds Extremities: normal inspection, no pedal edema Neurologic/Psychiatric: alert, normal mood/affect, oriented x 3 Skin: normal color, warm/dry Laboratory Results Last 24 Hours Test 02/12/17 16:24 02/12/17 20:35 02/13/17 07:04 02/13/17 08:02 Bedside Glucose 173 mg/dl 171 mg/dl 152 mg/dl White Blood Count 6.36 K/uL Red Blood Count 4.11 M/uL Hemoglobin 10.5 g/dL Hematocrit 34.4 % Mean Corpuscular Volume 83.7 fL Mean Corpuscular Hemoglobin 25.5 pg Mean Corpuscular Hemoglobin Concent 30.5 g/dl RDW Standard Deviation 49.0 fL RDW Coefficient of Variation 16.1 % Platelet Count 177 K/uL Mean Platelet Volume 9.2 fL Sodium Level 139 mmol/L Potassium Level 3.3 mmol/L Chloride Level 100 mmol/L Carbon Dioxide Level 36 mmol/L Anion Gap 3.0 mmol/L Blood Urea Nitrogen 7 mg/dl Creatinine 0.63 mg/dl Est Creatinine Clear Calc Drug Dose 141.4 ml/min Estimated GFR () 122.1 Estimated GFR (Non- 105.3 BUN/Creatinine Ratio 10.5 Random Glucose 158 mg/dl Calcium Level 9.1 mg/dl Magnesium Level 2.1 mg/dl Test 02/13/17 11:48 Bedside Glucose 186 mg/dl Assessment and Plan This pt is a 51 y/o female with a history of metastatic non small cell lung cancer with mets to LNs and brain, DM II, HTN, HLD, hypothyroidism, anemia, COPD , asthma, anxiety, depression, PTSD, and GERD who presented to the ED on 02/11 with worsening shortness of breath and worsening sputum production. She was recently treated as an outpt with 10 days of po Levaquin for presumed PNA. Outpatient repeat CXR shows unchanged left pleural effusion and left upper lobe infiltrate with probable CHF or edema. EKG did not show any ischemic changes. Pt was afebrile, VSS and on her home oxygen requirement of 3L NC. Pt received Lasix 40 mg IV x 1 in ED. Hgb 10.8. Potassium 3.4. POC troponin negative. BNP negative. Denies any worsening lower extremity edema, she has no history of CHF, and her pro BNP here is normal. CHF unlikely Progressive SOB, left malignant loculated pleural effusion with atelectasis, metastatic non small cell lung cancer, recurrent/ongoing PNA-probable failure of outpatient treatment for pneumonia. Also with pleural effusion. No evidence of sepsis, no leukocytosis or fevers. There is no evidence of CHF and no reason to continue diuresis at this point. Her effusion secondary to her malignancy. I discussed the case with Dr. Spangler of thoracic surgery at length-not enough fluid to tap at this time. Now considering bronchoscopy. PET/CT scan 01/23/17 shows progressive cancer with mets to bilateral lungs and significant lymphadenopathy Pt received 1 treatment of chemo which she did not tolerate. 17 sessions of radiation to the chest. Mets to the brain, received 2 treatments brain radiation in October 2016. Follows with Dr. Bajwa for oncology and Dr. Nash for radiation. There is consideration of restarting a lower dose of some sort of chemotherapy regimen, however her recent pneumonia has further delayed this. Improved after 2 days of IV abx but blowing through PIVs -switch to po doxy for 10 day course -consideration being given for bronchoscopy for tomorrow by CT Surgery -dc Cefepime -continue Nebulizers -Appreciate pulmonology and CT Surgery consultations -f/u Blood cultures Hypokalemia-persists -replace K+ -follow PRP Diarrhea, recent h/o hematochezia- Heme+ here but Hgb stable at 10.5 C. diff negative -consider GI consultation as outpt if willing to pursue endoscopy above and below -follow CBC DM II--last HgbA1c checked 01/18/17 was 6.8 -Continue Lantus 30 units SC qpm -Insulin sliding scale -Check BSGs q ac and qhs Chronic Fe-def anemia and probably some anemia of chronic disease-Fe studies mixed picture, also with Hemoccult positive -Baseline hgb 10-11, hgb is 10.8 on admission -Continue to monitor -could start FeSO4 HTN-not currently on treatment for this, BPs here have been acceptable -continue to check BPs routinely Hypothyroidism-TSH here normal -Continue Synthroid 150 mcg PO qd COPD and asthma -DuoNebs as above -Continue Advair BID and Singulair 10 mg PO qd Anxiety, depression, PTSD -Continue Ativan 1 mg PO TID prn anxiety and Zoloft 50 mg PO qhs GERD -Rabeprazole converted to pantoprazole 40 mg PO BID DVT prophylaxis -Enoxaparin 40 mg SC [id number] tonight in case of bronch -DARYN douglas and SCDs Code Status -Level I, FULL RESUSCITATION STATUS Dispo- to home on po abx in 1-2 days
[2017-02-13] MEDS ORDERED: POTASSIUM CHLORIDE 10 MEQ TABCR PO ONE (13:00)
--- NOTE | 2017-02-13 16:24 | Palliative Care Consultation ---
Consultation Date of Consultation: Feb 13, 2017. Requesting Physician: Dr. Hammond Attending Physician: Dr. Hammond Reason for Consultation: POLST form History of Present Illness This 51 year old female patient with history of metastatic non-small cell lung cancer, brain mets s/p radiation, and lymph node involvement, presented to [facility] with c/o worsening SOB. Other PMH listed below, HPI obtained from patient and record. She was diagnosed with pneumonia due to an abnormal chest x-ray a couple weeks ago, she was treated with 10 days Levaquin. She did not improve, so she came to hospital. She is being followed during this admission by pulmonology and thoracic surgery. She follows closely with her oncologist Tayler Patiño. She has received chemotherapy and radiation for the NSCLC, and did not tolerate either of them well. She had radiaton to her brain mets and did tolerate that well. Plan at this point is for patient to try a lower-dose chemotherapy once her pneumonia is cleared up. Patient was expressing her wishes to have some things in writing which would reflect her wishes and goals of care. [facility] was consulted for living will, palliative care consulted to discuss goals and POLST form. I did meet with patient in room 420. She's feeling fairly well with no current SOB or pain. Her goal is to prolong life, but do it as comfortably as possible with the best possible quality of life. She still wants to pursue further chemotherapy but she is skeptical. Patient states that if she is unable to tolerate this chemo and/or she declines, she would want to enter hospice care and just be comfortable. Her main concern is that she has NO SUFFERING at the end of life. She has no fear of dying, as she has strong mehnaz in God. See plan below. Past Medical/Surgical History Medical History: Nonsmall cell lung carcinoma, left upper lobe Emphysema Long history of cigarette smoking Depression Obesity Chronic pain syndrome with lower back pain Chronic obstructive pulmonary disease Diabetes mellitus Anxiety Asthma Hypertension Anemia Posttraumatic stress disorder Depression Hyperlipidemia Staph abscess of left thumb PAST SURGICAL HISTORY: Appendectomy Cholecystectomy Left thoracoscopy and wedge resection Mediastinoscopy Incision and drainage of left thumb Social History Smoking Status: Former Smoker (quit 10 years ago) History of Alcohol Use: No Drug Use: marijuana (occasional) Marital Status: in relationship Housing Status: lives with significant other Occupation Status: disabled Review of Systems Constitutional: + weakness ENT: No trouble swallowing Respiratory: + cough, + sputum, + dyspnea on exertion, No wheezing Cardiac: + edema, No chest pain Abdomen: No pain, No nausea, No vomiting Female : No problem reported Skin: No problem reported Allergies Coded Allergies: BEE STING (Verified Allergy, Severe, ANAPHYLAXIS, 01/21/17) Fentanyl (Verified Allergy, Severe, EYES SWELLED SHUT, 01/21/17) Adhesives (Verified Allergy, Unknown, blisters, 01/21/17) [place] (Unverified Allergy, Unknown, MOUTH ITCHES, SKIN PEELS, 01/21/17) Honey (Verified Allergy, Unknown, anaphylaxis, 01/21/17) pt Latex1 -Allergic Contact Dermititis (Verified Allergy, Unknown, LOCAL RXN- BLISTERING, 01/21/17) Metformin (Verified Allergy, Unknown, PER RECORDS , 01/21/17) [place] (Verified Allergy, Unknown, SKIN PEELS, 01/21/17) [place] (Verified Allergy, Unknown, MUST BE PEELED, 01/21/17) Penicillins (Verified Allergy, Unknown, 01/21/17) Tiotropium (Verified Allergy, Unknown, UNKNOWN REACTION, 01/21/17) Buspirone (Verified Adverse Reaction, Mild, ALLERGIC TO GENERIC DRUG- TAKES BRAND AT HOME, 01/21/17) Duloxetine (Verified Adverse Reaction, Unknown, lethargy,hallucinations, ) pt Uncoded Allergies: CHEMO (Adverse Reaction, Severe, ELEVATED BP, SEVERE MIGRAINE, 08/06/16) Medications Current Inpatient Medications Medications (Trade) Dose Ordered Sig/Pravin Route Start Time Stop Time Status Last Admin Dose Admin Acetaminophen (Tylenol Tab) 650 mg Q4H PRN PO 02/11/17 15:30 03/13/17 15:29 Al Hydrox/Mg Hydrox/Simethicone (Maalox Max Susp) 15 ml Q4H PRN PO 02/11/17 15:30 03/13/17 15:29 Magnesium Hydroxide (Milk Of Magnesia Susp) 30 ml Q12H PRN PO 02/11/17 15:30 03/13/17 15:29 Ondansetron HCl (Zofran Inj) 4 mg Q6H PRN IV 02/11/17 15:30 03/13/17 15:29 02/11/17 20:08 4 MG Polyethylene (Miralax Powder Packet) 17 gm DAILY PRN PO 02/11/17 15:30 03/13/17 15:29 Glucose (Glucose 40% Gel) 15-30 GRAMS 15 GRAMS... UD PRN PO 02/11/17 15:30 03/13/17 15:29 Glucose (Glucose Chew Tab) 4-8 Tablets 4 Tabl... UD PRN PO 02/11/17 15:30 03/13/17 15:29 Dextrose (Dextrose 50% 50ML Syringe) 25-50ML OF 50% DW IV FOR... UD PRN IV 02/11/17 15:30 03/13/17 15:29 Glucagon (Glucagon Inj) 1 mg UD PRN SQ 02/11/17 15:30 03/13/17 15:29 Diphenhydramine HCl (Benadryl Cap) 25 mg QAM PO 02/12/17 09:00 03/14/17 08:59 02/13/17 07:57 25 MG Diphenhydramine HCl (Benadryl Cap) 50 mg HS PO 02/11/17 21:00 03/13/17 20:59 02/12/17 20:44 50 MG Epinephrine (Epipen) 0.3 mg UD PRN IM 02/11/17 15:30 03/13/17 15:29 Salmeterol Xinafoate/ Fluticasone (Advair Diskus 500/50 Inh) 1 puff BID INH 02/11/17 21:00 03/13/17 20:59 02/13/17 07:57 1 PUFF Insulin Glargine (Lantus Solostar Pen) 30 units QPM SC 02/11/17 21:00 03/13/17 20:59 02/12/17 20:49 30 UNITS Levothyroxine Sodium (Synthroid Tab) 150 mcg DAILYBB PO 02/12/17 06:30 03/14/17 06:59 02/13/17 05:05 150 MCG Lorazepam (Ativan Tab) 1 mg TID PRN PO 02/11/17 15:30 03/13/17 15:29 02/13/17 07:56 1 MG Montelukast Sodium (Singulair Tab) 10 mg HS PO 02/11/17 21:00 03/13/17 20:59 02/12/17 20:43 10 MG Sertraline HCl (Zoloft Tab) 50 mg HS PO 02/11/17 21:00 03/13/17 20:59 02/12/17 20:43 50 MG Pantoprazole Sodium (Protonix Tab) 40 mg BID PO 02/11/17 21:00 03/13/17 20:59 02/13/17 07:57 40 MG Albuterol/ Ipratropium (Duoneb) 3 ml QIDR INH 02/11/17 16:00 03/13/17 15:59 02/13/17 15:18 3 ML Insulin Aspart (novoLOG ASPART) SLIDING SCALE G... ACHS SC 02/11/17 18:00 03/13/17 17:59 Enoxaparin Sodium (Lovenox Inj) 40 mg HS SQ 02/11/17 21:00 03/13/17 20:59 Future Hold 02/12/17 20:44 40 MG Doxycycline Hyclate (Vibramycin Cap) 100 mg BID PO 02/13/17 20:00 02/19/17 07:59 Physical Exam Date Time Temp Pulse Resp B/P (MAP) Pulse Ox O2 Delivery O2 Flow Rate FiO2 02/13/17 16:10 36.9 92 18 117/74 (88) 96 Nasal Cannula 4.0 02/13/17 16:00 Nasal Cannula 4.0 02/13/17 15:21 91 17 91 Nasal Cannula 4.0 02/13/17 12:00 36.7 93 16 117/80 (92) 96 Nasal Cannula 4.0 02/13/17 11:48 105 30 87 Nasal Cannula 4.0 02/13/17 08:00 Nasal Cannula 4.0 02/13/17 07:43 91 15 91 Nasal Cannula 4.0 02/13/17 07:33 37.0 87 16 120/77 (91) 90 Nasal Cannula 4.0 02/13/17 03:49 37.0 89 20 127/72 (90) 91 Nasal Cannula 4.0 02/13/17 00:00 Nasal Cannula 4.0 02/12/17 23:55 37.0 91 18 128/76 (93) 92 Nasal Cannula 4.0 02/12/17 20:14 82 18 91 Nasal Cannula 4.0 General Appearance: no apparent distress, + obese, + pertinent finding ( chronically ill-appearing) ENT: hearing grossly normal Neck: supple, no JVD Respiratory: no respiratory distress, no accessory muscle use, + decreased breath sounds (bilatral bases), + crackles (few, fine in LLL), + pertinent finding (nasal cannula) Cardiovascular: regular rate, rhythm, + normal peripheral pulses Abdomen: normal bowel sounds, non tender, soft Neurologic/Psychiatric: alert, normal mood/affect, oriented x 3 Skin: normal color Laboratory Results Last 24 Hours Test 02/12/17 16:24 02/12/17 20:35 02/13/17 07:04 02/13/17 08:02 Bedside Glucose 173 mg/dl 171 mg/dl 152 mg/dl White Blood Count 6.36 K/uL Red Blood Count 4.11 M/uL Hemoglobin 10.5 g/dL Hematocrit 34.4 % Mean Corpuscular Volume 83.7 fL Mean Corpuscular Hemoglobin 25.5 pg Mean Corpuscular Hemoglobin Concent 30.5 g/dl RDW Standard Deviation 49.0 fL RDW Coefficient of Variation 16.1 % Platelet Count 177 K/uL Mean Platelet Volume 9.2 fL Sodium Level 139 mmol/L Potassium Level 3.3 mmol/L Chloride Level 100 mmol/L Carbon Dioxide Level 36 mmol/L Anion Gap 3.0 mmol/L Blood Urea Nitrogen 7 mg/dl Creatinine 0.63 mg/dl Est Creatinine Clear Calc Drug Dose 141.4 ml/min Estimated GFR () 122.1 Estimated GFR (Non- 105.3 BUN/Creatinine Ratio 10.5 Random Glucose 158 mg/dl Calcium Level 9.1 mg/dl Magnesium Level 2.1 mg/dl Test 02/13/17 11:48 Bedside Glucose 186 mg/dl Assessment & Plan Problem list: SOB Productive cough Left malignant loculated pleural effusion with atelectasis Metastatic non small cell lung cancer Recurrent/ongoing PNA Pleural effusion Anxiety/depression/PTSD COPD Goals of care (Z51.5) Palliative care recs: discussed with patient and Dr. Hammond. -Patient would like to be DNR/DNI. Absolutely does not want to be placed on ventilator. -Goal is to get better, go home, and have another trial of chemotherapy as she has discussed with her oncologist. -Patient states that if she fails with the chemo and/or declines, she would want to be placed on hospice and made comfortable. -Main concern is to not suffer at end of life. Wants any and all medications to be given to relieve pain and/or suffering. She is currently having no symptoms. -Patient used to have a lot of anger and hostility toward the world due to her diagnosis and situation. She now has accepted reality and finds comfort in her strong mehnaz. -POLST form completed as follows: DNR, limited additional interventions, abx if life can be prolonged- only if there is hope of recovery, and trial of IVF if indicated with comfort as the goal, no feeding tube. -Patient also completed living will with service excellence/patient advocate which named her aunt Patt Paredes as her POA. Stated at end-stage she would not want any life-prolonging/heroic measures. Thank you kindly for this consult. I will follow peripherally for now.
[2017-02-13] MEDS: DOXYCYCLINE HYCLATE 100 MG CAP PO SCH (19:58)
[2017-02-13] MEDS: MONTELUKAST SOD 10 MG TAB PO SCH (20:00)
[2017-02-13] MEDS: SERTRALINE HCL 50 MG TAB PO SCH (20:00)
[2017-02-13] MEDS: INSULIN GLARGINE SOLOSTAR 100 UNITS/ML 3 ML PEN SC SCH (20:04)
--- NOTE | 2017-02-13 20:12 | SURGERY PROGRESS NOTE ---
DATE: 02/13/2017 Carina was seen today, actually with Dr. Hammond and Dr. Lamb. She looks better. She is not nearly as short of breath to talk to. On exam, she really has no wheezing today. She is still producing copious amounts of purulent sputum. She grudgingly states that she feels a bit better. We have gone into a couple of issues; one such issue is poor IV access in this patient. We have switched her over to p.o. medication; however, I believe this patient is sick. I know Ms. Morrison and I believe that she has an upper respiratory infection. We will see how she looks in the morning. She may need a bronchoscopy. RON
--- NOTE | 2017-02-13 22:33 | Pulmonology Progress Note ---
Pulmonary Progress Note Date of Service Feb 13, 2017. Attending Dr. Lamb Subjective Patient seen and examined today. Dr. Hammond and Dr. Spangler at bedside. She states that she is feeling somewhat better today. She still is having dyspnea on exertion. She was able to ambulate to bathroom, but felt "winded" afterwards. Wheezing has resolved. She still is having intermittent sputum production, sometimes yellowish to greenish in color. She complains that IV keep blowing. Objective VS: reviewed. SaO2 87-96% on 4L NC. O/E: Gen: AAOx3, NAD, Speaking in full sentences, not in any respiratory distress CVS: S1,S2, RRR Lungs: CTA b/l, decrease breath sounds on left base Abd: Obese, NT, ND/BS+ Ext: no edema b/l, LE, no cyanosis, no clubbing Labs, imaging and medications reviewed. Blood cultures form 02/11/2017--no growth to date CXR 02/13/2017 Enlarged cardiac silhouette unchanged. Stable to slight interval increase in perihilar vascular indistinctness and left upper lobe opacity. Moderate and left pleural effusion. Osseous structures normal. Upper abdomen normal. IMPRESSION: 1. Stable to slight interval increase in findings of developing pulmonary edema. 2. Stable slight interval increase in left upper lobe consolidation, which is consistent with pneumonia. 3. Moderate left (parapneumonic) effusion. Assessment & Plan Metastatic non-small cell lung cancer COPD Anxiety/depression Left Pleural effusion Post obstructive pneumonia 51-year-old female with metastatic lung cancer presenting with worsening dyspnea on exertion most likely secondary to progression of disease. There may be a component of postobstructive pneumonia so I do agree with empiric treatment with antibiotics at this time. Repeat CXR is relatively unchanged from previous. She is feeling somewhat better today. She continues to blow IVs and administrations IV medications has been problematic. She remains afebrile with a normal white blood cell count. She is having less sputum production today. . Continue with supplemental oxygenation to maintain SaO2 above 92%. Continue with nebulizers. I think she may benefit from a 10 day course of antibiotics I will send it for sputum culture. If she does not improve clinically, a bronchoscopy may be needed. She should follow up with oncology to see what options can be offered to her,if any. She reiterated that she does not want to suffer and would like to be made DNR. This is well documented in the palliative care note from earlier today. I will continue to follow. Data Medications: Current Inpatient Medications Medications (Trade) Dose Ordered Sig/Pravin Route Start Time Stop Time Status Last Admin Dose Admin Acetaminophen (Tylenol Tab) 650 mg Q4H PRN PO 02/11/17 15:30 03/13/17 15:29 Al Hydrox/Mg Hydrox/Simethicone (Maalox Max Susp) 15 ml Q4H PRN PO 02/11/17 15:30 03/13/17 15:29 Magnesium Hydroxide (Milk Of Magnesia Susp) 30 ml Q12H PRN PO 02/11/17 15:30 03/13/17 15:29 Ondansetron HCl (Zofran Inj) 4 mg Q6H PRN IV 02/11/17 15:30 03/13/17 15:29 02/11/17 20:08 4 MG Polyethylene (Miralax Powder Packet) 17 gm DAILY PRN PO 02/11/17 15:30 03/13/17 15:29 Glucose (Glucose 40% Gel) 15-30 GRAMS 15 GRAMS... UD PRN PO 02/11/17 15:30 03/13/17 15:29 Glucose (Glucose Chew Tab) 4-8 Tablets 4 Tabl... UD PRN PO 02/11/17 15:30 03/13/17 15:29 Dextrose (Dextrose 50% 50ML Syringe) 25-50ML OF 50% DW IV FOR... UD PRN IV 02/11/17 15:30 03/13/17 15:29 Glucagon (Glucagon Inj) 1 mg UD PRN SQ 02/11/17 15:30 03/13/17 15:29 Diphenhydramine HCl (Benadryl Cap) 25 mg QAM PO 02/12/17 09:00 03/14/17 08:59 02/13/17 07:57 25 MG Diphenhydramine HCl (Benadryl Cap) 50 mg HS PO 02/11/17 21:00 03/13/17 20:59 02/13/17 20:01 50 MG Epinephrine (Epipen) 0.3 mg UD PRN IM 02/11/17 15:30 03/13/17 15:29 Salmeterol Xinafoate/ Fluticasone (Advair Diskus 500/50 Inh) 1 puff BID INH 02/11/17 21:00 03/13/17 20:59 02/13/17 20:01 1 PUFF Insulin Glargine (Lantus Solostar Pen) 30 units QPM SC 02/11/17 21:00 03/13/17 20:59 02/13/17 20:04 30 UNITS Levothyroxine Sodium (Synthroid Tab) 150 mcg DAILYBB PO 02/12/17 06:30 03/14/17 06:59 02/13/17 05:05 150 MCG Lorazepam (Ativan Tab) 1 mg TID PRN PO 02/11/17 15:30 03/13/17 15:29 02/13/17 18:10 1 MG Montelukast Sodium (Singulair Tab) 10 mg HS PO 02/11/17 21:00 03/13/17 20:59 02/13/17 20:00 10 MG Sertraline HCl (Zoloft Tab) 50 mg HS PO 02/11/17 21:00 03/13/17 20:59 02/13/17 20:00 50 MG Pantoprazole Sodium (Protonix Tab) 40 mg BID PO 02/11/17 21:00 03/13/17 20:59 02/13/17 20:00 40 MG Albuterol/ Ipratropium (Duoneb) 3 ml QIDR INH 02/11/17 16:00 03/13/17 15:59 02/13/17 19:35 3 ML Insulin Aspart (novoLOG ASPART) SLIDING SCALE G... ACHS SC 02/11/17 18:00 03/13/17 17:59 Enoxaparin Sodium (Lovenox Inj) 40 mg HS SQ 02/11/17 21:00 03/13/17 20:59 Future Hold 02/12/17 20:44 40 MG Doxycycline Hyclate (Vibramycin Cap) 100 mg BID PO 02/13/17 20:00 02/19/17 07:59 I & O: 24-Hour Column 02/14/17 08:00 Intake Total 281 ml Balance 281 ml Vital Signs: Date Time Temp Pulse Resp B/P (MAP) Pulse Ox O2 Delivery O2 Flow Rate FiO2 02/13/17 19:38 88 16 90 Nasal Cannula 4.0 02/13/17 19:28 36.6 96 20 117/66 (83) 90 Nasal Cannula 4.0 02/13/17 16:10 36.9 92 18 117/74 (88) 96 Nasal Cannula 4.0 02/13/17 16:00 Nasal Cannula 4.0 02/13/17 15:21 91 17 91 Nasal Cannula 4.0 02/13/17 12:00 36.7 93 16 117/80 (92) 96 Nasal Cannula 4.0 02/13/17 11:48 105 30 87 Nasal Cannula 4.0 02/13/17 08:00 Nasal Cannula 4.0 02/13/17 07:43 91 15 91 Nasal Cannula 4.0 02/13/17 07:33 37.0 87 16 120/77 (91) 90 Nasal Cannula 4.0 02/13/17 03:49 37.0 89 20 127/72 (90) 91 Nasal Cannula 4.0 02/13/17 00:00 Nasal Cannula 4.0 02/12/17 23:55 37.0 91 18 128/76 (93) 92 Nasal Cannula 4.0 Laboratory Results: Last 24 Hours Test 02/13/17 07:04 02/13/17 08:02 02/13/17 11:48 02/13/17 16:32 White Blood Count 6.36 K/uL Red Blood Count 4.11 M/uL Hemoglobin 10.5 g/dL Hematocrit 34.4 % Mean Corpuscular Volume 83.7 fL Mean Corpuscular Hemoglobin 25.5 pg Mean Corpuscular Hemoglobin Concent 30.5 g/dl RDW Standard Deviation 49.0 fL RDW Coefficient of Variation 16.1 % Platelet Count 177 K/uL Mean Platelet Volume 9.2 fL Sodium Level 139 mmol/L Potassium Level 3.3 mmol/L Chloride Level 100 mmol/L Carbon Dioxide Level 36 mmol/L Anion Gap 3.0 mmol/L Blood Urea Nitrogen 7 mg/dl Creatinine 0.63 mg/dl Est Creatinine Clear Calc Drug Dose 141.4 ml/min Estimated GFR () 122.1 Estimated GFR (Non- 105.3 BUN/Creatinine Ratio 10.5 Random Glucose 158 mg/dl Calcium Level 9.1 mg/dl Magnesium Level 2.1 mg/dl Bedside Glucose 152 mg/dl 186 mg/dl 159 mg/dl Test 02/13/17 19:51 Bedside Glucose 156 mg/dl
[2017-02-14] VITALS (10 sets, daily range): BP systolic 99–138; BP diastolic 64–84; PULSE 79–107; TEMP 36.6–37.2; O2SAT 89–92
[2017-02-14] MEDS: INSULIN ASPART 100 UNITS/ML 3 ML PEN SC SCH ×4 (06:30→20:55)
[2017-02-14] MEDS: LEVOTHYROXINE 150 MCG TAB PO SCH (06:42)
[2017-02-14] MEDS: LORAZEPAM 1 MG TAB PO PRN ×2 (06:47→20:11)
[2017-02-14 07:04] LABS: HEMATOCRIT 33.9 % (37-47); MEAN CELL VOLUME 83.9 fL (80-100); MEAN PLATELET VOLUME 9.1 fL (7.4-10.4); PLATELET COUNT 180 K/uL (130-400); RED BLOOD COUNT 4.04 M/uL (4.2-5.4); WHITE BLOOD COUNT 6.25 K/uL (4.8-10.8)
[2017-02-14] MEDS: ALBUT/IPRATROP 3MG/0.5MG NEB 3 ML VIAL INH SCH ×4 (07:11→19:51)
[2017-02-14 07:39] LABS: CREATININE 0.58 mg/dl (0.60-1.20)
[2017-02-14 07:40] LABS: BUN/CREATININE RATIO 13.3 (10-20); CALCIUM 9.1 mg/dl (8.5-10.1); MAGNESIUM 2.1 mg/dl (1.8-2.4); POTASSIUM 3.5 mmol/L (3.5-5.1)
[2017-02-14] MEDS: DOXYCYCLINE HYCLATE 100 MG CAP PO SCH (08:00)
[2017-02-14] MEDS: FLUTICASONE/SALMETEROL (ADVAIR) 500/50 INH 14 PUFF INH SCH ×2 (08:04→20:11)
[2017-02-14] MEDS: PANTOprazole SOD 40 MG TAB PO SCH ×2 (08:05→20:10)
[2017-02-14] MEDS: LEVOFLOXACIN / D5W 750 MG in PREMIXED IN D5W 150 ML IV SCH (12:45)
[2017-02-14] MEDS: CEFEPIME IV 2,000 MG in DEXTROSE 5% 100ML 100 ML IV SCH ×2 (12:45→20:16)
--- NOTE | 2017-02-14 15:34 | Anesthesiology Progress Note ---
Pre-OP Anesthesia Assessment Date of Note Feb 14, 2017. Review patient information reviewed, chart reviewed, labs reviewed, acceptable for surgery Notes 51 yo female diagnosed with lung CA, has worsening dyspnea. Scheduled for bronchoscopy under anesthesia. PMH includes morbid obesity, Asthma/COPD, HTN, hyperlipidemia, GERD, hypothyroidism, anemia, anxiety, depression. She has had anesthesia before without complications. Discussed general anesthesia with pt, including high risk due to underlying disease. She expressed understanding and signed informed consent.
--- NOTE | 2017-02-14 16:26 | PROGRESS NOTE ---
DATE: 02/14/2017 Ms. Morrison was seen today on 02/14/2017. I had a long talk with the patient as well as Dr. Lamb and Dr. Hammond. She has not really responded as well as I would like. In addition, she is getting p.o. antibiotics. She states today that she had a worse night than she did since she has been here. She sounds about the some on altercation and looks about the same. She is still bringing up copious amounts of yellow sputum. I am going to perform a bronchoscopy on her and biopsy the right level 4 node. She is interesting that she had a left supraclavicular node which was hypermetabolic which is better only without treatment is definitely smaller. We will closely inspect her left mainstem bronchus and upper and lower lobe bronchi and get a good culture results tomorrow. This patient has not been able to tolerate a bronchoscopy with sedation in the past. We will do a bronchoscopy under general anesthesia tomorrow morning.
[2017-02-14] MEDS: ACETAMINOPHEN 325 MG TAB PO PRN (17:31)
[2017-02-14] MEDS: MONTELUKAST SOD 10 MG TAB PO SCH (20:09)
[2017-02-14] MEDS: SERTRALINE HCL 50 MG TAB PO SCH (20:10)
[2017-02-14] MEDS: INSULIN GLARGINE SOLOSTAR 100 UNITS/ML 3 ML PEN SC SCH (20:15)
--- NOTE | 2017-02-14 23:08 | Hospitalist Progress Note ---
Hospitalist Progress Note Date of Service Feb 14, 2017. Subjective Pt evaluation today including: conversation w/ patient, physical exam, conversation w/ fashion consultant sales (Dr. Spangler) Pt refused po doxy as it was upsetting her stomach and as of this AM when I saw her had not had any antibiotics in 1 day. She c/o the redness on her forearms from her previous IV sites (thrombophlebitis). Discussed PICC/Midline with her initially and she refused/was scared. She got another PIV which then also infiltrated. She then got another PIV (4th or 5th in 3 days) and had pain with infusion of Levaquin so insisted it be stopped. Pt then was agreeable to midline placement in the AM for IV access while in hospital after discussion of risks/benefits/alternatives. Coughing up a lot of sputum, not feeling better and actually feels worse today. Constitutional: No fever Respiratory: + cough, + sputum, + wheezing, + shortness of breath Abdomen: + nausea All Other Systems: Reviewed and Negative Objective Vital Signs Date Time Temp Pulse Resp B/P (MAP) Pulse Ox O2 Delivery O2 Flow Rate FiO2 02/14/17 22:44 Nasal Cannula 4.0 02/14/17 20:25 36.8 91 18 126/84 (98) 90 Nasal Cannula 4.0 02/14/17 19:51 92 16 92 Nasal Cannula 4.0 02/14/17 18:29 Nasal Cannula 4.0 02/14/17 17:40 36.9 107 18 138/84 (102) 91 Nasal Cannula 4.0 02/14/17 15:32 37.2 101 18 113/74 (87) 90 Nasal Cannula 4.0 02/14/17 14:33 79 16 91 Nasal Cannula 4.0 02/14/17 11:34 37.0 95 20 137/80 (99) 90 Nasal Cannula 4.0 02/14/17 08:00 Nasal Cannula 4.0 02/14/17 07:26 37.0 88 16 123/75 (91) 89 Nasal Cannula 4.0 02/14/17 07:14 88 16 89 Nasal Cannula 4.0 02/14/17 04:04 36.6 85 18 101/66 (78) 90 4.0 02/14/17 00:45 36.8 93 16 99/64 (76) 90 4.0 02/14/17 00:00 Nasal Cannula 4.0 Physical Exam General Appearance: + mild distress, + obese Eyes: normal inspection, sclerae normal ENT: hearing grossly normal Neck: trachea midline Respiratory/Chest: + respiratory distress (mild, with tachypnea), + decreased breath sounds (at left base, with scattered wheezes and rhonchi throughout) Cardiovascular: regular rate, rhythm, no edema, no gallop, no murmur Abdomen: normal bowel sounds, non tender, soft Extremities: normal inspection, no pedal edema, no calf tenderness Neurologic/Psychiatric: alert, + pertinent finding (anxious) Skin: warm/dry, + rash (right dorsal forearm with +erythema overlying vein with cord palpable with +TTP, left dorsal forearm with small patch erythema around) Laboratory Results Last 24 Hours Test 02/14/17 06:36 02/14/17 07:38 02/14/17 11:30 02/14/17 16:31 White Blood Count 6.25 K/uL Red Blood Count 4.04 M/uL Hemoglobin 10.5 g/dL Hematocrit 33.9 % Mean Corpuscular Volume 83.9 fL Mean Corpuscular Hemoglobin 26.0 pg Mean Corpuscular Hemoglobin Concent 31.0 g/dl RDW Standard Deviation 49.1 fL RDW Coefficient of Variation 16.0 % Platelet Count 180 K/uL Mean Platelet Volume 9.1 fL Sodium Level 140 mmol/L Potassium Level 3.5 mmol/L Chloride Level 101 mmol/L Carbon Dioxide Level 34 mmol/L Anion Gap 5.0 mmol/L Blood Urea Nitrogen 8 mg/dl Creatinine 0.58 mg/dl Est Creatinine Clear Calc Drug Dose 153.4 ml/min Estimated GFR () 125.4 Estimated GFR (Non- 108.2 BUN/Creatinine Ratio 13.3 Random Glucose 145 mg/dl Calcium Level 9.1 mg/dl Magnesium Level 2.1 mg/dl Bedside Glucose 153 mg/dl 161 mg/dl 154 mg/dl Test 02/14/17 19:59 Bedside Glucose 173 mg/dl Assessment and Plan This pt is a 51 y/o female with a history of metastatic non small cell lung cancer with mets to LNs and brain, DM II, HTN, HLD, hypothyroidism, anemia, COPD , asthma, anxiety, depression, PTSD, and GERD who presented to the ED on 02/11 with worsening shortness of breath and worsening sputum production. She was recently treated as an outpt with 10 days of po Levaquin for presumed PNA. Outpatient repeat CXR shows unchanged left pleural effusion and left upper lobe infiltrate. EKG did not show any ischemic changes. Pt was afebrile, VSS and on her home oxygen requirement of 3L NC. Pt received Lasix 40 mg IV x 1 in ED as was thought to be CHF. POC troponin negative. BNP negative. Denies any worsening lower extremity edema, she has no history of CHF, and her pro BNP here is normal. CHF unlikely Progressive SOB, left malignant loculated pleural effusion with atelectasis, metastatic non small cell lung cancer, recurrent/ongoing PNA-probable failure of outpatient treatment for pneumonia. Also with pleural effusion. No evidence of sepsis, no leukocytosis or fevers. There is no evidence of CHF and no reason to continue diuresis at this point. Her effusion secondary to her malignancy. I discussed the case with Dr. Spangler of thoracic surgery at length-not enough fluid to tap at this time. Now is not improving on antibiotics --> going for bronchoscopy and biopsy of lymph node tomorrow. -dc po doxy and restart Cefepime and Levaquin (pt refuses doxy) -bronchoscopy to obtain sputum sample and possibly clear out infection -continue Nebulizers -Appreciate pulmonology and CT Surgery consultations -f/u Blood cultures -place midline tomorrow for improved access as has lost numerous PIVs Metastatic NSCLC: PET/CT scan 01/23/17 shows progressive cancer with mets to bilateral lungs and significant lymphadenopathy Pt received 1 treatment of chemo which she did not tolerate. 17 sessions of radiation to the chest. Mets to the brain, received 2 treatments brain radiation in October 2016. Follows with Dr. Bajwa for oncology and Dr. Nash for radiation. There is consideration of restarting a lower dose of some sort of chemotherapy regimen, however her recent pneumonia has further delayed this. -f/u with Oncology after discharge -Palliative Care consult appreciated-pt wishes to enroll in hospice if she is not able to move forward with chemo again Hypokalemia-resolved after replacement -follow PRP Diarrhea, recent h/o hematochezia- Heme+ here but Hgb stable at 10.5 C. diff negative -consider GI consultation as outpt if willing to pursue endoscopy above and below -follow CBC DM II--last HgbA1c checked 01/18/17 was 6.8 -Continue Lantus 30 units SC qpm -Insulin sliding scale -Check BSGs q ac and qhs Chronic Fe-def anemia and probably some anemia of chronic disease-Fe studies mixed picture, also with Hemoccult positive -Baseline hgb 10-11, hgb is 10.8 on admission -Continue to monitor -could start FeSO4 HTN-not currently on treatment for this, BPs here have been acceptable -continue to check BPs routinely Hypothyroidism-TSH here normal -Continue Synthroid 150 mcg PO qd COPD and asthma -DuoNebs as above -Continue Advair BID and Singulair 10 mg PO qd Anxiety, depression, PTSD -Continue Ativan 1 mg PO TID prn anxiety and Zoloft 50 mg PO qhs GERD -Rabeprazole converted to pantoprazole 40 mg PO BID DVT prophylaxis -Enoxaparin 40 mg SC [id number] tonight in case of bronch -DARYN douglas and SCDs Code Status -Level I, FULL RESUSCITATION STATUS Dispo- to home when improved
[2017-02-15] VITALS (16 sets, daily range): BP systolic 91–128; BP diastolic 61–81; PULSE 82–104; TEMP 36.6–37; O2SAT 89–94
[2017-02-15] MEDS: CEFEPIME IV 2,000 MG in DEXTROSE 5% 100ML 100 ML IV SCH ×3 (05:30→20:26)
[2017-02-15] MEDS: LEVOTHYROXINE 150 MCG TAB PO SCH (05:31)
[2017-02-15] MEDS: INSULIN ASPART 100 UNITS/ML 3 ML PEN SC SCH ×4 (06:30→20:25)
--- NOTE | 2017-02-15 06:52 | History & Physical Bridge Note ---
H&P Re-Evaluation Bridge Note: I have examined the patient, reviewed the History & Physical and in the interval since the performance of the History & Physical I have noted the following changes of clinical significance: Her Breath sounds are decreased in left lung field. Will recheck a CXR prior to surgery. Clinically unchanged. Remains quite SOB.
[2017-02-15] MEDS: ALBUT/IPRATROP 3MG/0.5MG NEB 3 ML VIAL INH SCH ×4 (06:55→19:12)
--- NOTE | 2017-02-15 07:15 | DIAGNOSTIC IMAGING REPORT ---
CHEST ONE VIEW PORTABLE CLINICAL HISTORY: short of breath LUNG CARCINOMA COMPARISON STUDY: 02/13/2017 FINDINGS: The heart remains enlarged. There is a persistent left pleural effusion with associated left basilar airspace opacities. There is diffuse elevation of the interstitium consistent with pulmonary edema. There is left lung volume loss.[ There is a more focal left upper lobe airspace opacity. This could represent pneumonia, or focal edema. IMPRESSION: No significant change from the prior study. Persistent cardiomegaly. Interstitial edema pattern. Left pleural effusion with left lower lobe atelectasis/consolidation. Nonspecific left upper lung zone airspace opacities. Electronically signed by: Raul Ortiz M.D. 02/15/2017 7:13 AM Dictated Date/Time: 02/15/2017 7:12 AM
[2017-02-15] MEDS: PANTOprazole SOD 40 MG TAB PO SCH ×2 (07:21→20:18)
[2017-02-15] MEDS: FLUTICASONE/SALMETEROL (ADVAIR) 500/50 INH 14 PUFF INH SCH ×2 (07:22→20:18)
[2017-02-15] MEDS ORDERED: ATROPINE SULFATE 0.1 MG/ML 5ML SYR IV PRN (08:30)
[2017-02-15] MEDS ORDERED: ONDANSETRON INJ 2 MG/ML 2 ML VIAL IV PRN (08:30)
[2017-02-15] MEDS ORDERED: HYDROmorphone INJ 1 MG/ML SYR IV PRN (08:30)
[2017-02-15] MEDS ORDERED: LABETALOL HCL IV 5 MG/ML 20ML IV PRN (08:30)
[2017-02-15] MEDS ORDERED: MEPERIDINE HCL 25 MG/ML CARP IV PRN (08:30)
[2017-02-15] MEDS ORDERED: EpHEDrine SULFATE INJ 50 MG/ML AMP IV PRN (08:30)
--- NOTE | 2017-02-15 09:11 | DIAGNOSTIC IMAGING REPORT ---
CHEST ONE VIEW PORTABLE CLINICAL HISTORY: s/p EBU / FOB COMPARISON STUDY: 02/15/2017 6:54 AM FINDINGS: No evidence pneumothorax post bronchoscopy. Cardiomegaly with findings of pulmonary edema. Left pleural effusion unchanged. IMPRESSION: No evidence pneumothorax. Pulmonary edema slightly progressive. The above report was generated using voice recognition software. It may contain grammatical, syntax or spelling errors. Electronically signed by: Urbano Ricketts M.D. 02/15/2017 9:09 AM Dictated Date/Time: 02/15/2017 9:02 AM
[2017-02-15] MEDS ORDERED: METHYLPREDNISOLONE IV 40 MG in SYRINGE 0 ML IV ONE (09:45)
--- NOTE | 2017-02-15 09:49 | OPERATIVE REPORT ---
DATE OF OPERATION: 02/15/2017 PREOPERATIVE DIAGNOSES: 1. Stage IV nonsmall cell lung carcinoma. 2. Productive cough with questionable pneumonia. POSTOPERATIVE DIAGNOSES: 1. No evidence of endobronchial lesions. 2. Metastatic lung cancer N3 nodes. PROCEDURE: 1. Endobronchial ultrasound with biopsy. 2. Fiberoptic bronchoscopy with washings. SURGEON: Dr. Spangler. SOLAR INSTALLATION TECHNICIAN: Aly Lewis RT. ANESTHESIA: General anesthesia with endotracheal intubation. INDICATION FOR PROCEDURE AND FINDINGS: Carina Morrison is a 51-year-old female that I know well. I performed a left thoracoscopy to diagnose a nonsmall cell lung carcinoma. She had N2 disease with an aortopulmonary window noted evolving at that time. The patient underwent some radiation therapy several months ago and also had one cycle of chemotherapy but has refused therapy since that time. Over the last few weeks, she has had a cough productive of purulent yellow sputum. She had 10 days of Levaquin and did not really respond and ended up having to be hospitalized. She has been on intravenous antibiotics since her admission 4 days ago. She really has not responded well. She does not have a white count or fever, but she is producing an impressive amount of sputum. I recommended a bronchoscopy as she was not responding. She does not tolerate procedures like this under sedation and we are going to have to give her general anesthesia. I told we would biopsy the N3 nodes also as they are hypermetabolic, although not that enlarged. On 02/15/2017, I brought the patient to the operating room, did an uncomplicated endobronchial ultrasound, biopsied the right level 10 and right level 4 nodes. These are positive for metastatic disease. I did irrigate out and did cultures of the left mainstem bronchus and left upper and lower bronchial trees. However, I really saw no sputum, whatsoever. I closely inspected the airways using a regular fiberoptic bronchoscope and looked all the way down into the right lower lobe, right middle lobe, right upper lobe and the tertiary branches and saw no evidence of sputum. The mucosa did not appear inflamed. The left side was similar. I went into the left upper lobe bronchus including the lingula as well as the left lower lobe bronchus. There was really no sputum here. I saw no endobronchial lesions. I slowly removed the bronchoscope. She tolerated it well. PROCEDURE: The patient brought to the operating room, laid in supine position. General anesthesia was induced and endotracheal intubation was performed with a large single lumen tube. This was done without difficulty. Clindamycin was given prophylactically, and after appropriate timeout had been called, the endobronchial ultrasound scope was placed. Upon placing the scope, I could see there was very little in the way of any sputum and there were no endobronchial lesions; however, I irrigated out the left mainstem bronchus before I did any biopsies or stirred up any bleeding. I then suctioned this out and sent it for Gram stain and culture. I then went over to the right side and saw there was a right level 10 node, although it was not very large and about 10 mm and I biopsied this several times. I then pulled it back and the right level 4 node was a bit larger and I biopsied this several times. Preliminary evaluation from the rapid on-site evaluation showed this to be malignant with some necrosis. We had very little in the way of bleeding. I did irrigate this out, so it completely stopped. I then closely inspected each airway starting in the basilar segments of the right lower lobe and right middle lobe and then the right upper lobe and saw no endobronchial lesions. Going in the left, it was similar. I went up into the apical superior segment as well as the lingula and saw no endobronchial lesions. Again, I went down into the left lower lobe bronchus and the basilar segments were free of sputum. I did irrigate this out and suctioned out again. I slowly removed the bronchoscope, saw no evidence of bleeding. She tolerated it well. I attest to the content of the Intraoperative Record and any orders documented therein. Any exception s are noted below.
--- NOTE | 2017-02-15 10:59 | Anesthesiology Progress Note ---
Anesthesia Post Op Note Date & Time Feb 15, 2017 at 10:59 Vital Signs Pain Intensity: 0.0 Vital Signs Past 12 Hours Date Time Temp Pulse Resp B/P (MAP) Pulse Ox O2 Delivery O2 Flow Rate FiO2 02/15/17 10:45 36.6 95 18 110/72 (85) 90 Nasal Cannula 5.0 02/15/17 10:34 91 Nasal Cannula 5.0 02/15/17 10:30 36.8 89 18 107/64 (78) 90 Nasal Cannula 5.0 02/15/17 10:15 36.8 92 18 119/75 (90) 90 Nasal Cannula 5.0 02/15/17 10:10 36.2 94 22 120/71 91 Nasal Cannula 4 02/15/17 09:55 36.2 98 22 114/58 89 Nasal Cannula 4 02/15/17 09:40 102 22 111/56 90 Nasal Cannula 4 02/15/17 09:30 101 22 124/75 90 Nasal Cannula 4 02/15/17 09:20 99 18 125/66 98 CPAP 100 02/15/17 09:10 104 18 140/80 96 CPAP 100 02/15/17 09:00 101 18 144/87 93 CPAP 100 02/15/17 08:45 99 14 164/85 92 CPAP 100 02/15/17 08:35 36.2 101 14 181/100 90 CPAP 100 02/15/17 08:00 Nasal Cannula 4.0 02/15/17 04:18 36.7 91 20 127/81 (96) 92 Nasal Cannula 4.0 02/15/17 00:02 36.8 87 20 91/61 (71) 90 Nasal Cannula 4.0 02/15/17 00:00 Nasal Cannula 4.0 Notes Mental Status: alert / awake / arousable, participated in evaluation Pt Amnestic to Procedure: Yes Nausea / Vomiting: adequately controlled Pain: adequately controlled Airway Patency, RR, SpO2: stable & adequate BP & HR: stable & adequate Hydration State: stable & adequate Anesthetic Complications: no major complications apparent
--- NOTE | 2017-02-15 12:08 | Pulmonology Progress Note ---
Pulmonary Progress Note Date of Service Feb 15, 2017. Attending Dr. Lamb Subjective Patient seen , but not examined. She is very angry this morning. She states that she wants answers. She want to know about the procedure, if I can not give her answered to get out. She refused to be examined and was combative. Objective CXR 02/16/2017 6 am IMPRESSION: No significant change from the prior study. Persistent cardiomegaly. Interstitial edema pattern. Left pleural effusion with left lower lobe atelectasis/consolidation. Nonspecific left upper lung zone airspace opacities Assessment & Plan Metastatic non-small cell lung cancer COPD Anxiety/depression Left Pleural effusion Post obstructive pneumonia 51-year-old female with metastatic lung cancer presenting with worsening dyspnea on exertion most likely secondary to progression of disease. There may be a component of postobstructive pneumonia so I do agree with empiric treatment with antibiotics at this time. Repeat CXR is relatively unchanged from previous. She is s/p bronchoscopy and lymph node biopsy. She is very combative today post procedure. Tearful and angry. She requesting "experimental drugs" to save her. I explained that Dr. Koroma will come to speak to her and she can follow up with oncology to see if anything else can be offered. Continue with current management. Continue with supplemental oxygenation to maintain SaO2 above 92%. Continue with nebulizers. I think she may benefit from a 10 day course of antibiotics Sputum cultures are pending. I will continue to follow if patient is amenable. Data Medications: Current Inpatient Medications Medications (Trade) Dose Ordered Sig/Pravin Route Start Time Stop Time Status Last Admin Dose Admin Acetaminophen (Tylenol Tab) 650 mg Q4H PRN PO 02/11/17 15:30 03/13/17 15:29 02/14/17 17:31 650 MG Al Hydrox/Mg Hydrox/Simethicone (Maalox Max Susp) 15 ml Q4H PRN PO 02/11/17 15:30 03/13/17 15:29 Magnesium Hydroxide (Milk Of Magnesia Susp) 30 ml Q12H PRN PO 02/11/17 15:30 03/13/17 15:29 Ondansetron HCl (Zofran Inj) 4 mg Q6H PRN IV 02/11/17 15:30 03/13/17 15:29 02/11/17 20:08 4 MG Polyethylene (Miralax Powder Packet) 17 gm DAILY PRN PO 02/11/17 15:30 03/13/17 15:29 Glucose (Glucose 40% Gel) 15-30 GRAMS 15 GRAMS... UD PRN PO 02/11/17 15:30 03/13/17 15:29 Glucose (Glucose Chew Tab) 4-8 Tablets 4 Tabl... UD PRN PO 02/11/17 15:30 03/13/17 15:29 Dextrose (Dextrose 50% 50ML Syringe) 25-50ML OF 50% DW IV FOR... UD PRN IV 02/11/17 15:30 03/13/17 15:29 Glucagon (Glucagon Inj) 1 mg UD PRN SQ 02/11/17 15:30 03/13/17 15:29 Diphenhydramine HCl (Benadryl Cap) 25 mg QAM PO 02/12/17 09:00 03/14/17 08:59 02/14/17 08:04 25 MG Diphenhydramine HCl (Benadryl Cap) 50 mg HS PO 02/11/17 21:00 03/13/17 20:59 02/14/17 20:10 50 MG Epinephrine (Epipen) 0.3 mg UD PRN IM 02/11/17 15:30 03/13/17 15:29 Salmeterol Xinafoate/ Fluticasone (Advair Diskus 500/50 Inh) 1 puff BID INH 02/11/17 21:00 03/13/17 20:59 02/14/17 20:11 1 PUFF Insulin Glargine (Lantus Solostar Pen) 30 units QPM SC 02/11/17 21:00 03/13/17 20:59 02/14/17 20:15 30 UNITS Levothyroxine Sodium (Synthroid Tab) 150 mcg DAILYBB PO 02/12/17 06:30 03/14/17 06:59 02/15/17 05:31 150 MCG Lorazepam (Ativan Tab) 1 mg TID PRN PO 02/11/17 15:30 03/13/17 15:29 02/14/17 20:11 1 MG Montelukast Sodium (Singulair Tab) 10 mg HS PO 02/11/17 21:00 03/13/17 20:59 02/14/17 20:09 10 MG Sertraline HCl (Zoloft Tab) 50 mg HS PO 02/11/17 21:00 03/13/17 20:59 02/14/17 20:10 50 MG Pantoprazole Sodium (Protonix Tab) 40 mg BID PO 02/11/17 21:00 03/13/17 20:59 02/14/17 20:10 40 MG Albuterol/ Ipratropium (Duoneb) 3 ml QIDR INH 02/11/17 16:00 03/13/17 15:59 02/15/17 11:36 3 ML Insulin Aspart (novoLOG ASPART) SLIDING SCALE G... ACHS SC 02/11/17 18:00 03/13/17 17:59 Enoxaparin Sodium (Lovenox Inj) 40 mg HS SQ 02/11/17 21:00 03/13/17 20:59 Future Hold 02/12/17 20:44 40 MG Cefepime HCl 2000 mg/Dextrose 112.5 ml @ 200 mls/hr Q8H IV 02/14/17 13:00 02/21/17 12:59 02/15/17 05:30 200 MLS/HR Levofloxacin 750 mg/Prmx 150 ml @ 100 mls/hr Q24H IV 02/14/17 14:00 02/21/17 13:59 02/14/17 12:45 100 MLS/HR Hydromorphone HCl (Dilaudid Inj) 0.5 mg Q5M PRN IV 02/15/17 08:30 02/15/17 13:30 Meperidine HCl (Demerol Inj) 25 mg Q5M PRN IV 02/15/17 08:30 02/15/17 13:30 Ondansetron HCl (Zofran Inj) 4 mg ONE PRN IV 02/15/17 08:30 02/15/17 13:30 02/15/17 10:19 4 MG Labetalol HCl (Normodyne IV) 5 mg Q5M PRN IV 02/15/17 08:30 02/15/17 13:30 Ephedrine Sulfate (EpHEDrine SULFATE INJ) 5 mg Q5M PRN IV 02/15/17 08:30 02/15/17 13:30 Atropine Sulfate (Atropine Sulfate 0.1MG/Ml Inj) 0.5 mg Q1M PRN IV 02/15/17 08:30 02/15/17 13:30 Methylprednisolone Sodium Succinate 40 mg/Syringe 0.64 ml @ 1.5 mls/min Q8H IV 02/15/17 18:00 03/17/17 17:59 I & O: 24-Hour Column 02/16/17 08:00 Intake Total 500 ml Output Total 150 ml Balance 350 ml Vital Signs: Date Time Temp Pulse Resp B/P (MAP) Pulse Ox O2 Delivery O2 Flow Rate FiO2 02/15/17 11:40 92 18 90 Nasal Cannula 5.0 02/15/17 10:45 36.6 95 18 110/72 (85) 90 Nasal Cannula 5.0 02/15/17 10:34 91 Nasal Cannula 5.0 02/15/17 10:30 36.8 89 18 107/64 (78) 90 Nasal Cannula 5.0 02/15/17 10:15 36.8 92 18 119/75 (90) 90 Nasal Cannula 5.0 02/15/17 10:10 36.2 94 22 120/71 91 Nasal Cannula 4 02/15/17 09:55 36.2 98 22 114/58 89 Nasal Cannula 4 02/15/17 09:40 102 22 111/56 90 Nasal Cannula 4 02/15/17 09:30 101 22 124/75 90 Nasal Cannula 4 02/15/17 09:20 99 18 125/66 98 CPAP 100 02/15/17 09:10 104 18 140/80 96 CPAP 100 02/15/17 09:00 101 18 144/87 93 CPAP 100 02/15/17 08:45 99 14 164/85 92 CPAP 100 02/15/17 08:35 36.2 101 14 181/100 90 CPAP 100 02/15/17 08:25 104 94 100 02/15/17 08:00 Nasal Cannula 4.0 02/15/17 04:18 36.7 91 20 127/81 (96) 92 Nasal Cannula 4.0 02/15/17 00:02 36.8 87 20 91/61 (71) 90 Nasal Cannula 4.0 02/15/17 00:00 Nasal Cannula 4.0 02/14/17 22:44 Nasal Cannula 4.0 02/14/17 20:25 36.8 91 18 126/84 (98) 90 Nasal Cannula 4.0 02/14/17 19:51 92 16 92 Nasal Cannula 4.0 02/14/17 18:29 Nasal Cannula 4.0 02/14/17 17:40 36.9 107 18 138/84 (102) 91 Nasal Cannula 4.0 02/14/17 15:32 37.2 101 18 113/74 (87) 90 Nasal Cannula 4.0 02/14/17 14:33 79 16 91 Nasal Cannula 4.0 Laboratory Results: Last 24 Hours Test 02/14/17 16:31 02/14/17 19:59 02/15/17 04:44 02/15/17 06:45 Bedside Glucose 154 mg/dl 173 mg/dl 165 mg/dl Test 02/15/17 11:37 Bedside Glucose 226 mg/dl
[2017-02-15 12:19] LABS: COMPLETE YES; HEMATOCRIT 37.4 % (37-47); IG% 0.5 %; LYMPH % 4.6 %; LYMPH ABS # 0.51 K/uL (1.2-3.4); MEAN CORPUSCULAR HEMOGLOBIN 25.2 pg (25-34); MEAN CORPUSCULAR HGB CONC 29.7 g/dl (32-36); MEAN PLATELET VOLUME 9.3 fL (7.4-10.4); MONO % 0.8 %; NEUT % 94.1 %; PLATELET COUNT 191 K/uL (130-400); WHITE BLOOD COUNT 11.05 K/uL (4.8-10.8)
[2017-02-15 12:41] LABS: BUN/CREATININE RATIO 12.7 (10-20); CALCIUM 9.1 mg/dl (8.5-10.1); CREATININE 0.77 mg/dl (0.60-1.20); MAGNESIUM 1.9 mg/dl (1.8-2.4)
[2017-02-15] MEDS: LEVOFLOXACIN / D5W 750 MG in PREMIXED IN D5W 150 ML IV SCH (13:37)
[2017-02-15] MEDS: LORAZEPAM 1 MG TAB PO PRN (13:42)
--- NOTE | 2017-02-15 15:55 | Hospitalist Progress Note ---
Hospitalist Progress Note Date of Service Feb 15, 2017. Subjective Pt evaluation today including: conversation w/ patient, conversation w/ telecommunications consultant (Dr. Spangler) Had bronch this AM and no sputum found. Was started on IV steroids as well. Feels much improved already. Not coughing nearly as much, the pressure in her chest on left side is relieved and she was able to sleep on her left side for a nap today. Ended up having good PIV today and midline placement cancelled All Other Systems: Reviewed and Negative Objective Vital Signs Date Time Temp Pulse Resp B/P (MAP) Pulse Ox O2 Delivery O2 Flow Rate FiO2 02/15/17 15:16 88 18 92 Nasal Cannula 5.0 02/15/17 13:44 36.6 90 20 123/75 (91) 91 Nasal Cannula 5.0 02/15/17 12:45 36.9 95 18 119/68 (85) 90 Nasal Cannula 5.0 02/15/17 11:45 36.8 95 18 107/72 (84) 91 Nasal Cannula 5.0 02/15/17 11:40 92 18 90 Nasal Cannula 5.0 02/15/17 11:15 36.6 91 20 110/74 (86) 89 Nasal Cannula 5.0 02/15/17 10:45 36.6 95 18 110/72 (85) 90 Nasal Cannula 5.0 02/15/17 10:34 91 Nasal Cannula 5.0 02/15/17 10:30 36.8 89 18 107/64 (78) 90 Nasal Cannula 5.0 02/15/17 10:15 36.8 92 18 119/75 (90) 90 Nasal Cannula 5.0 02/15/17 10:10 36.2 94 22 120/71 91 Nasal Cannula 4 02/15/17 09:55 36.2 98 22 114/58 89 Nasal Cannula 4 02/15/17 09:40 102 22 111/56 90 Nasal Cannula 4 02/15/17 09:30 101 22 124/75 90 Nasal Cannula 4 02/15/17 09:20 99 18 125/66 98 CPAP 100 02/15/17 09:10 104 18 140/80 96 CPAP 100 02/15/17 09:00 101 18 144/87 93 CPAP 100 02/15/17 08:45 99 14 164/85 92 CPAP 100 02/15/17 08:35 36.2 101 14 181/100 90 CPAP 100 8/18/17 08:25 104 94 100 02/15/17 08:00 Nasal Cannula 4.0 02/15/17 04:18 36.7 91 20 127/81 (96) 92 Nasal Cannula 4.0 02/15/17 00:02 36.8 87 20 91/61 (71) 90 Nasal Cannula 4.0 02/15/17 00:00 Nasal Cannula 4.0 02/14/17 22:44 Nasal Cannula 4.0 02/14/17 20:25 36.8 91 18 126/84 (98) 90 Nasal Cannula 4.0 02/14/17 19:51 92 16 92 Nasal Cannula 4.0 02/14/17 18:29 Nasal Cannula 4.0 02/14/17 17:40 36.9 107 18 138/84 (102) 91 Nasal Cannula 4.0 Physical Exam General Appearance: WD/WN, no apparent distress Eyes: normal inspection, sclerae normal ENT: hearing grossly normal, pharynx normal (nmo thrush, no erythemain pharynx) Neck: supple, trachea midline Respiratory/Chest: no respiratory distress, no accessory muscle use, + decreased breath sounds (at left base, otherwise a few faint wheeze scattered but much improved) Cardiovascular: regular rate, rhythm, no edema, no gallop, no murmur Abdomen: normal bowel sounds, non tender, soft Extremities: normal inspection, no pedal edema, no calf tenderness Neurologic/Psychiatric: alert, normal mood/affect, oriented x 3 Skin: normal color, warm/dry, no rash Laboratory Results Last 24 Hours Test 02/14/17 16:31 02/14/17 19:59 02/15/17 06:45 02/15/17 11:37 Bedside Glucose 154 mg/dl 173 mg/dl 165 mg/dl 226 mg/dl Test 02/15/17 12:03 White Blood Count 11.05 K/uL Red Blood Count 4.40 M/uL Hemoglobin 11.1 g/dL Hematocrit 37.4 % Mean Corpuscular Volume 85.0 fL Mean Corpuscular Hemoglobin 25.2 pg Mean Corpuscular Hemoglobin Concent 29.7 g/dl Platelet Count 191 K/uL Mean Platelet Volume 9.3 fL Neutrophils (%) (Auto) 94.1 % Lymphocytes (%) (Auto) 4.6 % Monocytes (%) (Auto) 0.8 % Eosinophils (%) (Auto) 0.0 % Basophils (%) (Auto) 0.0 % Neutrophils # (Auto) 10.40 K/uL Lymphocytes # (Auto) 0.51 K/uL Monocytes # (Auto) 0.09 K/uL Eosinophils # (Auto) 0.00 K/uL Basophils # (Auto) 0.00 K/uL RDW Standard Deviation 50.1 fL RDW Coefficient of Variation 16.1 % Immature Granulocyte % (Auto) 0.5 % Immature Granulocyte # (Auto) 0.05 K/uL Sodium Level 136 mmol/L Potassium Level 4.0 mmol/L Chloride Level 99 mmol/L Carbon Dioxide Level 33 mmol/L Anion Gap 4.0 mmol/L Blood Urea Nitrogen 10 mg/dl Creatinine 0.77 mg/dl Est Creatinine Clear Calc Drug Dose 115.4 ml/min Estimated GFR () 105.1 Estimated GFR (Non- 90.7 BUN/Creatinine Ratio 12.7 Random Glucose 208 mg/dl Calcium Level 9.1 mg/dl Magnesium Level 1.9 mg/dl Assessment and Plan This pt is a 51 y/o female with a history of metastatic non small cell lung cancer with mets to LNs and brain, DM II, HTN, HLD, hypothyroidism, anemia, COPD , asthma, anxiety, depression, PTSD, and GERD who presented to the ED on 02/11 with worsening shortness of breath and worsening sputum production. She was recently treated as an outpt with 10 days of po Levaquin for presumed PNA. Outpatient repeat CXR shows unchanged left pleural effusion and left upper lobe infiltrate. EKG did not show any ischemic changes. Pt was afebrile, VSS and on her home oxygen requirement of 3L NC. Pt received Lasix 40 mg IV x 1 in ED as was thought to be CHF. POC troponin negative. BNP negative. Denies any worsening lower extremity edema, she has no history of CHF, and her pro BNP here is normal. CHF unlikely Progressive SOB, left malignant loculated pleural effusion with atelectasis, metastatic non small cell lung cancer, recurrent/ongoing PNA-probable failure of outpatient treatment for pneumonia. Also with pleural effusion. No evidence of sepsis, no leukocytosis or fevers. There is no evidence of CHF and no reason to continue diuresis at this point. Her effusion secondary to her malignancy. I discussed the case with Dr. Spangler of thoracic surgery at length-not enough fluid to tap at this time. Now is not improving on antibiotics --> went for bronchoscopy and biopsy of lymph node on 02/15 that confirmed cancer in LNs, but no sputum found anywhere despite her subjective history. -continue Cefepime and Levaquin -started IV steroids today and doing much better-> continue steroids and taper down over 2 weeks -continue Nebulizers -Appreciate pulmonology and CT Surgery consultations -f/u Blood cultures and sputum as well as BAL -f/u pathology from LN bx but already prelim positive intraoperatively Metastatic NSCLC: PET/CT scan 01/23/17 shows progressive cancer with mets to bilateral lungs and significant lymphadenopathy Pt received 1 treatment of chemo which she did not tolerate. 17 sessions of radiation to the chest. Mets to the brain, received 2 treatments brain radiation in October 2016. Follows with Dr. Bajwa for oncology and Dr. Nash for radiation. There is consideration of restarting a lower dose of some sort of chemotherapy regimen, however her recent pneumonia has further delayed this. -f/u with Oncology after discharge -Palliative Care consult appreciated-pt wishes to enroll in hospice if she is not able to move forward with chemo again Hypokalemia-resolved after replacement -follow PRP Diarrhea, recent h/o hematochezia- Heme+ here but Hgb increased today to 11.1 C. diff negative -consider GI consultation as outpt if willing to pursue endoscopy above and below -follow CBC DM II--last HgbA1c checked 01/18/17 was 6.8. Now with hyperglycemia secondary to steroids -increase Lantus to 32 units SC qpm -Insulin sliding scale-lower correction factor and add carb coverage -Check BSGs q ac and qhs Chronic Fe-def anemia and probably some anemia of chronic disease-Fe studies mixed picture, also with Hemoccult positive -Baseline hgb 10-11, hgb is 10.8 on admission -Continue to monitor -could start FeSO4 HTN-not currently on treatment for this, BPs here have been acceptable -continue to check BPs routinely Hypothyroidism-TSH here normal -Continue Synthroid 150 mcg PO qd COPD and asthma -DuoNebs as above -Continue Advair BID and Singulair 10 mg PO qd Anxiety, depression, PTSD -Continue Ativan 1 mg PO TID prn anxiety and Zoloft 50 mg PO qhs GERD -Rabeprazole converted to pantoprazole 40 mg PO BID DVT prophylaxis -Enoxaparin 40 mg SC [id number] tonight given LN bxs today -DARYN douglas and Trupti Code Status -Level I, FULL RESUSCITATION STATUS Dispo- to home when improved
[2017-02-15] MEDS: METHYLPREDNISOLONE IV 40 MG in SYRINGE 0 ML IV SCH (17:49)
[2017-02-15] MEDS: SERTRALINE HCL 50 MG TAB PO SCH (20:18)
[2017-02-15] MEDS: MONTELUKAST SOD 10 MG TAB PO SCH (20:18)
[2017-02-15] MEDS: ACETAMINOPHEN 325 MG TAB PO PRN (20:38)
[2017-02-15] MEDS ORDERED: INSULIN GLARGINE SOLOSTAR 100 UNITS/ML 3 ML PEN SC SCH (21:00)
[2017-02-16] MEDS: METHYLPREDNISOLONE IV 40 MG in SYRINGE 0 ML IV SCH (02:01)
[2017-02-16] MEDS: ACETAMINOPHEN 325 MG TAB PO PRN ×2 (02:01→05:58)
[2017-02-16 04:25] VITALS: BP 114/71; PULSE 78; TEMP 36.6; O2SAT 90
[2017-02-16] MEDS: CEFEPIME IV 2,000 MG in DEXTROSE 5% 100ML 100 ML IV SCH (05:01)
[2017-02-16] MEDS: LEVOTHYROXINE 150 MCG TAB PO SCH (05:02)
[2017-02-16 06:23] LABS: COMPLETE YES; HEMATOCRIT 32.2 % (37-47); IG% 0.2 %; LYMPH % 6.7 %; LYMPH ABS # 0.39 K/uL (1.2-3.4); MEAN CELL VOLUME 82.4 fL (80-100); MEAN CORPUSCULAR HEMOGLOBIN 25.6 pg (25-34); MEAN CORPUSCULAR HGB CONC 31.1 g/dl (32-36); MEAN PLATELET VOLUME 9.2 fL (7.4-10.4); MONO % 2.6 %; NEUT % 90.5 %; PLATELET COUNT 159 K/uL (130-400); RED BLOOD COUNT 3.91 M/uL (4.2-5.4); WHITE BLOOD COUNT 5.86 K/uL (4.8-10.8)
[2017-02-16 06:53] LABS: BUN/CREATININE RATIO 17.2 (10-20); CALCIUM 9.5 mg/dl (8.5-10.1); CREATININE 0.72 mg/dl (0.60-1.20); MAGNESIUM 2.1 mg/dl (1.8-2.4); POTASSIUM 3.7 mmol/L (3.5-5.1)
[2017-02-16] MEDS: ALBUT/IPRATROP 3MG/0.5MG NEB 3 ML VIAL INH SCH (07:07)
[2017-02-16 07:09] VITALS: PULSE 81; O2SAT 92
[2017-02-16 07:29] VITALS: BP 130/77; PULSE 82; TEMP 36.6; O2SAT 92
[2017-02-16] MEDS: FLUTICASONE/SALMETEROL (ADVAIR) 500/50 INH 14 PUFF INH SCH (08:25)
[2017-02-16] MEDS: PANTOprazole SOD 40 MG TAB PO SCH (08:26)
[2017-02-16] MEDS: LORAZEPAM 1 MG TAB PO PRN (08:27)
[2017-02-16] MEDS ORDERED: INSDGIPEN SC (08:38)
[2017-02-16] MEDS ORDERED: OXGN (08:38)
[2017-02-16] MEDS ORDERED: LEVO1TAB35 PO ×2 (08:38→08:54)
[2017-02-16] MEDS ORDERED: PRD20 PO (08:38)
--- NOTE | 2017-02-16 08:41 | Discharge Instructions ---
Discharge Instructions Date of Service Feb 16, 2017. Admission Reason for Admission: Lung Cancer, Pleural Effusion Discharge Discharge Diagnosis / Problem: Pneumonia, Lung cancer, plerual effusion Discharge Goals Goal(s): Improve disease control, Diagnostic testing, Therapeutic intervention Activity Recommendations Activity Limitations: resume your previous activity Exercise/Sports Limitations: gradually increase as tolerated Shower/Bathe: no limitations . Instructions / Follow-Up Instructions / Follow-Up You were admitted with shortness of breath and treated for pneumonia. You had a bronchoscopy while bonilla were here. You had improvement with IV antibiotics and steroids. Please finish out your course of antibiotics and steroids as prescribed. Dr. Spangler wants to see you in his office in 2 weeks. He will help arrange an appointment with Dr. Patiño for you after that. Please also follow up with your primary care doctor within 1 week. Current Hospital Diet Patient's current hospital diet: AHA Diet (Heart Healthy), Diabetes Type 2 Diet Discharge Diet Recommended Diet: Diabetes Type 2 Diet Procedures Procedures Performed: Endobronchial Ultrasound; Fiberoptic Bronchoscopy Pending Studies Studies pending at discharge: yes List of pending studies: Cultures from bronchoscopy Laboratory Results Hemoglobin A1c Test 01/18/17 15:20 Range/Units Estimated Average Glucose 148 mg/dl Hemoglobin A1c 6.8 H 4.5-5.6 % Medical Emergencies . Who to Call and When: Medical Emergencies: If at any time you feel your situation is an emergency, please call 911 immediately. . Non-Emergent Contact Non-Emergency issues call your: Primary Care Provider, Oncologist, Surgeon Call Non-Emergent contact if: you have a fever, your pain is not controlled, your pain is worsening, your pain is unusual for you, your pain is concerning you, you have any medication questions . . "Provider Documentation" section prepared by Namita Hammond. . VTE Core Measure Inpt VTE Proph given/why not?: Enoxaparin (Lovenox)EVIE, Sai Mak, SCD's
[2017-02-16] MEDS: INSULIN ASPART 100 UNITS/ML 3 ML PEN SC SCH (08:53)
[2017-02-16] MEDS ORDERED: FLUC100T4 PO (08:54)
[2017-02-16 09:00] VITALS: BP 130/77; PULSE 82; TEMP 36.6; O2SAT 92
--- NOTE | 2017-02-16 09:02 | SURGERY PROGRESS NOTE ---
DATE: 02/16/2017 The patient is seen today on 02/16/2017. The patient looks great today. She has responded very well to steroids. She is on 4 liters of O2, but her cough is essentially abated. She is producing was no sputum. I discussed this with Dr. Hammond and the patient. From my standpoint, I believe she can be sent home on steroids. I will see her back in the office in 2 weeks with a chest x-ray. I would recommend she go home on antibiotics as well as a tapering dose of steroids. Unfortunately, it appears that we are probably simply dealing with progressive carcinoma. The patient is being followed by Dr. Tayler Patiño from an oncology standpoint and we will make sure that followup takes place.
[2017-02-16] MEDS ORDERED: INSULIN GLARGINE SOLOSTAR 100 UNITS/ML 3 ML PEN SC SCH (21:00)
--- NOTE | 2017-03-05 14:49 | Palliative Care Progress Note ---
Palliative Care Progress Note Date of Service Mar 05, 2017. Subjective Pt evaluation today including: conversation w/ patient Spoke with Carina Morrison on phone today. Carina is not doing well. She has increased SOB, sputum production, and overall has had a decline in condition. She does not wish to come to the hospital and voiced to me that, "There's no point in seeing my oncologist. I know I can't get chemo like this with this infection." Patient feels that she needs hospice at this time. She wants symptom management, equipment in the home, and help with medications. Again, she does not feel that she needs to come to the hospital at this time, but I advised her if an emergency arises, to come to ED. Given patient's known progressive carcinoma of the lungs now with mets to the brain, I will refer to hospice agency. Patient chose [facility].
--- NOTE | 2017-03-05 17:03 | Discharge Summary ---
Discharge Summary Date of Service Feb 16, 2017. Discharge Summary Admission Date: Feb 11, 2017 at 15:49 Discharge Date: Feb 16, 2017 Discharge Disposition: Home Principal Diagnosis: Pneumonia, Metastatic lung CA, Malignant pleural effusion Problems/Secondary Diagnoses: Metastatic non small cell lung cancer with mets to LNs and brain DM II HTN HLD Hypothyroidism Anemia COPD Asthma Anxiety disorder Depression PTSD GERD Marijuana abuse Hypokalemia Diarrhea Hematochezia Immunizations: Have You Had Influenza Vaccine: Yes Influenza Vaccine Date: Apr 19, 2013 History of Tetanus Vaccine?: Yes Tetanus Immunization Date: Aug 20, 2013 History of Pneumococcal: Yes Pneumococcal Date: Aug 20, 2008 History of Hepatitis B Vaccine: Unknown Procedures: Bronchoscopy with EBUS Chest xrays Consultations: Thoracic Surgery Pulmonology Medication Reconciliation New Medications: Levofloxacin (Levaquin) 750 Mg Tab 750 MG PO DAILY for 7 Days, #7 TAB Prednisone (Prednisone) 20 Mg Tab 60 MG PO DAILY for 8 Days, #13 TAB x 2 days then 40mg daily x 2 days then 20mg daily x 2 days then 10mg daily x 2 days then STOP Changed Medications: Home O2 Therapy (Oxygen) Gas 4 LITERS NA CONTINOUS PRN for Shortness of Breath for 30 Days, BTL (Changed from : 2 LITERS) Insulin Glargine (Lantus Solostar) 100 Unit/Ml Inj 35 UNITS SC QPM for 7 Days, PEN (Changed from: 30 UNITS) then go back to 30 units every evening once steroids are DONE Continued Medications: Albuterol Hfa (Ventolin Hfa) 200 Puffs/26736 Mcg Aers 2 PUFFS INH QID PRN for SOB/Wheezing, #1 INHALER Diphenhydramine Hcl (Benadryl) 25 Mg Cap 50 MG PO HS, CAP Diphenhydramine Hcl (Benadryl Allergy) 25 Mg Cap 1 CAP PO QAM for 30 Days, #30 CAP 1 Refill Epinephrine (Epipen 2-Saad) 0.3 Mg Inj 0.3 MG IM UD PRN for ALLERGIC REACTION Fluticasone Prop/Salmeterol (Advair Diskus 500/50 60 Dose) 1 Ea Aerp 1 PUFF INH BID, INHALER Insulin Aspart (Novolog Flexpen) 100 Units/Ml Inj 1 DOSE SQ SLIDING SCALE 150-200=4 UNITS 201-300=6 UNITS 301-350=8 UNITS >350= CALL MD Ipratropium-Albuterol (Duoneb) 3 Ml Nebu 1 TREATMENT INH Q4H PRN for SOB/Wheezing, INHA Levothyroxine Sodium (Synthroid) 150 Mcg Tab 150 MCG PO QAM Lorazepam (Lorazepam) 1 Mg Tab 1 MG PO TID PRN for Anxiety Montelukast Sodium (Singulair) 10 Mg Tab 10 MG PO HS, TAB Rabeprazole Sodium (Aciphex) 20 Mg Tab 1 TAB PO BID for 30 Days, #60 TAB 2 Refills Sertraline Hcl (Zoloft) 50 Mg Tab 50 MG PO HS, TAB Discharge Exam Feeling much better, sputum production is very minimal now, no more hemoptysis, breathing easier. Ready to go home Review of Systems: Constitutional: No fever, No chills Eyes: No problem reported ENT: No problem reported Respiratory: + cough, + dyspnea on exertion Cardiovascular: No chest pain Abdomen: No pain, No nausea, No vomiting Musculoskeletal: No problem reported Genitourinary - Female: No problem reported Neurologic: No problem reported Psychiatric: No problem reported Endocrine: No problem reported Hematologic / Lymphatic: No problem reported Integumentary: No problem reported Physical Exam: General Appearance: WD/WN, no apparent distress, + obese Eyes: normal inspection, sclerae normal ENT: hearing grossly normal Neck: trachea midline Respiratory/Chest: no respiratory distress, no accessory muscle use, + wheezing (a few scattered, also with decreased BS at left base unchanged from previous) Cardiovascular: regular rate, rhythm, no edema, no gallop, no murmur Abdomen / GI: normal bowel sounds, soft Extremities: no calf tenderness, no pedal edema Neurologic/Psychiatric: alert, normal mood/affect Skin: normal color, warm/dry (with a little flushing in the cheeks today from steroids) Hospital Course This pt is a 51 y/o female with a history of metastatic non small cell lung cancer with mets to LNs and brain, DM II, HTN, HLD, hypothyroidism, anemia, COPD , asthma, anxiety, depression, PTSD, and GERD who presented to the ED on 02/11 with worsening shortness of breath and worsening sputum production. She was recently treated as an outpt with 10 days of po Levaquin for presumed PNA. Outpatient repeat CXR shows unchanged left pleural effusion and left upper lobe infiltrate. EKG did not show any ischemic changes. Pt was afebrile, VSS and on her home oxygen requirement of 3L NC. Pt received Lasix 40 mg IV x 1 in ED as was thought to be CHF. POC troponin negative. BNP negative. Denies any worsening lower extremity edema, she has no history of CHF, and her pro BNP here is normal. CHF unlikely Progressive SOB, left malignant loculated pleural effusion with atelectasis, metastatic non small cell lung cancer, recurrent/ongoing PNA-probable failure of outpatient treatment for pneumonia. Also with pleural effusion. No evidence of sepsis, no leukocytosis or fevers. There is no evidence of CHF and no reason to continue diuresis at this point. Her effusion secondary to her malignancy. I discussed the case with Dr. Spangler of thoracic surgery at length-not enough fluid to tap at this time. Now is not improving on antibiotics --> went for bronchoscopy and biopsy of lymph node on 02/15 that confirmed cancer in LNs, but no sputum found anywhere despite her subjective history. -continue Cefepime and Levaquin Received IV steroids and doing much better-> continue steroids by mouth upon discharge and taper down over 2 weeks -continue Nebulizers -Appreciate pulmonology and CT Surgery consultations -f/u Blood cultures and sputum as well as BAL -f/u pathology from LN bx but already prelim positive intraoperatively -Follow up with pulmonology as an outpatient Metastatic NSCLC: PET/CT scan 01/23/17 shows progressive cancer with mets to bilateral lungs and significant lymphadenopathy Pt received 1 treatment of chemo which she did not tolerate. 17 sessions of radiation to the chest. Mets to the brain, received 2 treatments brain radiation in October 2016. Follows with Dr. Bajwa for oncology and Dr. Nash for radiation. There is consideration of restarting a lower dose of some sort of chemotherapy regimen, however her recent pneumonia has further delayed this. -f/u with Oncology after discharge -Palliative Care consult appreciated-pt wishes to enroll in hospice if she is not able to move forward with chemo again Hypokalemia-resolved after replacement -follow PRP Diarrhea, recent h/o hematochezia- Heme+ here but Hgb stable throughout hospitalization C. diff negative -consider GI consultation as outpt if willing to pursue endoscopy above and below -follow CBC DM II--last HgbA1c checked 01/18/17 was 6.8. Now with hyperglycemia secondary to steroids -increased Lantus to 35 units SC qpm while on steroids and then can return to 30 units daily once steroid taper is completed Chronic Fe-def anemia and probably some anemia of chronic disease-Fe studies mixed picture, also with Hemoccult positive -Baseline hgb 10-11, hgb is 10.8 on admission -Continue to monitor -could start FeSO4 HTN-not currently on treatment for this, BPs here have been acceptable -continue to check BPs routinely Hypothyroidism-TSH here normal -Continue Synthroid 150 mcg PO qd COPD and asthma -DuoNebs as above -Continue Advair BID and Singulair 10 mg PO qd Anxiety, depression, PTSD -Continue Ativan 1 mg PO TID prn anxiety and Zoloft 50 mg PO qhs GERD -Continue PPI Stable for discharge to home Total Time Spent: Greater than 30 minutes This includes examination of the patient, discharge planning, medication reconciliation, and communication with other providers. Discharge Instructions Please refer to the electronic Patient Visit Report (Discharge Instructions) for additional information. Additional Copies To Mariusz Matamoros M.D.; Braulio Spangler MD
== END 2017-02-16 10:02 | disposition home or self-care (01) | DRG 166 ==
LOC: C.EDB 11:52 → C.MED 15:49 → ENRESERV 16:42 → C.4E 02-12 14:39
PROVIDERS: ADMIT Family Medicine; ATTEND Family Medicine
PROC: 07974ZX Drainage of Thorax Lymphatic, Percutaneous Endoscopic Approach, Diagnostic (ICD-10-PCS; principal; 2017-02-15 07:15)
PROC: 0B988ZX Drainage of Left Upper Lobe Bronchus, Via Natural or Artificial Opening Endoscopic, Diagnostic (ICD-10-PCS; principal; 2017-02-15 07:15)
PROC: 0B9B8ZX Drainage of Left Lower Lobe Bronchus, Via Natural or Artificial Opening Endoscopic, Diagnostic (ICD-10-PCS; principal; 2017-02-15 07:15)
DX: C34.92 Malignant neoplasm of unspecified part of left bronchus or lung (principal); J18.9 Pneumonia, unspecified organism; J91.0 Malignant pleural effusion; C77.1 Secondary and unspecified malignant neoplasm of intrathoracic lymph nodes; C79.31 Secondary malignant neoplasm of brain; Z68.41 Body mass index [BMI] 40.0-44.9, adult; R19.7 Diarrhea, unspecified; E87.6 Hypokalemia; D50.9 Iron deficiency anemia, unspecified; I10 Essential (primary) hypertension; J45.909 Unspecified asthma, uncomplicated; E11.9 Type 2 diabetes mellitus without complications; J44.9 Chronic obstructive pulmonary disease, unspecified; F32.9 Major depressive disorder, single episode, unspecified; E78.5 Hyperlipidemia, unspecified; E03.9 Hypothyroidism, unspecified; F41.9 Anxiety disorder, unspecified; K21.9 Gastro-esophageal reflux disease without esophagitis; E66.01 Morbid (severe) obesity due to excess calories; Z79.899 Other long term (current) drug therapy; Z79.4 Long term (current) use of insulin; Z87.891 Personal history of nicotine dependence; Z83.3 Family history of diabetes mellitus; Z82.49 Family history of ischemic heart disease and other diseases of the circulatory system; Z80.8 Family history of malignant neoplasm of other organs or systems; Z82.5 Family history of asthma and other chronic lower respiratory diseases

== ENCOUNTER → 2017-02-11 | Outpatient (CLI) | payer OTHER ==
--- NOTE | 2017-02-11 12:17 | DIAGNOSTIC IMAGING REPORT ---
CHEST 2 VIEWS ROUTINE CLINICAL HISTORY: J18.9 [id number] pneumonia. Dyspnea. COMPARISON STUDY: 01/31/2017 FINDINGS: Unchanging left pleural effusion. Unchanging infiltrative change left upper lung. Increase in bronchovascular prominence bilaterally. Pulmonary reticular nodular-type changes have remains stable. Potential developing components of congestive failure. IMPRESSION: 1. Unchanging left pleural effusion. 2. Similar left upper lobe infiltrate. 3. Probable developing components of congestive failure/pulmonary edema The above report was generated using voice recognition software. It may contain grammatical, syntax or spelling errors. Electronically signed by: Urbano Ricketts M.D. 02/11/2017 12:16 PM Dictated Date/Time: 02/11/2017 12:15 PM
== END | disposition home or self-care (01) ==
LOC: C.RAD1850 11:06
PROVIDERS: ATTEND Physician Assistant Medical
DX: J90 Pleural effusion, not elsewhere classified (principal); J18.9 Pneumonia, unspecified organism

== ENCOUNTER → 2017-03-11 | Outpatient (CLI) | payer OTHER ==
[~2017-03-11] MED LIST changes: -FLUC150T54 PO; +IPRASOL4 INH; -LEVO137T3 PO; -LEVO1TAB35 PO; +PRD20 PO
--- NOTE | 2017-03-11 10:38 | DIAGNOSTIC IMAGING REPORT ---
CHEST 2 VIEWS ROUTINE CLINICAL HISTORY: J90 Pleural [id number] COMPARISON STUDY: 02/15/2017 FINDINGS: The heart is enlarged. There is persistent superior mediastinal fullness. There is a persistent left pleural effusion with associated left lower lobe atelectasis/consolidation. Multiple pulmonary nodules are suspected. There is coarsening of the interstitial markings.[ IMPRESSION: 1. Suspected multiple pulmonary nodules, suspicious for metastatic disease 2. Superior mediastinal fullness suspicious for pathologic adenopathy 3. Cardiomegaly and interstitial thickening/edema 4. Small left pleural effusion with left lower lobe atelectasis/consolidation Electronically signed by: Raul Ortiz M.D. 03/11/2017 10:36 AM Dictated Date/Time: 03/11/2017 10:33 AM
== END | disposition home or self-care (01) ==
LOC: C.RAD1850 10:14
PROVIDERS: ATTEND Surgery
DX: J90 Pleural effusion, not elsewhere classified (principal)

== ENCOUNTER 2017-03-30 02:30 | Emergency (ER) | payer OTHER ==
[2017-03-30 02:35] VITALS: BP_DIAS 103; TEMP 36.9; O2SAT 77; Ht 172.7 cm
[2017-03-30] MEDS ORDERED: ALBUT/IPRATROP 3MG/0.5MG NEB 3 ML VIAL INH ONE (02:45)
[2017-03-30] MEDS ORDERED: ONDANSETRON INJ 2 MG/ML 2 ML VIAL ONE (02:56)
[2017-03-30] MEDS ORDERED: MoRPHine SULFATE 4 MG/ML 1 ML CARP\\VIAL ONE (02:56)
--- NOTE | 2017-03-30 03:08 | EMERGENCY ROOM VISIT NOTE ---
History Report prepared by Hosea: Odilon Mack Under the Supervision of: Dr. Do Song D.O. First contact with patient: 02:54 Chief Complaint: SHORTNESS OF BREATH Stated Complaint: RESPIRATORY DIFFICULTY History of Present Illness The patient is a 51 year old female who presents to the Emergency Room with complaints of worsening shortness of breath beginning yesterday. Nursing staff states the patient was given liquid Tylenol and morphine. They report the patient was given 125mg of Solu-Medrol and 4 Duoneb treatments in the ambulance. Nursing staff notes the patient typically wears 8-10L of oxygen at home. The patient's states she started Levaquin yesterday by her hospice nurse for a productive cough. He reports she is only under comfort care from [facility], and she is DNR. The notes she has been short of breath and had a decreased level of consciousness since yesterday. He states the patient has end-stage lung cancer and is on comfort measures by hospice. Source of History: family (), nursing staff Onset: yesterday Position: other (global) Quality: other (SOB) Timing: worsening Associated Symptoms: + cough Note: Associated symptoms: decreased level of consciousness Review of Systems See HPI for pertinent positives & negatives. A total of 10 systems reviewed and were otherwise negative. Past Medical & Surgical Medical Problems: (1) Altered mental status (2) Anxiety (3) Asthma (4) Benign hypertension (5) Brain metastases (6) Bronchitis (7) Cellulitis of hand (8) Chronic back pain (9) COPD (10) Depression (11) Emphysema (12) Felon of finger (13) Lung cancer (14) Orthopedic surgery (15) Pneumonia (16) Pulmonary emphysema Surgical Problems: (1) H/O section (2) History of appendectomy (3) History of cholecystectomy Family History Abdominal pain FHx: cancer FHx: diabetes FHx: gallbladder disease FHx: heart disease FHx: hypertension FHx: lung disease Myocardial infarction Stroke Social History Smoking Status: Former Smoker Alcohol Use: none Drug Use: marijuana Marital Status: in relationship Housing Status: lives with significant other Occupation Status: disabled Current/Historical Medications Scheduled Diphenhydramine Hcl (Benadryl), 50 MG PO HS Diphenhydramine Hcl (Benadryl Allergy), 1 CAP PO QAM Fluticasone Prop/Salmeterol (Advair Diskus 500/50 60 Dose), 1 PUFF INH BID Insulin Aspart (Novolog Flexpen), 1 DOSE SQ SLIDING SCALE Insulin Glargine (Lantus Solostar), 35 UNITS SC QPM Levothyroxine Sodium (Synthroid), 150 MCG PO QAM Montelukast Sodium (Singulair), 10 MG PO HS Prednisone (Prednisone), 60 MG PO DAILY Rabeprazole Sodium (Aciphex), 1 TAB PO BID Sertraline Hcl (Zoloft), 50 MG PO HS Scheduled PRN Albuterol Hfa (Ventolin Hfa), 2 PUFFS INH QID PRN for SOB/Wheezing Epinephrine (Epipen 2-Saad), 0.3 MG IM UD PRN for ALLERGIC REACTION Home O2 Therapy (Oxygen), 4 LITERS NA CONTINOUS PRN for Shortness of Breath Ipratropium-Albuterol (Duoneb), 1 TREATMENT INH Q4H PRN for SOB/Wheezing Lorazepam (Lorazepam), 1 MG PO TID PRN for Anxiety Durable Medical Equipment Needle (Bd Pen Needle/Mini/Ultraf), BOX SC DAILY Allergies Coded Allergies: BEE STING (Verified Allergy, Severe, ANAPHYLAXIS, 01/21/17) Fentanyl (Verified Allergy, Severe, EYES SWELLED SHUT, 01/21/17) Adhesives (Verified Allergy, Unknown, blisters, 01/21/17) [employer] (Unverified Allergy, Unknown, MOUTH ITCHES, SKIN PEELS, 01/21/17) Honey (Verified Allergy, Unknown, anaphylaxis, 01/21/17) pt Latex1 -Allergic Contact Dermititis (Verified Allergy, Unknown, LOCAL RXN- BLISTERING, 01/21/17) Metformin (Verified Allergy, Unknown, PER RECORDS , 01/21/17) [place] (Verified Allergy, Unknown, SKIN PEELS, 01/21/17) [place] (Verified Allergy, Unknown, MUST BE PEELED, 01/21/17) Penicillins (Verified Allergy, Unknown, 01/21/17) Tiotropium (Verified Allergy, Unknown, UNKNOWN REACTION, 01/21/17) Buspirone (Verified Adverse Reaction, Mild, ALLERGIC TO GENERIC DRUG- TAKES BRAND AT HOME, 01/21/17) Duloxetine (Verified Adverse Reaction, Unknown, lethargy,hallucinations, ) pt Uncoded Allergies: CHEMO (Adverse Reaction, Severe, ELEVATED BP, SEVERE MIGRAINE, 08/06/16) Physical Exam Vital Signs Date Time Temp Pulse Resp B/P (MAP) Pulse Ox O2 Delivery O2 Flow Rate FiO2 03/30/17 05:15 0 0 0/ 03/30/17 03:06 43 03/30/17 02:35 36.9 109 32 122/103 77 Nasal Cannula 03/30/17 02:35 Mask 10.0 Physical Exam General: Patient is in severe respiratory distress with an altered level of consciousness. HEENT: Head - normocephalic and atraumatic Pupils are equal, round, and reactive to light. Extraocular eye muscles are intact, and sclera are anicteric. Nose - moist nasal mucosa without discharge. Mouth - moist buccal mucosa. Oropharynx is nonerythematous and there is no tonsillar exudate or edema noted. Neck: Supple; no JVD, nuchal rigidity, cervical lymphadenopathy. Heart: Tachycardic rate and rhythm. There is a normal S1 and S2 with no murmurs , clicks, or gallops appreciated. Lungs: Clear to auscultation bilaterally with no wheezes, rales, or rhonchi. Minimal air exchange. Abdomen: Soft, completely nontender, distended, with good bowel sounds. There are no palpable pulsatile masses or hepatosplenomegaly. There is no guarding, rigidity, or rebound noted. Extremities: No evidence of cyanosis or clubbing. 1+ lower extremity edema. There are easily palpable peripheral pulses. Skin: warm and dry with good turgor and no rashes. Pale. Medical Decision & Procedures Laboratory Results Test 03/30/17 02:51 Bedside Glucose 285 mg/dl (70-90) Laboratory results per my review. Medications Administered Medications (Trade) Dose Ordered Sig/Pravni Route Start Time Stop Time Status Last Admin Dose Admin Morphine Sulfate (MoRPHine SULFATE INJ) 4 mg STK-MED ONCE .ROUTE 03/30/17 02:56 03/30/17 02:57 DC 03/30/17 02:56 4 MG Ondansetron HCl (Zofran Inj) 4 mg STK-MED ONCE .ROUTE 03/30/17 02:56 03/30/17 02:57 DC 03/30/17 02:56 4 MG Procedure 0256: Ordered Ondansetron HCl 4mg IV, Morphine Sulfate 4mg IV. ECG Indication: SOB/dyspnea Rate (beats per minute): 109 Rhythm: sinus tachycardia Findings: no acute ischemic change, no ectopy ED Course 0255: Past medical records reviewed. The patient was evaluated in room A10. A complete history and physical exam was performed. 0256: Ordered Ondansetron HCl 4mg IV, Morphine Sulfate 4mg IV. I discussed the case with the patient's and he confirmed comfort measures only. 0310: The patient was pronounce . Medical Decision The patient is a 51 year old female who presents to the ED with worsening shortness of breath. Differential diagnosis includes pneumonia, respiratory failure, end stage lung cancer. Lab results show: glucose of 285 The patient is on hospice care for end-stage lung cancer. The patient developed severe a respiratory distress tonight and asked her to call for help. The patient arrived in the emergency department in respiratory failure with decreased level of consciousness. After just a short period of time, the patient became bradycardic and her respiratory rate went to 6. She then became asystolic. She was pronounced 10 at 3:10 AM Impression Primary Impression: Respiratory failure Scribe Attestation The scribe's documentation has been prepared under my direction and personally reviewed by me in its entirety. I confirm that the note above accurately reflects all work, treatment, procedures, and medical decision making performed by me. Departure Information Dispostion Referrals Mariusz Matamoros M.D. (PCP) Patient Instructions My [facility] Problem Qualifiers Primary Impression: Respiratory failure Chronicity: acute on chronic Respiratory failure complication: hypoxia Qualified Codes: J96.21 - Acute and chronic respiratory failure with hypoxia
[2017-03-30] MEDS ORDERED: NURSING VERBAL MED ORDER ONE (03:30)
[2017-03-30 05:15] VITALS: BP_SYST 0; PULSE 0
== END 2017-03-30 05:22 | disposition expired ==
LOC: EDBD 02:30 → C.EDA 02:35
DX: J96.21 Acute and chronic respiratory failure with hypoxia (principal); F41.9 Anxiety disorder, unspecified; J45.909 Unspecified asthma, uncomplicated; I10 Essential (primary) hypertension; J44.9 Chronic obstructive pulmonary disease, unspecified; F32.9 Major depressive disorder, single episode, unspecified; Z82.49 Family history of ischemic heart disease and other diseases of the circulatory system; Z82.3 Family history of stroke; Z87.891 Personal history of nicotine dependence; F12.90 Cannabis use, unspecified, uncomplicated; Z79.4 Long term (current) use of insulin